=== PATIENT | male | born 1955 | race Caucasian/White ===

== ENCOUNTER → 2024-12-31 | Outpatient (CLI) | payer MEDICARE ==
--- NOTE | 2024-12-31 08:03 | US ---
EXAMINATION TYPE: US abdomen complete DATE OF EXAM: 12/31/2024 COMPARISON: NONE CLINICAL INDICATION: Male, 69 years old with history of R10.9 UNSPECIFIED ABDOMINAL PAIN; Pain x 10 d ays intermittently epigastric area. TECHNIQUE: Grayscale and color Doppler imaging of the abdomen was performed. FINDINGS: EXAM MEASUREMENTS: Liver Length: 17.0 cm Gallbladder Wall: 0.29 cm CBD: 0.63 cm, color Doppler imaging was utilized to isolate the common bile duct for measurement. Spleen: 11.0 cm Right Kidney: 11.9 x 6.5 x 5.7 cm Left Kidney: 11.7 x 5.5 x 5.9 cm PROMOTIONS INTERN NOTES: Exam is limited due to gas. Pancreas: Not well seen. *Portions seen appear heterogeneous. Liver: Contour appears lobulated. Appears coarse/heterogeneous. Measures upper limits. Gallbladder: *Echogenic material seen within: 1.4 x 0.8 x 0.8 cm. Evidence for sonographic Centeno's sign: No CBD: Appears wnl Spleen: wnl Right Kidney: wnl, No hydronephrosis, calculi or masses seen Left Kidney: wnl, No hydronephrosis, calculi or masses seen Upper IVC: wnl Abd Aorta: Proximal segment appears ectatic. Distal and iliac arteries were obscured IMPRESSION: 1. No evidence for acute process. 2. Cholelithiasis. [facility], , 12/31/2024 8:00 AM
== END | disposition home or self-care (01) ==
LOC: RADUSWWP 07:07
PROVIDERS: ATTEND Internal Medicine
DX: K80.20 Calculus of gallbladder without cholecystitis without obstruction (principal)
CPT/HCPCS: 76700

== ENCOUNTER 2025-01-02 09:47 | Inpatient (IN) | payer MEDICARE ==
--- NOTE | 2025-01-02 10:06 | ED ---
Abdominal Pain HPI - General Chief Complaint: Abdominal Pain Stated Complaint: abd pain Time Seen by Provider: 01/02/25 09:52 Source: patient, EMS, RN notes reviewed, old records reviewed Mode of arrival: EMS Limitations: no limitations - History of Present Illness Initial Comments: This is a 69 male to the ER for evaluation as patient presents today for evaluation regards to abdominal pain and chest pain. Patient has no history of primary care physicians recently set up with a primary care and going through evaluation regarding abdominal pain chest pain pain is more chest pain type pain substernal pain today. After he took his medications this morning he noticed this pain to begin. The pain is persistent here he did have an ultrasound of his gallbladder on Tuesday showing cholelithiasis no real abdominal tenderness no nausea did not eat anything this morning. No shortness of breath MD Complaint: abdominal pain, other -: hour(s) (Chest pain and substernal chest pain) Location: epigastric Radiation: epigastric Migration to: no migration Severity: moderate Severity scale (1-10): 4 Quality: aching Worsens With: nothing Associated Symptoms: nausea Treatments Prior to Arrival: other - Related Data Home Medications Medication Instructions Recorded Confirmed Pioglitazone [Actos] 45 mg PO DAILY 11/30/16 01/02/25 atenoloL [Tenormin] 50 mg PO DAILY 11/30/16 01/02/25 lisinopriL [Zestril] 10 mg PO DAILY 11/30/16 01/02/25 metFORMIN HCL [Glucophage] 1,000 mg PO BID-W/MEALS 11/30/16 01/02/25 Evolocumab [Repatha Sureclick] 140 mg SQ Q14D 01/02/25 01/02/25 Glimepiride [Amaryl] 2 mg PO BID 01/02/25 01/02/25 Tirzepatide [Mounjaro] 12.5 mg SQ KHAN 01/02/25 01/02/25 busPIRone HCL 10 mg PO BID 01/02/25 01/02/25 Allergies Allergy/AdvReac Type Severity Reaction Status Date / Time ezetimibe [From Zetia] AdvReac Rash/Hives Verified 01/07/25 06:03 Penicillins AdvReac Rash/Hives Verified 01/07/25 06:03 Ygcbqho-MDW-GhA Reductase AdvReac Rash/Hives Verified 01/07/25 06:03 Inhibitor [Qooyuwo-Rfr-Zgn Reductase Inhibitor] Sulfa (Sulfonamide AdvReac Rash/Hives Verified 01/07/25 06:03 Antibiotics) Review of Systems ROS Statement: Those systems with pertinent positive or pertinent negative responses have been documented in the HPI. ROS Other: All systems not noted in ROS Statement are negative. Past Medical History Past Medical History: Hyperlipidemia Past Surgical History: No Surgical Hx Reported Past Psychological History: No Psychological Hx Reported Smoking Status: Former smoker Past Alcohol Use History: None Reported Past Drug Use History: None Reported - Past Family History Mother Family Medical History: Cancer (Breast) Father Family Medical History: Cancer (Prostate), Myocardial Infarction (NH) General Exam General appearance: alert, in no apparent distress, anxious Head exam: Present: atraumatic, normocephalic, normal inspection Eye exam: Present: normal appearance, PERRL, EOMI. Absent: scleral icterus, conjunctival injection, periorbital swelling ENT exam: Present: normal exam, mucous membranes moist Neck exam: Present: normal inspection. Absent: tenderness, meningismus, lymphadenopathy Respiratory exam: Present: normal lung sounds bilaterally. Absent: respiratory distress, wheezes, rales, rhonchi, stridor Cardiovascular Exam: Present: regular rate, normal rhythm, normal heart sounds. Absent: systolic murmur, diastolic murmur, rubs, gallop, clicks GI/Abdominal exam: Present: soft, normal bowel sounds. Absent: distended, tenderness, guarding, rebound, rigid Extremities exam: Present: normal inspection, full ROM, normal capillary refill. Absent: tenderness, pedal edema, joint swelling, calf tenderness Back exam: Present: normal inspection Neurological exam: Present: alert, oriented X3, CN II-XII intact Psychiatric exam: Present: normal affect, normal mood Skin exam: Present: warm, dry, intact, normal color. Absent: rash Course Vital Signs 01/02/25 01/02/25 01/02/25 09:50 11:00 11:46 Temperature 97.9 F Pulse Rate 89 85 77 Respiratory 18 20 18 Rate Blood Pressure 163/114 174/118 170/110 O2 Sat by Pulse 100 99 98 Oximetry 01/02/25 01/02/25 01/02/25 12:51 14:31 16:17 Temperature Pulse Rate 87 93 80 Respiratory 18 18 18 Rate Blood Pressure 120/78 117/76 119/73 O2 Sat by Pulse 99 99 99 Oximetry 01/02/25 01/02/25 01/02/25 18:28 20:00 20:16 Temperature 97.8 F Pulse Rate 85 88 Respiratory 18 18 Rate Blood Pressure 136/79 118/80 127/78 O2 Sat by Pulse 98 97 Oximetry - Reevaluation(s) Reevaluation #1: 01/02/25 11:09 Medical records reviewed Reevaluation #2: 01/02/25 11:09 Patient symptoms improved Blood pressures improved with symptom management Reevaluation #3: 01/02/25 11:09 Patient informed of results and questions answered Reevaluation #4: Was pt. sent in by a medical professional or institution ([facility], [facility], urgent care, hospital, or intermediate...) When possible be specific @ -no Did you speak to anyone other than the patient for history (EMS, parent, family, police, friend...)? What history was obtained from this source @ -no Did you review nursing and triage notes (agree or disagree)? Why? @ -agree Are old charts reviewed (outside hosp., previous admission, EMS record, old EKG, old radiological studies, urgent care reports/EKG's, intermediate records)? Report findings @ -yes Differential Diagnosis (chest pain, altered mental status, abdominal pain women, abdominal pain men, vaginal bleeding, weakness, fever, dyspnea, syncope, headache, dizziness, GI bleed, back pain, seizure, CVA, palpatations, mental health, musculoskeletal)? @ -prior EKG interpreted by me (3pts min.). @ -yes X-rays interpreted by me (1pt min.). @ -yes negative for acute disease CT interpreted by me (1pt min.). @ -no U/S interpreted by me (1pt. min.). @ -Yes with positive cholelithiasis What testing was considered but not performed or refused? (CT, X-rays, U/S, labs)? Why? @ -none What meds were considered but not given or refused? Why? @ -none Did you discuss the management of the patient with other professionals (professionals i.e. [facility], [employer] [facility], lab, RT, psych nurse, delinquency prevention social worker, livestock agent, teacher, control officer manager, case technician)? Give summary @ -no Was smoking cessation discussed for >3mins.? @ -no Was critical care preformed (if so, how long)? @ -[id number] Were there social determinants of health that impacted care today? How? (Homelessness, low income, unemployed, alcoholism, drug addiction, transportation, low edu. Level, literacy, decrease access to med. care, half-way, rehab)? @ -none Was there de-escalation of care discussed even if they declined (Discuss DNR or withdrawal of care, Hospice)? DNR status @ -no What co-morbidities impacted this encounter? (DM, HTN, Smoking, COPD, CAD, Cancer, CVA, ARF, Chemo, Hep., AIDS, mental health diagnosis, sleep apnea, morbid obesity)? @ -none Was patient admitted / discharged? Hospital course, mention meds given and route, prescriptions, significant lab abnormalities, going to OR and other pertinent info. @ - 69 male to be admitted for chest pain observation with persistent epigastric chest pain starting this morning recent gallbladder evaluation which does show cholelithiasis here as well and abdominal colic but patient does have elevated hypertensive urgency as well as chest pain Admitted Undiagnosed new problem with uncertain prognosis? @ -no Drug Therapy requiring intensive monitoring for toxicity (Heparin, Nitro, Insulin, Cardizem)? @ -no Were any procedures done? @ -no Diagnosis/symptom? @ -Abdominal colic 2045 Acute, or Chronic, or Acute on Chronic? @ -Acute Uncomplicated (without systemic symptoms) or Complicated (systemic symptoms)? @ -Complicated Side effects of treatment? @ -no Exacerbation, Progression, or Severe Exacerbation? @ -exacerbation Poses a threat to life or bodily function? How? (Chest pain, USA, NH, pneumonia, PE, COPD, DKA, ARF, appy, cholecystitis, CVA, Diverticulitis, Homicidal, Suicidal, threat to staff... and all critical care pts) @ -yes extremes of age Reevaluation #5: Differential Abdominal Pain Men: Appendicitis, cholecystitis, diverticulosis, ischemic bowel, pancreatitis, hepatitis, UTI, gastroenteritis, AAA, incarcerated hernia, bowel obstruction, constipation, inflammatory bowel, hepatitis, peptic ulcer disease, splenic infarction, perforated viscus, testicular torsion, this is not meant to be an all-inclusive list Differential Chest Pain: Stable Angina, Unstable Angina, STEMI, NSTEMI Aortic Dissection, Pneumothorax, Musculoskeletal, Esophageal Spasm GERD, Cholecystitis, Pancreatitis, Zoster, this is not meant to be an all-inclusive list. - Consultations Consultation #1: Spoke with Dr. Hendrickson who did call about this patient as he is concerned for the patient's heart Medical Decision Making - Medical Decision Making 69 male to be admitted for chest pain observation with persistent epigastric chest pain starting this morning recent gallbladder evaluation which does show cholelithiasis here as well and abdominal colic but patient does have elevated hypertensive urgency as well as chest pain - Lab Data Result diagrams: 01/08/25 03:00 01/08/25 03:00 Lab Results 01/02/25 01/02/25 Range/Units 10:09 10:09 WBC 14.4 H (3.8-10.6) k/uL RBC 5.22 (4.30-5.90) m/uL Hgb 16.3 (13.0-17.5) gm/dL Hct 49.5 (39.0-53.0) % MCV 94.9 (80.0-100.0) fL MCH 31.3 (25.0-35.0) pg MCHC 33.0 (31.0-37.0) g/dL RDW 12.9 (11.5-15.5) % Plt Count 247 (150-450) k/uL MPV 7.8 Neutrophils % 81 % Lymphocytes % 11 % Monocytes % 5 % Eosinophils % 2 % Basophils % 1 % Neutrophils # 11.7 H (1.3-7.7) k/uL Lymphocytes # 1.5 (1.0-4.8) k/uL Monocytes # 0.7 (0-1.0) k/uL Eosinophils # 0.3 (0-0.7) k/uL Basophils # 0.1 (0-0.2) k/uL Sodium 134 L (137-145) mmol/L Potassium 4.9 (3.5-5.1) mmol/L Chloride 101 (98-107) mmol/L Carbon Dioxide 21 L (22-30) mmol/L Anion Gap 12 mmol/L BUN 21 H (9-20) mg/dL Creatinine 0.83 (0.66-1.25) mg/dL Est GFR (CKD-EPI)AfAm >90 (>60 ml/min/1.73 sqM) Est GFR (CKD-EPI)NonAf 90 (>60 ml/min/1.73 sqM) Glucose 190 H (74-99) mg/dL Calcium 9.9 (8.4-10.2) mg/dL Total Bilirubin 0.6 (0.2-1.3) mg/dL AST 26 (17-59) U/L ALT 29 (4-49) U/L Alkaline Phosphatase 72 (38-126) U/L Total Protein 7.7 (6.3-8.2) g/dL Albumin 4.5 (3.5-5.0) g/dL Amylase 72 (30-110) U/L Lipase 380 H (23-300) U/L - EKG Data -: EKG Interpreted by Me (EKG sinus 84 MN 255 QRS 92 QTc 377) Interpretation: other (Repeat EKG shows sinus 88 MN 248 QRS 100 QTc 391) - Radiology Data Radiology results: report reviewed (Ultrasound gallbladder cholelithiasis chest x-ray negative for acute disease), image reviewed Critical Care Time Critical Care Time: Yes Total Critical Care Time: 31 Disposition Clinical Impression: Abdominal colic, Chest pain, ACS (acute coronary syndrome) Disposition: ADMITTED IP TO THIS [facility] Condition: Undetermined Is patient prescribed a controlled substance at d/c from ED?: No Time of Disposition: 11:05
[2025-01-02] MEDS: SODIUM CHLORIDE 0.9% 1,000 ML IV ONE (10:13)
[2025-01-02] MEDS: ONDANSETRON 4 MG/2 ML VIAL IVP STA (10:14)
[2025-01-02] MEDS: KETOROLAC 15 MG/ML 1 ML VIAL IVP STA (10:15)
[2025-01-02] MEDS: PANTOPRAZOLE 40 MG/10 ML VIAL IVP STA (10:16)
[2025-01-02 10:29] LABS: Basophils # (A) 0.1 k/uL (0-0.2); Basophils % (A) 1 %; Eosinophils # (A) 0.3 k/uL (0-0.7); Eosinophils % (A) 2 %; HCT 49.5 % (39.0-53.0); HGB 16.3 gm/dL (13.0-17.5); Lymphocytes # (A) 1.5 k/uL (1.0-4.8); Lymphocytes % (A) 11 %; MCH 31.3 pg (25.0-35.0); MCV 94.9 fL (80.0-100.0); Mean Platelet Volume 7.8; Monocytes # (A) 0.7 k/uL (0-1.0); Monocytes % (A) 5 %; Neutrophils # (A) 11.7 k/uL (1.3-7.7); Neutrophils % (A) 81 %; Platelet Count 247 k/uL (150-450); RBC 5.22 m/uL (4.30-5.90); RDW 12.9 % (11.5-15.5); WBC 14.4 k/uL (3.8-10.6)
[2025-01-02 10:39] LABS: ALT 29 U/L (4-49); AST 26 U/L (17-59); African American GFR (CKD) >90 (>60 ml/min/1.73 sqM); Albumin 4.5 g/dL (3.5-5.0); Alkaline Phosphatase 72 U/L (38-126); Amylase 72 U/L (30-110); Anion Gap 12 mmol/L; Blood Urea Nitrogen 21 mg/dL (9-20); Calcium 9.9 mg/dL (8.4-10.2); Carbon Dioxide 21 mmol/L (22-30); Chloride 101 mmol/L (98-107); Glucose 190 mg/dL (74-99); Lipase 380 U/L (23-300); Non-African American GFR(CKD) 90 (>60 ml/min/1.73 sqM); Potassium 4.9 mmol/L (3.5-5.1); Sodium 134 mmol/L (137-145); Total Bilirubin 0.6 mg/dL (0.2-1.3); Total Protein 7.7 g/dL (6.3-8.2)
[2025-01-02] MEDS ORDERED: MORPHINE SULFATE 4 MG/ML SYRINGE IV PRN (10:59)
[2025-01-02] MEDS ORDERED: NALOXONE 0.4 MG/ML 1 ML VIAL IV PRN (10:59)
[2025-01-02] MEDS ORDERED: ONDANSETRON 4 MG/2 ML VIAL IVP PRN (10:59)
--- NOTE | 2025-01-02 11:20 | US ---
EXAMINATION TYPE: US gallbladder DATE OF EXAM: 01/02/2025 COMPARISON: 12/31/24 CLINICAL INDICATION: Male, 69 years old with history of pain; Chest pain that worsened today at 7am. No RUQ pain. *Pt had to keep sitting up during exam because of the pain TECHNIQUE: Grayscale and color Doppler imaging of the right upper quadrant was performed. FINDINGS: EXAM MEASUREMENTS: Liver Length: 15.4 cm Gallbladder Wall: 0.25 cm CBD: 0.4 cm Right Kidney: 10.5 x 4.2 x 5.7 cm DANCE TEACHER NOTES: Pancreas: wnl Liver: heterogeneous , no masses cysts or dilated ducts. Gallbladder: echoes seen near neck and body, probable sludge Evidence for sonographic Centeno's sign: No CBD: wnl Right Kidney: wnl IMPRESSION: 1. No evidence for acute abdominal process. 2. Biliary sludge 3. Hepatic steatosis. [facility], , 01/02/2025 11:17 AM
[2025-01-02] MEDS: LABETALOL 5 MG/ML VIAL MDV IVP STA (11:48)
[2025-01-02] MEDS: SODIUM CHLORIDE 0.9% 1,000 ML IV SCH (11:49)
[2025-01-02] MEDS: HYDROmorphone 1 MG/ML 1 ML SYRINGE IVP STA (11:51)
--- NOTE | 2025-01-02 12:18 | XR ---
EXAMINATION TYPE: XR chest 2V DATE OF EXAM: 01/02/2025 12:04 PM COMPARISON: None CLINICAL INDICATION: Male, 69 years old with history of cp; H TECHNIQUE: XR chest 2V Frontal and lateral views of the chest. FINDINGS: Lungs/Pleura: There is flattening of the diaphragm with increased lucency of the lungs. No evidence o f pneumothorax, pleural effusion or focal consolidation. Pulmonary vascularity: Unremarkable. Heart/mediastinum: Cardiomediastinal silhouette is unremarkable. Musculoskeletal: No acute osseous pathology. IMPRESSION: 1. No acute cardiopulmonary disease process. 2. COPD changes. [facility], , 01/02/2025 12:15 PM
[2025-01-02] MEDS ORDERED: HEPARIN SODIUM 1,000 UN/ML (10ML VL) IV PRN (13:35)
[2025-01-02] MEDS ORDERED: NITROGLYCERIN SL TABS 0.4 MG TAB SUBLINGUAL PRN (13:40)
[2025-01-02] MEDS: HEPARIN SOD,PORK IN 0.45% NACL 25,000 UNIT in 0.45% NACL 1 250ML.BAG IV SCH (14:25)
[2025-01-02] MEDS: HEPARIN SODIUM 1,000 UN/ML (10ML VL) IV ONE (14:27)
[2025-01-02] MEDS: ASPIRIN 325 MG TAB PO SCH (14:27)
[2025-01-02 16:04] LABS: INR 1.1 (<1.2); Partial Thromboplastin Time 77.1 sec (22.0-30.0); Prothrombin Time 12.3 sec (10.0-12.5)
[2025-01-02] MEDS ORDERED: HYDROmorphone 0.5 MG/0.5 ML SYRINGE IVP PRN (16:46)
[2025-01-02] MEDS: PANTOPRAZOLE 40 MG/10 ML VIAL IVP SCH (18:33)
[2025-01-02 20:35] LABS: Glucose,Whole Blood 150 mg/dL (70-110)
--- NOTE | 2025-01-02 21:23 | HP ---
HISTORY AND PHYSICAL CHIEF COMPLAINT: Chest pain and abdominal pain. HISTORY OF PRESENT ILLNESS: This is a 69-year-old gentleman with a past medical history of hyperlipidemia, being followed by Dr. Hendrickson, was recently diagnosed with gallstones. Currently, the patient is having chest pain, which was 10/10 in intensity, which is more of a pressure type of pain. The patient came to [facility] and the EKG showed some ST-T changes, and amylase was slightly elevated. The repeat EKG showed significant ST depression. Troponin is also slightly elevated. The possibility of acute fjj-[id number]-elevation myocardial infarction is considered. The patient is being admitted for further evaluation and treatment. The new ultrasound showed biliary sludge. PAST MEDICAL HISTORY: History of hyperlipidemia. Rest of the history and rest of the chart is also reviewed. HOME MEDICATIONS: Reviewed include buspirone. Rest of medications noted. ALLERGIES: Zetia. FAMILY HISTORY: History of coronary artery disease. SOCIAL HISTORY: Previous history of smoking. No history of current smoking or alcohol. REVIEW OF SYSTEMS: Fourteen-point review of systems is negative except as mentioned earlier. PHYSICAL EXAMINATION: VITAL SIGNS: Pulse is 80, blood pressure 119/70, respirations 18. HEENT: Conjunctivae normal. NECK: No JVD. CARDIOVASCULAR: S1, S2. RESPIRATIONS: Breath sounds diminished at the bases. A few scattered rhonchi. ABDOMEN: Soft, nontender. LEGS: No edema. NERVOUS SYSTEM: Nonfocal. SKIN: No ulcer, rash, bleeding. JOINTS: No active deforming arthropathy. LABORATORY DATA: WBC 14.4. Troponin noted. ASSESSMENT: 1. Chest pain, abdominal pain, possible acute [id number] elevation myocardial infarction. 2. Rule out cholelithiasis or biliary sludge. 3. Increased WBC. 4. Increased lipase minimally. 5. Hyperlipidemia history. RECOMMENDATIONS AND DISCUSSION: This is a 69-year-old gentleman presented with multiple complex medical issues. We will monitor the patient closely. Continue the current management and continue symptomatic treatment. We will continue with unstable angina protocol with heparin. Cardiology consultation. I would also get Surgical evaluation. WBC elevated. I recommend empiric antibiotics and cultures including the viral testing also. Prognosis guarded. Further recommendations to follow. See orders for further details. MMODL / IJN: [id number] /
[2025-01-02] MEDS: HYDROmorphone 1 MG/ML 1 ML SYRINGE IVP PRN (21:42)
[2025-01-02] MEDS: busPIRone HCl 10 MG TAB PO SCH (22:39)
[2025-01-02] MEDS: atenoloL 50 MG TAB PO SCH (22:39)
[2025-01-03 06:28] LABS: Glucose,Whole Blood 167 mg/dL (70-110)
[2025-01-03 06:51] LABS: Basophils # (A) 0.1 k/uL (0-0.2); Basophils % (A) 1 %; Eosinophils # (A) 0.3 k/uL (0-0.7); Eosinophils % (A) 3 %; HCT 47.8 % (39.0-53.0); HGB 15.4 gm/dL (13.0-17.5); Lymphocytes # (A) 2.3 k/uL (1.0-4.8); Lymphocytes % (A) 21 %; MCH 30.7 pg (25.0-35.0); MCHC 32.2 g/dL (31.0-37.0); MCV 95.4 fL (80.0-100.0); Mean Platelet Volume 7.7; Monocytes # (A) 0.6 k/uL (0-1.0); Monocytes % (A) 6 %; Neutrophils # (A) 7.7 k/uL (1.3-7.7); Neutrophils % (A) 69 %; Platelet Count 225 k/uL (150-450); RBC 5.01 m/uL (4.30-5.90); WBC 11.1 k/uL (3.8-10.6)
[2025-01-03 06:56] LABS: Partial Thromboplastin Time 43.4 sec (22.0-30.0); Prothrombin Time 11.3 sec (10.0-12.5)
[2025-01-03 07:31] LABS: ALT 31 U/L (4-49); AST 67 U/L (17-59); African American GFR (CKD) >90 (>60 ml/min/1.73 sqM); Alkaline Phosphatase 73 U/L (38-126); Amylase 67 U/L (30-110); Anion Gap 10 mmol/L; Blood Urea Nitrogen 21 mg/dL (9-20); Calcium 8.8 mg/dL (8.4-10.2); Carbon Dioxide 21 mmol/L (22-30); Chloride 106 mmol/L (98-107); Glucose 148 mg/dL (74-99); Lipase 396 U/L (23-300); Magnesium 1.8 mg/dL (1.6-2.3); Non-African American GFR(CKD) 86 (>60 ml/min/1.73 sqM); Phosphorus 3.7 mg/dL (2.5-4.5); Potassium 4.6 mmol/L (3.5-5.1); Sodium 137 mmol/L (137-145); Total Bilirubin 0.5 mg/dL (0.2-1.3); Total Protein 6.8 g/dL (6.3-8.2)
[2025-01-03] MEDS: INSULIN LISPRO (HumaLOG) 100 UNIT/ML 10 mL VL SQ SCH (08:23)
[2025-01-03] MEDS: lisinopriL 10 MG TAB PO SCH (08:32)
[2025-01-03] MEDS: ASPIRIN 81 MG PO SCH (08:32)
[2025-01-03] MEDS ORDERED: NITROGLYCERIN SL TABS 0.4 MG TAB SUBLINGUAL PRN (08:57)
[2025-01-03] MEDS: ASPIRIN 325 MG TAB PO STA (09:10)
[2025-01-03] MEDS: SODIUM CHLORIDE 0.9% 1,000 ML in EMPTY BAG 1 BAG IV SCH (09:26)
[2025-01-03] MEDS: ASPIRIN 81 MG PO ONE (11:05)
--- NOTE | 2025-01-03 11:09 | P.CRDCN ---
History of Present Illness History of present illness: HISTORY OF PRESENT ILLNESS: This is a 69-year-old male with a past medical history significant for hypertension, hyperlipidemia, diabetes. 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 We have been asked to see the patient in consultation for chest pain. Patient examined at the bedside. Patient presented to the hospital with a chief complaint of chest discomfort. Patient states he has been having discomfort on and off for the past 10 days. He states the discomfort is in the lower part of his chest and he describes it as a pressure type sensation that radiates down his arms into his fingertips. He reports a family history of CAD in his dad in his 60s. Patient states that he used to smoke cigars but no longer does. He denies any drug use including marijuana. Denies excessive alcohol use. DIAGNOSTICS: - EKG reveals sinus mechanism with no signs of acute ischemia. Repeat EKG reveals sinus mechanism with ST depression in anterior lateral leads - Gallbladder ultrasound, no evidence for acute process.revealed biliary sludge, hepatic steatosis - Chest xray negative for acute process. COPD changes. - Laboratory data: WBC 11.1. Hemoglobin 15.4. Platelet count 225. Sodium 137. Potassium 4.6. BUN 21. Creatinine 0.91. Lipase 396. Troponin 0.183. 4.240. - Current home cardiac medications include lisinopril 10 mg daily, Repatha 140 mg subcu every 14 days, and atenolol 50 mg daily. - No previous echocardiogram, stress test, or cardiac catheterization available in EMR for review REVIEW OF SYSTEMS: At the time of my exam: CONSTITUTIONAL: Denies fever or chills. HEENT: Denies blurred vision, vision changes, or eye pain. Denies hemoptysis CARDIOVASCULAR: Denies chest pain. Denies orthopnea. Denies PND. Denies palpitations RESPIRATORY: Denies shortness of breath. GASTROINTESTINAL: Denies abdominal pain. Denies nausea or vomiting. HEMATOLOGIC: Denies bleeding disorders. GENITOURINARY: Denies any blood in urine. SKIN: Denies pruitis. Denies rash. PHYSICAL EXAM: VITAL SIGNS: Reviewed. GENERAL: Well-developed in no acute distress. HEENT: Head is normocephalic. Pupils are equal, round. Sclerae anicteric. Mucous membranes of the mouth are moist. Neck supple. No JVD or thyromegaly LUNGS: Respirations even and unlabored. Lungs essentially clear to auscultation bilaterally. HEART: Regular rate and rhythm. S1 and S2 heard. ABDOMEN: Soft. Nondistended. Nontender. EXTREMITIES: Normal range of motion. No clubbing or cyanosis. Peripheral pulses intact. No lower extremity edema NEUROLOGIC: Awake and alert. Oriented x 3. ASSESSMENT: Non-STEMI Hypertension Hyperlipidemia with statin intolerance Diabetes Family history of CAD PLAN: Obtain 2D echo to assess cardiac structure and function Add aspirin 81 mg daily Continue IV heparin Continue Repatha. Patient with statin intolerance. Patient to undergo cardiac catheterization today with Dr. Blakely Further recommendations pending patient course Nurse practitioner note has been reviewed by physician. Signing provider agrees with the documented findings, assessment, and plan of care documented by [employer] DEVELOPER as a scribe. Past Medical History Past Medical History: Hyperlipidemia History of Any Multi-Drug Resistant Organisms: None Reported Past Surgical History: No Surgical Hx Reported Past Anesthesia/Blood Transfusion Reactions: No Reported Reaction Additional Past Anesthesia/Blood Transfusion Reaction / Comment(s): No hx of anesthesia/blood transfusions. Past Psychological History: No Psychological Hx Reported Smoking Status: Former smoker Past Alcohol Use History: None Reported Past Drug Use History: None Reported Medications and Allergies Home Medications Medication Instructions Recorded Confirmed Type Pioglitazone [Actos] 45 mg PO DAILY 11/30/16 01/02/25 History atenoloL [Tenormin] 50 mg PO DAILY 11/30/16 01/02/25 History lisinopriL [Zestril] 10 mg PO DAILY 11/30/16 01/02/25 History metFORMIN HCL [Glucophage] 1,000 mg PO BID-W/MEALS 11/30/16 01/02/25 History Evolocumab [Repatha Sureclick] 140 mg SQ Q14D 01/02/25 01/02/25 History Glimepiride [Amaryl] 2 mg PO BID 01/02/25 01/02/25 History Tirzepatide [Mounjaro] 12.5 mg SQ KHAN 01/02/25 01/02/25 History busPIRone HCL 10 mg PO BID 01/02/25 01/02/25 History Allergies Allergy/AdvReac Type Severity Reaction Status Date / Time ezetimibe [From Zetia] AdvReac Rash/Hives Verified 01/02/25 11:17 Penicillins AdvReac Rash/Hives Verified 01/02/25 11:17 [id number]-VLO-MnD Reductase AdvReac Rash/Hives Verified 01/02/25 11:17 Inhibitor [Vmnyrrb-Nyl-Cts Reductase Inhibitor] Sulfa (Sulfonamide AdvReac Rash/Hives Verified 01/02/25 11:17 Antibiotics) Physical Exam Vitals: Vital Signs Temp Pulse Pulse Resp BP BP Pulse Ox 01/03/25 04:00 97.4 F L 79 18 143/87 97 01/03/25 00:00 97.8 F 88 16 114/79 98 01/02/25 22:00 97.9 F 90 18 143/87 97 01/02/25 20:16 97.8 F 88 18 127/78 97 01/02/25 20:00 118/80 01/02/25 18:28 85 18 136/79 98 01/02/25 16:17 80 18 119/73 99 01/02/25 14:31 93 18 117/76 99 01/02/25 12:51 87 18 120/78 99 01/02/25 11:46 77 18 170/110 98 01/02/25 11:00 85 20 174/118 99 01/02/25 09:50 97.9 F 89 18 163/114 100 Intake and Output 01/02/25 01/03/25 01/03/25 22:59 06:59 14:59 Intake Total 10 Output Total 100 400 Balance -90 -400 Intake: IV 10 Invasive Line 1 10 Output: Urine 100 400 Other: Voiding Method Toilet Urinal Weight 87.3 kg Results 01/03/25 06:15 01/03/25 06:15 Cardiac Enzymes 01/02/25 01/02/25 01/02/25 Range/Units 10:09 12:06 15:09 AST 26 (17-59) U/L Troponin I 0.183 H* 4.240 H* (0.000-0.034) ng/mL 01/03/25 Range/Units 06:15 AST 67 H (17-59) U/L Troponin I (0.000-0.034) ng/mL Coagulation 01/02/25 01/02/25 01/03/25 Range/Units 15:09 20:16 06:15 PT 12.3 11.3 (10.0-12.5) sec APTT 77.1 H 43.1 H 43.4 H (22.0-30.0) sec CBC 01/02/25 01/03/25 Range/Units 10:09 06:15 WBC 14.4 H 11.1 H (3.8-10.6) k/uL RBC 5.22 5.01 (4.30-5.90) m/uL Hgb 16.3 15.4 (13.0-17.5) gm/dL Hct 49.5 47.8 (39.0-53.0) % Plt Count 247 225 (150-450) k/uL Comprehensive Metabolic Panel 01/02/25 01/03/25 Range/Units 10:09 06:15 Sodium 134 L 137 (137-145) mmol/L Potassium 4.9 4.6 (3.5-5.1) mmol/L Chloride 101 106 (98-107) mmol/L Carbon Dioxide 21 L 21 L (22-30) mmol/L BUN 21 H 21 H (9-20) mg/dL Creatinine 0.83 0.91 (0.66-1.25) mg/dL Glucose 190 H 148 H (74-99) mg/dL Calcium 9.9 8.8 (8.4-10.2) mg/dL AST 26 67 H (17-59) U/L ALT 29 31 (4-49) U/L Alkaline Phosphatase 72 73 (38-126) U/L Total Protein 7.7 6.8 (6.3-8.2) g/dL Albumin 4.5 4.0 (3.5-5.0) g/dL Current Medications Generic Name Dose Route Start Last Admin Trade Name Freq PRN Reason Stop Dose Admin Aspirin 325 mg 01/02/25 13:45 01/02/25 14:27 Aspirin 325 Mg Tab PO 325 mg DAILY MARLYS Administration Atenolol 50 mg 01/02/25 22:30 01/02/25 22:39 Atenolol 50 Mg Tab PO 50 mg HS MARLYS Administration Buspirone HCl 10 mg 01/02/25 22:30 01/02/25 22:39 Buspirone Hcl 10 Mg Tab PO 10 mg BID MARLYS Administration Heparin Sodium (Porcine) 0 unit 01/02/25 13:35 Heparin Sodium 1,000 Un/Ml (10ml Vl) IV PER PROTOCOL PRN Low PTT Protocol Hydromorphone HCl 1 mg 01/02/25 11:40 01/02/25 21:42 Hydromorphone 1 Mg/Ml 1 Ml Syringe IVP 1 mg Q4HR PRN Administration Severe Pain (Scale 7 to 10) Hydromorphone HCl 0.5 mg 01/02/25 16:46 Hydromorphone 0.5 Mg/0.5 Ml Syringe IVP Q6HR PRN Moderate Pain (Scale 4 to 6) Sodium Chloride 1,000 mls @ 75 mls/hr 01/02/25 11:00 01/03/25 00:21 Saline 0.9% IV Not Given .[id number] MARLYS Heparin Sodium/Sodium Chloride 250 mls @ 10 mls/hr 01/02/25 13:45 01/02/25 14:25 25,000 unit/ Sodium Chloride IV 11.482 units/kg/hr .Q24H MARLYS 10 mls/hr Administration Protocol 11.482 UNITS/KG/HR Ceftriaxone Sodium 1 gm/ 50 mls @ 100 mls/hr 01/02/25 17:00 01/02/25 18:30 Sodium Chloride IVPB 100 mls/hr Q24HR MARLYS Administration Protocol Insulin Human Lispro 0 unit 01/03/25 07:30 Insulin Lispro (Humalog) 100 Unit/Ml 10 Ml Vl SQ ACHS [facility] Protocol Lisinopril 10 mg 01/03/25 09:00 Lisinopril 10 Mg Tab PO DAILY MARLYS Naloxone HCl 0.2 mg 01/02/25 10:59 Naloxone 0.4 Mg/Ml 1 Ml Vial IV Q2M PRN Opioid Reversal Nitroglycerin 0.4 mg 01/02/25 13:40 Nitroglycerin Sl Tabs 0.4 Mg Tab SUBLINGUAL Q5M PRN Chest Pain Ondansetron HCl 4 mg 01/02/25 10:59 Ondansetron 4 Mg/2 Ml Vial IVP Q8HR PRN Nausea And Vomiting Pantoprazole Sodium 40 mg 01/02/25 17:00 01/02/25 21:41 Pantoprazole 40 Mg/10 Ml Vial IVP 40 mg BID MARLYS Administration Intake and Output 01/02/25 01/03/25 01/03/25 22:59 06:59 14:59 Intake Total 10 Output Total 100 400 Balance -90 -400 Intake: IV 10 Invasive Line 1 10 Output: Urine 100 400 Other: Voiding Method Toilet Urinal Weight 87.3 kg 01/03/25 06:15 01/03/25 06:15
[2025-01-03] MEDS: MIDAZOLAM 2 MG/2 ML VIAL IVP ONE (11:26)
[2025-01-03] MEDS: LIDOCAINE 1% INJ 10MG/ML (20 ML MDV) SQ ONE (11:26)
[2025-01-03] MEDS: fentaNYL (PF) 50 MCG/1 ML VIAL IVP ONE (11:26)
[2025-01-03] MEDS: VERAPAMIL SYRINGE (5 MG/10 ML) INTRAARTER ONE (11:27)
[2025-01-03] MEDS: SODIUM CHLORIDE 0.9% 1,000 ML IV ONE (11:36)
[2025-01-03] MEDS: HEPARIN SODIUM,PORCINE 10,000 UNIT in SODIUM CHLORIDE 0.9% 1,000 ML IRRIGATION PRN (11:36)
[2025-01-03] MEDS: HEPARIN SODIUM 1,000 UN/ML (10ML VL) IVP ONE (11:37)
[2025-01-03] MEDS: HEPARIN SODIUM,PORCINE (1 ML) 2,500 UNIT in SODIUM CHLORIDE 0.9% 250 ML IRRIGATION PRN (11:37)
[2025-01-03] MEDS: IOPAMIDOL-370 100ML BTL INJ ONE (11:42)
--- NOTE | 2025-01-03 12:01 | P.CARDCATH ---
Date of Procedure: 01/03/25 Description of Procedure: DIAGNOSTIC CORONARY ANGIOGRAPHY and LEFT HEART CATH REPORT PROCEDURES PERFORMED: Left heart catheterization Selective coronary angiography Moderate conscious sedation 17 mins Right radial access INDICATION: NSTEMI BRIEF HPI: 69-year-old with past medical history of dyslipidemia, on Repatha statin intolerant, history of Type II DM for last 10 years, obesity, cigar smoking. He presented to the hospital with atypical substernal chest pressure- like symptoms. On admission he had dynamic EKG changes with diffuse ST depressions in inferolateral leads with T wave inversions and evidence of troponin elevation. For this he was taken to the [facility]. CONSENT: I have explained the procedural steps of above-mentioned procedures in layman's terms to the patient. I discussed the risks (including but not limited to stroke, emergent vascular or cardiac surgery or ), benefits and alternative therapies for the above-mentioned procedure. I discussed the risks of sedation/analgesia and blood product administration (if indicated). The patient has indicated understanding and acceptance of these risks. Conscious Sedation: Patient's ECG, heart rate, blood pressure, pulse oximetry were monitored throughout the duration of procedure under my direct supervision. 1 mg Versed and 50 mcg Fentanyl were used for induction of moderate conscious sedation. Total duration of moderate concious sedation 17 minutes. PROCEDURAL DETAILS: Patient was prepped and draped in sterile fashion. 1% lidocaine was infiltrated over the right radial artery. Right radial access was obtained via modified seldinger technique.. Medications: 5mg of verapamil was administed in the radial sheet. 5000 Units of Heparin was administed once the catheter reached the aortic root Wires and Catheter used: J wire was advanced under fluroscopy to get to aortic root. 5 tuvaluan JR 4 diagnostic catheter was utilized obtain left ventricular pressure and pressure gradint across aortic valve. 5 tuvaluan JR 4 diagnostic catheter was used to selectively engage the right coronary ostium. 5 tuvaluan JL 3.5 diagnostic catheter was utilized to selectively engage the left coronary ostium. Angiographic images were reviewed in detail. Catheter and wire were removed. Radial sheet was flushed. The right radial sheath was removed and a TR band was placed. Patent hemostasis was achieved. The patient tolerated the procedure well. Patient was transported back to the post catheterization holding area in stable condition. TECHNICAL DETAILS Total radiation: 201 mGy Total fluro time: 2.7 minutes Total contrast used: Isovue 50 mL Complications: [none] Estimated Blood loss: less than 15 ml HEMODYNAMICS: Aortic Pressure: 125/72 mmHg. LV pressure: 125/8 mmHg. LVEDP 12 mmHg. There was no significant gradient across the aortic valve. SELECTIVE CORONARY ARTERIOGRAPHY: LEFT MAIN: The left main is short and large caliber vessel. It bifurcates into the LAD and circumflex. Left main appears angiographically normal. LEFT ANTERIOR DESCENDING CORONARY ARTERY: Proximal LAD has 20 to 30% diffuse disease and is otherwise patent. It gives rise to a small diagonal 1 branch which is angiographically patent. Mid LAD gives rise to a medium size diagonal 2 branch which appears graphically patent. After giving second diagonal mid LAD has 90% disease just before giving the septal branch. Mid LAD also gives rise to a diagonal 3 branch is of small caliber vessel and has 80% ostial disease. After giving diagonal 3 branch, mid LAD has 30% disease. Distal LAD appears angiographically.. LEFT CIRCUMFLEX CORONARY ARTERY: It is nondominant vessel. Ostial LCx has 90% disease. Proximal LCx has mild luminal irregularities and is otherwise patent. Mid LCx gives rise to a medium caliber OM 1 branch which appears graphically patent. Mid LCx gives rise to a very small AV groove branch which has moderate diffuse disease. Mid LCx also gives rise to a 2.5 mm caliber OM 2 branch which has 90% disease in mid segment. RIGHT CORONARY ARTERY: Dominant vessel. Proximal RCA has 90% stenosis. Mid and distal RCA appears angiographically patent. Distally bifurcates into PDA and PL branches which appears angiographically patent. IMPRESSION: 1. 90% proximal RCA stenosis 2. 90% mid LAD stenosis 3. 90% ostial LCx stenosis 4. 90% mid OM 2 stenosis 5. Normal LVEDP PLAN: CT surgery consult Further recommendations to follow Performing Physician Deangelo Blakely MD, FACC, RPVI Thank you for allowing [facility] to participate in this patient's care. Feel free to reach out in case of any followup questions.
[2025-01-03 12:03] LABS: Glucose,Whole Blood 155 mg/dL (70-110)
[2025-01-03] MEDS ORDERED: RX INFO: IV CONTRAST WAS GIVEN 1 EACH MISC MISCELLANE PRN (12:05)
[2025-01-03] MEDS: METOPROLOL SUCCINATE (ER) 50 MG TAB.ER.24H PO SCH (12:14)
[2025-01-03] MEDS: SODIUM CHLORIDE 0.9% 1,000 ML IV SCH (12:14)
--- NOTE | 2025-01-03 12:21 | P.GSCN ---
History of Present Illness Consult date: 01/03/25 History of present illness: CHIEF COMPLAINT: Chest pain and abdominal pain HISTORY OF PRESENT ILLNESS: This is a 69-year-old male who presented to the hospital with complaints of central chest pain and epigastric pain intermittently over the last 3 weeks. Patient was found to have elevated troponins and diagnosed with a non-ST elevated DC. He is on IV heparin and s cheduled for heart catheterization today. Gallbladder ultrasound that was done Tuesday outpatient per patient had reported gallstones. And gallbladder ultrasound during this admission is reporting biliary sludge. Patient reports that he has increasing pain in the abdomen after eating breakfast daily. He denies any nausea or vomiting. Denies any fever chills or sweats. Denies any prior abdominal surgeries. He reports a decreased appetite with an 8 pound weight loss. Past medical history does include a hiatal hernia diagnosed as a child, diabetes mellitus and hyperlipidemia. Patient used to smoke cigars, he quit 12 days ago. PAST MEDICAL HISTORY: Hyperlipidemia, diabetes mellitus, hiatal hernia PAST SURGICAL HISTORY: See below MEDICATIONS: See below ALLERGIES: See below SOCIAL HISTORY: No illicit drug use. REVIEW OF SYSTEMS: CONSTITUTIONAL: Denies fever or chills. HEENT: Denies blurred vision, vision changes, or eye pain. Denies hemoptysis CARDIOVASCULAR: Denies chest pain or pressure. RESPIRATORY: No shortness of breath. GASTROINTESTINAL: See HPI for pertinent findings HEMATOLOGIC: Denies bleeding disorders. GENITOURINARY: Denies any blood in urine or increased urinary frequency. SKIN: Denies pruitis. Denies rash. PHYSICAL EXAM: VITAL SIGNS: Reviewed GENERAL: Well-developed in no acute distress. HEENT: No sclera icterus. Extraocular movements grossly intact. Moist buccal mucosa. Head is atraumatic, normocephalic. No nasal drainage. CHEST: tenderness with palpation to lower center chest ABDOMEN: Soft. Nondistended. Tenderness palpation right upper quadrant. No rebound or guarding noted. NEUROLOGIC: Alert and oriented. Cranial nerves II through XII grossly intact. LABORATORY DATA: WBC 14.4-11.1 Hgb 15.4 platelets 225 Sodium 137 potassium is 4.6 creatinine 0.91 A1c 7.6 Total bilirubin 0.5 AST 67 ALT 31 alk phos 73 Elevated troponins Lipase 396 IMAGING: Gallbladder ultrasound no evidence of acute abdominal process. Biliary sludge. Hepatic steatosis. ASSESSMENT: 1. Right upper quadrant abdominal pain with biliary sludge noted on gallbladder ultrasound. Possible chronic cholecystitis 2. Non-ST elevated DC. Chest pain with elevated troponins PLAN: -Patient scheduled for heart catheterization today with cardiac service -Recommend outpatient follow-up for possible cholecystectomy -No surgical intervention planned at this time Physician Small Piece Cutter note has been reviewed by physician. Signing provider agrees with the documented findings, assessment, and plan of care. Past Medical History Past Medical History: Hyperlipidemia History of Any Multi-Drug Resistant Organisms: None Reported Past Surgical History: No Surgical Hx Reported Past Anesthesia/Blood Transfusion Reactions: No Reported Reaction Additional Past Anesthesia/Blood Transfusion Reaction / Comm: No hx of anes thesia/blood transfusions. Past Psychological History: No Psychological Hx Reported Smoking Status: Former smoker Past Alcohol Use History: None Reported Past Drug Use History: None Reported Medications and Allergies Home Medications Medication Instructions Recorded Confirmed Type Pioglitazone [Actos] 45 mg PO DAILY 11/30/16 01/02/25 History atenoloL [Tenormin] 50 mg PO DAILY 11/30/16 01/02/25 History lisinopriL [Zestril] 10 mg PO DAILY 11/30/16 01/02/25 History metFORMIN HCL [Glucophage] 1,000 mg PO BID-W/MEALS 11/30/16 01/02/25 History Evolocumab [Repatha Sureclick] 140 mg SQ Q14D 01/02/25 01/02/25 History Glimepiride [Amaryl] 2 mg PO BID 01/02/25 01/02/25 History Tirzepatide [Mounjaro] 12.5 mg SQ KHAN 01/02/25 01/02/25 History busPIRone HCL 10 mg PO BID 01/02/25 01/02/25 History Allergies Allergy/AdvReac Type Severity Reaction Status Date / Time ezetimibe [From Zetia] AdvReac Rash/Hives Verified 01/02/25 11:17 Penicillins AdvReac Rash/Hives Verified 01/02/25 11:17 Qdnbxjl-WBS-VoM Reductase AdvReac Rash/Hives Verified 01/02/25 11:17 Inhibitor [Dnwxrkk-Yoy-Waf Reductase Inhibitor] Sulfa (Sulfonamide AdvReac Rash/Hives Verified 01/02/25 11:17 Antibiotics) Surgical - Exam Vital Signs Temp Pulse Resp BP Pulse Ox 97.9 F 89 18 163/114 100 01/02/25 09:50 01/02/25 09:50 01/02/25 09:50 01/02/25 09:50 01/02/25 09:50 Results - Labs 01/03/25 06:15 01/03/25 06:15 Abnormal Lab Results - Last 24 Hours (Table) 01/02/25 01/02/25 01/02/25 Range/Units 12:06 15:09 15:09 WBC (3.8-10.6) k/uL APTT 77.1 H (22.0-30.0) sec Carbon Dioxide (22-30) mmol/L BUN (9-20) mg/dL Glucose (74-99) mg/dL POC Glucose (mg/dL) (70-110) mg/dL Hemoglobin A1c (<=6.0) % AST (17-59) U/L Troponin I 0.183 H* 4.240 H* (0.000-0.034) ng/mL Lipase (23-300) U/L 01/02/25 01/02/25 01/03/25 Range/Units 20:16 20:34 06:15 WBC (3.8-10.6) k/uL APTT 43.1 H (22.0-30.0) sec Carbon Dioxide (22-30) mmol/L BUN (9-20) mg/dL Glucose (74-99) mg/dL POC Glucose (mg/dL) 150 H (70-110) mg/dL Hemoglobin A1c 7.6 H (<=6.0) % AST (17-59) U/L Troponin I (0.000-0.034) ng/mL Lipase (23-300) U/L 01/03/25 01/03/25 01/03/25 Range/Units 06:15 06:15 06:15 WBC 11.1 H (3.8-10.6) k/uL APTT 43.4 H (22.0-30.0) sec Carbon Dioxide 21 L (22-30) mmol/L BUN 21 H (9-20) mg/dL Glucose 148 H (74-99) mg/dL POC Glucose (mg/dL) (70-110) mg/dL Hemoglobin A1c (<=6.0) % AST 67 H (17-59) U/L Troponin I (0.000-0.034) ng/mL Lipase 396 H (23-300) U/L 01/03/25 Range/Units 06:26 WBC (3.8-10.6) k/uL APTT (22.0-30.0) sec Carbon Dioxide (22-30) mmol/L BUN (9-20) mg/dL Glucose (74-99) mg/dL POC Glucose (mg/dL) 167 H (70-110) mg/dL Hemoglobin A1c (<=6.0) % AST (17-59) U/L Troponin I (0.000-0.034) ng/mL Lipase (23-300) U/L Diabetes panel 01/03/25 01/03/25 Range/Units 06:15 06:15 Sodium 137 (137-145) mmol/L Potassium 4.6 (3.5-5.1) mmol/L Chloride 106 (98-107) mmol/L Carbon Dioxide 21 L (22-30) mmol/L BUN 21 H (9-20) mg/dL Creatinine 0.91 (0.66-1.25) mg/dL Glucose 148 H (74-99) mg/dL Hemoglobin A1c 7.6 H (<=6.0) % Calcium 8.8 (8.4-10.2) mg/dL AST 67 H (17-59) U/L ALT 31 (4-49) U/L Alkaline Phosphatase 73 (38-126) U/L Total Protein 6.8 (6.3-8.2) g/dL Albumin 4.0 (3.5-5.0) g/dL Calcium panel 01/03/25 Range/Units 06:15 Calcium 8.8 (8.4-10.2) mg/dL Phosphorus 3.7 (2.5-4.5) mg/dL Albumin 4.0 (3.5-5.0) g/dL Pituitary panel 01/03/25 Range/Units 06:15 Sodium 137 (137-145) mmol/L Potassium 4.6 (3.5-5.1) mmol/L Chloride 106 (98-107) mmol/L Carbon Dioxide 21 L (22-30) mmol/L BUN 21 H (9-20) mg/dL Creatinine 0.91 (0.66-1.25) mg/dL Glucose 148 H (74-99) mg/dL Calcium 8.8 (8.4-10.2) mg/dL Adrenal panel 01/03/25 Range/Units 06:15 Sodium 137 (137-145) mmol/L Potassium 4.6 (3.5-5.1) mmol/L Chloride 106 (98-107) mmol/L Carbon Dioxide 21 L (22-30) mmol/L BUN 21 H (9-20) mg/dL Creatinine 0.91 (0.66-1.25) mg/dL Glucose 148 H (74-99) mg/dL Calcium 8.8 (8.4-10.2) mg/dL Total Bilirubin 0.5 (0.2-1.3) mg/dL AST 67 H (17-59) U/L ALT 31 (4-49) U/L Alkaline Phosphatase 73 (38-126) U/L Total Protein 6.8 (6.3-8.2) g/dL Albumin 4.0 (3.5-5.0) g/dL
[2025-01-03 12:29] LABS: NT-Pro-B-Type Natriuretic Pept 525 pg/mL
[2025-01-03 16:34] LABS: Glucose,Whole Blood 204 mg/dL (70-110)
[2025-01-03 16:37] LABS: Appearance,Urine Clear (Clear); Bilirubin,Urine Negative (Negative); Blood,Urine Negative (Negative); Color,Urine Colorless; Glucose,Urine (UA) 3+ (Negative); Ketones,Urine Negative (Negative); Leukocyte Esterase,Urine Negative (Negative); Nitrite,Urine Negative (Negative); Protein,Urine Negative (Negative); Specific Gravity,Urine 1.017 (1.001-1.035); Urobilinogen,Urine <2.0 mg/dL (<2.0)
--- NOTE | 2025-01-03 16:57 | P.GSCN ---
History of Present Illness Consult date: 01/03/25 Reason for Consult: Multivessel coronary artery disease, non-ST elevated myocardial infarction this admission Requesting physician: Deangelo Balkely History of present illness: This is a 69-year-old gentleman who follows on an outpatient basis for his primary care with Dr. Naida Hendrickson. He has a past medical history significant for hypertension, hyperlipidemia with statin anaphylactic allergy, diabetes mellitus type 2 with a recent hemoglobin A1c of 7.6%, cholecystitis, chronic ongoing tobacco dependence smoking 2 to 3 cigars/day, and family history of early onset coronary artery disease. The patient presented to the emergency department here at [facility] yesterday January 02, 2025 via EMS with complaints of " severe epigastric pain", and chest pain with pain radiating down both of his upper extremities. He denies any recent fever, chills, nausea, vomiting, diarrhea, constipation, shortness of breath, hemoptysis, hematemesis, headache, palpitations, presyncope or syncope. He does report a recent history of being worked up for cholecystitis. A twelve-lead EKG was completed in the emergency department which showed sinus rhythm with a first-degree AV block, heart rate [address] depression in his anterior lateral leads. Initial laboratory results showed a WBC count of 14.4, hemoglobin 16.3, hematocrit 49.5, platelets 247, sodium 134, potassium 4.9, chloride 101, CO2 21, BUN 21, creatinine 0.83, glucose 190, calcium 9.9, AST 26, ALT 29, amylase 72, lipase 380, and elevated serial troponins as high as 4.240. An ultrasound of his gallbladder was completed which showed no evidence for acute abdominal process, biliary sludge, and hepatic steatosis. For further evaluation a chest x-ray was completed which showed no acute cardiopulmonary process, and COPD changes. Subsequently, due to the patient's elevated troponins and presenting symptoms a cardiology will consult was initiated and the patient was recommended to undergo a cardiac catheterization which was completed today by Dr. Blakely. The cardiac catheterization revealed a 90% stenosis to his proximal right coronary artery, a 90% stenosis to his mid left anterior descending coronary artery, a 90% stenosis to his ostial circumflex coronary artery, and a 90% stenosis to his mid obtuse marginal 2 coronary artery. Due to the findings on the cardiac catheterization, the patient elevated troponins and his presenting symptoms a consult was placed to cardiothoracic surgery for further evaluation and treatment recommendations including myocardial revascularization surgery. Review of Systems A review of systems was completed and was negative except as mentioned in the HPI. Past Medical History Past Medical History: Diabetes Mellitus, Hyperlipidemia, Hypertension Additional Past Medical History / Comment(s): Cholecystitis History of Any Multi-Drug Resistant Organisms: None Reported Past Surgical History: No Surgical Hx Reported Past Anesthesia/Blood Transfusion Reactions: No Reported Reaction Additional Past Anesthesia/Blood Transfusion Reaction / Comm: No hx of anesthesia/blood transfusions. Past Psychological History: No Psychological Hx Reported Smoking Status: Current every day smoker (Smokes 2 to 3 cigars daily) Past Alcohol Use History: None Reported Past Drug Use History: None Reported - Past Family History Mother Family Medical History: Cancer (Breast) Father Family Medical History: Cancer (Prostate), Myocardial Infarction (NV) Medications and Allergies Home Medications Medication Instructions Recorded Confirmed Type Pioglitazone [Actos] 45 mg PO DAILY 11/30/16 01/02/25 History atenoloL [Tenormin] 50 mg PO DAILY 11/30/16 01/02/25 History lisinopriL [Zestril] 10 mg PO DAILY 11/30/16 01/02/25 History metFORMIN HCL [Glucophage] 1,000 mg PO BID-W/MEALS 11/30/16 01/02/25 History Evolocumab [Repatha Sureclick] 140 mg SQ Q14D 01/02/25 01/02/25 History Glimepiride [Amaryl] 2 mg PO BID 01/02/25 01/02/25 History Tirzepatide [Mounjaro] 12.5 mg SQ KHAN 01/02/25 01/02/25 History busPIRone HCL 10 mg PO BID 01/02/25 01/02/25 History Allergies Allergy/AdvReac Type Severity Reaction Status Date / Time ezetimibe [From Zetia] AdvReac Rash/Hives Verified 01/02/25 11:17 Penicillins AdvReac Rash/Hives Verified 01/02/25 11:17 Dcgzxic-ETJ-DbC Reductase AdvReac Rash/Hives Verified 01/02/25 11:17 Inhibitor [Knzzenx-Utv-Vmk Reductase Inhibitor] Sulfa (Sulfonamide AdvReac Rash/Hives Verified 01/02/25 11:17 Antibiotics) Surgical - Exam Vital Signs Temp Pulse Resp BP Pulse Ox 97.9 F 89 18 163/114 100 01/02/25 09:50 01/02/25 09:50 01/02/25 09:50 01/02/25 09:50 01/02/25 09:50 - General well developed, well nourished, no distress, no pain, obese - Eyes PERRL, normal ocular movement, no pale, no icteric - ENT normal pinna, normal nares, normal mucosa, no hearing loss, no congestion - Neck Neck is supple, no lymphadenopathy. no masses, no bruits, trachea midline, no venous distension - Respiratory Lung sounds essentially clear throughout. No wheezes, rhonchi or crackles. Respirations are symmetrical and nonlabored. - Cardiovascular Regular rhythm and rate. S1 and S2 present, negative for S3, gallop or murmur. - Abdomen Abdomen is soft, nontender and nondistended. Active bowel sounds present all 4 abdominal quadrants. No guarding rigidity. No organomegaly appreciated. - Genitourinary Deferred - Rectum Deferred - Integumentary Skin is warm and dry. No clubbing or cyanosis is present. no rash, no growths, no abnormal pigmentation - Neurologic No focal deficits. - Musculoskeletal Moves all 4 extremities with equal strength bilateral. - Psychiatric oriented to time, oriented to person, oriented to place, speech is normal, memory intact Results - Labs 01/03/25 06:15 01/03/25 06:15 Abnormal Lab Results - Last 24 Hours (Table) 01/02/25 01/02/25 01/02/25 Range/Units 15:09 20:16 20:34 WBC (3.8-10.6) k/uL APTT 43.1 H (22.0-30.0) sec Carbon Dioxide (22-30) mmol/L BUN (9-20) mg/dL Glucose (74-99) mg/dL POC Glucose (mg/dL) 150 H (70-110) mg/dL Hemoglobin A1c (<=6.0) % AST (17-59) U/L Troponin I 4.240 H* (0.000-0.034) ng/mL Lipase (23-300) U/L 01/03/25 01/03/25 01/03/25 Range/Units 06:15 06:15 06:15 WBC (3.8-10.6) k/uL APTT 43.4 H (22.0-30.0) sec Carbon Dioxide 21 L (22-30) mmol/L BUN 21 H (9-20) mg/dL Glucose 148 H (74-99) mg/dL POC Glucose (mg/dL) (70-110) mg/dL Hemoglobin A1c 7.6 H (<=6.0) % AST 67 H (17-59) U/L Troponin I (0.000-0.034) ng/mL Lipase 396 H (23-300) U/L 01/03/25 01/03/25 01/03/25 Range/Units 06:15 06:26 12:00 WBC 11.1 H (3.8-10.6) k/uL APTT (22.0-30.0) sec Carbon Dioxide (22-30) mmol/L BUN (9-20) mg/dL Glucose (74-99) mg/dL POC Glucose (mg/dL) 167 H 155 H (70-110) mg/dL Hemoglobin A1c (<=6.0) % AST (17-59) U/L Troponin I (0.000-0.034) ng/mL Lipase (23-300) U/L Diabetes panel 01/03/25 01/03/25 Range/Units 06:15 06:15 Sodium 137 (137-145) mmol/L Potassium 4.6 (3.5-5.1) mmol/L Chloride 106 (98-107) mmol/L Carbon Dioxide 21 L (22-30) mmol/L BUN 21 H (9-20) mg/dL Creatinine 0.91 (0.66-1.25) mg/dL Glucose 148 H (74-99) mg/dL Hemoglobin A1c 7.6 H (<=6.0) % Calcium 8.8 (8.4-10.2) mg/dL AST 67 H (17-59) U/L ALT 31 (4-49) U/L Alkaline Phosphatase 73 (38-126) U/L Total Protein 6.8 (6.3-8.2) g/dL Albumin 4.0 (3.5-5.0) g/dL Thyroid panel 01/03/25 Range/Units 06:15 TSH 2.780 (0.465-4.680) mIU/L Calcium panel 01/03/25 Range/Units 06:15 Calcium 8.8 (8.4-10.2) mg/dL Phosphorus 3.7 (2.5-4.5) mg/dL Albumin 4.0 (3.5-5.0) g/dL Pituitary panel 01/03/25 01/03/25 Range/Units 06:15 06:15 Sodium 137 (137-145) mmol/L Potassium 4.6 (3.5-5.1) mmol/L Chloride 106 (98-107) mmol/L Carbon Dioxide 21 L (22-30) mmol/L BUN 21 H (9-20) mg/dL Creatinine 0.91 (0.66-1.25) mg/dL Glucose 148 H (74-99) mg/dL Calcium 8.8 (8.4-10.2) mg/dL TSH 2.780 (0.465-4.680) mIU/L Adrenal panel 01/03/25 Range/Units 06:15 Sodium 137 (137-145) mmol/L Potassium 4.6 (3.5-5.1) mmol/L Chloride 106 (98-107) mmol/L Carbon Dioxide 21 L (22-30) mmol/L BUN 21 H (9-20) mg/dL Creatinine 0.91 (0.66-1.25) mg/dL Glucose 148 H (74-99) mg/dL Calcium 8.8 (8.4-10.2) mg/dL Total Bilirubin 0.5 (0.2-1.3) mg/dL AST 67 H (17-59) U/L ALT 31 (4-49) U/L Alkaline Phosphatase 73 (38-126) U/L Total Protein 6.8 (6.3-8.2) g/dL Albumin 4.0 (3.5-5.0) g/dL - Imaging Chest x-ray: report reviewed, image reviewed EKG: image reviewed Additional studies: Cardiac catheterization results reviewed. Assessment and Plan Assessment: Multivessel coronary artery disease Non-ST elevated myocardial infarction this admission Hypertension Hyperlipidemia with anaphylactic allergy to statins, on Repatha as an outpatient Diabetes mellitus type 2 with a hemoglobin A1c of 7.6% Family history of early onset coronary artery disease Chronic ongoing tobacco dependence, smokes 2 to 3 cigars/day Cholecystitis Plan: The patient was seen and examined at his bedside on the third floor cardiac stepdown unit with his , and 2 daughters present. His chart and diagnostics were reviewed. His case was discussed with Dr. Elliott Hawk from cardiothoracic surgery. Dr. Hawk will review the patient's cardiac catheterization films april piedad 01/04/2025 and discussed treatment options. The usual course of myocardial revascularization surgery was discussed with the patient and his family members present at his bedside. Preoperative teaching and preoperative testing has been initiated. An Jose's test was completed to his left arm with return of circulation in less than 5 seconds, positive Jose's test. A clinical frailty score was calculated which equals 2. A 5 m walk test will can be completed once the patient is able to ambulate. Once his preoperative testing has been completed an STS risk or will be calculated and discussed with the patient. The importance of risk modification including smoking cessation has been discussed with the patient. Upon discharge she will be given the number to [id number]. Continue to optimize medical management with aspirin, and beta- valeriy. No statin has been ordered at this time as the patient has an anaphylactic allergy. Medical management of other comorbidities per primary care and cardiology service. More recommendations to follow based on patient's clinical course, once his preoperative testing has been completed and results obtained and once Dr. Hawk has evaluated the patient. Thank you Dr. Blakely for this consult and we look forward to working with you in the care of this patient. I have personally seen and examined the patient, performed the documentation and the assessment and plan as written. Number of minutes spent on the visit: 30. GIOVANNI Mata Time with Patient: Greater than 30
--- NOTE | 2025-01-03 17:02 | CA ---
Transthoracic Echo Report Name: Villa Lemos Age: 69 Gender: M : 1955 Exam Date: 01/03/2025 12:22 Exam Location: [facility] Ht (in): 68 Wt (lb): 192 Ordering Physician: Manju Dempsey Attending/Referring Phys: [id number], [employer] Business Instructor Isaura Mcarthur RDCS Procedure CPT: Indications: NSTEMI, LV Function Cardiac Hx: Technical Quality: Good Contrast 1: Definity Total Dose (mL): 2 Contrast 2: Total Dose (mL): MEASUREMENTS (Male / Female) Normal Values 2D ECHO LV Diastolic Diameter PLAX 4.6 cm 4.2 - 5.9 / 3.9 - 5.3 cm LV Systolic Diameter PLAX 3.1 cm IVS Diastolic Thickness 1.2 cm 0.6 - 1.0 / 0.6 - 0.9 cm LVPW Diastolic Thickness 1.2 cm 0.6 - 1.0 / 0.6 - 0.9 cm LV Relative Wall Thickness 0.5 RV Internal Dim ED PLAX 3.3 cm LA Systolic Diameter LX 3.3 cm 3.0 - 4.0 / 2.7 - 3.8 cm LV Diastolic Volume MOD BP 73.5 cm??? 67 - 155 / 56 - 104 cm??? LV Systolic Volume MOD BP 30.9 cm??? 22 - 58 / 19 - 49 cm??? LV Ejection Fraction MOD BP 58.0 % >= 55 % LV Cardiac Index MOD BP 1568.4 cm???/min???m??? LV Diastolic Volume MOD 4C 69.0 cm??? LV Systolic Volume MOD 4C 31.2 cm??? LV Ejection Fraction MOD 4C 54.8 % LV Cardiac Index MOD 4C 1391.9 cm???/min???m??? LV Diastolic Length 4C 9.0 cm LV Systolic Length 4C 7.8 cm LV Diastolic Volume MOD 2C 67.2 cm??? LV Systolic Volume MOD 2C 25.5 cm??? LV Ejection Fraction MOD 2C 62.1 % LV Cardiac Index MOD 2C 1533.9 cm???/min???m??? LV Diastolic Length 2C 8.2 cm LV Systolic Length 2C 6.6 cm LA Volume 58.0 cm??? 18 - 58 / 22 - 52 cm??? LA Volume Index 28.1 cm???/m??? 16 - 28 cm???/m??? M-MODE Aortic Root Diameter MM 3.5 cm DOPPLER AV Peak Velocity 160.0 cm/s AV Peak Gradient 10.2 mmHg AV Mean Velocity 120.6 cm/s AV Mean Gradient 6.2 mmHg AV Velocity Time Integral 36.7 cm LVOT Peak Velocity 94.8 cm/s LVOT Peak Gradient 3.6 mmHg LVOT Velocity Time Integral 18.3 cm MV Area PHT 3.5 cm??? Mitral E Point Velocity 79.8 cm/s Mitral A Point Velocity 91.9 cm/s Mitral E to A Ratio 0.9 MV Deceleration Time 216.0 ms TR Peak Velocity 225.0 cm/s TR Peak Gradient 20.3 mmHg Right Ventricular Systolic Press 25.3 mmHg FINDINGS Left Ventricle Left ventricular ejection fraction is estimated at 55-60 %. Left ventricular cavity size normal. Mildly increased septal wall thickness. Right Ventricle Mild right ventricular dilatation. Right ventricular systolic pressure within normal limits. Right Atrium Normal right atrial size. No right atrial thrombus or mass seen. Left Atrium Normal left atrial size. Left atrial size at the upper limits of normal. Mitral Valve Structurally normal mitral valve. Trace mitral regurgitation. Aortic Valve Trileaflet aortic valve. No aortic valve stenosis or regurgitation. Tricuspid Valve Structurally normal tricuspid valve. Mild tricuspid regurgitation. Pulmonic Valve Structurally normal pulmonic valve. No pulmonic regurgitation. Pericardium No pericardial effusion. Aorta Normal size aortic root and proximal ascending aorta. CONCLUSIONS Indication for the procedure: Non-Q wave myocardial infarction Normal LV size and systolic function Previewed by: Dr. Tan Watkins MD (Electronically Signed) Final Date: 03 January 2025 17:01
--- NOTE | 2025-01-03 17:24 | US ---
EXAMINATION TYPE: US vein mapping BILAT DATE OF EXAM: 01/03/2025 5:01 PM COMPARISON: NONE CLINICAL INDICATION: Male, 69 years old with history of PreOp Cardiac Surgery; , Preop- Cardiac Surge ry TECHNIQUE: Grayscale and color Doppler imaging of the lower extremity venous system. SIDE PERFORMED: Bilateral FINDINGS: PATIENT HISTORY: Smoker: Previous Heart Disease: Yes Previous DVT: no Vascular Surgery: no Discoloration: no Hypertension: no Diabetes: N/A Paralysis: No Varicosities: No Edema: No DUPLEX FINDINGS: Greater Saphenous: Color flow seen Lesser Saphenous: Color flow seen Measurements in mm: Right Greater Saphenous: Groin: 8.2 x 6.9 mm High Thigh: 4.6 x 4.7 mm Mid Thigh: 4.5 x 3.9 mm Above Knee: 5.0 x 3.3 mm Knee: 4.5 x 3.3 mm Below Knee: 2.9 x 2.8 mm Mid Calf: 2.7 x 2.3 mm At Ankle: 3.0 x 2.5 mm Left Greater Saphenous: Groin: 6.2 x 6.0 mm High Thigh: 5.9 x 5.7 mm Mid Thigh: 4.0 x 3.4 mm Above Knee: 4.7 x 3.5 mm Knee: 3.9 x 3.2 mm Below Knee: 3.1 x 2.6 mm Mid Calf: 2.6 x 2.3 mm At Ankle: 2.4 x 2.0 mm IMPRESSION: 1. No evidence for occlusion. 2. GSV measurements listed above. 3. Performing surgeon to determine viability as conduit. [facility], , 01/03/2025 5:22 PM
--- NOTE | 2025-01-03 17:25 | US ---
EXAMINATION TYPE: Pre-Operative Non-Invasive Evaluation of the hand for Potential Radial Artery Benny gold, Measurements only DATE OF EXAM: 01/03/2025 4:24 PM CLINICAL INDICATION: Male, 69 years old with history of Pre-Op Cardiac Surgery; , Preop- Cardiac Surg samuel TECHNIQUE:Grayscale and color Doppler imaging of the radial artery(s) SIDE PERFORMED: Left FINDINGS: Dominant hand: Right Duplex Findings: Radial Artery: Color flow seen Measurements in mm, transverse view: Left Radial: Proximal: 3.6 x 3.5 mm Mid: 2.7 x 3.0 mm Distal: 3.0 x 3.1 mm IMPRESSION: 1. No evidence for vascular occlusion. 2. Measurements as described above. [facility], , 01/03/2025 5:23 PM
--- NOTE | 2025-01-03 17:26 | US ---
EXAMINATION TYPE: US carotid duplex BILAT DATE OF EXAM: 01/03/2025 COMPARISON: NONE CLINICAL INDICATION: Male, 69 years old with history of Pre-Op Cardiac Surgery; PreOP, No HTN Additional History: .... TECHNIQUE: Grayscale, color Doppler and spectral Doppler evaluation of the bilateral carotid systems and vertebral arteries. Indirect Doppler criteria was utilized. FINDINGS: EXAM MEASUREMENTS: RIGHT: Peak Systolic Velocity (PSV) cm/sec ----- Right CCA: 50.5 ----- Right ICA: 59.2 ----- Right ECA: 90.8 ICA/CCA ratio: 1.2 RIGHT: End Diastole cm/sec ----- Right CCA: 10.6 ----- Right ICA: 16.4 ----- Right ECA: 8.4 LEFT: Peak Systolic Velocity (PSV) cm/sec ----- Left CCA: 52.9 ----- Left ICA: 74.6 ----- Left ECA: 113.4 ICA/CCA ratio: 1.4 LEFT: End Diastole cm/sec ----- Left CCA: 13.6 ----- Left ICA: 25.2 ----- Left ECA: 16.2 VERTEBRALS (direction of flow): Right Vertebral: Antegrade Left Vertebral: Antegrade Rhythm: Normal CONVEYOR FEEDER NOTES: Plaque seen in bilateral bulbs. No elevated velocities Color Doppler imaging shows patency with blood flow throughout the carotid artery. Spectral waveforms are within normal limits. IMPRESSION: Mild to moderate atherosclerotic plaque within the bilateral carotid bulbs. Right: No hemodynamically significant stenosis. Left: No hemodynamically significant stenosis. Criteria for Assigning % of Stenosis / Diameter reduction (Estimation based on the indirect measurements of the internal carotid artery velocities (ICA PSV). 1. Normal (no stenosis)=ICA PSV < 180 cm/s: ratio < 2.0: ICA EDV<40 cm/s. 2. Less than 50% stenosis=ICA PSV < 180 cm/s: ratio < 2.0: ICA EDV<40 cm/s. 3. 50 to 69% stenosis=ICA PSV of 180 to 230 cm/s: ration 2.0 ? 4.0: ICA EDV 40-100 cm/s. PSV 125-180 cm/sec and ICA/CCA PSV Ratio ? 2.0 is also consistent with 50-69% stenosis 4. Greater than 70% stenosis to near occlusion= ICA PSV > 230 cm/s: ratio > 4.0: ICA EDV > 100 cm/s. 5. Near occlusion= ICA PSV velocities may be low or undetectable: variable ratio and ICA EDV. 6. Total occlusion=unable to detect flow. [facility], , 01/03/2025 5:24 PM
--- NOTE | 2025-01-03 18:25 | CT ---
EXAMINATION TYPE: CT chest wo con CT DLP: 398.9 mGycm, Automated exposure control for dose reduction was used. DATE OF EXAM: 01/03/2025 5:53 PM COMPARISON: Chest radiograph 01/02/2025 CLINICAL INDICATION:Male, 69 years old with history of Evaluate aorta preop CABG; PH[facility], Evaluate aorta preop CABG. TECHNIQUE: Multiple axial images were obtained through the chest without IV contrast. Lack of IV or o ral contrast limits evaluation of solid and hollow organ viscera. . Coronal and sagittal reformats re viewed. FINDINGS: LUNGS/ PLEURA: No pleural effusion, pneumothorax, or focal consolidation. Minimal right middle lobe l inear atelectasis and/or scarring. Left upper lobe peripheral 2.2 mm pulmonary nodule (series 205, im age 31). Posterior right upper lobe 2.2 mm pulmonary nodule (series 205, image 15). Probable intrafis sural lymph node measuring 4.2 cm along the left major fissure (series 205, image 24). Probable intr afissural lymph node along the right minor fissure measuring 3.8 mm (series 205, image 29). Probable intrafissural lymph node along the left major fissure measuring 1.8 mm (series 205, image 31). AIRWAY: Patent and unremarkable.. HEART: Size within normal limits.No pericardial effusion. Mild to moderate coronary artery calcificat ions present. Small aortic valvular calcifications. MEDIASTINUM: No gross evidence of adenopathy. VASCULATURE: No aortic aneurysm. Mild atherosclerotic calcification of the aorta and its branches. MUSCULOSKELETAL: No acute osseous abnormalities. DISH of the thoracic spine. SOFT TISSUES/LYMPH NODES: Mild bilateral gynecomastia. LOWER NECK: No significant findings. UPPER ABDOMEN: Residual contrast within both renal collecting systems and proximal ureters from earli er contrast exam. Nonspecific bilateral perinephric fat stranding. Descending colon diverticulosis. R esidual hyperdense material within the visualized colon. IMPRESSION: 1. Mild atherosclerotic calcification of the aorta and its branches. 2. Few scattered pulmonary micronodules and probable intrafissural lymph nodes. According to Fleischn er criteria in a low-risk patient no follow-up is recommended. In a high-risk patient consider option al CT chest in 12 months. [facility], , 01/03/2025 6:23 PM
[2025-01-03] MEDS: MUPIROCIN 2% OINT 22 GM TUBE NASAL SCH (20:03)
[2025-01-03 20:07] LABS: Glucose,Whole Blood 140 mg/dL (70-110)
--- NOTE | 2025-01-03 20:52 | US ---
EXAMINATION TYPE: US arterial LE single level DATE OF EXAM: 01/03/2025 7:59 PM Exam done portable COMPARISONS: None. CLINICAL INDICATION: Male, 69 years old with history of Ankle Brachial Index (KARLIE) ; Pre op cardiac s urgery TECHNIQUE: Systolic pressures were taken of the upper and lower extremity arteries with ankle-brachia l indices and toe brachial indices calculated bilaterally. History of: Smoker: Current Hypertension: Yes Diabetic: Yes Hyperlipidemia: Yes TIA/CVA: No Previous Vascular Surgery: Yes NV: Yes FINDINGS: Doppler Waveforms: Right: Multiphasic posterior tibial artery. Biphasic dorsalis pedis artery. Left: Multiphasic posterior tibial artery. Biphasic dorsalis pedis artery. Brachial Artery systolic pressure: Right: Deferred due to recent heart cath Left: 109 Posterior Tibial artery systolic pressure: Right: 163 Left: 170 Dorsalis Pedis artery systolic pressure: Right: 161 Left: 159 Ankle-Brachial Indices: Right: 1.50 Left: 1.56 IMPRESSION: KARLIE: Normal waveforms bilaterally. Right: Vessel hardening > 1.4, Recommendation: Refer to vascular specialist. Left: Vessel hardening > 1.4, Recommendation: Refer to vascular specialist. [facility], , 01/03/2025 8:50 PM
--- NOTE | 2025-01-03 21:11 | PN ---
PROGRESS NOTE DATE OF SERVICE: 01/03/2025 SUBJECTIVE: This is a 69-year-old gentleman, who was admitted with chest and abdominal pain, had minimally elevated troponin. The patient had ST-T changes on the EKG. The patient had a cardiac catheterization, which showed 3-vessel coronary artery disease with 90% in the proximal RCA, 90% in the mid LAD, and 90% in the ostial circumflex, and 90% in the mid OM. The CT Surgery has been consulted. There is no history of any fever, rigors, or chills at this time. PAST MEDICAL HISTORY: Reviewed. REVIEW OF SYSTEMS: Fourteen-point review of systems negative except as mentioned earlier. CURRENT MEDICATIONS: Reviewed. PHYSICAL EXAMINATION: VITAL SIGNS: Pulse is 80, blood pressure 111/69, respirations 18. HEENT: Conjunctivae normal. NECK: No JVD. CARDIOVASCULAR: S1, S2. ABDOMEN: Soft, nontender. LEGS: No edema. NERVOUS SYSTEM: Nonfocal. LABORATORY DATA: Reviewed. ASSESSMENT: 1. Acute mwl-OX-czfsotk-elevation myocardial infarction, status post cardiac catheterization and three-vessel coronary artery disease for cabg. 2. Gallbladder sludge with possible chronic cholecystitis. 3. Increased WBC, improved. 4. Increased lipase minimally. 5. Hyperlipidemia history. RECOMMENDATIONS AND DISCUSSION: Recommended to continue with current management, continue with symptomatic treatment. Otherwise, I would recommend Cardiothoracic Surgery evaluation. Closely follow with Cardiology and Surgery. Antiplatelet and beta blockers. Prognosis is guarded because of multiple complex medical issues. Further recommendations to follow. PETRA / JOEN: [id number] / MTDD
[2025-01-04 02:38] LABS: Chol/HDL Ratio 2.97 Ratio; LDL Cholesterol,Calculated 43.1 mg/dL (0.0-131.0)
[2025-01-04 06:06] LABS: Glucose,Whole Blood 255 mg/dL (70-110)
[2025-01-04 07:02] LABS: Basophils % (A) 0 %; Eosinophils # (A) 0.3 k/uL (0-0.7); Eosinophils % (A) 3 %; HCT 47.5 % (39.0-53.0); HGB 15.2 gm/dL (13.0-17.5); Lymphocytes # (A) 1.5 k/uL (1.0-4.8); Lymphocytes % (A) 16 %; MCH 31.1 pg (25.0-35.0); MCV 97.2 fL (80.0-100.0); Mean Platelet Volume 7.6; Monocytes # (A) 0.7 k/uL (0-1.0); Monocytes % (A) 8 %; Neutrophils # (A) 6.8 k/uL (1.3-7.7); Neutrophils % (A) 72 %; Platelet Count 227 k/uL (150-450); RBC 4.89 m/uL (4.30-5.90); RDW 13.1 % (11.5-15.5); WBC 9.5 k/uL (3.8-10.6)
[2025-01-04 07:27] LABS: ALT 27 U/L (4-49); AST 33 U/L (17-59); African American GFR (CKD) >90 (>60 ml/min/1.73 sqM); Alkaline Phosphatase 67 U/L (38-126); Amylase 62 U/L (30-110); Anion Gap 11 mmol/L; Blood Urea Nitrogen 15 mg/dL (9-20); Calcium 9.5 mg/dL (8.4-10.2); Carbon Dioxide 21 mmol/L (22-30); Chloride 103 mmol/L (98-107); Glucose 270 mg/dL (74-99); Lipase 291 U/L (23-300); Non-African American GFR(CKD) 89 (>60 ml/min/1.73 sqM); Potassium 4.4 mmol/L (3.5-5.1); Sodium 135 mmol/L (137-145); Total Bilirubin 0.5 mg/dL (0.2-1.3)
--- NOTE | 2025-01-04 07:29 | P.PN ---
Subjective Progress Note Date: 01/04/25 Principal diagnosis: Multivessel coronary artery disease, non-ST elevated myocardial infarction this admission, cholecystitis. History of hypertension, hyperlipidemia, diabetes lillian litus type 2, chronic ongoing tobacco dependence, hiatal hernia, family history of early onset coronary artery disease The patient was seen and examined this morning sitting up in bed on the cardiac stepdown unit in no acute distress. was present. Currently denies any chest pain, abdominal pain, or shortness of breath. States he has been ambulatory back and forth to the bathroom without any difficulty. Denies any new questions regarding surgical revascularization. Dr. Hawk will review patient's chart/diagnostics and discuss our recommendations today. Currently in sinus rhythm, hemodynamically stable, remains on room air. No other new concerns. Objective - Vital Signs Vital signs: Vital Signs Temp 98 F 01/03/25 19:45 Pulse 80 01/04/25 04:55 Resp 18 01/04/25 04:55 BP 122/79 01/04/25 04:55 Pulse Ox 95 01/04/25 04:55 FiO2 Intake & Output 01/03/25 01/04/25 01/04/25 18:59 06:59 18:59 Intake Total 268 20 Balance 268 20 Weight 86.4 kg Intake: IV 150 20 Invasive Line 1 20 Oral 118 Other: Voiding Method Toilet Toilet Urinal # Voids 3 2 # Bowel Movements 2 - Exam CONSTITUTIONAL: Appears comfortable, cooperative, no acute distress RESPIRATORY: Lungs sounds clear. Respirations even, nonlabored. Currently on room air with oxygen saturation 95% CARDIOVASCULAR: S1, S2 present. Regular rate and rhythm, sinus rhythm on telemetry. Palpable peripheral pulses bilaterally. No edema present. No calf pain or tenderness noted GASTROINTESTINAL: Abdomen soft, nontender, nondistended. Active bowel sounds present 4 quadrants. Tolerating diet GENITOURINARY: Continues to void INTEGUMENTARY: Skin is warm and dry NEUROLOGIC: Cranial nerves II through XII intact MUSKULOSKELETAL: Able to move all extremities, strength equal bilaterally, gait normal PSYCHIATRIC: Alert and oriented to person place and time, appropriate affect, intact judgment and insight - Labs CBC & Chem 7: 01/04/25 06:31 01/03/25 06:15 Labs: Abnormal Lab Results - Last 24 Hours (Table) 01/03/25 01/03/25 01/03/25 Range/Units 06:15 06:15 12:00 Carbon Dioxide 21 L (22-30) mmol/L BUN 21 H (9-20) mg/dL Glucose 148 H (74-99) mg/dL POC Glucose (mg/dL) 155 H (70-110) mg/dL Hemoglobin A1c 7.6 H (<=6.0) % AST 67 H (17-59) U/L Triglycerides 229.00 H (0.00-149.00) mg/dL VLDL Cholesterol, Calc 45.80 H (5.00-40.00) mg/dL Lipase 396 H (23-300) U/L Urine Glucose (UA) (Negative) 01/03/25 01/03/25 01/03/25 Range/Units 16:23 16:32 20:01 Carbon Dioxide (22-30) mmol/L BUN (9-20) mg/dL Glucose (74-99) mg/dL POC Glucose (mg/dL) 204 H 140 H (70-110) mg/dL Hemoglobin A1c (<=6.0) % AST (17-59) U/L Triglycerides (0.00-149.00) mg/dL VLDL Cholesterol, Calc (5.00-40.00) mg/dL Lipase (23-300) U/L Urine Glucose (UA) 3+ H (Negative) 01/04/25 Range/Units 06:05 Carbon Dioxide (22-30) mmol/L BUN (9-20) mg/dL Glucose (74-99) mg/dL POC Glucose (mg/dL) 255 H (70-110) mg/dL Hemoglobin A1c (<=6.0) % AST (17-59) U/L Triglycerides (0.00-149.00) mg/dL VLDL Cholesterol, Calc (5.00-40.00) mg/dL Lipase (23-300) U/L Urine Glucose (UA) (Negative) Microbiology - Last 24 Hours (Table) 01/02/25 18:01 Blood Culture - Preliminary Blood - Imaging and Cardiology CT scan - chest: report reviewed, image reviewed Echocardiogram, heart catheterization, vein mapping and radial artery mapping, carotid doppler reports reviewed Assessment and Plan Assessment: Multivessel coronary artery disease, non-ST elevated myocardial infarction this admission Cholecystitis Chest and abdominal pain secondary to above History of hypertension Hyperlipidemia, statin intolerance, on Repatha outpatient, cholesterol 134, LDL 43, triglycerides 299 Diabetes mellitus type 2, hemoglobin A1c 7.6% Chronic ongoing tobacco dependence, smokes 2 to 3 cigars daily Hiatal hernia Family history of early onset coronary artery disease Plan: Continue to maximize medical therapy with aspirin, beta-valeriy, IV heparin. Ideally would have patient on statin but he has an intolerance Increase activity, ambulate as tolerated Bedside spirometry to be completed today, once completed will calculate STS risk score and discuss with the patient and his Dr. Hawk to review patient's chart/diagnostics today, will discuss our recommendations with the patient Medical management of other comorbidities per internal medicine, cardiology More recommendations to follow
[2025-01-04 11:02] LABS: Chol/HDL Ratio 2.82 Ratio; LDL Cholesterol,Calculated 45.3 mg/dL (0.0-131.0)
--- NOTE | 2025-01-04 11:08 | P.PN ---
Subjective HISTORY OF PRESENT ILLNESS: This is a 69-year-old male with a past medical history significant for hypertension, hyperlipidemia, diabetes. 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 We have been asked to see the patient in consultation for chest pain. Patient examined at the bedside. Patient presented to the hospital with a chief complaint of chest discomfort. Patient states he has been having discomfort on and off for the past 10 days. He states the discomfort is in the lower part of his chest and he describes it as a pressure type sensation that radiates down his arms into his fingertips. He reports a family history of CAD in his dad in his 60s. Patient states that he used to smoke cigars but no longer does. He denies any drug use including marijuana. Denies excessive alcohol use. DIAGNOSTICS: - EKG reveals sinus mechanism with no signs of acute ischemia. Repeat EKG reveals sinus mechanism with ST depression in anterior lateral leads - Gallbladder ultrasound, no evidence for acute process.revealed biliary sludge, hepatic steatosis - Chest xray negative for acute process. COPD changes. - Laboratory data: WBC 11.1. Hemoglobin 15.4. Platelet count 225. Sodium 137. Potassium 4.6. BUN 21. Creatinine 0.91. Lipase 396. Troponin 0.183. 4.240. - Current home cardiac medications include lisinopril 10 mg daily, Repatha 140 mg subcu every 14 days, and atenolol 50 mg daily. - No previous echocardiogram, stress test, or cardiac catheterization available in EMR for review 01/04/2025 Patient underwent cardiac catheterization yesterday with Dr. Blakely revealing 90% proximal RCA stenosis, 90% mid LAD stenosis, 90% ostial left circumflex, 90% mid OM2 stenosis. CT surgery was consulted for evaluation. Echocardiogram performed revealing ejection fraction 55 to 60% with trace MR and mild TR. telemetry reveals sinus mechanism. Vital signs are stable. PHYSICAL EXAM: VITAL SIGNS: Reviewed. GENERAL: Well-developed in no acute distress. HEENT: Head is normocephalic. Pupils are equal, round. Sclerae anicteric. Mucous membranes of the mouth are moist. Neck supple. No JVD or thyromegaly LUNGS: Respirations even and unlabored. Lungs essentially clear to auscultation bilaterally. HEART: Regular rate and rhythm. S1 and S2 heard. ABDOMEN: Soft. Nondistended. Nontender. EXTREMITIES: Normal range of motion. No clubbing or cyanosis. Peripheral pulses intact. No lower extremity edema NEUROLOGIC: Awake and alert. Oriented x 3. ASSESSMENT: Non-STEMI, status postcardiac catheterization revealing multivessel CAD Hypertension Hyperlipidemia with statin intolerance Diabetes Family history of CAD PLAN: Continue aspirin, lisinopril, and metoprolol Continue Repatha. Patient with statin intolerance. CT surgery consulted for evaluation. Possible CABG to be performed on Tuesday. Further recommendations pending patient course Nurse practitioner note has been reviewed by physician. Signing provider agrees with the documented findings, assessment, and plan of care documented by CHURCH SUPERVISOR as a scribe. Objective - Vital Signs Vital signs: Vital Signs Temp 98 F 01/03/25 19:45 Pulse 80 01/04/25 04:55 Resp 18 01/04/25 04:55 BP 122/79 01/04/25 04:55 Pulse Ox 95 01/04/25 04:55 FiO2 Intake & Output 01/03/25 01/04/25 01/04/25 18:59 06:59 18:59 Intake Total 268 20 Balance 268 20 Weight 86.4 kg Intake: IV 150 20 Invasive Line 1 20 Oral 118 Other: Voiding Method Toilet Toilet Urinal # Voids 3 2 # Bowel Movements 2 - Labs CBC & Chem 7: 01/04/25 06:31 01/04/25 06:31 Labs: Abnormal Lab Results - Last 24 Hours (Table) 01/03/25 01/03/25 01/03/25 Range/Units 06:15 06:15 12:00 Sodium (137-145) mmol/L Carbon Dioxide (22-30) mmol/L Glucose (74-99) mg/dL POC Glucose (mg/dL) 155 H (70-110) mg/dL Hemoglobin A1c 7.6 H (<=6.0) % Triglycerides 229.00 H (0.00-149.00) mg/dL VLDL Cholesterol, Calc 45.80 H (5.00-40.00) mg/dL Urine Glucose (UA) (Negative) 01/03/25 01/03/25 01/03/25 Range/Units 16:23 16:32 20:01 Sodium (137-145) mmol/L Carbon Dioxide (22-30) mmol/L Glucose (74-99) mg/dL POC Glucose (mg/dL) 204 H 140 H (70-110) mg/dL Hemoglobin A1c (<=6.0) % Triglycerides (0.00-149.00) mg/dL VLDL Cholesterol, Calc (5.00-40.00) mg/dL Urine Glucose (UA) 3+ H (Negative) 01/04/25 01/04/25 Range/Units 06:05 06:31 Sodium 135 L (137-145) mmol/L Carbon Dioxide 21 L (22-30) mmol/L Glucose 270 H (74-99) mg/dL POC Glucose (mg/dL) 255 H (70-110) mg/dL Hemoglobin A1c (<=6.0) % Triglycerides (0.00-149.00) mg/dL VLDL Cholesterol, Calc (5.00-40.00) mg/dL Urine Glucose (UA) (Negative) Microbiology - Last 24 Hours (Table) 01/02/25 18:01 Blood Culture - Preliminary Blood
[2025-01-04 11:53] LABS: Glucose,Whole Blood 173 mg/dL (70-110)
--- NOTE | 2025-01-04 13:09 | P.PN ---
Subjective Progress Note Date: 01/04/25 SURGICAL PROGRESS NOTE CHIEF COMPLAINT: Chest pain HISTORY OF PRESENT ILLNESS: Patient with NSTEMI and is status post heart catheterization with evidence of multivessel coronary artery disease. Patient w as seen by cardiothoracic team to discuss surgical intervention. Patient currently sitting up at bedside. No new complaints. Afebrile. WBC is down from 11.1-9.5. AST 67 down to 33 lipase 396 down to 291 normalized PHYSICAL EXAM: VITAL SIGNS: Reviewed. GENERAL: Well-developed in no acute distress. ABDOMEN: Soft. Nondistended. NEUROLOGIC: Alert and oriented. Cranial nerves II through XII grossly intact. ASSESSMENT: 1. Right upper quadrant abdominal pain with biliary sludge noted on gallbladder ultrasound. Possible chronic cholecystitis. No evidence of acute cholecystitis. 2. Non-ST elevated [place] 3. Multivessel coronary artery disease PLAN: - Patient followed by cardiothoracic team for the multivessel coronary artery disease - No surgical intervention planned at this time for patient's gallbladder. Recommend outpatient follow-up. Physician Layout Designer note has been reviewed by physician. Signing provider agrees with the documented findings, assessment, and plan of care. Attestation Patient seen and examined at bedside with cardiothoracic team on 01/04/2025. With current workup and multivessel coronary artery disease, he is candidate for CABG. Currently, patient with no evidence of acute cholecystitis more likely chronic cholecystitis. Will recommend moving forward with cardiothoracic procedure and plan for gallbladder surgery in the future once he recovers. Ho mccauley is agreeable with this plan. Moise Galvan, Objective - Vital Signs Vital signs: Vital Signs Temp 97.6 F 01/04/25 08:36 Pulse 63 01/04/25 11:27 Resp 17 01/04/25 11:27 BP 132/86 01/04/25 11:27 Pulse Ox 97 01/04/25 11:27 FiO2 Intake & Output 01/03/25 01/04/25 01/04/25 18:59 06:59 18:59 Intake Total 268 20 250 Balance 268 20 250 Weight 86.4 kg Intake: IV 150 20 10 Invasive Line 1 20 10 Oral 118 240 Other: Voiding Method Toilet Toilet Toilet Urinal # Voids 3 2 # Bowel Movements 2 - Labs CBC & Chem 7: 01/04/25 06:31 01/04/25 06:31 Labs: Abnormal Lab Results - Last 24 Hours (Table) 01/03/25 01/03/25 01/03/25 Range/Units 06:15 16:23 16:32 Sodium (137-145) mmol/L Carbon Dioxide (22-30) mmol/L Glucose (74-99) mg/dL POC Glucose (mg/dL) 204 H (70-110) mg/dL Triglycerides 229.00 H (0.00-149.00) mg/dL VLDL Cholesterol, Calc 45.80 H (5.00-40.00) mg/dL Urine Glucose (UA) 3+ H (Negative) 01/03/25 01/04/25 01/04/25 Range/Units 20:01 06:05 06:31 Sodium 135 L (137-145) mmol/L Carbon Dioxide 21 L (22-30) mmol/L Glucose 270 H (74-99) mg/dL POC Glucose (mg/dL) 140 H 255 H (70-110) mg/dL Triglycerides 203.00 H (0.00-149.00) mg/dL VLDL Cholesterol, Calc 40.60 H (5.00-40.00) mg/dL Urine Glucose (UA) (Negative) 01/04/25 Range/Units 11:51 Sodium (137-145) mmol/L Carbon Dioxide (22-30) mmol/L Glucose (74-99) mg/dL POC Glucose (mg/dL) 173 H (70-110) mg/dL Triglycerides (0.00-149.00) mg/dL VLDL Cholesterol, Calc (5.00-40.00) mg/dL Urine Glucose (UA) (Negative) Microbiology - Last 24 Hours (Table) 01/02/25 18:01 Blood Culture - Preliminary Blood
[2025-01-04 16:33] LABS: Glucose,Whole Blood 170 mg/dL (70-110)
[2025-01-04] MEDS: PANTOPRAZOLE 40 MG TABLET PO SCH (17:10)
[2025-01-04] MEDS ORDERED: HYDROmorphone 2 MG/ML 1 ML SYRINGE IVP PRN (18:59)
[2025-01-04 20:28] LABS: Glucose,Whole Blood 230 mg/dL (70-110)
[2025-01-04] MEDS: INSULIN GLARGINE (LANTUS) 100 UNIT/ML SYR SQ SCH (20:38)
--- NOTE | 2025-01-05 01:19 | PN ---
PROGRESS NOTE DATE OF SERVICE: 01/04/2025 SUBJECTIVE: This is a 69-year-old gentleman admitted with three-vessel disease being awaiting surgery at this time. No chest pain. No palpitation. No fever. CT of the chest was noted with micronodules. PHYSICAL EXAMINATION: VITAL SIGNS: Pulse is 63, blood pressure 133/86, respirations 17. CHEST: A few scattered rhonchi. ABDOMEN: Soft. NERVOUS SYSTEM: Nonfocal. LABORATORY DATA: Sodium 135. Rest of the labs is noted. ASSESSMENT: 1. Acute non ST-segment elevation myocardial infarction, status post. 2. cardiac catheterization and three-vessel coronary artery disease. 3. for coronary artery bypass grafting. 4. Gallbladder sludge and possible chronic cholecystitis. 5. Increased WBC, improved. 6. Increased lipase minimally. 7. Hyperlipidemia history. 8. Diffuse scattered pulmonary micronodules. RECOMMENDATIONS AND DISCUSSION: Recommended to continue with current medications, continue with symptomatic treatment. Otherwise, at this time I would closely follow with Cardiothoracic and Cardiology. Monitor pressures closely. Further recommendations to follow. PETRA / JOEN: [id number] /
[2025-01-05 06:20] LABS: Glucose,Whole Blood 195 mg/dL (70-110)
[2025-01-05] MEDS: ALPRAZolam 0.5 MG TAB PO PRN (08:25)
--- NOTE | 2025-01-05 10:04 | P.PN ---
Subjective Progress Note Date: 01/05/25 Principal diagnosis: Multivessel coronary artery disease, non-ST elevated myocardial infarction this admission, possible chronic cholecystitis. Medical history of hypertension, hy perlipidemia, diabetes mellitus type 2, chronic ongoing tobacco dependence, hiatal hernia, and family history of early onset coronary artery disease. The patient was seen and examined in follow-up today January 05, 2025 at his bedside on the third floor cardiac stepdown unit. His is currently at his bedside. The patient is up ambulating in his room, denies any complaints of pain or shortness of breath at this time. The patient does report some episodes of epigastric discomfort, but states it is very minimal. Preoperative testing has been completed, and STS risk or has been calculated and discussed with the patient by Dr. Hawk. A 5 m walk test has been completed with the patient. Preoperative teaching has been reinforced with the patient and his . He remains hemodynamically stable and is currently on no inotropic or pressor support. Oxygen saturations are 98% on room air and he is achieving 2000 mL on his incentive spirometry with encouragement. Remote telemetry is showing normal sinus rhythm with a first-degree block and occasional PACs heart rate 89 bpm. The patient is currently scheduled for off-pump myocardial revascularization surgery with left internal mammary artery, endoscopic vein harvest, possible left radial artery endoscopic harvest, exclusion left atrial appendage and intraoperative transesophageal echocardiogram to be completed by Dr. Elliott Murray in on Tuesday, January 07, 2025. Objective - Vital Signs Vital signs: Vital Signs Temp 97.3 F L 01/05/25 08:00 Pulse 85 01/05/25 08:00 Resp 16 01/05/25 08:00 BP 131/89 01/05/25 08:00 Pulse Ox 97 01/05/25 08:00 FiO2 Intake & Output 01/04/25 01/05/25 01/05/25 18:59 06:59 18:59 Intake Total 378 20 240 Balance 378 20 240 Weight 84.3 kg Intake: IV 20 20 Invasive Line 1 20 20 Oral 358 240 Other: Voiding Method Toilet Toilet Toilet # Voids 3 1 - Exam CONSTITUTIONAL: Appears comfortable, cooperative, no acute distress RESPIRATORY: Lungs sounds essentially clear throughout, no wheezes, rhonchi or crackles. Respirations symmetrical, nonlabored. Currently on room air with oxygen saturation 98%, achieving 2000 mL on his incentive spirometry. CARDIOVASCULAR: S1, S2 present. Regular rate and rhythm, sinus rhythm with first-degree heart block and occasional PACs on remote telemetry, heart rate 89 bpm. Palpable peripheral pulses bilaterally. No edema present. No calf pain or tenderness noted GASTROINTESTINAL: Abdomen soft, nontender, nondistended. Active bowel sounds present 4 quadrants. Tolerating diet. GENITOURINARY: Continues to void. INTEGUMENTARY: Skin is warm and dry, no clubbing or cyanosis is present. NEUROLOGIC: Cranial nerves II through XII intact, no focal deficits. MUSKULOSKELETAL: Able to move all extremities, strength equal bilaterally, gait normal. PSYCHIATRIC: Alert and oriented to person place and time, appropriate affect, intact judgment and insight. - Allied health notes Allied health notes reviewed: nursing - Labs CBC & Chem 7: 01/04/25 06:31 01/04/25 06:31 Labs: Abnormal Lab Results - Last 24 Hours (Table) 01/04/25 01/04/25 01/04/25 Range/Units 06:31 11:51 16:32 POC Glucose (mg/dL) 173 H 170 H (70-110) mg/dL Triglycerides 203.00 H (0.00-149.00) mg/dL VLDL Cholesterol, Calc 40.60 H (5.00-40.00) mg/dL 01/04/25 01/05/25 Range/Units 20:26 06:19 POC Glucose (mg/dL) 230 H 195 H (70-110) mg/dL Triglycerides (0.00-149.00) mg/dL VLDL Cholesterol, Calc (5.00-40.00) mg/dL Microbiology - Last 24 Hours (Table) 01/02/25 18:01 Blood Culture - Preliminary Blood Assessment and Plan Assessment: Multivessel coronary artery disease Non-ST elevated myocardial infarction this admission Possible chronic cholecystitis Hypertension Hyperlipidemia with anaphylactic allergy to statins, on Repatha as an outpatient, cholesterol 134, LDL 43, triglycerides 299 Diabetes mellitus type 2 with a hemoglobin A1c of 7.6% Family history of early onset coronary artery disease Hiatal hernia Chronic ongoing tobacco dependence, smokes 2 to 3 cigars/day Plan: Continue to maximize medical therapy with aspirin, beta-valeriy, and IV heparin. Ideally would have patient on statin but he has anaphylactic reaction to stati ns. He is scheduled for off-pump myocardial revascularization surgery with left internal mammary artery, endoscopic vein harvest, possible left radial artery endoscopic harvest/or open harvest, exclusion left atrial appendage and intraoperative transesophageal echocardiogram to be completed by Dr. Elliott Hawk on Tuesday, January 07, 2025 Increase activity, ambulate as tolerated. STS risk score has been calculated and discuss with the patient and his . Preoperative teaching has been reinforced with the patient and his present at his bedside. The importance of smoking cessation has been reinforced with the patient. Upon discharge the patient will be given the number to [id number]. Medical management of other comorbidities per internal medicine, cardiology N.p.o. after midnight on January 07, 2025. More recommendations to follow based on patient's clinical course. Time with Patient: Greater than 30
--- NOTE | 2025-01-05 11:24 | P.PN ---
Subjective Progress Note Date: 01/05/25 Patient seen and examined at bedside. No acute events. Denies abdominal pain currently Objective - Vital Signs Vital signs: Vital Signs Temp 97.3 F L 01/05/25 08:00 Pulse 85 01/05/25 08:00 Resp 16 01/05/25 08:00 BP 131/89 01/05/25 08:00 Pulse Ox 97 01/05/25 08:00 FiO2 Intake & Output 01/04/25 01/05/25 01/05/25 18:59 06:59 18:59 Intake Total 378 20 240 Balance 378 20 240 Weight 84.3 kg Intake: IV 20 20 Invasive Line 1 20 20 Oral 358 240 Other: Voiding Method Toilet Toilet Toilet # Voids 3 1 - Constitutional General appearance: Present: cooperative, no acute distress - Gastrointestinal Gastrointestinal Comment(s): Soft, nontender, nondistended, no rebound, no guard - Labs CBC & Chem 7: 01/04/25 06:31 01/04/25 06:31 Labs: Abnormal Lab Results - Last 24 Hours (Table) 01/04/25 01/04/25 01/04/25 Range/Units 11:51 16:32 20:26 POC Glucose (mg/dL) 173 H 170 H 230 H (70-110) mg/dL 01/05/25 Range/Units 06:19 POC Glucose (mg/dL) 195 H (70-110) mg/dL Microbiology - Last 24 Hours (Table) 01/02/25 18:01 Blood Culture - Preliminary Blood Assessment and Plan Plan: Patient seen and examined at bedside. With current workup and multivessel coronary artery disease, he is candidate for CABG. Currently, patient with no evidence of acute cholecystitis more likely chronic cholecystitis. Will recommend moving forward with cardiothoracic procedure and plan for gallbladder surgery in the future once he recovers. Patient is agreeable with this plan. Moise Galvan DO
[2025-01-05 11:27] LABS: Glucose,Whole Blood 222 mg/dL (70-110)
--- NOTE | 2025-01-05 14:06 | P.CNPUL ---
History of Present Illness Consult date: 01/05/25 Chief complaint: Multivessel coronary artery disease, post acute non-ST segment elevation [place] History of present illness: This is a 69-year-old male patient was being seen preoperatively as the patient is being scheduled to undergo an off-pump coronary artery bypass surgery on 01/07/2025. The patient has multivessel coronary artery disease and he sustained an acute non-ST segment elevation myocardial infarction. He is currently free of any chest pain. The cardiac catheterization revealed a 90% stenosis to his proximal right coronary artery, a 90% stenosis to his mid left anterior descending coronary artery, a 90% stenosis to his ostial circumflex coronary artery, and a 90% stenosis to his mid obtuse marginal 2 coronary artery. Due to the findings on the cardiac catheterization, the patient elevated troponins and his presenting symptoms a consult was placed to cardiothoracic surgery for further evaluation and treatment recommendations including myocardial revascularization surgery. The patient has known to have hypertension hyp erlipidemia and diabetes mellitus type 2. His HbA1c is 7.6. He smokes around 2 to 3 cigars on a daily basis. He is on room air oxygen. CAT scan of the chest was completed and it shows few scattered pulmonary micronodules. Nonspecific findings. No other pulmonary abnormalities noted. The patient is quite active. He is a hannah. His echocardiogram done on 01/03/2025 showed normal LV size and function. Review of Systems Constitutional: Reports as per HPI Eyes: denies as per HPI, denies blurred vision, denies bulging eye, denies decreased vision, denies diplopia, denies discharge, denies dry eye, denies irritation, denies itching, denies pain, denies photophobia, denies loss of peripheral vision, denies loss of vision, denies tunnel vision/blind spots Ears: deny: decreased hearing, ear discharge, earache, tinnitus Ears, nose, mouth and throat: Reports as per HPI Breasts: absent: as per HPI, gynecomastia Cardiovascular: Reports chest pain Respiratory: Reports as per HPI Gastrointestinal: Reports as per HPI Genitourinary: Reports as per HPI Musculoskeletal: Reports as per HPI Musculoskeletal: absent: ankle pain, ankle stiffness, ankle swelling, as per HPI, elbow pain, elbow stiffness, elbow swelling, foot pain, foot stiffness, foot swelling, hand pain, hand stiffness, hand swelling, hip pain, hip stiffness, hip swelling, knee pain, knee stiffness, knee swelling, shoulder pain, shoulder stiffness, shoulder swelling, wrist pain, wrist stiffness, wrist swelling Integumentary: Reports as per HPI Neurological: Reports as per HPI Psychiatric: Reports as per HPI Endocrine: Reports as per HPI Hematologic/Lymphatic: Reports as per HPI Allergic/Immunologic: Reports as per HPI Past Medical History Past Medical History: Coronary Artery Disease (CAD), Diabetes Mellitus, Hyperlipidemia, Hypertension Additional Past Medical History / Comment(s): Cholecystitis History of Any Multi-Drug Resistant Organisms: None Reported Past Surgical History: No Surgical Hx Reported Past Anesthesia/Blood Transfusion Reactions: No Reported Reaction Additional Past Anesthesia/Blood Transfusion Reaction / Comment(s): No hx of anesthesia/blood transfusions. Past Psychological History: No Psychological Hx Reported Smoking Status: Current every day smoker (Smokes 2 to 3 cigars daily) Past Alcohol Use History: None Reported Past Drug Use History: None Reported - Past Family History Mother Family Medical History: Cancer (Breast) Father Family Medical History: Cancer (Prostate), Myocardial Infarction ([place]) Medications and Allergies Home Medications Medication Instructions Recorded Confirmed Type Pioglitazone [Actos] 45 mg PO DAILY 11/30/16 01/02/25 History atenoloL [Tenormin] 50 mg PO DAILY 11/30/16 01/02/25 History lisinopriL [Zestril] 10 mg PO DAILY 11/30/16 01/02/25 History metFORMIN HCL [Glucophage] 1,000 mg PO BID-W/MEALS 11/30/16 01/02/25 History Evolocumab [Repatha Sureclick] 140 mg SQ Q14D 01/02/25 01/02/25 History Glimepiride [Amaryl] 2 mg PO BID 01/02/25 01/02/25 History Tirzepatide [Mounjaro] 12.5 mg SQ KHAN 01/02/25 01/02/25 History busPIRone HCL 10 mg PO BID 01/02/25 01/02/25 History Allergies Allergy/AdvReac Type Severity Reaction Status Date / Time ezetimibe [From Zetia] AdvReac Rash/Hives Verified 01/02/25 11:17 Penicillins AdvReac Rash/Hives Verified 01/02/25 11:17 Oehpxog-CMJ-FyU Reductase AdvReac Rash/Hives Verified 01/02/25 11:17 Inhibitor [Nhdvakj-Djc-Tra Reductase Inhibitor] Sulfa (Sulfonamide AdvReac Rash/Hives Verified 01/02/25 11:17 Antibiotics) Physical Exam Vitals: Vital Signs Temp Pulse Resp BP Pulse Ox 01/05/25 11:29 102 H 16 119/76 97 01/05/25 08:00 97.3 F L 85 16 131/89 97 01/05/25 04:08 87 17 112/72 98 01/04/25 23:51 94 17 106/65 98 01/04/25 20:30 97.7 F 85 17 119/77 97 01/04/25 16:04 78 17 149/89 99 Intake and Output 01/04/25 01/05/25 01/05/25 22:59 06:59 14:59 Intake Total 128 10 240 Balance 128 10 240 Intake: IV 10 10 Invasive Line 1 10 10 Oral 118 240 Other: Voiding Method Toilet Toilet Toilet # Voids 2 1 Weight 84.3 kg The patient appeared well nourished and normally developed. Vital signs as documented. Head exam is unremarkable. No scleral icterus or corneal arcus noted. Neck is without jugular venous distension, thyromegaly, or carotid bruits. Carotid upstrokes are brisk bilaterally. Lungs are clear to auscultation and percussion. Cardiac exam reveals the PMI to be normally sized and situated. Rhythm is regular. First and second heart sounds normal. No murmurs, rubs or gallops. Abdominal exam reveals normal bowel sounds, no masses, no organomegaly and no aortic enlargement. Extremities are nonedematous and both femoral and pedal pulses are normal. Examination of the skin revealed no evidence of significant rashes, suspicious appearing nevi or other concerning lesions. Neurologically, the patient is awake and alert and the patient does not have any focal neurological deficit. Cranial nerves are essentially intact. Results - Laboratory Findings CBC and BMP: 01/04/25 06:31 01/04/25 06:31 PT/INR, D-dimer PT 11.3 sec (10.0-12.5) 01/03/25 06:15 INR 1.0 (<1.2) 01/03/25 06:15 Abnormal lab findings: Abnormal Labs 01/02/25 01/02/25 01/02/25 10:09 10:09 12:06 WBC 14.4 H Neutrophils # 11.7 H APTT Sodium 134 L Carbon Dioxide 21 L BUN 21 H Glucose 190 H POC Glucose (mg/dL) Hemoglobin A1c AST Troponin I 0.183 H* Triglycerides VLDL Cholesterol, Calc Lipase 380 H Urine Glucose (UA) 01/02/25 01/02/25 01/02/25 15:09 15:09 20:16 WBC Neutrophils # APTT 77.1 H 43.1 H Sodium Carbon Dioxide BUN Glucose POC Glucose (mg/dL) Hemoglobin A1c AST Troponin I 4.240 H* Triglycerides VLDL Cholesterol, Calc Lipase Urine Glucose (UA) 01/02/25 01/03/25 01/03/25 20:34 06:15 06:15 WBC Neutrophils # APTT Sodium Carbon Dioxide 21 L BUN 21 H Glucose 148 H POC Glucose (mg/dL) 150 H Hemoglobin A1c 7.6 H AST 67 H Troponin I Triglycerides 229.00 H VLDL Cholesterol, Calc 45.80 H Lipase 396 H Urine Glucose (UA) 01/03/25 01/03/25 01/03/25 06:15 06:15 06:26 WBC 11.1 H Neutrophils # APTT 43.4 H Sodium Carbon Dioxide BUN Glucose POC Glucose (mg/dL) 167 H Hemoglobin A1c AST Troponin I Triglycerides VLDL Cholesterol, Calc Lipase Urine Glucose (UA) 01/03/25 01/03/25 01/03/25 12:00 16:23 16:32 WBC Neutrophils # APTT Sodium Carbon Dioxide BUN Glucose POC Glucose (mg/dL) 155 H 204 H Hemoglobin A1c AST Troponin I Triglycerides VLDL Cholesterol, Calc Lipase Urine Glucose (UA) 3+ H 01/03/25 01/04/25 01/04/25 20:01 06:05 06:31 WBC Neutrophils # APTT Sodium 135 L Carbon Dioxide 21 L BUN Glucose 270 H POC Glucose (mg/dL) 140 H 255 H Hemoglobin A1c AST Troponin I Triglycerides 203.00 H VLDL Cholesterol, Calc 40.60 H Lipase Urine Glucose (UA) 01/04/25 01/04/25 01/04/25 11:51 16:32 20:26 WBC Neutrophils # APTT Sodium Carbon Dioxide BUN Glucose POC Glucose (mg/dL) 173 H 170 H 230 H Hemoglobin A1c AST Troponin I Triglycerides VLDL Cholesterol, Calc Lipase Urine Glucose (UA) 01/05/25 01/05/25 06:19 11:25 WBC Neutrophils # APTT Sodium Carbon Dioxide BUN Glucose POC Glucose (mg/dL) 195 H 222 H Hemoglobin A1c AST Troponin I Triglycerides VLDL Cholesterol, Calc Lipase Urine Glucose (UA) - Diagnostic Findings CT scan - chest: image reviewed Assessment and Plan Plan: Multivessel coronary disease, status post acute non-ST segment elevation myoca rdial infarction. The patient is awaiting a coronary bypass surgery that is supposed to be done on 01/07/2025. Currently hemodynamic stable and patient is free of any chest pain. Diabetes mellitus type 2 Hypertension Hyperlipidemia maintained on Repatha on outpatient basis with an LDL level of 43 History of smoking Hiatal hernia Chronic cholecystitis Plan Overall pulmonary status is stable Using incentive spirometry Obtained at bedside spirometry and establish FEV1 CAT scan of the chest shows nonspecific bilateral pulmonary nodules, no need for any further intervention at this point regarding these nodules. Continue aspirin, lisinopril and metoprolol Bypass surgery on 01/07/2025 Will be involved in vent management and postop care. Time with Patient: Greater than 30
[2025-01-05 16:09] LABS: Glucose,Whole Blood 147 mg/dL (70-110)
[2025-01-05] MEDS: GLIMEPIRIDE 2 MG TAB PO SCH (16:43)
[2025-01-05] MEDS: PIOGLITAZONE 45 MG TAB PO SCH (17:53)
[2025-01-05 20:13] LABS: Glucose,Whole Blood 153 mg/dL (70-110)
--- NOTE | 2025-01-05 23:48 | P.PN ---
Subjective Progress Note Date: 01/05/25 HISTORY OF PRESENT ILLNESS: This is a 69-year-old male with a past medical history significant for hype rtension, hyperlipidemia, diabetes. Patient does not follow with a vessel liner. We have been asked to see the patient in consultation for chest pain. Patient examined at the bedside. Patient presented to the hospital with a chief complaint of chest discomfort. Patient states he has been having discomfort on and off for the past 10 days. He states the discomfort is in the lower part of his chest and he describes it as a pressure type sensation that radiates down his arms into his fingertips. He reports a family history of CAD in his dad in his 60s. Patient states that he used to smoke cigars but no longer does. He denies any drug use including marijuana. Denies excessive alcohol use. DIAGNOSTICS: - EKG reveals sinus mechanism with no signs of acute ischemia. Repeat EKG reveals sinus mechanism with ST depression in anterior lateral leads - Gallbladder ultrasound, no evidence for acute process.revealed biliary sludge, hepatic steatosis - Chest xray negative for acute process. COPD changes. - Laboratory data: WBC 11.1. Hemoglobin 15.4. Platelet count 225. Sodium 137. Potassium 4.6. BUN 21. Creatinine 0.91. Lipase 396. Troponin 0.183. 4.240. - Current home cardiac medications include lisinopril 10 mg daily, Repatha 140 mg subcu every 14 days, and atenolol 50 mg daily. - No previous echocardiogram, stress test, or cardiac catheterization available in EMR for review 01/04/2025 Patient underwent cardiac catheterization yesterday with Dr. Blakely revealing 90% proximal RCA stenosis, 90% mid LAD stenosis, 90% ostial left circumflex, 90% mid OM2 stenosis. CT surgery was consulted for evaluation. Echocardiogram performed revealing ejection fraction 55 to 60% with trace MR and mild TR. telemetry reveals sinus mechanism. Vital signs are stable. 01/05/2025 No new cardiovascular events Plan for possible surgery on Tuesday PHYSICAL EXAM: VITAL SIGNS: Reviewed. GENERAL: Well-developed in no acute distress. HEENT: Head is normocephalic. Pupils are equal, round. Sclerae anicteric. Mucous membranes of the mouth are moist. Neck supple. No JVD or thyromegaly LUNGS: Respirations even and unlabored. Lungs essentially clear to auscultation bilaterally. HEART: Regular rate and rhythm. S1 and S2 heard. ABDOMEN: Soft. Nondistended. Nontender. EXTREMITIES: Normal range of motion. No clubbing or cyanosis. Peripheral pulses intact. No lower extremity edema NEUROLOGIC: Awake and alert. Oriented x 3. ASSESSMENT: Non-STEMI, status postcardiac catheterization revealing multivessel CAD Hypertension Hyperlipidemia with statin intolerance Diabetes Family history of CAD PLAN: Continue aspirin, lisinopril, and metoprolol Continue Repatha. Patient with statin intolerance. CT surgery consulted for evaluation. Possible CABG to be performed on Tuesday. Further recommendations pending patient course Objective - Vital Signs Vital signs: Vital Signs Temp 97.5 F L 01/05/25 19:55 Pulse 83 01/05/25 23:40 Resp 18 01/05/25 23:40 BP 100/67 01/05/25 23:40 Pulse Ox 96 01/05/25 23:40 FiO2 Intake & Output 01/05/25 01/05/25 01/06/25 06:59 18:59 06:59 Intake Total 20 240 Balance 20 240 Weight 84.3 kg Intake: IV 20 Invasive Line 1 20 Oral 240 Other: Voiding Method Toilet Toilet # Voids 1 - Labs CBC & Chem 7: 01/04/25 06:31 01/04/25 06:31 Labs: Abnormal Lab Results - Last 24 Hours (Table) 01/05/25 01/05/25 01/05/25 Range/Units 06:19 11:25 16:07 POC Glucose (mg/dL) 195 H 222 H 147 H (70-110) mg/dL 01/05/25 Range/Units 20:12 POC Glucose (mg/dL) 153 H (70-110) mg/dL Microbiology - Last 24 Hours (Table) 01/02/25 18:01 Blood Culture - Preliminary Blood
--- NOTE | 2025-01-06 01:35 | PN ---
PROGRESS NOTE DATE OF SERVICE: 01/05/2025 SUBJECTIVE: This is a 69-year-old gentleman, who has 3-vessel coronary artery disease, scheduled for CABG on Tuesday. No chest pain. No palpitations. The patient is slightly anxious. OBJECTIVE: VITAL SIGNS: Pulse 102, blood pressure 119/76, respiratory rate 15. CHEST: Clear to auscultation. CARDIOVASCULAR: S1, S2 ABDOMEN: Soft. LABORATORY DATA: Reviewed. ASSESSMENT: 1. Acute non ksf-AG-bzfyjja-elevation myocardial infarction, status post cardiac catheterization and three-vessel coronary disease for coronary artery bypass grafting. 2. Gallbladder sludge and possible chronic cholecystitis. 3. Increased WBC, improved. 4. Increased lipase minimally. RECOMMENDATIONS: Recommended to continue with current management, continue with symptomatic treatment. Otherwise, as mentioned earlier, the patient is improving significantly. Closely monitor with Cardiology. Monitor blood sugars closely. LFTs are stable and lipase normalized. Further recommendations to follow. MMJOHNL / IJN: [id number] /
[2025-01-06] MEDS: ALPRAZolam 0.25 MG TAB PO PRN (04:19)
[2025-01-06 06:20] LABS: Glucose,Whole Blood 208 mg/dL (70-110)
--- NOTE | 2025-01-06 07:42 | P.PN ---
Subjective Progress Note Date: 01/06/25 Principal diagnosis: Multivessel coronary artery disease, non-ST elevated myocardial infarction this admission, possible chronic cholecystitis. Medical history of hypertension, hy perlipidemia, diabetes mellitus type 2, chronic ongoing tobacco dependence, hiatal hernia, and family history of early onset coronary artery disease. The patient is seen and examined in follow-up today January 06, 2025 at his bedside on the third floor cardiac stepdown unit. He is currently lying in bed, he is awake, alert, oriented x 3 and is in no acute apparent distress. The patient's is present at his bedside. Preoperative teaching has been reinforced with the patient. Oxygen saturations are 96% on room air and he is achieving 2000 mL on his incentive spirometry with encouragement. Remote telemetry is showing normal sinus rhythm with occasional PACs heart rate 71 bpm. He denies any complaints of pain or shortness of breath at this time, and denies any further complaints of epigastric pain. He reports he has been up ambulating in the cardiac stepdown and hallway independently and tolerating well. Laboratory results remain pending. He is scheduled for off-pump myocardial vascularization surgery tomorrow Tuesday, January 07, 2025 with left internal mammary artery, possible endoscopic/open left radial artery harvest, endoscopic vein harvest, exclusion of left atrial appendage and intraoperative transesophageal echocardiogram to be completed by Dr. Elliott Hawk. Objective - Vital Signs Vital signs: Vital Signs Temp 97.5 F L 01/05/25 19:55 Pulse 72 01/06/25 04:00 Resp 18 01/06/25 04:00 BP 104/71 01/06/25 04:00 Pulse Ox 96 01/06/25 04:00 FiO2 Intake & Output 01/05/25 01/06/25 01/06/25 18:59 06:59 18:59 Intake Total 240 Balance 240 Weight 86.5 kg Intake: Oral 240 Other: Voiding Method Toilet Toilet # Voids 1 - Exam CONSTITUTIONAL: Appears comfortable, cooperative, no acute distress RESPIRATORY: Lungs sounds essentially clear throughout, no wheezes, rhonchi or crackles. Respirations symmetrical, nonlabored. Currently on room air with oxygen saturation 96%, achieving 2000 mL on his incentive spirometry. CARDIOVASCULAR: S1, S2 present. Regular rate and rhythm, sinus rhythm with f irst-degree heart block and occasional PACs on remote telemetry, heart rate 71 bpm. Palpable peripheral pulses bilaterally. No edema present. No calf pain or tenderness noted GASTROINTESTINAL: Abdomen soft, nontender, nondistended. Active bowel sounds present 4 quadrants. Tolerating diet. GENITOURINARY: Continues to void. INTEGUMENTARY: Skin is warm and dry, no clubbing or cyanosis is present. NEUROLOGIC: Cranial nerves II through XII intact, no focal deficits. MUSKULOSKELETAL: Able to move all extremities, strength equal bilaterally, gait normal. PSYCHIATRIC: Alert and oriented to person place and time, appropriate affect, intact judgment and insight. - Allied health notes Allied health notes reviewed: nursing - Labs CBC & Chem 7: 01/04/25 06:31 01/04/25 06:31 Labs: Abnormal Lab Results - Last 24 Hours (Table) 01/05/25 01/05/25 01/05/25 Range/Units 11:25 16:07 20:12 POC Glucose (mg/dL) 222 H 147 H 153 H (70-110) mg/dL 01/06/25 Range/Units 06:19 POC Glucose (mg/dL) 208 H (70-110) mg/dL Microbiology - Last 24 Hours (Table) 01/02/25 18:01 Blood Culture - Preliminary Blood Assessment and Plan Assessment: Multivessel coronary artery disease Non-ST elevated myocardial infarction this admission Possible chronic cholecystitis Hypertension Hyperlipidemia with anaphylactic allergy to statins, on Repatha as an outpatient, cholesterol 134, LDL 43, triglycerides 299 Diabetes mellitus type 2 with a hemoglobin A1c of 7.6% Family history of early onset coronary artery disease Hiatal hernia Chronic ongoing tobacco dependence, smokes 2 to 3 cigars/day Plan: Continue to maximize medical therapy with aspirin, beta-valeriy, and IV heparin. Ideally would have patient on statin but he has anaphylactic reaction to statins. He is scheduled for off-pump myocardial revascularization surgery with left internal mammary artery, endoscopic vein harvest, possible left radial artery endoscopic harvest/or open harvest, exclusion left atrial appendage and intraoperative transesophageal echocardiogram to be completed by Dr. Elliott Hawk tomorrow Tuesday, January 07, 2025 Increase activity, ambulate as tolerated. STS risk score has been calculated and discuss with the patient and his . Preoperative teaching has been reinforced with the patient and his present at his bedside. The importance of smoking cessation has been reinforced with the patient. Upon discharge the patient will be given the number to [id number]. Medical management of other comorbidities per internal medicine, cardiology N.p.o. after midnight. More recommendations to follow based on patient's clinical course. Time with Patient: Greater than 30
[2025-01-06 08:40] LABS: INR 0.9 (<1.2); Partial Thromboplastin Time 23.2 sec (22.0-30.0); Prothrombin Time 10.6 sec (10.0-12.5)
[2025-01-06 08:41] LABS: ALT 51 U/L (4-49); AST 38 U/L (17-59); African American GFR (CKD) >90 (>60 ml/min/1.73 sqM); Albumin 4.5 g/dL (3.5-5.0); Alkaline Phosphatase 72 U/L (38-126); Anion Gap 11 mmol/L; Blood Urea Nitrogen 21 mg/dL (9-20); Calcium 9.6 mg/dL (8.4-10.2); Carbon Dioxide 22 mmol/L (22-30); Chloride 103 mmol/L (98-107); Glucose 164 mg/dL (74-99); Magnesium 1.7 mg/dL (1.6-2.3); Non-African American GFR(CKD) >90 (>60 ml/min/1.73 sqM); Potassium 4.5 mmol/L (3.5-5.1); Sodium 136 mmol/L (137-145); Total Bilirubin 0.6 mg/dL (0.2-1.3); Total Protein 7.8 g/dL (6.3-8.2)
[2025-01-06 08:42] LABS: Basophils # (A) 0.1 k/uL (0-0.2); Basophils % (A) 1 %; Eosinophils # (A) 0.3 k/uL (0-0.7); Eosinophils % (A) 4 %; HCT 50.5 % (39.0-53.0); HGB 16.7 gm/dL (13.0-17.5); Lymphocytes # (A) 1.9 k/uL (1.0-4.8); Lymphocytes % (A) 21 %; MCH 31.6 pg (25.0-35.0); MCHC 33.1 g/dL (31.0-37.0); MCV 95.5 fL (80.0-100.0); Monocytes # (A) 0.5 k/uL (0-1.0); Monocytes % (A) 6 %; Neutrophils % (A) 68 %; Platelet Count 224 k/uL (150-450); RBC 5.29 m/uL (4.30-5.90); RDW 12.8 % (11.5-15.5); WBC 8.9 k/uL (3.8-10.6)
--- NOTE | 2025-01-06 08:56 | P.PN ---
Subjective Progress Note Date: 01/06/25 Patient seen and examined at bedside. No abdominal pain. Objective - Vital Signs Vital signs: Vital Signs Temp 97.1 F L 01/06/25 08:00 Pulse 79 01/06/25 08:00 Resp 16 01/06/25 08:00 BP 111/76 01/06/25 08:00 Pulse Ox 97 01/06/25 08:00 FiO2 Intake & Output 01/05/25 01/06/25 01/06/25 18:59 06:59 18:59 Intake Total 240 Balance 240 Weight 86.5 kg Intake: Oral 240 Other: Voiding Method Toilet Toilet Toilet # Voids 1 - Constitutional General appearance: Present: cooperative, no acute distress - Respiratory Details: No difficulty with respiration - Gastrointestinal General gastrointestinal: Present: soft. Absent: tenderness - Labs CBC & Chem 7: 01/06/25 07:45 01/06/25 07:45 Labs: Abnormal Lab Results - Last 24 Hours (Table) 01/05/25 01/05/25 01/05/25 Range/Units 11:25 16:07 20:12 Sodium (137-145) mmol/L BUN (9-20) mg/dL Glucose (74-99) mg/dL POC Glucose (mg/dL) 222 H 147 H 153 H (70-110) mg/dL ALT (4-49) U/L 01/06/25 01/06/25 Range/Units 06:19 07:45 Sodium 136 L (137-145) mmol/L BUN 21 H (9-20) mg/dL Glucose 164 H (74-99) mg/dL POC Glucose (mg/dL) 208 H (70-110) mg/dL ALT 51 H (4-49) U/L Microbiology - Last 24 Hours (Table) 01/02/25 18:01 Blood Culture - Preliminary Blood Assessment and Plan Plan: Patient seen and examined at bedside. He is scheduled for off-pump myocardial vascularization surgery tomorrow Tuesday, January 07, 2025 with left internal mammary artery, possible endoscopic/open left radial artery harvest, endoscopic vein harvest, exclusion of left atrial appendage and intraoperative transesophageal echocardiogram tomorrow morning. Currently, patient with no evidence of acute cholecystitis more likely chronic cholecystitis. Will recommend moving forward with cardiothoracic procedure and plan for gallbladder surgery in the future once he recovers. Patient is agreeable with this plan. Moise Galvan, DO
--- NOTE | 2025-01-06 11:09 | P.PN ---
Subjective Progress Note Date: 01/06/25 This is a 69-year-old male patient was being seen preoperatively as the patient is being scheduled to undergo an off-pump coronary artery bypass surgery on 01/07/2025. The patient has multivessel coronary artery disease and he sustained an acute non-ST segment elevation myocardial infarction. He is currently free of any chest pain. The cardiac catheterization revealed a 90% stenosis to his proximal right coronary artery, a 90% stenosis to his mid left anterior descending coronary artery, a 90% stenosis to his ostial circumflex coronary artery, and a 90% stenosis to his mid obtuse marginal 2 coronary artery. Due to the findings on the cardiac catheterization, the patient elevated troponins and his presenting symptoms a consult was placed to cardiothoracic surgery for further evaluation and treatment recommendations including myocardial revascularization surgery. The patient has known to have hypertension hyperlipidemia and diabetes mellitus type 2. His HbA1c is 7.6. He smokes around 2 to 3 cigars on a daily basis. He is on room air oxygen. CAT scan of the chest was completed and it shows few scattered pulmonary micronodules. Nonspecific findings. No other pulmonary abnormalities noted. The patient is quite active. He is a hannah. His echocardiogram done on 01/03/2025 showed normal LV size and function. On 01/06/2025, the patient has no specific complaints. Resting comfortably in bed. Awaiting off-pump coronary bypass surgery to be done in the morning. Room air oxygen. White cell count of 8.9, hemoglobin 16 and a platelet count is 224. Electrolytes are all within normal limits. Ambulating. Using the incentive spirometer. No nausea vomiting or abdominal pain. No other new complaints. Objective - Vital Signs Vital signs: Vital Signs Temp 97.1 F L 01/06/25 08:00 Pulse 79 01/06/25 08:00 Resp 16 01/06/25 08:00 BP 111/76 01/06/25 08:00 Pulse Ox 97 01/06/25 08:00 FiO2 Intake & Output 01/05/25 01/06/25 01/06/25 18:59 06:59 18:59 Intake Total 240 480 Balance 240 480 Weight 86.5 kg Intake: Oral 240 480 Other: Voiding Method Toilet Toilet Toilet # Voids 1 - Exam The patient appeared well nourished and normally developed. Vital signs as documented. Head exam is unremarkable. No scleral icterus or corneal arcus noted. Neck is without jugular venous distension, thyromegaly, or carotid bruits. Carotid upstrokes are brisk bilaterally. Lungs are clear to auscultation and percussion. Cardiac exam reveals the PMI to be normally sized and situated. Rhythm is regular. First and second heart sounds normal. No murmurs, rubs or gallops. Abdominal exam reveals normal bowel sounds, no masses, no organomegaly and no aortic enlargement. Extremities are nonedematous and both femoral and pedal pulses are normal. Examination of the skin revealed no evidence of significant rashes, suspicious appearing nevi or other concerning lesions. Neurologically, the patient is awake and alert and the patient does not have any focal neurological deficit. Cranial nerves are essentially intact. - Labs CBC & Chem 7: 01/06/25 07:45 01/06/25 07:45 Labs: Abnormal Lab Results - Last 24 Hours (Table) 01/05/25 01/05/25 01/05/25 Range/Units 11:25 16:07 20:12 Sodium (137-145) mmol/L BUN (9-20) mg/dL Glucose (74-99) mg/dL POC Glucose (mg/dL) 222 H 147 H 153 H (70-110) mg/dL ALT (4-49) U/L 01/06/25 01/06/25 Range/Units 06:19 07:45 Sodium 136 L (137-145) mmol/L BUN 21 H (9-20) mg/dL Glucose 164 H (74-99) mg/dL POC Glucose (mg/dL) 208 H (70-110) mg/dL ALT 51 H (4-49) U/L Microbiology - Last 24 Hours (Table) 01/02/25 18:01 Blood Culture - Preliminary Blood Assessment and Plan Plan: Multivessel coronary disease, status post acute non-ST segment elevation myocardial infarction. The patient is awaiting a coronary bypass surgery that is supposed to be done on 01/07/2025. Currently hemodynamic stable and patient is free of any chest pain. Diabetes mellitus type 2 Hypertension Hyperlipidemia maintained on Repatha on outpatient basis with an LDL level of 43 History of smoking Hiatal hernia Chronic cholecystitis Plan Overall pulmonary status is stable, awaiting coronary bypass surgery for tomorrow Using incentive spirometry Obtained at bedside spirometry and establish FEV1, adequate CAT scan of the chest shows nonspecific bilateral pulmonary nodules, no need for any further intervention at this point regarding these nodules. Continue aspirin, lisinopril and metoprolol Bypass surgery on 01/07/2025 Will be involved in vent management and postop care.
[2025-01-06 11:59] LABS: Glucose,Whole Blood 174 mg/dL (70-110)
[2025-01-06 16:40] LABS: Glucose,Whole Blood 235 mg/dL (70-110)
[2025-01-06 20:27] LABS: Glucose,Whole Blood 184 mg/dL (70-110)
--- NOTE | 2025-01-06 20:49 | P.PN ---
Subjective Progress Note Date: 01/06/25 HISTORY OF PRESENT ILLNESS: This is a 69-year-old male with a past medical history significant for hype rtension, hyperlipidemia, diabetes. 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 We have been asked to see the patient in consultation for chest pain. Patient examined at the bedside. Patient presented to the hospital with a chief complaint of chest discomfort. Patient states he has been having discomfort on and off for the past 10 days. He states the discomfort is in the lower part of his chest and he describes it as a pressure type sensation that radiates down his arms into his fingertips. He reports a family history of CAD in his dad in his 60s. Patient states that he used to smoke cigars but no longer does. He denies any drug use including marijuana. Denies excessive alcohol use. DIAGNOSTICS: - EKG reveals sinus mechanism with no signs of acute ischemia. Repeat EKG reveals sinus mechanism with ST depression in anterior lateral leads - Gallbladder ultrasound, no evidence for acute process.revealed biliary sludge, hepatic steatosis - Chest xray negative for acute process. COPD changes. - Laboratory data: WBC 11.1. Hemoglobin 15.4. Platelet count 225. Sodium 137. Potassium 4.6. BUN 21. Creatinine 0.91. Lipase 396. Troponin 0.183. 4.240. - Current home cardiac medications include lisinopril 10 mg daily, Repatha 140 mg subcu every 14 days, and atenolol 50 mg daily. - No previous echocardiogram, stress test, or cardiac catheterization available in EMR for review 01/04/2025 Patient underwent cardiac catheterization yesterday with Dr. Blakely revealing 90% proximal RCA stenosis, 90% mid LAD stenosis, 90% ostial left circumflex, 90% mid OM2 stenosis. CT surgery was consulted for evaluation. Echocardiogram performed revealing ejection fraction 55 to 60% with trace MR and mild TR. telemetry reveals sinus mechanism. Vital signs are stable. 01/05/2025 No new cardiovascular events Plan for possible surgery on Tuesday01/06/2025 No new cardiovascular event Possible plan for CABG on Tuesday PHYSICAL EXAM: VITAL SIGNS: Reviewed. GENERAL: Well-developed in no acute distress. HEENT: Head is normocephalic. Pupils are equal, round. Sclerae anicteric. Mucous membranes of the mouth are moist. Neck supple. No JVD or thyromegaly LUNGS: Respirations even and unlabored. Lungs essentially clear to auscultation bilaterally. HEART: Regular rate and rhythm. S1 and S2 heard. ABDOMEN: Soft. Nondistended. Nontender. EXTREMITIES: Normal range of motion. No clubbing or cyanosis. Peripheral pulses intact. No lower extremity edema NEUROLOGIC: Awake and alert. Oriented x 3. ASSESSMENT: Non-STEMI, status postcardiac catheterization revealing multivessel CAD Hypertension Hyperlipidemia with statin intolerance Diabetes Family history of CAD PLAN: Continue aspirin, lisinopril, and metoprolol Continue Repatha. Patient with statin intolerance. CT surgery consulted for evaluation. Possible CABG to be performed on Tuesday. Further recommendations pending patient course Objective - Vital Signs Vital signs: Vital Signs Temp 97.7 F 01/06/25 20: Pulse 89 01/06/25 20:25 Resp 17 01/06/25 20:25 BP 149/92 01/06/25 20:25 Pulse Ox 98 01/06/25 20:25 FiO2 Intake & Output 01/06/25 01/06/25 01/07/25 06:59 18:59 06:59 Intake Total 838 Balance 838 Weight 86.5 kg Intake: Oral 838 Other: Voiding Method Toilet Toilet # Voids 1 - Labs CBC & Chem 7: 01/06/25 07:45 01/06/25 07:45 Labs: Abnormal Lab Results - Last 24 Hours (Table) 01/06/25 01/06/25 01/06/25 Range/Units 06:19 07:45 07:51 Sodium 136 L (137-145) mmol/L BUN 21 H (9-20) mg/dL Glucose 164 H (74-99) mg/dL POC Glucose (mg/dL) 208 H (70-110) mg/dL ALT 51 H (4-49) U/L Crossmatch See Detail 01/06/25 01/06/25 01/06/25 Range/Units 11:46 16:29 20:25 Sodium (137-145) mmol/L BUN (9-20) mg/dL Glucose (74-99) mg/dL POC Glucose (mg/dL) 174 H 235 H 184 H (70-110) mg/dL ALT (4-49) U/L Crossmatch Microbiology - Last 24 Hours (Table) 01/02/25 18:01 Blood Culture - Preliminary Blood
[2025-01-07 02:01] LABS: Glucose,Whole Blood 131 mg/dL (70-110)
[2025-01-07 04:37] LABS: Glucose,Whole Blood 200 mg/dL (70-110)
[2025-01-07] MEDS: ASPIRIN 81 MG PO ONE (04:57)
[2025-01-07] MEDS: METOPROLOL TARTRATE 12.5 MG TAB PO ONE (04:57)
[2025-01-07] MEDS ORDERED: NOREPINEPHRINE 4 MG in SODIUM CHLORIDE 0.9% 250 ML IV SCH (05:00)
[2025-01-07] MEDS ORDERED: CARDIOPLEGIC SOLN (K+ 16 MEQ/L 1,000 ML with SOD BICARB SYR 8.4% (1 MEQ/ML) 20 ML, LIDO... PERFUSION NR (05:00)
[2025-01-07] MEDS ORDERED: INSULIN REGULAR 100 UNIT in SODIUM CHLORIDE 0.9% 100 ML IV SCH (05:00)
--- NOTE | 2025-01-07 06:17 | PN ---
PROGRESS NOTE DATE OF SERVICE: 01/06/2025 SUBJECTIVE: This is a 69-year-old gentleman admitted with acute hmv-US-[id number] elevation myocardial infarction, had three-vessel coronary artery disease. The patient is scheduled to have CABG tomorrow. The patient also had gallbladder sludge with no evidence of acute cholecystitis, probably more like chronic cholecystitis per Surgery. OBJECTIVE: VITAL SIGNS: Pulse is 77, blood pressure 127/73, respirations 16. CHEST: Clear to auscultation. CARDIOVASCULAR: S1, S2. ABDOMEN: Soft, nontender. LABORATORY DATA: Reviewed. LFTs are normal at this time. ASSESSMENT: 1. Acute qcq-LB-yuyqrtz elevation myocardial infarction, status post cardiac catheterization and three-vessel coronary artery disease for coronary artery bypass graft. 2. Gallbladder sludge and possible chronic cholecystitis per Surgery. 3. Increased WBC, improved. 4. Increased lipase, minimally improved. RECOMMENDATIONS AND DISCUSSION: I recommend to continue current management and continue symptomatic treatment. Otherwise, I would recommend to repeat labs in the morning. Closely follow along with Cardiothoracic Surgery and Surgery. Further recommendations to follow. Stable currently. MMODL / IJN: [id number] /
[2025-01-07 06:36] LABS: Glucose,Whole Blood 189 mg/dL (70-110)
[2025-01-07] MEDS: IV FLUID CONTINUATION 1,000 ML IV ONE (06:45)
[2025-01-07] MEDS ORDERED: PHENYLEPHRINE 10 MG/ML VIAL ONE (07:30)
[2025-01-07] MEDS ORDERED: PROTAMINE SULFATE 10 MG/ML 25 ML VIAL IV ONE (07:30)
[2025-01-07] MEDS ORDERED: fentaNYL (PF) 50 MCG/ML 50 ML VIAL ONE (07:30)
[2025-01-07] MEDS ORDERED: PROPOFOL 10 MG/ML 20 ML VIAL IV ONE (07:30)
[2025-01-07] MEDS ORDERED: CALCIUM CHLORIDE 100 MG/ML 10 ML SYRINGE ONE (07:30)
[2025-01-07] MEDS ORDERED: WATER FOR INJECTION, STERILE 10 ML VIAL IV ONE (07:30)
[2025-01-07] MEDS ORDERED: VECURONIUM 10 MG VIAL IV ONE (07:30)
[2025-01-07] MEDS ORDERED: MIDAZOLAM HCL 10 MG/10 ML VIAL ONE (07:30)
[2025-01-07] MEDS ORDERED: ALBUMIN HUMAN 5% (25gm) 500 ML VIAL IVPB ONE (07:30)
[2025-01-07] MEDS ORDERED: HEPARIN SODIUM,PORCINE 10,000 UNIT/ML 1 ML VIAL ONE (07:30)
[2025-01-07 08:00] LABS: Glucose,Whole Blood 153 mg/dL (70-110)
[2025-01-07 08:54] LABS: Allen Test Performed? Yes
[2025-01-07 09:00] LABS: ABG Base Excess -0.1 mmol/L; ABG HCO3 24 mmol/L (21-25); ABG Hematocrit 41 % (34.0-46.0); ABG Ionized Calcium 4.6 mg/dL (4.5-5.3); ABG Oxygen Saturation 98.5 % (94-97); ABG PCO2 35 mmHg (35-45); ABG PH 7.44 (7.35-7.45); ABG PO2 149 mmHg (83-108); ABG Potassium Whole Blood 3.9 mmol/L (3.4-4.5); ABG TCO2 21 mmol/L (19-24)
[2025-01-07] MEDS: SODIUM CHLORIDE 0.9% 500 ML 500 ML with HEPARIN SODIUM,PORCINE (1 ML) 5,000 UNIT IV ONE (09:23)
[2025-01-07] MEDS: ceFAZolin 1,000 MG in SODIUM CHLORIDE 0.9% 1,000 ML IRRIGATION ONE (09:24)
[2025-01-07] MEDS: PAPAVERINE 360 MG in SODIUM CHLORIDE 0.9% 90 ML IV ONE (09:24)
[2025-01-07 09:59] LABS: ABG Base Excess -1.4 mmol/L; ABG HCO3 25 mmol/L (21-25); ABG Hematocrit 38 % (34.0-46.0); ABG Ionized Calcium 4.6 mg/dL (4.5-5.3); ABG PCO2 48 mmHg (35-45); ABG PH 7.33 (7.35-7.45); ABG PO2 167 mmHg (83-108); ABG Potassium Whole Blood 3.7 mmol/L (3.4-4.5); ABG Sodium Whole Blood 140 mmol/L (135-146); ABG TCO2 23 mmol/L (19-24); Allen Test Performed? Yes
[2025-01-07 12:08] LABS: ABG Glucose Whole Blood 102 mg/dL (75-99); ABG Lactic Acid Whole Blood 0.7 mmol/L (0.5-1.6); ABG Sodium Whole Blood 139 mmol/L (135-146)
[2025-01-07 12:10] LABS: ABG Glucose Whole Blood 110 mg/dL (75-99); ABG Lactic Acid Whole Blood 0.6 mmol/L (0.5-1.6)
--- NOTE | 2025-01-07 12:40 | P.OP ---
Date of Procedure: 01/07/25 Preoperative Diagnosis: Coronary artery disease, non-ST elevation [place] Postoperative Diagnosis: Same Procedure(s) Performed: Off-pump CABG x 3 with CAPPS to LAD, saphenous vein graft to obtuse marginal, saphenous vein graft to right coronary artery. Endovascular vein harvest from of left greater saphenous vein from ankle to groin. Ligation of the left atrial appendage with a 35 mm AtriCure clip. Implants: 35 mm AtriCure clip Anesthesia: GETA Surgeon: Elliott Hawk Developmental Training Counselor #1: Germaine Burch (1st assist) Developmental Training Counselor #2: Mynor Godwin (2nd assist) Estimated Blood Loss (ml): 400 Pathology: none sent Condition: stable Disposition: ICU Indications for Procedure: 69-year-old male presented with worsening chest pain over several months. He ruled in for subendocardial infarction. Was also noted to have chronic biliary colic and chronic cholecystitis. The latter was treated with antibiotics. He underwent cardiac catheterization demonstrating severe three-vessel coronary artery disease. He was recommended to undergo coronary bypass surgery. Preoperative testing was ordered and he was scheduled for the next available time slot. Operative Findings: LAD was a reasonable vessel that exited from an intramyocardial course about long-term down the anterior wall. It was grafted at its exit point. Right coronary artery was a good vessel which bifurcated about long-term down from the acute margin to the septum and was grafted just prior to its bifurcation. Circumflex coronary artery was a diffusely diseased vessel. First obtuse marginal was grafted just prior to its bifurcation hide near the AV groove. Second obtuse marginal coronary artery was very small and not grafted. Saphenous vein was of reasonable quality in the groin and by the knee and became small in the lower leg. Adequate good vein was available from the thigh and knee region. CAPPS was an excellent conduit. There was no clot in the left atrial appendage by ELVIS. Left ventricular function was normal. There was trivial valvular heart disease by ELVIS. Completion ELVIS demonstrated excellent ventricular function with trivial valvular disease unchanged. Left atrial appendage was completely occluded at its base. Description of Procedure: Patient was brought to the operating room and placed supine on the operating table. General anesthesia was induced. He was intubated and a ELVIS probe was placed. Graham catheter was placed. The anterior torso and bilateral lower extremities were sterilely prepped and draped in standard fashion. Left greater saphenous vein was harvested using endovascular technique and prepared on the back table. Simultaneous sternotomy was performed and the left hemisternum retracted upwards. The left internal mammary artery was harvested on a vascularized pedicle, left intact on its origin from the subclavian and divided distally. It was an excellent conduit. Left pleural space was drained with a 32 Yi chest tube and a standard sternal retractor was placed. Pericardium was opened in the midline and the heart was exposed with pericardial sutures. Patient was systemically heparinized and ACT's were maintained greater than 250 during grafting. 35 mm AtriCure clip was applied to the base of the left atrial appendage. The CAPPS was tunneled into the pericardial space and prepared distally. The LAD was stabilized as it exited from an intramyocardial position about long-term down the anterior wall. Was opened longitudinally and a 1.5 mm flow-through placed. It was a 1.5 to 1.75 mm vessel. End-to-side anastomosis between the CAPPS and the LAD was performed with running 8-0 Prolene suture. On completion anastomosis, flow through was removed effectively probing the proximal distal portion of the anastomosis. Suture was tied with good result and hemostasis. LEÓN pedicle was tacked surrounding epicardium with 6-0 silk sutures. The inferior wall of the heart was exposed and the right coronary artery was stabilized just prior to its bifurcation. It was opened here. It was a 1.75 to 2 mm vessel. Blood flow was controlled with a 1.5 mm flow- through. Saphenous vein was anastomosed in end-to-side fashion with running 7-0 Prolene suture. On completion the anastomosis the flow through was removed effectively probing the proximal and distal portion of the anastomosis. Suture was tied with good resultant hemostasis. Good backbleeding was noted to the first valve. Heart was lowered in the anatomic position. The vein was cut to appropriate length to reach the ascending aorta. Heartstring was deployed in the proximal midportion of the ascending aorta. Proximal anastomosis was constructed with running 5-0 Prolene suture. On completion of the anastomosis the heartstring device was removed and the suture was tied with good resultant hemostasis. The vein graft was de-aired with needle holes and the inflow open. Graft lay well with excellent length and no evidence of bleeding from either the proximal or distal anastomosis. Next the lateral heart was exposed. Major marginal branch was relatively short prior to its bifurcation hide near the AV groove. It was dissected out of the fat here. The distal branches were relatively small. The second obtuse marginal coronary artery was very small. There was significant disease in the proximal portion of the first obtuse marginal coronary artery. It was opened just prior to the bifurcation had a soft area. Blood flow was controlled with a 1.5 mm flow-through, it was a 1.75 mm vessel. End-to-side anastomosis of a second piece of saphenous vein to the obtuse marginal was performed with running 7-0 Prolene suture. On completion of the anastomosis the flow through was removed effectively probing the proximal and distal portion of the anastomosis. Suture was tied with good resultant hemostasis. Heart was lowered into anatomic position and the vein was brought beneath the CAPPS. Was cut to appropriate length to reach the mid to distal portion of the ascending aorta. Heartstring device was deployed here. Proximal anastomosis was constructed with running 5-0 Prolene suture. On completion of the proximal anastomosis, heartstring device was removed and the suture tied with good resultant hemostasis. Vein graft was de-aired with needle holes and the inflow open. Graft lay well with more than adequate length. Both proximal and distal anastomosis were hemostatic. Heparin was now reversed with protamine. Good hemostasis was obtained throughout. Chest was irrigated with antibiotic solution. The mediastinum was drained with a 36 Yi chest tube. Sternum was closed with 8 sternal wires. Fascia was closed with 0 Ethibond. The subcutaneous and subcuticular layers and the leg and chest were closed with layers of Vicryl suture. Dry sterile dressings were applied the patient was transferred to ICU in stable condition.
[2025-01-07] MEDS ORDERED: hydrALAZINE HCL 20 MG/ML 1 ML VIAL IVP PRN (12:46)
[2025-01-07] MEDS ORDERED: Magnesium Replacement Protocol 1 EACH MISC MISCELLANE PRN (12:46)
[2025-01-07] MEDS ORDERED: Potassium Replacement Protocol 1 EACH MISC MISCELLANE PRN (12:46)
[2025-01-07] MEDS ORDERED: ONDANSETRON 4 MG/2 ML VIAL IVP PRN (12:46)
[2025-01-07] MEDS ORDERED: DEXTROSE 50% SYRINGE 50 ML IVP PRN ×2 (12:46)
[2025-01-07] MEDS ORDERED: CALCIUM GLUCONATE IN NACL 2 GM in SALINE 1 100ML.BAG IVPB PRN (12:46)
[2025-01-07] MEDS ORDERED: METOCLOPRAMIDE 5 MG/ML 2 ML VIAL IVP PRN (12:46)
[2025-01-07] MEDS ORDERED: BENZOCAINE/MENTHOL LOZENG 1 EACH LOZENGE MUCOUS MEM PRN (12:46)
[2025-01-07] MEDS ORDERED: IPRATROPIUM-ALBUTEROL 3 ML NEB INHALATION PRN (12:46)
[2025-01-07 12:55] LABS: Glucose,Whole Blood 122 mg/dL (70-110)
[2025-01-07] MEDS: SODIUM CHLORIDE 0.9% 1,000 ML IV SCH (13:00)
[2025-01-07] MEDS: NITROGLYCERIN-D5W PMX 50 MG in DEXTROSE/WATER 1 250ML.BAG IV SCH (13:01)
[2025-01-07] MEDS: ALBUMIN HUMAN 5% 250 ML in EMPTY BAG 1 BAG IVPB PRN (13:02)
[2025-01-07] MEDS: AMIODARONE 360 MG in DEXTROSE 5% IN WATER 200 ML IV ONE (13:10)
[2025-01-07 13:15] LABS: Ionized Calcium 4.3 mg/dL (4.5-5.3)
[2025-01-07 13:19] LABS: Allen Test Performed? no
[2025-01-07 13:19] LABS: INR 1.2 (<1.2); Partial Thromboplastin Time 28.8 sec (22.0-30.0); Prothrombin Time 13.1 sec (10.0-12.5)
[2025-01-07 13:20] LABS: ABG HCO3 22 mmol/L (21-25); ABG PCO2 41 mmHg (35-45); ABG PH 7.33 (7.35-7.45); ABG PO2 327 mmHg (83-108)
--- NOTE | 2025-01-07 13:22 | XR ---
EXAMINATION TYPE: XR chest 1V portable DATE OF EXAM: 01/07/2025 CLINICAL INDICATION: Male, 69 years old with history of Post Operative Cardiac Surgery, progress stud y. TECHNIQUE: Single AP portable upright view of the chest is obtained. COMPARISON: Chest CT from 4 days earlier FINDINGS: There is new endotracheal tube terminating at aortic knob level approximately 2.0 cm above the licha. There is no orogastric tube extending below diaphragm. There is new right internal jugul ar [place] catheter terminating at level of the proximal right pulmonary artery. There is new media stinal drainage catheter and left-sided chest tube. Overlying sternal wires and mediastinal clips david ng with left atrial appendage clip are also now present. There is left greater than right bilateral lower lung opacity favoring atelectasis. No pneumothorax s een bilaterally. Cardiac silhouette size is stable and within normal limits. Osseous structures are i ntact. IMPRESSION: 1. New Tubes and lines are satisfactory in position. 2. Left greater than right bibasilar opacity favoring atelectasis. No left-sided pneumothorax with le ft-sided chest tube in place. [facility], , 01/07/2025 1:20 PM
[2025-01-07 13:25] LABS: Basophils % (A) 0 %; Eosinophils # (A) 0.2 k/uL (0-0.7); Eosinophils % (A) 1 %; HCT 30.8 % (39.0-53.0); Lymphocytes # (A) 1.3 k/uL (1.0-4.8); Lymphocytes % (A) 10 %; MCH 32.3 pg (25.0-35.0); MCHC 33.9 g/dL (31.0-37.0); Monocytes # (A) 0.7 k/uL (0-1.0); Monocytes % (A) 5 %; Neutrophils # (A) 10.9 k/uL (1.3-7.7); Neutrophils % (A) 83 %; Platelet Count 142 k/uL (150-450); RBC 3.24 m/uL (4.30-5.90); WBC 13.2 k/uL (3.8-10.6)
[2025-01-07 13:26] LABS: HGB 10.5 gm/dL (13.0-17.5)
[2025-01-07 13:27] LABS: ALT 23 U/L (4-49); AST 22 U/L (17-59); African American GFR (CKD) >90 (>60 ml/min/1.73 sqM); Albumin 2.9 g/dL (3.5-5.0); Alkaline Phosphatase 26 U/L (38-126); Anion Gap 4 mmol/L; Blood Urea Nitrogen 16 mg/dL (9-20); Calcium 7.2 mg/dL (8.4-10.2); Carbon Dioxide 21 mmol/L (22-30); Chloride 111 mmol/L (98-107); Glucose 112 mg/dL (74-99); Magnesium 1.3 mg/dL (1.6-2.3); Non-African American GFR(CKD) >90 (>60 ml/min/1.73 sqM); Sodium 136 mmol/L (137-145); Total Bilirubin 0.6 mg/dL (0.2-1.3); Total Protein 4.8 g/dL (6.3-8.2)
[2025-01-07 13:54] LABS: Glucose,Whole Blood 132 mg/dL (70-110)
[2025-01-07 13:54] LABS: Glucose,Whole Blood 140 mg/dL (70-110)
[2025-01-07] MEDS: MAGNESIUM SULFATE-D5W PMX 1 GM in DEXTROSE/WATER 1 100ML.BAG IVPB SCH (13:56)
[2025-01-07] MEDS: CALCIUM GLUCONATE IN NACL 1 GM in SALINE 1 100ML.BAG IVPB ONE (13:57)
[2025-01-07] MEDS: INSULIN REGULAR 100 UNIT in SODIUM CHLORIDE 0.9% 100 ML IV SCH (14:11)
[2025-01-07] MEDS: CLEVIDIPINE BUTYRATE 25 MG in EMPTY BAG 1 BAG IV PRN (14:47)
[2025-01-07] MEDS: DEXMEDETOMIDINE/0.9% NACL(PMX) 400 MCG in EMPTY BAG 1 BAG IV SCH (14:59)
[2025-01-07 15:29] LABS: Glucose,Whole Blood 210 mg/dL (70-110)
[2025-01-07 15:55] LABS: Basophils % (A) 0 %; Eosinophils # (A) 0.1 k/uL (0-0.7); Eosinophils % (A) 1 %; HCT 32.3 % (39.0-53.0); HGB 10.8 gm/dL (13.0-17.5); Lymphocytes # (A) 1.5 k/uL (1.0-4.8); Lymphocytes % (A) 13 %; MCH 31.8 pg (25.0-35.0); MCHC 33.3 g/dL (31.0-37.0); MCV 95.6 fL (80.0-100.0); Mean Platelet Volume 8.7; Monocytes # (A) 0.4 k/uL (0-1.0); Monocytes % (A) 4 %; Neutrophils # (A) 9.3 k/uL (1.3-7.7); Neutrophils % (A) 82 %; Platelet Count 156 k/uL (150-450); RBC 3.38 m/uL (4.30-5.90); RDW 12.8 % (11.5-15.5); WBC 11.4 k/uL (3.8-10.6)
[2025-01-07] MEDS: ceFAZolin 2 GM in DEXTROSE 5% IN WATER 50 ML IVPB SCH (16:08)
[2025-01-07 16:17] LABS: Glucose,Whole Blood 222 mg/dL (70-110)
--- NOTE | 2025-01-07 16:21 | P.PN ---
Subjective Progress Note Date: 01/07/25 Principal diagnosis: Off-pump CABG x 3 with CAPPS to LAD, saphenous vein graft to obtuse marginal, saphenous vein graft to right coronary artery. Endovascular vein harvest from of left greater saphenous vein from ankle to groin. Ligation of the left atrial appendage with a 35 mm AtriCure clip. Postoperative day #0 This is a 69-year-old male patient was being seen preoperatively as the patient is being scheduled to undergo an off-pump coronary artery bypass surgery on 2024. The patient has multivessel coronary artery disease and he sustained an acute non-ST segment elevation myocardial infarction. He is currently free of any chest pain. The cardiac catheterization revealed a 90% stenosis to his proximal right coronary artery, a 90% stenosis to his mid left anterior descending coronary artery, a 90% stenosis to his ostial circumflex coronary artery, and a 90% stenosis to his mid obtuse marginal 2 coronary artery. Due to the findings on the cardiac catheterization, the patient elevated troponins and his presenting symptoms a consult was placed to cardiothoracic surgery for further evaluation and treatment recommendations including myocardial revascular ization surgery. The patient has known to have hypertension hyperlipidemia and diabetes mellitus type 2. His HbA1c is 7.6. He smokes around 2 to 3 cigars on a daily basis. He is on room air oxygen. CAT scan of the chest was completed and it shows few scattered pulmonary micronodules. Nonspecific findings. No other pulmonary abnormalities noted. The patient is quite active. He is a hannah. His echocardiogram done on 01/03/2025 showed normal LV size and function. On 01/06/2025, the patient has no specific complaints. Resting comfortably in bed. Awaiting off-pump coronary bypass surgery to be done in the morning. Room air oxygen. White cell count of 8.9, hemoglobin 16 and a platelet count is 224. Electrolytes are all within normal limits. Ambulating. Using the incentive spirometer. No nausea vomiting or abdominal pain. No other new complaints. Patient was seen today on 01/07/25, patient is now status post CABG, postoperative day #0, I saw this patient in the ICU shortly after he came back from the OR. Presently on mechanical ventilation, assist-control rate of 14 tidal volume 500 FiO2 50% and PEEP of 5 ABG showed a pO2 of 327 pCO2 41 pH of 7.33 hence patient was cut down to 45%. Patient is on multiple drips including Cleviprex at 2 mg/h amiodarone at 1 mg/min, he is also on the Precedex at 0.2 mcg/kg/h, nitroglycerin drip, patient is arousable, follows instructions, cardiac output is 7.5, cardiac index of 3.8 PA pressure 35/22 CVP is 13. Chest x-ray was reviewed, postoperative changes noted, no acute process was noted, endotracheal tube is about 3 cm above the licha. Chest tubes and PA catheter are in the proper position. WBC count is 11.4 hemoglobin is 10.8, blood sugar is 210. Objective - Vital Signs Vital signs: Vital Signs Temp 97.4 F L 01/07/25 04:44 Pulse 98 01/07/25 15:00 Resp 29 H 01/07/25 15:00 BP 134/81 01/07/25 06:23 Pulse Ox 100 01/07/25 16:00 FiO2 50 01/07/25 16:00 Intake & Output 01/06/25 01/07/25 01/07/25 18:59 06:59 18:59 Intake Total 466 286 2067.599 Output Total 1670 Balance 838 100 -362.401 Weight 85.1 kg Intake: IV 100 1287.5 Albumin Human 5% 250 ml 500 In Empty Bag 1 bag @ 250 mls/hr IVPB Q1HR PRN Rx#: [id number] Albumin Human 5% 500 ml 250 In Empty Bag 1 bag @ 250 mls/hr IVPB ONCE ONE Rx#: [id number] CO/CI 80 Calcium Gluconate in NaCl 100 1 gm In Saline 1 100ml. bag @ 100 mls/hr IVPB ONCE ONE Rx#:[id number] Magnesium Sulfate-D5w Pmx 200 1 gm In Dextrose/Water 1 100ml.bag @ 100 mls/hr IVPB Q1H [facility] Rx#: [id number] Nitroglycerin-D5w Pmx 50 4.5 mg In Dextrose/Water 1 250ml.bag @ 5 MCG/MIN 1.5 mls/hr IV .Q24H [facility] Rx#: [id number] Sodium Chloride 0.9% 1, 150 000 ml @ 50 mls/hr IV . Q20H [facility] Rx#:[id number] Intake, IV Titration 20.099 Amount Clevidipine Butyrate 25 4.1 mg In Empty Bag 1 bag @ 1 MG/HR 2 mls/hr IV .Q24H PRN Rx#:[id number] Dexmedetomidine/0.9% NaCl 4.964 (Pmx) 400 mcg In Empty Bag 1 bag @ Titrate IV . Q0M [facility] Rx#:[id number] Insulin Regular 100 unit 0.993 In Sodium Chloride 0.9% 100 ml @ Per Protocol IV .Q0M [facility] Rx#:[id number] propofoL 1,000 mg In 10.042 Empty Bag 1 bag @ Titrate IV .Q0M [facility] Rx#: [id number] Oral 838 Output: Chest Tube Drainage 125 Left Pleural 15 Mediastinal 110 Urine 1045 Estimated Blood Loss 500 Other: Voiding Method Toilet Toilet # Voids 1 # Bowel Movements 1 ABP, PAP, CO, CI - Last Documented Arterial Blood Pressure 133/61 Pulmonary Artery Pressure 35/22 Cardiac Output 7.5 Cardiac Index 3.8 - Exam General: Revealed 69-year-old white male intubated mechanically ventilated, in no distress Head: Atraumatic, normocephalic PERRLA, EOMI, nonicteric Neck supple no neck masses no JVD no stridor Lungs symmetrical chest expansion diminished breath sounds at the bases no rhonchi no wheezes Cardiac: Distant S1-S2, no S3 gallop, positive pericardial rub Abdominal exam: Soft nontender normal no rebound no guarding Extremities: No clubbing edema or cyanosis Skin: No rashes Neurologically patient is arousable, follows simple instructions Psychiatric: Normal mood normal affect no mental status examination - Labs CBC & Chem 7: 01/07/25 15:30 01/07/25 12:57 Labs: Abnormal Lab Results - Last 24 Hours (Table) 01/06/25 01/06/25 01/06/25 Range/Units 07:51 16:29 20:25 WBC (3.8-10.6) k/uL RBC (4.30-5.90) m/uL Hgb (13.0-17.5) gm/dL Hct (39.0-53.0) % Plt Count (150-450) k/uL Neutrophils # (1.3-7.7) k/uL PT (10.0-12.5) sec INR (<1.2) ABG pH (7.35-7.45) ABG pCO2 (35-45) mmHg ABG pO2 (83-108) mmHg ABG O2 Saturation (94-97) % ABG Glucose (75-99) mg/dL Hemoglobin (13.0-17.5) gm/dL Sodium (137-145) mmol/L Chloride (98-107) mmol/L Carbon Dioxide (22-30) mmol/L Creatinine (0.66-1.25) mg/dL Glucose (74-99) mg/dL POC Glucose (mg/dL) 235 H 184 H (70-110) mg/dL Calcium (8.4-10.2) mg/dL Ionized Calcium Teja (4.5-5.3) mg/dL Magnesium (1.6-2.3) mg/dL Alkaline Phosphatase (38-126) U/L Total Protein (6.3-8.2) g/dL Albumin (3.5-5.0) g/dL Arterial Blood Glucose (75-99) mg/dL Crossmatch See Detail 01/07/25 01/07/25 01/07/25 Range/Units 01:58 04:36 06:35 WBC (3.8-10.6) k/uL RBC (4.30-5.90) m/uL Hgb (13.0-17.5) gm/dL Hct (39.0-53.0) % Plt Count (150-450) k/uL Neutrophils # (1.3-7.7) k/uL PT (10.0-12.5) sec INR (<1.2) ABG pH (7.35-7.45) ABG pCO2 (35-45) mmHg ABG pO2 (83-108) mmHg ABG O2 Saturation (94-97) % ABG Glucose (75-99) mg/dL Hemoglobin (13.0-17.5) gm/dL Sodium (137-145) mmol/L Chloride (98-107) mmol/L Carbon Dioxide (22-30) mmol/L Creatinine (0.66-1.25) mg/dL Glucose (74-99) mg/dL POC Glucose (mg/dL) 131 H 200 H 189 H (70-110) mg/dL Calcium (8.4-10.2) mg/dL Ionized Calcium Tjea (4.5-5.3) mg/dL Magnesium (1.6-2.3) mg/dL Alkaline Phosphatase (38-126) U/L Total Protein (6.3-8.2) g/dL Albumin (3.5-5.0) g/dL Arterial Blood Glucose (75-99) mg/dL Crossmatch 01/07/25 01/07/25 01/07/25 Range/Units 07:59 11:11 11:11 WBC (3.8-10.6) k/uL RBC (4.30-5.90) m/uL Hgb (13.0-17.5) gm/dL Hct (39.0-53.0) % Plt Count (150-450) k/uL Neutrophils # (1.3-7.7) k/uL PT (10.0-12.5) sec INR (<1.2) ABG pH 7.33 L (7.35-7.45) ABG pCO2 48 H (35-45) mmHg ABG pO2 149 H 167 H (83-108) mmHg ABG O2 Saturation 98.5 H 98.0 H (94-97) % ABG Glucose 102 H 110 H (75-99) mg/dL Hemoglobin 12.3 L (13.0-17.5) gm/dL Sodium (137-145) mmol/L Chloride (98-107) mmol/L Carbon Dioxide (22-30) mmol/L Creatinine (0.66-1.25) mg/dL Glucose (74-99) mg/dL POC Glucose (mg/dL) 153 H (70-110) mg/dL Calcium (8.4-10.2) mg/dL Ionized Calcium Teja (4.5-5.3) mg/dL Magnesium (1.6-2.3) mg/dL Alkaline Phosphatase (38-126) U/L Total Protein (6.3-8.2) g/dL Albumin (3.5-5.0) g/dL Arterial Blood Glucose 102 H 110 H (75-99) mg/dL Crossmatch 01/07/25 01/07/25 01/07/25 Range/Units 12:54 12:57 12:57 WBC 13.2 H (3.8-10.6) k/uL RBC 3.24 L (4.30-5.90) m/uL Hgb 10.5 L D (13.0-17.5) gm/dL Hct 30.8 L (39.0-53.0) % Plt Count 142 L (150-450) k/uL Neutrophils # 10.9 H (1.3-7.7) k/uL PT 13.1 H (10.0-12.5) sec INR 1.2 H (<1.2) ABG pH (7.35-7.45) ABG pCO2 (35-45) mmHg ABG pO2 (83-108) mmHg ABG O2 Saturation (94-97) % ABG Glucose (75-99) mg/dL Hemoglobin (13.0-17.5) gm/dL Sodium (137-145) mmol/L Chloride (98-107) mmol/L Carbon Dioxide (22-30) mmol/L Creatinine (0.66-1.25) mg/dL Glucose (74-99) mg/dL POC Glucose (mg/dL) 122 H (70-110) mg/dL Calcium (8.4-10.2) mg/dL Ionized Calcium Teja (4.5-5.3) mg/dL Magnesium (1.6-2.3) mg/dL Alkaline Phosphatase (38-126) U/L Total Protein (6.3-8.2) g/dL Albumin (3.5-5.0) g/dL Arterial Blood Glucose (75-99) mg/dL Crossmatch 01/07/25 01/07/25 01/07/25 Range/Units 12:57 13:14 13:51 WBC (3.8-10.6) k/uL RBC (4.30-5.90) m/uL Hgb (13.0-17.5) gm/dL Hct (39.0-53.0) % Plt Count (150-450) k/uL Neutrophils # (1.3-7.7) k/uL PT (10.0-12.5) sec INR (<1.2) ABG pH 7.33 L (7.35-7.45) ABG pCO2 (35-45) mmHg ABG pO2 327 H (83-108) mmHg ABG O2 Saturation (94-97) % ABG Glucose (75-99) mg/dL Hemoglobin (13.0-17.5) gm/dL Sodium 136 L (137-145) mmol/L Chloride 111 H (98-107) mmol/L Carbon Dioxide 21 L (22-30) mmol/L Creatinine 0.62 L (0.66-1.25) mg/dL Glucose 112 H (74-99) mg/dL POC Glucose (mg/dL) 140 H (70-110) mg/dL Calcium 7.2 L (8.4-10.2) mg/dL Ionized Calcium Teja 4.3 L (4.5-5.3) mg/dL Magnesium 1.3 L (1.6-2.3) mg/dL Alkaline Phosphatase 26 L (38-126) U/L Total Protein 4.8 L (6.3-8.2) g/dL Albumin 2.9 L (3.5-5.0) g/dL Arterial Blood Glucose (75-99) mg/dL Crossmatch 01/07/25 01/07/25 01/07/25 Range/Units 13:53 15:08 15:30 WBC 11.4 H (3.8-10.6) k/uL RBC 3.38 L (4.30-5.90) m/uL Hgb 10.8 L (13.0-17.5) gm/dL Hct 32.3 L (39.0-53.0) % Plt Count (150-450) k/uL Neutrophils # 9.3 H (1.3-7.7) k/uL PT (10.0-12.5) sec INR (<1.2) ABG pH (7.35-7.45) ABG pCO2 (35-45) mmHg ABG pO2 (83-108) mmHg ABG O2 Saturation (94-97) % ABG Glucose (75-99) mg/dL Hemoglobin (13.0-17.5) gm/dL Sodium (137-145) mmol/L Chloride (98-107) mmol/L Carbon Dioxide (22-30) mmol/L Creatinine (0.66-1.25) mg/dL Glucose (74-99) mg/dL POC Glucose (mg/dL) 132 H 210 H (70-110) mg/dL Calcium (8.4-10.2) mg/dL Ionized Calcium Teja (4.5-5.3) mg/dL Magnesium (1.6-2.3) mg/dL Alkaline Phosphatase (38-126) U/L Total Protein (6.3-8.2) g/dL Albumin (3.5-5.0) g/dL Arterial Blood Glucose (75-99) mg/dL Crossmatch Assessment and Plan Assessment: Impression:Off-pump CABG x 3 with CAPPS to LAD, saphenous vein graft to obtuse marginal, saphenous vein graft to right coronary artery. Endovascular vein harvest from of left greater saphenous vein from ankle to groin. Ligation of the left atrial appendage with a 35 mm AtriCure clip. Postoperative day #0 Multivessel coronary disease, status post acute non-ST segment elevation myocardial infarction. Diabetes mellitus type 2 Hypertension Hyperlipidemia maintained on Repatha on outpatient basis with an LDL level of 43 History of smoking Hiatal hernia Chronic cholecystitis Recommendation: Continue ventilatory support Continue Cleviprex Continue nitroglycerin drip Continue amiodarone Chest x-ray was reviewed and postoperative changes noted Labs and ABGs reviewed hence we will proceed with a trial of weaning in the next couple of hours Critical care time is 32 minutes We will continue to follow. Time with Patient: Greater than 30
[2025-01-07 16:36] LABS: ABG Base Excess -4.3 mmol/L; ABG HCO3 21 mmol/L (21-25); ABG Oxygen Saturation 97.4 % (94-97); ABG PCO2 37 mmHg (35-45); ABG PH 7.36 (7.35-7.45); ABG PO2 90 mmHg (83-108); ABG TCO2 22 mmol/L (19-24)
[2025-01-07 16:39] LABS: Allen Test Performed? no
[2025-01-07] MEDS: ACETAMINOPHEN IV (For NPO) 1,000 MG in EMPTY BAG 1 BAG IVPB SCH (16:44)
[2025-01-07] MEDS: HEPARIN SODIUM,PORCINE 5,000 UNIT/ML 1 ML VIAL SQ SCH (16:45)
[2025-01-07] MEDS: IPRATROPIUM-ALBUTEROL 3 ML NEB INHALATION SCH ×2 (16:59→21:27)
[2025-01-07] MEDS: fentaNYL (PF) 50 MCG/ML 2 ML AMP IVP PRN (17:02)
[2025-01-07 17:13] LABS: Glucose,Whole Blood 210 mg/dL (70-110)
--- NOTE | 2025-01-07 17:55 | P.PN ---
Subjective Progress Note Date: 01/07/25 PROGRESS NOTE The patient is a 69-year-old male who was admitted with symptoms of chest comfort, diagnosed with non-STEMI, underwent coronary angiography by Dr. Blakely and was found to have severe obstructive CAD. He underwent CABG today. He received a CAPPS to the LAD SVG to the OM and to the right coronary artery. He also received a ligation of his left atrial appendage. He is extubated in sinus mechanism with sinus tachycardia. His blood pressures under good control. He is complaining of chest soreness. His echocardiogram preoperatively showed a preserved left ventricular systolic function. His urine output is stable and he has no significant discharges from the chest tube. Medications: IV amiodarone, aspirin, clevidipine, clopidogrel 75 mg daily, metoprolol 12-1/2 mg twice a day patient is allergic to statin. PHYSICAL EXAMINATION: Blood pressure 135/50 heart rate 109, PA pressure 30/14 LUNGS: Clear to auscultation anteriorly HEART: [Regular rate and rhythm, S1, S2. No S3. No systolic murmur, chest wall tenderness] ABDOMEN: [Soft, nontender, no organomegaly] EXTREMETIES: [No edema] LAB: Hemoglobin 10.8, pH 7.36, PO2 90 IMPRESSION: 1. Status post CABG, extubated in sinus mechanism 2. History of hypertension 3. Hyperlipidemia intolerant to statin according to the notes 4. History of diabetes PLAN: 1. Continue Repatha 2. Follow blood pressure and reinitiate BOBBI inhibitor 3. Incentive spirometry 4. Depending on his progress, further recommendations will be made. Objective - Vital Signs Vital signs: Vital Signs Temp 97.4 F L 01/07/25 04:44 Pulse 109 H 01/07/25 17:30 Resp 8 L 01/07/25 17:30 BP 134/81 01/07/25 06:23 Pulse Ox 93 L 01/07/25 17:30 FiO2 50 01/07/25 16:39 Intake & Output 01/06/25 01/07/25 01/07/25 18:59 06:59 18:59 Intake Total 097 015 2937.894 Output Total 2265 Balance 838 100 -553.106 Weight 85.1 kg Intake: IV 100 1680.5 ACETAMINOPHEN IV (For NPO 100 ) 1,000 mg In Empty Bag 1 bag @ 400 mls/hr IVPB Q6HR [facility] Rx#:[id number] Albumin Human 5% 250 ml 500 In Empty Bag 1 bag @ 250 mls/hr IVPB Q1HR PRN Rx#: [id number] Albumin Human 5% 500 ml 250 In Empty Bag 1 bag @ 250 mls/hr IVPB ONCE ONE Rx#: [id number] CO/CI 120 Calcium Gluconate in NaCl 100 1 gm In Saline 1 100ml. bag @ 100 mls/hr IVPB ONCE ONE Rx#:[id number] Magnesium Sulfate-D5w Pmx 300 1 gm In Dextrose/Water 1 100ml.bag @ 100 mls/hr IVPB Q1H [facility] Rx#: [id number] Nitroglycerin-D5w Pmx 50 7.5 mg In Dextrose/Water 1 250ml.bag @ 5 MCG/MIN 1.5 mls/hr IV .Q24H [facility] Rx#: [id number] Sodium Chloride 0.9% 1, 250 000 ml @ 50 mls/hr IV . Q20H [facility] Rx#:[id number] ceFAZolin 2 gm In 50 Dextrose 5% in Water 50 ml @ 100 mls/hr IVPB Q8HR [facility] Rx#:[id number] Intake, IV Titration 31.394 Amount Clevidipine Butyrate 25 4.1 mg In Empty Bag 1 bag @ 1 MG/HR 2 mls/hr IV .Q24H PRN Rx#:[id number] Dexmedetomidine/0.9% NaCl 4.964 (Pmx) 400 mcg In Empty Bag 1 bag @ Titrate IV . Q0M [facility] Rx#:[id number] Insulin Regular 100 unit 12.288 In Sodium Chloride 0.9% 100 ml @ Per Protocol IV .Q0M [facility] Rx#:[id number] propofoL 1,000 mg In 10.042 Empty Bag 1 bag @ Titrate IV .Q0M [facility] Rx#: [id number] Oral 838 Output: Chest Tube Drainage 295 Left Pleural 95 Mediastinal 200 Urine 1470 Estimated Blood Loss 500 Other: Voiding Method Toilet Toilet Indwelling Catheter # Voids 1 # Bowel Movements 1 ABP, PAP, CO, CI - Last Documented Arterial Blood Pressure 135/58 Pulmonary Artery Pressure 30/14 Cardiac Output 7.7 Cardiac Index 3.9 - Labs CBC & Chem 7: 01/07/25 15:30 01/07/25 12:57 Labs: Abnormal Lab Results - Last 24 Hours (Table) 01/06/25 01/06/25 01/07/25 Range/Units 07:51 20:25 01:58 WBC (3.8-10.6) k/uL RBC (4.30-5.90) m/uL Hgb (13.0-17.5) gm/dL Hct (39.0-53.0) % Plt Count (150-450) k/uL Neutrophils # (1.3-7.7) k/uL PT (10.0-12.5) sec INR (<1.2) ABG pH (7.35-7.45) ABG pCO2 (35-45) mmHg ABG pO2 (83-108) mmHg ABG O2 Saturation (94-97) % ABG Glucose (75-99) mg/dL Hemoglobin (13.0-17.5) gm/dL Sodium (137-145) mmol/L Chloride (98-107) mmol/L Carbon Dioxide (22-30) mmol/L Creatinine (0.66-1.25) mg/dL Glucose (74-99) mg/dL POC Glucose (mg/dL) 184 H 131 H (70-110) mg/dL Calcium (8.4-10.2) mg/dL Ionized Calcium Teja (4.5-5.3) mg/dL Magnesium (1.6-2.3) mg/dL Alkaline Phosphatase (38-126) U/L Total Protein (6.3-8.2) g/dL Albumin (3.5-5.0) g/dL Arterial Blood Glucose (75-99) mg/dL Crossmatch See Detail 01/07/25 01/07/25 01/07/25 Range/Units 04:36 06:35 07:59 WBC (3.8-10.6) k/uL RBC (4.30-5.90) m/uL Hgb (13.0-17.5) gm/dL Hct (39.0-53.0) % Plt Count (150-450) k/uL Neutrophils # (1.3-7.7) k/uL PT (10.0-12.5) sec INR (<1.2) ABG pH (7.35-7.45) ABG pCO2 (35-45) mmHg ABG pO2 (83-108) mmHg ABG O2 Saturation (94-97) % ABG Glucose (75-99) mg/dL Hemoglobin (13.0-17.5) gm/dL Sodium (137-145) mmol/L Chloride (98-107) mmol/L Carbon Dioxide (22-30) mmol/L Creatinine (0.66-1.25) mg/dL Glucose (74-99) mg/dL POC Glucose (mg/dL) 200 H 189 H 153 H (70-110) mg/dL Calcium (8.4-10.2) mg/dL Ionized Calcium Teja (4.5-5.3) mg/dL Magnesium (1.6-2.3) mg/dL Alkaline Phosphatase (38-126) U/L Total Protein (6.3-8.2) g/dL Albumin (3.5-5.0) g/dL Arterial Blood Glucose (75-99) mg/dL Crossmatch 01/07/25 01/07/25 01/07/25 Range/Units 11:11 11:11 12:54 WBC (3.8-10.6) k/uL RBC (4.30-5.90) m/uL Hgb (13.0-17.5) gm/dL Hct (39.0-53.0) % Plt Count (150-450) k/uL Neutrophils # (1.3-7.7) k/uL PT (10.0-12.5) sec INR (<1.2) ABG pH 7.33 L (7.35-7.45) ABG pCO2 48 H (35-45) mmHg ABG pO2 149 H 167 H (83-108) mmHg ABG O2 Saturation 98.5 H 98.0 H (94-97) % ABG Glucose 102 H 110 H (75-99) mg/dL Hemoglobin 12.3 L (13.0-17.5) gm/dL Sodium (137-145) mmol/L Chloride (98-107) mmol/L Carbon Dioxide (22-30) mmol/L Creatinine (0.66-1.25) mg/dL Glucose (74-99) mg/dL POC Glucose (mg/dL) 122 H (70-110) mg/dL Calcium (8.4-10.2) mg/dL Ionized Calcium Teja (4.5-5.3) mg/dL Magnesium (1.6-2.3) mg/dL Alkaline Phosphatase (38-126) U/L Total Protein (6.3-8.2) g/dL Albumin (3.5-5.0) g/dL Arterial Blood Glucose 102 H 110 H (75-99) mg/dL Crossmatch 01/07/25 01/07/25 01/07/25 Range/Units 12:57 12:57 12:57 WBC 13.2 H (3.8-10.6) k/uL RBC 3.24 L (4.30-5.90) m/uL Hgb 10.5 L D (13.0-17.5) gm/dL Hct 30.8 L (39.0-53.0) % Plt Count 142 L (150-450) k/uL Neutrophils # 10.9 H (1.3-7.7) k/uL PT 13.1 H (10.0-12.5) sec INR 1.2 H (<1.2) ABG pH (7.35-7.45) ABG pCO2 (35-45) mmHg ABG pO2 (83-108) mmHg ABG O2 Saturation (94-97) % ABG Glucose (75-99) mg/dL Hemoglobin (13.0-17.5) gm/dL Sodium 136 L (137-145) mmol/L Chloride 111 H (98-107) mmol/L Carbon Dioxide 21 L (22-30) mmol/L Creatinine 0.62 L (0.66-1.25) mg/dL Glucose 112 H (74-99) mg/dL POC Glucose (mg/dL) (70-110) mg/dL Calcium 7.2 L (8.4-10.2) mg/dL Ionized Calcium Teja 4.3 L (4.5-5.3) mg/dL Magnesium 1.3 L (1.6-2.3) mg/dL Alkaline Phosphatase 26 L (38-126) U/L Total Protein 4.8 L (6.3-8.2) g/dL Albumin 2.9 L (3.5-5.0) g/dL Arterial Blood Glucose (75-99) mg/dL Crossmatch 01/07/25 01/07/25 01/07/25 Range/Units 13:14 13:51 13:53 WBC (3.8-10.6) k/uL RBC (4.30-5.90) m/uL Hgb (13.0-17.5) gm/dL Hct (39.0-53.0) % Plt Count (150-450) k/uL Neutrophils # (1.3-7.7) k/uL PT (10.0-12.5) sec INR (<1.2) ABG pH 7.33 L (7.35-7.45) ABG pCO2 (35-45) mmHg ABG pO2 327 H (83-108) mmHg ABG O2 Saturation (94-97) % ABG Glucose (75-99) mg/dL Hemoglobin (13.0-17.5) gm/dL Sodium (137-145) mmol/L Chloride (98-107) mmol/L Carbon Dioxide (22-30) mmol/L Creatinine (0.66-1.25) mg/dL Glucose (74-99) mg/dL POC Glucose (mg/dL) 140 H 132 H (70-110) mg/dL Calcium (8.4-10.2) mg/dL Ionized Calcium Teja (4.5-5.3) mg/dL Magnesium (1.6-2.3) mg/dL Alkaline Phosphatase (38-126) U/L Total Protein (6.3-8.2) g/dL Albumin (3.5-5.0) g/dL Arterial Blood Glucose (75-99) mg/dL Crossmatch 01/07/25 01/07/25 01/07/25 Range/Units 15:08 15:30 16:14 WBC 11.4 H (3.8-10.6) k/uL RBC 3.38 L (4.30-5.90) m/uL Hgb 10.8 L (13.0-17.5) gm/dL Hct 32.3 L (39.0-53.0) % Plt Count (150-450) k/uL Neutrophils # 9.3 H (1.3-7.7) k/uL PT (10.0-12.5) sec INR (<1.2) ABG pH (7.35-7.45) ABG pCO2 (35-45) mmHg ABG pO2 (83-108) mmHg ABG O2 Saturation (94-97) % ABG Glucose (75-99) mg/dL Hemoglobin (13.0-17.5) gm/dL Sodium (137-145) mmol/L Chloride (98-107) mmol/L Carbon Dioxide (22-30) mmol/L Creatinine (0.66-1.25) mg/dL Glucose (74-99) mg/dL POC Glucose (mg/dL) 210 H 222 H (70-110) mg/dL Calcium (8.4-10.2) mg/dL Ionized Calcium Teja (4.5-5.3) mg/dL Magnesium (1.6-2.3) mg/dL Alkaline Phosphatase (38-126) U/L Total Protein (6.3-8.2) g/dL Albumin (3.5-5.0) g/dL Arterial Blood Glucose (75-99) mg/dL Crossmatch 01/07/25 01/07/25 Range/Units 16:32 17:10 WBC (3.8-10.6) k/uL RBC (4.30-5.90) m/uL Hgb (13.0-17.5) gm/dL Hct (39.0-53.0) % Plt Count (150-450) k/uL Neutrophils # (1.3-7.7) k/uL PT (10.0-12.5) sec INR (<1.2) ABG pH (7.35-7.45) ABG pCO2 (35-45) mmHg ABG pO2 (83-108) mmHg ABG O2 Saturation 97.4 H (94-97) % ABG Glucose (75-99) mg/dL Hemoglobin 10.8 L (13.0-17.5) gm/dL Sodium (137-145) mmol/L Chloride (98-107) mmol/L Carbon Dioxide (22-30) mmol/L Creatinine (0.66-1.25) mg/dL Glucose (74-99) mg/dL POC Glucose (mg/dL) 210 H (70-110) mg/dL Calcium (8.4-10.2) mg/dL Ionized Calcium Teja (4.5-5.3) mg/dL Magnesium (1.6-2.3) mg/dL Alkaline Phosphatase (38-126) U/L Total Protein (6.3-8.2) g/dL Albumin (3.5-5.0) g/dL Arterial Blood Glucose (75-99) mg/dL Crossmatch
[2025-01-07 18:23] LABS: Glucose,Whole Blood 202 mg/dL (70-110)
[2025-01-07 19:03] LABS: Glucose,Whole Blood 187 mg/dL (70-110)
[2025-01-07 19:11] LABS: Basophils # (A) 0.05 10*3/uL (0.00-0.10); Basophils % (A) 0.5 %; Eosinophils # (A) 0.01 10*3/uL (0.04-0.35); Eosinophils % (A) 0.1 %; HCT 31.9 % (39.6-50.0); HGB 10.8 g/dL (13.0-17.0); Lymphocytes # (A) 0.55 10*3/uL (0.90-5.00); Lymphocytes % (A) 5.1 %; MCHC 33.9 g/dL (32.0-37.0); MCV 94.4 fL (80.0-97.0); Mean Platelet Volume 10.1 fL (9.5-12.2); Monocytes # (A) 0.63 10*3/uL (0.20-1.00); Monocytes % (A) 5.8 %; Neutrophils # (A) 9.58 10*3/uL (1.80-7.70); Neutrophils % (A) 88.2 %; Platelet Count 170 10*3/uL (140-440); RBC 3.38 10*6/uL (4.40-5.60); RDW 13.2 % (11.5-14.5); WBC 10.85 10*3/uL (4.50-10.00)
--- NOTE | 2025-01-07 19:16 | P.PN ---
Subjective Progress Note Date: 01/07/25 This is a 69-year-old male who was recently admitted with chest pain underwent cardiac catheterization noted to have triple-vessel coronary artery disease recommending CT surgery evaluation. Patient was evaluated by CT surgery underwent further testing and is scheduled to undergo possible tentative CABG today. Patient is currently in the OR and will follow-up once official report is obtained. Patient will be going to ICU once stabilized Review of systems: Unable to obtain as patient is currently in the OR Active Medications Acetaminophen (Acetaminophen Tab 325 Mg Tab) 650 mg PO Q4HR PRN PRN Reason: Fever And/ Or Mild Pain (1-3) Albuterol/Ipratropium (Ipratropium-Albuterol 3 Ml Neb) 3 ml INHALATION RT-Q2H PRN PRN Reason: Shortness Of Breath Or Wheezing Albuterol/Ipratropium (Ipratropium-Albuterol 3 Ml Neb) 3 ml INHALATION RT-QID [facility] Aspirin (Aspirin 325 Mg Tab) 325 mg PO DAILY [facility] Benzocaine/Menthol (Benzocaine/Menthol Lozeng 1 Each Lozenge) 1 each MUCOUS MEM Q2H PRN PRN Reason: Sore Throat Bisacodyl (Bisacodyl 10 Mg Supp) 10 mg RECTAL DAILY PRN PRN Reason: Constipation Clopidogrel Bisulfate (Clopidogrel 75 Mg Tab) 75 mg PO DAILY [facility] Dextrose/Water (Dextrose 50% Syringe 50 Ml) 25 ml IVP PER PROTOCOL PRN; Protocol PRN Reason: Hypoglycemia Dextrose/Water (Dextrose 50% Syringe 50 Ml) 50 ml IVP PER PROTOCOL PRN; Protocol PRN Reason: Hypoglycemia Fentanyl Citrate (Fentanyl (Pf) 50 Mcg/Ml 2 Ml Amp) 25 mcg IVP Q4HR PRN PRN Reason: Severe Pain (Scale 7 to 10) Last Admin: 01/07/25 17:02 Dose: 25 mcg Heparin Sodium (Porcine) (Heparin Sodium,Porcine 5,000 Unit/Ml 1 Ml Vial) 5,000 unit SQ Q8HR [facility] Last Admin: 01/07/25 16:45 Dose: 5,000 unit Hydralazine HCl (Hydralazine Hcl 20 Mg/Ml 1 Ml Vial) 10 mg IVP Q1H PRN PRN Reason: Blood Pressure - High Clevidipine 25 mg/ IV Solution 50 mls @ 2 mls/hr IV .Q24H PRN; Protocol PRN Reason: Hypertension Last Titration: 01/07/25 15:50 Dose: 0 mg/hr, 0 mls/hr Amiodarone HCl 360 mg/ (Dextrose/Water) 200 mls @ 33.333 mls/hr IV .Q6H ONE; Protocol Stop: 01/07/25 19:29 Last Admin: 01/07/25 13:10 Dose: 1 mg/min, 33.333 mls/hr Amiodarone HCl 450 mg/ (Dextrose/Water) 250 mls @ 16.667 mls/hr IV .Q15H [facility]; Protocol Stop: 01/08/25 13:29 Amiodarone HCl 150 mg/ (Dextrose/Water) 103 mls @ 618 mls/hr IV .Q10M PRN PRN Reason: A.FIB/FLUTTER Stop: 01/14/25 12:45 Albumin Human 250 ml/ IV (Solution) 250 mls @ 250 mls/hr IVPB Q1HR PRN; Protocol PRN Reason: For Volume Stop: 01/09/25 12:45 Last Admin: 01/07/25 13:39 Dose: 250 mls/hr Dexmedetomidine HCl 400 mcg/ (IV Solution) 100 mls @ 0 mls/hr IV .Q0M [facility]; Protocol Stop: 01/08/25 12:48 Last Titration: 01/07/25 16:09 Dose: 0.1 mcg/kg/hr, 2.128 mls/hr Acetaminophen 1,000 mg/ IV (Solution) 100 mls @ 400 mls/hr IVPB Q6HR [facility] Stop: 01/08/25 00:14 Last Admin: 01/07/25 16:44 Dose: 400 mls/hr Cefazolin Sodium 2 gm/ (Dextrose/Water) 50 mls @ 100 mls/hr IVPB Q8HR [facility]; Protocol Stop: 01/09/25 00:29 Last Admin: 01/07/25 16:08 Dose: 100 mls/hr Calcium Gluconate/Sodium (Chloride 2 gm/ IV Solution) 100 mls @ 100 mls/hr IVPB ONCE PRN PRN Reason: Ionized Calcium less than 4.4 Stop: 01/14/25 12:45 Insulin Human Regular 100 unit (/ Sodium Chloride) 101 mls @ 0 mls/hr IV .Q0M [facility]; Protocol Last Titration: 01/07/25 18:21 Dose: 7 unit/hr, 7.07 mls/hr Nitroglycerin/Dextrose 50 mg/ (IV Solution) 250 mls @ 1.5 mls/hr IV .Q24H [facility] Last Admin: 01/07/25 13:01 Dose: 5 mcg/min, 1.5 mls/hr Propofol 1,000 mg/ IV Solution 100 mls @ 0 mls/hr IV .Q0M [facility]; Protocol Last Titration: 01/07/25 14:59 Dose: 0 mcg/kg/min, 0 mls/hr Sodium Chloride (Saline 0.9%) 1,000 mls @ 50 mls/hr IV .Q20H [facility] Last Admin: 01/07/25 13:00 Dose: 50 mls/hr Magnesium Hydroxide (Magnesium Hydroxide 2,400 Mg/30 Ml Cup) 2,400 mg PO BID PRN PRN Reason: Constipation Metoclopramide HCl (Metoclopramide 5 Mg/Ml 2 Ml Vial) 10 mg IVP Q4H PRN PRN Reason: Nausea And Vomiting Metoprolol Tartrate (Metoprolol Tartrate 12.5 Mg Tab) 12.5 mg PO BID [facility] Miscellaneous Information (Magnesium Replacement Protocol 1 Each Misc) 1 each MISCELLANE DAILY PRN; Protocol PRN Reason: Per Protocol Miscellaneous Information (Potassium Replacement Protocol 1 Each Misc) 1 each MISCELLANE DAILY PRN; Protocol PRN Reason: Per Protocol Mupirocin (Mupirocin 2% Oint 22 Gm Tube) 1 applic NASAL BID [facility] Stop: 01/10/25 20:59 Ondansetron HCl (Ondansetron 4 Mg/2 Ml Vial) 4 mg IVP Q6HR PRN PRN Reason: Nausea And Vomiting Oxycodone HCl (Oxycodone Hcl 5 Mg Tab) 5 mg PO Q4HR PRN PRN Reason: Moderate Pain (Scale 4 to 6) Oxycodone HCl (Oxycodone Hcl 5 Mg Tab) 10 mg PO Q4HR PRN PRN Reason: Severe Pain (Scale 7 to 10) Last Admin: 01/07/25 18:16 Dose: 10 mg Pantoprazole Sodium (Pantoprazole 40 Mg/10 Ml Vial) 40 mg IVP DAILY [facility] Senna/Docusate Sodium (Sennosides-Docusate Sodium 1 Each Tab) 2 each PO HS [facility] Sodium Chloride (Sodium Chloride 0.9% Flush 10 Ml Syringe) 10 ml IV BID [facility] PHYSICAL EXAMINATION: GENERAL: The patient is alert and oriented x, Well developed, elderly appearing HEENT: Pupils are round and equally reacting to light. EOMI. no scleral icterus. No conjunctival pallor. Normocephalic, atraumatic. No pharyngeal erythema. No thyromegaly. CARDIOVASCULAR: S1 and S2 muffled PULMONARY: diminished breath sounds bilaterally with no wheezing or rhonchi noted. ABDOMEN: soft. Obese. Nontender on exam. non-distended, normoactive bowel sounds. No palpable organomegaly. MUSCULOSKELETAL: No joint swelling or deformity. EXTREMITIES: No cyanosis, clubbing, or pedal edema. NEUROLOGICAL: Gross neurological examination did not reveal any focal deficits. SKIN: No rashes. Assessment: Acute NSTEMI, status post cardiac catheterization and three-vessel coronary artery disease, scheduled to undergo CABG today 01/07/2025 Gallbladder sludge and possible chronic cholecystitis per surgery Increased WBC, improved Increased lipase, minimally improved Hyperlipidemia history Hypertension history Diabetes mellitus, type II Continued ongoing nicotine dependence GI prophylaxis DVT prophylaxis Full code Plan: Recommend to continue with current medications and management and has been taken to the OR per CT surgery for tentative CABG today. Will await official report Patient will be in the ICU and is currently on mechanical ventilation, to assess for extubation in the next day or so Recommend repeat labs in the a.m. Tight glycemic control and will adjust insulins accordingly We will continue to follow as CT surgery during hospitalization. The impression and plan of care has been dictated by Andra Nelson, nurse practitioner as directed. Dr. Santo MD I have performed a history and examination and MDM of this patient, discussed the same with the dictator, and agree with the dictator's assessment and plan as written ,documented as a scribe. Based on total visit time, I have performed more than 50% of the visit. Any additional findings or plans will be noted. Objective - Vital Signs Vital signs: Vital Signs Temp 97.4 F L 01/07/25 04:44 Pulse 93 01/07/25 14:15 Resp 14 01/07/25 14:15 BP 134/81 01/07/25 06:23 Pulse Ox 100 01/07/25 14:15 FiO2 50 01/07/25 13:30 Intake & Output 01/06/25 01/07/25 01/07/25 18:59 06:59 18:59 Intake Total 777 278 5646.1 Output Total 1530 Balance 838 100 -413.9 Weight 85.1 kg Intake: IV 100 1116.0 Albumin Human 5% 250 ml 500 In Empty Bag 1 bag @ 250 mls/hr IVPB Q1HR PRN Rx#: [id number] Albumin Human 5% 500 ml 250 In Empty Bag 1 bag @ 250 mls/hr IVPB ONCE ONE Rx#: [id number] CO/CI 60 Calcium Gluconate in NaCl 100 1 gm In Saline 1 100ml. bag @ 100 mls/hr IVPB ONCE ONE Rx#:[id number] Magnesium Sulfate-D5w Pmx 100 1 gm In Dextrose/Water 1 100ml.bag @ 100 mls/hr IVPB Q1H [facility] Rx#: [id number] Nitroglycerin-D5w Pmx 50 3.0 mg In Dextrose/Water 1 250ml.bag @ 5 MCG/MIN 1.5 mls/hr IV .Q24H [facility] Rx#: [id number] Sodium Chloride 0.9% 1, 100 000 ml @ 50 mls/hr IV . Q20H [facility] Rx#:[id number] Intake, IV Titration 0.1 Amount Clevidipine Butyrate 25 0.1 mg In Empty Bag 1 bag @ 1 MG/HR 2 mls/hr IV .Q24H PRN Rx#:[id number] Oral 838 Output: Chest Tube Drainage 110 Left Pleural 15 Mediastinal 95 Urine 920 Estimated Blood Loss 500 Other: Voiding Method Toilet Toilet # Voids 1 # Bowel Movements 1 ABP, PAP, CO, CI - Last Documented Arterial Blood Pressure 132/61 Pulmonary Artery Pressure 37/21 Cardiac Output 5.3 Cardiac Index 2.7 - Labs CBC & Chem 7: 01/07/25 15:30 01/07/25 12:57 Labs: Abnormal Lab Results - Last 24 Hours (Table) 01/06/25 01/06/25 01/06/25 Range/Units 07:51 16:29 20:25 WBC (3.8-10.6) k/uL RBC (4.30-5.90) m/uL Hgb (13.0-17.5) gm/dL Hct (39.0-53.0) % Plt Count (150-450) k/uL Neutrophils # (1.3-7.7) k/uL PT (10.0-12.5) sec INR (<1.2) ABG pH (7.35-7.45) ABG pCO2 (35-45) mmHg ABG pO2 (83-108) mmHg ABG O2 Saturation (94-97) % ABG Glucose (75-99) mg/dL Hemoglobin (13.0-17.5) gm/dL Sodium (137-145) mmol/L Chloride (98-107) mmol/L Carbon Dioxide (22-30) mmol/L Creatinine (0.66-1.25) mg/dL Glucose (74-99) mg/dL POC Glucose (mg/dL) 235 H 184 H (70-110) mg/dL Calcium (8.4-10.2) mg/dL Ionized Calcium Teja (4.5-5.3) mg/dL Magnesium (1.6-2.3) mg/dL Alkaline Phosphatase (38-126) U/L Total Protein (6.3-8.2) g/dL Albumin (3.5-5.0) g/dL Arterial Blood Glucose (75-99) mg/dL Crossmatch See Detail 01/07/25 01/07/25 01/07/25 Range/Units 01:58 04:36 06:35 WBC (3.8-10.6) k/uL RBC (4.30-5.90) m/uL Hgb (13.0-17.5) gm/dL Hct (39.0-53.0) % Plt Count (150-450) k/uL Neutrophils # (1.3-7.7) k/uL PT (10.0-12.5) sec INR (<1.2) ABG pH (7.35-7.45) ABG pCO2 (35-45) mmHg ABG pO2 (83-108) mmHg ABG O2 Saturation (94-97) % ABG Glucose (75-99) mg/dL Hemoglobin (13.0-17.5) gm/dL Sodium (137-145) mmol/L Chloride (98-107) mmol/L Carbon Dioxide (22-30) mmol/L Creatinine (0.66-1.25) mg/dL Glucose (74-99) mg/dL POC Glucose (mg/dL) 131 H 200 H 189 H (70-110) mg/dL Calcium (8.4-10.2) mg/dL Ionized Calcium Teja (4.5-5.3) mg/dL Magnesium (1.6-2.3) mg/dL Alkaline Phosphatase (38-126) U/L Total Protein (6.3-8.2) g/dL Albumin (3.5-5.0) g/dL Arterial Blood Glucose (75-99) mg/dL Crossmatch 01/07/25 01/07/25 01/07/25 Range/Units 07:59 11:11 11:11 WBC (3.8-10.6) k/uL RBC (4.30-5.90) m/uL Hgb (13.0-17.5) gm/dL Hct (39.0-53.0) % Plt Count (150-450) k/uL Neutrophils # (1.3-7.7) k/uL PT (10.0-12.5) sec INR (<1.2) ABG pH 7.33 L (7.35-7.45) ABG pCO2 48 H (35-45) mmHg ABG pO2 149 H 167 H (83-108) mmHg ABG O2 Saturation 98.5 H 98.0 H (94-97) % ABG Glucose 102 H 110 H (75-99) mg/dL Hemoglobin 12.3 L (13.0-17.5) gm/dL Sodium (137-145) mmol/L Chloride (98-107) mmol/L Carbon Dioxide (22-30) mmol/L Creatinine (0.66-1.25) mg/dL Glucose (74-99) mg/dL POC Glucose (mg/dL) 153 H (70-110) mg/dL Calcium (8.4-10.2) mg/dL Ionized Calcium Teja (4.5-5.3) mg/dL Magnesium (1.6-2.3) mg/dL Alkaline Phosphatase (38-126) U/L Total Protein (6.3-8.2) g/dL Albumin (3.5-5.0) g/dL Arterial Blood Glucose 102 H 110 H (75-99) mg/dL Crossmatch 01/07/25 01/07/25 01/07/25 Range/Units 12:54 12:57 12:57 WBC 13.2 H (3.8-10.6) k/uL RBC 3.24 L (4.30-5.90) m/uL Hgb 10.5 L D (13.0-17.5) gm/dL Hct 30.8 L (39.0-53.0) % Plt Count 142 L (150-450) k/uL Neutrophils # 10.9 H (1.3-7.7) k/uL PT 13.1 H (10.0-12.5) sec INR 1.2 H (<1.2) ABG pH (7.35-7.45) ABG pCO2 (35-45) mmHg ABG pO2 (83-108) mmHg ABG O2 Saturation (94-97) % ABG Glucose (75-99) mg/dL Hemoglobin (13.0-17.5) gm/dL Sodium (137-145) mmol/L Chloride (98-107) mmol/L Carbon Dioxide (22-30) mmol/L Creatinine (0.66-1.25) mg/dL Glucose (74-99) mg/dL POC Glucose (mg/dL) 122 H (70-110) mg/dL Calcium (8.4-10.2) mg/dL Ionized Calcium Teja (4.5-5.3) mg/dL Magnesium (1.6-2.3) mg/dL Alkaline Phosphatase (38-126) U/L Total Protein (6.3-8.2) g/dL Albumin (3.5-5.0) g/dL Arterial Blood Glucose (75-99) mg/dL Crossmatch 01/07/25 01/07/25 01/07/25 Range/Units 12:57 13:14 13:51 WBC (3.8-10.6) k/uL RBC (4.30-5.90) m/uL Hgb (13.0-17.5) gm/dL Hct (39.0-53.0) % Plt Count (150-450) k/uL Neutrophils # (1.3-7.7) k/uL PT (10.0-12.5) sec INR (<1.2) ABG pH 7.33 L (7.35-7.45) ABG pCO2 (35-45) mmHg ABG pO2 327 H (83-108) mmHg ABG O2 Saturation (94-97) % ABG Glucose (75-99) mg/dL Hemoglobin (13.0-17.5) gm/dL Sodium 136 L (137-145) mmol/L Chloride 111 H (98-107) mmol/L Carbon Dioxide 21 L (22-30) mmol/L Creatinine 0.62 L (0.66-1.25) mg/dL Glucose 112 H (74-99) mg/dL POC Glucose (mg/dL) 140 H (70-110) mg/dL Calcium 7.2 L (8.4-10.2) mg/dL Ionized Calcium Teja 4.3 L (4.5-5.3) mg/dL Magnesium 1.3 L (1.6-2.3) mg/dL Alkaline Phosphatase 26 L (38-126) U/L Total Protein 4.8 L (6.3-8.2) g/dL Albumin 2.9 L (3.5-5.0) g/dL Arterial Blood Glucose (75-99) mg/dL Crossmatch 01/07/25 Range/Units 13:53 WBC (3.8-10.6) k/uL RBC (4.30-5.90) m/uL Hgb (13.0-17.5) gm/dL Hct (39.0-53.0) % Plt Count (150-450) k/uL Neutrophils # (1.3-7.7) k/uL PT (10.0-12.5) sec INR (<1.2) ABG pH (7.35-7.45) ABG pCO2 (35-45) mmHg ABG pO2 (83-108) mmHg ABG O2 Saturation (94-97) % ABG Glucose (75-99) mg/dL Hemoglobin (13.0-17.5) gm/dL Sodium (137-145) mmol/L Chloride (98-107) mmol/L Carbon Dioxide (22-30) mmol/L Creatinine (0.66-1.25) mg/dL Glucose (74-99) mg/dL POC Glucose (mg/dL) 132 H (70-110) mg/dL Calcium (8.4-10.2) mg/dL Ionized Calcium Teja (4.5-5.3) mg/dL Magnesium (1.6-2.3) mg/dL Alkaline Phosphatase (38-126) U/L Total Protein (6.3-8.2) g/dL Albumin (3.5-5.0) g/dL Arterial Blood Glucose (75-99) mg/dL Crossmatch
[2025-01-07] MEDS: AMIODARONE 450 MG in DEXTROSE 5% IN WATER 250 ML IV SCH (19:42)
[2025-01-07 20:09] LABS: Glucose,Whole Blood 136 mg/dL (70-110)
[2025-01-07] MEDS: SENNOSIDES-DOCUSATE SODIUM 1 EACH TAB PO SCH (20:44)
[2025-01-07 21:19] LABS: Glucose,Whole Blood 102 mg/dL (70-110)
[2025-01-07 22:08] LABS: Glucose,Whole Blood 109 mg/dL (70-110)
[2025-01-07] MEDS: MUPIROCIN 2% OINT 22 GM TUBE NASAL SCH (22:14)
[2025-01-07 23:04] LABS: Glucose,Whole Blood 128 mg/dL (70-110)
[2025-01-07 23:58] LABS: Glucose,Whole Blood 135 mg/dL (70-110)
[2025-01-08 01:28] LABS: Glucose,Whole Blood 117 mg/dL (70-110)
[2025-01-08 02:32] LABS: Glucose,Whole Blood 105 mg/dL (70-110)
[2025-01-08 03:09] LABS: Glucose,Whole Blood 114 mg/dL (70-110)
[2025-01-08 03:23] LABS: Basophils # (A) 0.03 10*3/uL (0.00-0.10); Basophils % (A) 0.2 %; Eosinophils # (A) 0.01 10*3/uL (0.04-0.35); Eosinophils % (A) 0.1 %; HGB 9.8 g/dL (13.0-17.0); Lymphocytes # (A) 0.91 10*3/uL (0.90-5.00); Lymphocytes % (A) 7.5 %; MCHC 33.8 g/dL (32.0-37.0); MCV 94.8 fL (80.0-97.0); Mean Platelet Volume 10.3 fL (9.5-12.2); Monocytes # (A) 1.03 10*3/uL (0.20-1.00); Monocytes % (A) 8.5 %; Neutrophils # (A) 10.09 10*3/uL (1.80-7.70); Neutrophils % (A) 83.5 %; Platelet Count 141 10*3/uL (140-440); RBC 3.06 10*6/uL (4.40-5.60); RDW 13.5 % (11.5-14.5)
[2025-01-08 03:34] LABS: ALT 28 U/L (4-49); AST 31 U/L (17-59); African American GFR (CKD) >90 (>60 ml/min/1.73 sqM); Albumin 3.4 g/dL (3.5-5.0); Alkaline Phosphatase 39 U/L (38-126); Anion Gap 7 mmol/L; Blood Urea Nitrogen 11 mg/dL (9-20); Calcium 7.9 mg/dL (8.4-10.2); Carbon Dioxide 22 mmol/L (22-30); Chloride 104 mmol/L (98-107); Glucose 103 mg/dL (74-99); Magnesium 2.1 mg/dL (1.6-2.3); Non-African American GFR(CKD) >90 (>60 ml/min/1.73 sqM); Potassium 4.1 mmol/L (3.5-5.1); Sodium 133 mmol/L (137-145); Total Bilirubin 0.5 mg/dL (0.2-1.3); Total Protein 5.3 g/dL (6.3-8.2)
[2025-01-08 03:53] LABS: Ionized Calcium 4.4 mg/dL (4.5-5.3)
[2025-01-08 04:13] LABS: Glucose,Whole Blood 163 mg/dL (70-110)
[2025-01-08 05:02] LABS: Glucose,Whole Blood 159 mg/dL (70-110)
[2025-01-08 06:05] LABS: Glucose,Whole Blood 148 mg/dL (70-110)
[2025-01-08] MEDS: KETOROLAC 15 MG/ML 1 ML VIAL IVP SCH (07:00)
[2025-01-08 07:12] LABS: Glucose,Whole Blood 132 mg/dL (70-110)
--- NOTE | 2025-01-08 07:38 | P.PN ---
Subjective Progress Note Date: 01/08/25 PROGRESS NOTE The patient is a 69-year-old male who was admitted with symptoms of chest comfort, diagnosed with non-STEMI, underwent coronary angiography by Dr. Blakely and was found to have severe obstructive CAD. He underwent CABG today. He received a CAPPS to the LAD SVG to the OM and to the right coronary artery. He also received a ligation of his left atrial appendage. He is extubated in sinus mechanism with sinus tachycardia. His blood pressures under good control. He is complaining of chest soreness. His echocardiogram preoperatively showed a preserved left ventricular systolic function. His urine output is stable and he has no significant discharges from the chest tube. January 08: The patient is sitting up in the chair, continues to have complaints of soreness in the chest. He is in sinus mechanism and hemodynamically stable. He denies any nausea. He is using his incentive spirometry. His urinary output has been stable and he has minimal drainage from the chest tube. There is no evidence of malignant arrhythmia. Medications: IV amiodarone, aspirin, clevidipine, clopidogrel 75 mg daily, metoprolol 25 mg twice a day patient is allergic to statin. PHYSICAL EXAMINATION: Blood pressure 106/49 heart rate 89,, PA pressure 38/17 LUNGS: Clear to auscultation anteriorly HEART: Regular rate and rhythm, S1, S2. No S3. No systolic murmur, chest wall tenderness ABDOMEN: Soft, nontender, no organomegaly EXTREMETIES: No edema LAB: Hemoglobin 9.8, potassium 4.1, BUN 11, creatinine 0.71 IMPRESSION: 1. Status post CABG, extubated in sinus mechanism 2. History of hypertension 3. Hyperlipidemia intolerant to statin on Repatha 4. History of diabetes PLAN: 1. Continue incentive spirometry and increase physical activity 2. Probable remove [place]-[facility]ckenna catheter today 3. If blood pressure stable add BOBBI inhibitor 4. Depending on his progress further recommendations will be made Objective - Vital Signs Vital signs: Vital Signs Temp 98.2 F 01/08/25 06:00 Pulse 89 01/08/25 07:00 Resp 28 H 01/08/25 07:00 BP 134/81 01/07/25 06:23 Pulse Ox 97 01/08/25 07:00 FiO2 50 01/07/25 16:39 Intake & Output 01/07/25 01/08/25 01/08/25 18:59 06:59 18:59 Intake Total 5916.661 9092.793 79.006 Output Total 2410 1290 70 Balance -521.884 39.793 9.006 Weight 86.9 kg Intake: IV 1852.0 1102.0 54.5 ACETAMINOPHEN IV (For NPO 100 100 ) 1,000 mg In Empty Bag 1 bag @ 400 mls/hr IVPB Q6HR [facility] Rx#:[id number] Albumin Human 5% 250 ml 500 250 In Empty Bag 1 bag @ 250 mls/hr IVPB Q1HR PRN Rx#: [id number] Albumin Human 5% 500 ml 250 In Empty Bag 1 bag @ 250 mls/hr IVPB ONCE ONE Rx#: [id number] CO/CI 140 84 3 Calcium Gluconate in NaCl 100 1 gm In Saline 1 100ml. bag @ 100 mls/hr IVPB ONCE ONE Rx#:[id number] Magnesium Sulfate-D5w Pmx 400 1 gm In Dextrose/Water 1 100ml.bag @ 100 mls/hr IVPB Q1H [facility] Rx#: [id number] Nitroglycerin-D5w Pmx 50 9.0 18.0 1.5 mg In Dextrose/Water 1 250ml.bag @ 5 MCG/MIN 1.5 mls/hr IV .Q24H [facility] Rx#: [id number] Sodium Chloride 0.9% 1, 300 600 50 000 ml @ 30 mls/hr IV . Q24H [facility] Rx#:[id number] ceFAZolin 2 gm In 50 50 Dextrose 5% in Water 50 ml @ 100 mls/hr IVPB Q8HR [facility] Rx#:[id number] Intake, IV Titration 36.116 227.793 24.506 Amount Amiodarone 450 mg In 183.37 16.67 Dextrose 5% in Water 250 ml @ 0.5 MG/MIN 16.667 mls/hr IV .Q15H [facility] Rx#: [id number] Clevidipine Butyrate 25 4.1 mg In Empty Bag 1 bag @ 1 MG/HR 2 mls/hr IV .Q24H PRN Rx#:[id number] Dexmedetomidine/0.9% NaCl 4.964 (Pmx) 400 mcg In Empty Bag 1 bag @ Titrate IV . Q0M [facility] Rx#:[id number] Insulin Regular 100 unit 17.010 33.423 7.836 In Sodium Chloride 0.9% 100 ml @ Per Protocol IV .Q0M [facility] Rx#:[id number] Insulin Regular 100 unit 11 In Sodium Chloride 0.9% 100 ml @ Titrate IV .Q0M [facility] Rx#:[id number] propofoL 1,000 mg In 10.042 Empty Bag 1 bag @ Titrate IV .Q0M [facility] Rx#: [id number] Output: Chest Tube Drainage 340 525 20 Left Pleural 32f 130 340 20 Mediastinal 210 185 0 Urine 1570 765 50 Estimated Blood Loss 500 Other: Voiding Method Indwelling Catheter Indwelling Catheter ABP, PAP, CO, CI - Last Documented Arterial Blood Pressure 91/51 Pulmonary Artery Pressure 38/17 Cardiac Output 5.4 Cardiac Index 2.7 - Labs CBC & Chem 7: 01/08/25 03:00 01/08/25 03:00 Labs: Abnormal Lab Results - Last 24 Hours (Table) 01/06/25 01/07/25 01/07/25 Range/Units 07:51 07:59 11:11 WBC (3.8-10.6) k/uL RBC (4.30-5.90) m/uL Hgb (13.0-17.5) gm/dL Hct (39.0-53.0) % Plt Count (150-450) k/uL Neutrophils # (1.3-7.7) k/uL Lymphocytes # (0.90-5.00) 10*3/uL Monocytes # (0.20-1.00) 10*3/uL Eosinophils # (0.04-0.35) 10*3/uL PT (10.0-12.5) sec INR (<1.2) ABG pH (7.35-7.45) ABG pCO2 (35-45) mmHg ABG pO2 149 H (83-108) mmHg ABG O2 Saturation 98.5 H (94-97) % ABG Glucose 102 H (75-99) mg/dL Hemoglobin (13.0-17.5) gm/dL Sodium (137-145) mmol/L Chloride (98-107) mmol/L Carbon Dioxide (22-30) mmol/L Creatinine (0.66-1.25) mg/dL Glucose (74-99) mg/dL POC Glucose (mg/dL) 153 H (70-110) mg/dL Calcium (8.4-10.2) mg/dL Ionized Calcium Teja (4.5-5.3) mg/dL Magnesium (1.6-2.3) mg/dL Alkaline Phosphatase (38-126) U/L Total Protein (6.3-8.2) g/dL Albumin (3.5-5.0) g/dL Arterial Blood Glucose 102 H (75-99) mg/dL Crossmatch See Detail 01/07/25 01/07/25 01/07/25 Range/Units 11:11 12:54 12:57 WBC 13.2 H (3.8-10.6) k/uL RBC 3.24 L (4.30-5.90) m/uL Hgb 10.5 L D (13.0-17.5) gm/dL Hct 30.8 L (39.0-53.0) % Plt Count 142 L (150-450) k/uL Neutrophils # 10.9 H (1.3-7.7) k/uL Lymphocytes # (0.90-5.00) 10*3/uL Monocytes # (0.20-1.00) 10*3/uL Eosinophils # (0.04-0.35) 10*3/uL PT (10.0-12.5) sec INR (<1.2) ABG pH 7.33 L (7.35-7.45) ABG pCO2 48 H (35-45) mmHg ABG pO2 167 H (83-108) mmHg ABG O2 Saturation 98.0 H (94-97) % ABG Glucose 110 H (75-99) mg/dL Hemoglobin 12.3 L (13.0-17.5) gm/dL Sodium (137-145) mmol/L Chloride (98-107) mmol/L Carbon Dioxide (22-30) mmol/L Creatinine (0.66-1.25) mg/dL Glucose (74-99) mg/dL POC Glucose (mg/dL) 122 H (70-110) mg/dL Calcium (8.4-10.2) mg/dL Ionized Calcium Teja (4.5-5.3) mg/dL Magnesium (1.6-2.3) mg/dL Alkaline Phosphatase (38-126) U/L Total Protein (6.3-8.2) g/dL Albumin (3.5-5.0) g/dL Arterial Blood Glucose 110 H (75-99) mg/dL Crossmatch 01/07/25 01/07/25 01/07/25 Range/Units 12:57 12:57 13:14 WBC (3.8-10.6) k/uL RBC (4.30-5.90) m/uL Hgb (13.0-17.5) gm/dL Hct (39.0-53.0) % Plt Count (150-450) k/uL Neutrophils # (1.3-7.7) k/uL Lymphocytes # (0.90-5.00) 10*3/uL Monocytes # (0.20-1.00) 10*3/uL Eosinophils # (0.04-0.35) 10*3/uL PT 13.1 H (10.0-12.5) sec INR 1.2 H (<1.2) ABG pH 7.33 L (7.35-7.45) ABG pCO2 (35-45) mmHg ABG pO2 327 H (83-108) mmHg ABG O2 Saturation (94-97) % ABG Glucose (75-99) mg/dL Hemoglobin (13.0-17.5) gm/dL Sodium 136 L (137-145) mmol/L Chloride 111 H (98-107) mmol/L Carbon Dioxide 21 L (22-30) mmol/L Creatinine 0.62 L (0.66-1.25) mg/dL Glucose 112 H (74-99) mg/dL POC Glucose (mg/dL) (70-110) mg/dL Calcium 7.2 L (8.4-10.2) mg/dL Ionized Calcium Teja 4.3 L (4.5-5.3) mg/dL Magnesium 1.3 L (1.6-2.3) mg/dL Alkaline Phosphatase 26 L (38-126) U/L Total Protein 4.8 L (6.3-8.2) g/dL Albumin 2.9 L (3.5-5.0) g/dL Arterial Blood Glucose (75-99) mg/dL Crossmatch 01/07/25 01/07/25 01/07/25 Range/Units 13:51 13:53 15:08 WBC (3.8-10.6) k/uL RBC (4.30-5.90) m/uL Hgb (13.0-17.5) gm/dL Hct (39.0-53.0) % Plt Count (150-450) k/uL Neutrophils # (1.3-7.7) k/uL Lymphocytes # (0.90-5.00) 10*3/uL Monocytes # (0.20-1.00) 10*3/uL Eosinophils # (0.04-0.35) 10*3/uL PT (10.0-12.5) sec INR (<1.2) ABG pH (7.35-7.45) ABG pCO2 (35-45) mmHg ABG pO2 (83-108) mmHg ABG O2 Saturation (94-97) % ABG Glucose (75-99) mg/dL Hemoglobin (13.0-17.5) gm/dL Sodium (137-145) mmol/L Chloride (98-107) mmol/L Carbon Dioxide (22-30) mmol/L Creatinine (0.66-1.25) mg/dL Glucose (74-99) mg/dL POC Glucose (mg/dL) 140 H 132 H 210 H (70-110) mg/dL Calcium (8.4-10.2) mg/dL Ionized Calcium Teja (4.5-5.3) mg/dL Magnesium (1.6-2.3) mg/dL Alkaline Phosphatase (38-126) U/L Total Protein (6.3-8.2) g/dL Albumin (3.5-5.0) g/dL Arterial Blood Glucose (75-99) mg/dL Crossmatch 01/07/25 01/07/25 01/07/25 Range/Units 15:30 16:14 16:32 WBC 11.4 H (3.8-10.6) k/uL RBC 3.38 L (4.30-5.90) m/uL Hgb 10.8 L (13.0-17.5) gm/dL Hct 32.3 L (39.0-53.0) % Plt Count (150-450) k/uL Neutrophils # 9.3 H (1.3-7.7) k/uL Lymphocytes # (0.90-5.00) 10*3/uL Monocytes # (0.20-1.00) 10*3/uL Eosinophils # (0.04-0.35) 10*3/uL PT (10.0-12.5) sec INR (<1.2) ABG pH (7.35-7.45) ABG pCO2 (35-45) mmHg ABG pO2 (83-108) mmHg ABG O2 Saturation 97.4 H (94-97) % ABG Glucose (75-99) mg/dL Hemoglobin 10.8 L (13.0-17.5) gm/dL Sodium (137-145) mmol/L Chloride (98-107) mmol/L Carbon Dioxide (22-30) mmol/L Creatinine (0.66-1.25) mg/dL Glucose (74-99) mg/dL POC Glucose (mg/dL) 222 H (70-110) mg/dL Calcium (8.4-10.2) mg/dL Ionized Calcium Teja (4.5-5.3) mg/dL Magnesium (1.6-2.3) mg/dL Alkaline Phosphatase (38-126) U/L Total Protein (6.3-8.2) g/dL Albumin (3.5-5.0) g/dL Arterial Blood Glucose (75-99) mg/dL Crossmatch 01/07/25 01/07/25 01/07/25 Range/Units 17:10 18:20 19:00 WBC 10.85 H (3.8-10.6) k/uL RBC 3.38 L (4.30-5.90) m/uL Hgb 10.8 L (13.0-17.5) gm/dL Hct 31.9 L (39.0-53.0) % Plt Count (150-450) k/uL Neutrophils # 9.58 H (1.3-7.7) k/uL Lymphocytes # 0.55 L (0.90-5.00) 10*3/uL Monocytes # (0.20-1.00) 10*3/uL Eosinophils # 0.01 L (0.04-0.35) 10*3/uL PT (10.0-12.5) sec INR (<1.2) ABG pH (7.35-7.45) ABG pCO2 (35-45) mmHg ABG pO2 (83-108) mmHg ABG O2 Saturation (94-97) % ABG Glucose (75-99) mg/dL Hemoglobin (13.0-17.5) gm/dL Sodium (137-145) mmol/L Chloride (98-107) mmol/L Carbon Dioxide (22-30) mmol/L Creatinine (0.66-1.25) mg/dL Glucose (74-99) mg/dL POC Glucose (mg/dL) 210 H 202 H (70-110) mg/dL Calcium (8.4-10.2) mg/dL Ionized Calcium Teja (4.5-5.3) mg/dL Magnesium (1.6-2.3) mg/dL Alkaline Phosphatase (38-126) U/L Total Protein (6.3-8.2) g/dL Albumin (3.5-5.0) g/dL Arterial Blood Glucose (75-99) mg/dL Crossmatch 01/07/25 01/07/25 01/07/25 Range/Units 19:00 20:07 23:02 WBC (3.8-10.6) k/uL RBC (4.30-5.90) m/uL Hgb (13.0-17.5) gm/dL Hct (39.0-53.0) % Plt Count (150-450) k/uL Neutrophils # (1.3-7.7) k/uL Lymphocytes # (0.90-5.00) 10*3/uL Monocytes # (0.20-1.00) 10*3/uL Eosinophils # (0.04-0.35) 10*3/uL PT (10.0-12.5) sec INR (<1.2) ABG pH (7.35-7.45) ABG pCO2 (35-45) mmHg ABG pO2 (83-108) mmHg ABG O2 Saturation (94-97) % ABG Glucose (75-99) mg/dL Hemoglobin (13.0-17.5) gm/dL Sodium (137-145) mmol/L Chloride (98-107) mmol/L Carbon Dioxide (22-30) mmol/L Creatinine (0.66-1.25) mg/dL Glucose (74-99) mg/dL POC Glucose (mg/dL) 187 H 136 H 128 H (70-110) mg/dL Calcium (8.4-10.2) mg/dL Ionized Calcium Teja (4.5-5.3) mg/dL Magnesium (1.6-2.3) mg/dL Alkaline Phosphatase (38-126) U/L Total Protein (6.3-8.2) g/dL Albumin (3.5-5.0) g/dL Arterial Blood Glucose (75-99) mg/dL Crossmatch 01/07/25 01/08/25 01/08/25 Range/Units 23:57 01:24 03:00 WBC 12.10 H (3.8-10.6) k/uL RBC 3.06 L (4.30-5.90) m/uL Hgb 9.8 L (13.0-17.5) gm/dL Hct 29.0 L (39.0-53.0) % Plt Count (150-450) k/uL Neutrophils # 10.09 H (1.3-7.7) k/uL Lymphocytes # (0.90-5.00) 10*3/uL Monocytes # 1.03 H (0.20-1.00) 10*3/uL Eosinophils # 0.01 L (0.04-0.35) 10*3/uL PT (10.0-12.5) sec INR (<1.2) ABG pH (7.35-7.45) ABG pCO2 (35-45) mmHg ABG pO2 (83-108) mmHg ABG O2 Saturation (94-97) % ABG Glucose (75-99) mg/dL Hemoglobin (13.0-17.5) gm/dL Sodium (137-145) mmol/L Chloride (98-107) mmol/L Carbon Dioxide (22-30) mmol/L Creatinine (0.66-1.25) mg/dL Glucose (74-99) mg/dL POC Glucose (mg/dL) 135 H 117 H (70-110) mg/dL Calcium (8.4-10.2) mg/dL Ionized Calcium Teja (4.5-5.3) mg/dL Magnesium (1.6-2.3) mg/dL Alkaline Phosphatase (38-126) U/L Total Protein (6.3-8.2) g/dL Albumin (3.5-5.0) g/dL Arterial Blood Glucose (75-99) mg/dL Crossmatch 01/08/25 01/08/25 01/08/25 Range/Units 03:00 03:06 04:12 WBC (3.8-10.6) k/uL RBC (4.30-5.90) m/uL Hgb (13.0-17.5) gm/dL Hct (39.0-53.0) % Plt Count (150-450) k/uL Neutrophils # (1.3-7.7) k/uL Lymphocytes # (0.90-5.00) 10*3/uL Monocytes # (0.20-1.00) 10*3/uL Eosinophils # (0.04-0.35) 10*3/uL PT (10.0-12.5) sec INR (<1.2) ABG pH (7.35-7.45) ABG pCO2 (35-45) mmHg ABG pO2 (83-108) mmHg ABG O2 Saturation (94-97) % ABG Glucose (75-99) mg/dL Hemoglobin (13.0-17.5) gm/dL Sodium 133 L (137-145) mmol/L Chloride (98-107) mmol/L Carbon Dioxide (22-30) mmol/L Creatinine (0.66-1.25) mg/dL Glucose 103 H (74-99) mg/dL POC Glucose (mg/dL) 114 H 163 H (70-110) mg/dL Calcium 7.9 L (8.4-10.2) mg/dL Ionized Calcium Teja 4.4 L (4.5-5.3) mg/dL Magnesium (1.6-2.3) mg/dL Alkaline Phosphatase (38-126) U/L Total Protein 5.3 L (6.3-8.2) g/dL Albumin 3.4 L (3.5-5.0) g/dL Arterial Blood Glucose (75-99) mg/dL Crossmatch 01/08/25 01/08/25 01/08/25 Range/Units 05:00 06:03 07:10 WBC (3.8-10.6) k/uL RBC (4.30-5.90) m/uL Hgb (13.0-17.5) gm/dL Hct (39.0-53.0) % Plt Count (150-450) k/uL Neutrophils # (1.3-7.7) k/uL Lymphocytes # (0.90-5.00) 10*3/uL Monocytes # (0.20-1.00) 10*3/uL Eosinophils # (0.04-0.35) 10*3/uL PT (10.0-12.5) sec INR (<1.2) ABG pH (7.35-7.45) ABG pCO2 (35-45) mmHg ABG pO2 (83-108) mmHg ABG O2 Saturation (94-97) % ABG Glucose (75-99) mg/dL Hemoglobin (13.0-17.5) gm/dL Sodium (137-145) mmol/L Chloride (98-107) mmol/L Carbon Dioxide (22-30) mmol/L Creatinine (0.66-1.25) mg/dL Glucose (74-99) mg/dL POC Glucose (mg/dL) 159 H 148 H 132 H (70-110) mg/dL Calcium (8.4-10.2) mg/dL Ionized Calcium Teja (4.5-5.3) mg/dL Magnesium (1.6-2.3) mg/dL Alkaline Phosphatase (38-126) U/L Total Protein (6.3-8.2) g/dL Albumin (3.5-5.0) g/dL Arterial Blood Glucose (75-99) mg/dL Crossmatch Microbiology - Last 24 Hours (Table) 01/02/25 18:01 Blood Culture - Final Blood
--- NOTE | 2025-01-08 08:08 | XR ---
EXAMINATION TYPE: XR chest 1V portable DATE OF EXAM: 01/08/2025 CLINICAL INDICATION: Male, 69 years old with history of Post Operative Cardiac Surgery, progress stud y. TECHNIQUE: Single AP portable upright view of the chest is obtained. COMPARISON: Chest x-ray from one day earlier FINDINGS: Interval extubation with removal of endotracheal and orogastric tubes. Stable right internal jugular [place]-Mckenna catheter. Stable mediastinal drainage catheter and left-sided chest tube. Overlying sternal wires and mediastinal clips along with left atrial appendage clip are all redemonstrated. There is more prominent left greater than right bilateral lower lung opacity. No pneumothorax seen bi laterally. Cardiac silhouette size is mildly enlarged. Osseous structures are intact. IMPRESSION: Interval extubation. Worsening Left greater than right bibasilar acute infiltrates and/or atelectasis. No left-sided pneumothorax with left-sided chest tube in place. [facility], , 01/08/2025 8:06 AM
[2025-01-08 08:21] LABS: Glucose,Whole Blood 119 mg/dL (70-110)
[2025-01-08] MEDS: AMIODARONE 200 MG TAB PO SCH (08:24)
[2025-01-08] MEDS: PANTOPRAZOLE 40 MG/10 ML VIAL IVP SCH (08:25)
[2025-01-08] MEDS: METOPROLOL TARTRATE 25 MG TAB PO SCH (08:25)
[2025-01-08] MEDS: CLOPIDOGREL 75 MG TAB PO SCH (08:25)
[2025-01-08] MEDS: ASPIRIN 325 MG TAB PO SCH (08:25)
--- NOTE | 2025-01-08 08:41 | P.PN ---
Subjective Progress Note Date: 01/08/25 Principal diagnosis: Multivessel coronary artery disease, non-ST elevated myocardial infarction this admission, possible chronic cholecystitis. Medical history of hypertension, hy perlipidemia, diabetes mellitus type 2, chronic ongoing tobacco dependence, hiatal hernia, and family history of early onset coronary artery disease. POD #1 Off-pump CABG x 3 with left internal mammary artery to left anterior sending coronary artery, saphenous vein graft to obtuse marginal coronary artery, saphenous vein graft to right coronary artery. Endovascular vein harvest from of left greater saphenous vein from ankle to groin. Ligation of the left atrial appendage with a 35 mm AtriCure clip and intraoperative transesophageal echocardiogram completed by anesthesia. Postoperative acute blood loss anemia, expected given hemodilution The patient was seen and examined in follow-up today January 08, 2025 at his bedside in the intensive care unit. He was successfully extubated at 4:45 PM last evening, he is currently sitting up to the bedside chair, is awake, alert, oriented x 3 and is in no acute apparent distress. Oxygen saturations are 96% on 4 L nasal cannula and he is achieving only 500 mL on his incentive spirometry with encouragement. The patient denies any complaints of shortness of breath at this time, although is complaining of some surgical type pain to his chest tube insertion sites, currently rating his pain 8 out of 10 on the pain scale with taking a deep breath and coughing. Bedside telemetry is showing normal sinus rhythm heart rate 87 bpm. He remains hemodynamically stable and is currently on no inotropic or pressor support. Right IJ cordis remains in place with current hemodynamic showing a cardiac output 5.4, cardiac index 2.7, SVR 873, PA pressur es 41/17 and CVP 11 mmHg. Amiodarone drip is infusing per protocol at 0.5 mg/min. Mediastinal and left pleural chest tubes remain in place to low continuous wall suction -20 cm H2O. No air leak is present. Draining thin serosanguineous drainage. Mediastinal chest tube drain 130 mL output in the last 8 hours and 420 mL output since surgery. Left pleural chest tube drained 220 mL output in the last 8 hours and 450 mL output since surgery. Chest x-ray and laboratory results were reviewed. Objective - Vital Signs Vital signs: Vital Signs Temp 98.2 F 01/08/25 06:00 Pulse 89 01/08/25 07:00 Resp 28 H 01/08/25 07:00 BP 134/81 01/07/25 06:23 Pulse Ox 97 01/08/25 07:00 FiO2 50 01/07/25 16:39 Intake & Output 01/07/25 01/08/25 01/08/25 18:59 06:59 18:59 Intake Total 6260.346 7534.793 79.006 Output Total 2410 1290 70 Balance -521.884 39.793 9.006 Weight 86.9 kg Intake: IV 1852.0 1102.0 54.5 ACETAMINOPHEN IV (For NPO 100 100 ) 1,000 mg In Empty Bag 1 bag @ 400 mls/hr IVPB Q6HR [facility] Rx#:[id number] Albumin Human 5% 250 ml 500 250 In Empty Bag 1 bag @ 250 mls/hr IVPB Q1HR PRN Rx#: [id number] Albumin Human 5% 500 ml 250 In Empty Bag 1 bag @ 250 mls/hr IVPB ONCE ONE Rx#: [id number] CO/CI 140 84 3 Calcium Gluconate in NaCl 100 1 gm In Saline 1 100ml. bag @ 100 mls/hr IVPB ONCE ONE Rx#:[id number] Magnesium Sulfate-D5w Pmx 400 1 gm In Dextrose/Water 1 100ml.bag @ 100 mls/hr IVPB Q1H [facility] Rx#: [id number] Nitroglycerin-D5w Pmx 50 9.0 18.0 1.5 mg In Dextrose/Water 1 250ml.bag @ 5 MCG/MIN 1.5 mls/hr IV .Q24H [facility] Rx#: [id number] Sodium Chloride 0.9% 1, 300 600 50 000 ml @ 30 mls/hr IV . Q24H [facility] Rx#:[id number] ceFAZolin 2 gm In 50 50 Dextrose 5% in Water 50 ml @ 100 mls/hr IVPB Q8HR [facility] Rx#:[id number] Intake, IV Titration 36.116 227.793 24.506 Amount Amiodarone 450 mg In 183.37 16.67 Dextrose 5% in Water 250 ml @ 0.5 MG/MIN 16.667 mls/hr IV .Q15H [facility] Rx#: [id number] Clevidipine Butyrate 25 4.1 mg In Empty Bag 1 bag @ 1 MG/HR 2 mls/hr IV .Q24H PRN Rx#:[id number] Dexmedetomidine/0.9% NaCl 4.964 (Pmx) 400 mcg In Empty Bag 1 bag @ Titrate IV . Q0M [facility] Rx#:[id number] Insulin Regular 100 unit 17.010 33.423 7.836 In Sodium Chloride 0.9% 100 ml @ Per Protocol IV .Q0M [facility] Rx#:[id number] Insulin Regular 100 unit 11 In Sodium Chloride 0.9% 100 ml @ Titrate IV .Q0M [facility] Rx#:[id number] propofoL 1,000 mg In 10.042 Empty Bag 1 bag @ Titrate IV .Q0M [facility] Rx#: [id number] Output: Chest Tube Drainage 340 525 20 Left Pleural 32f 130 340 20 Mediastinal 210 185 0 Urine 1570 765 50 Estimated Blood Loss 500 Other: Voiding Method Indwelling Catheter Indwelling Catheter ABP, PAP, CO, CI - Last Documented Arterial Blood Pressure 91/51 Pulmonary Artery Pressure 38/17 Cardiac Output 5.4 Cardiac Index 2.7 - Exam CONSTITUTIONAL: Sitting up to the bedside chair in the intensive care unit, appears comfortable, cooperative, no apparent acute distress. HEENT: Neck is supple, no JVD, no lymphadenopathy. Right IJ Cordis and Rich[place]- Mckenna catheter in place and functioning. RESPIRATORY: Lungs sounds essentially clear throughout, diminished to his bilateral bases. Respirations are symmetrical and nonlabored. Currently on 4 L nasal cannula with oxygen saturations 96%. Able to achieve 500 mL on his incentive spirometry. Strong cough. CARDIOVASCULAR: Regular rhythm and rate. S1 and S2 present, negative for S3, gallop or murmur. Sternum is stable. Palpable peripheral pulses bilaterally. No calf pain or tenderness noted. Heart hugger in place with patient demonstrating appropriate use. Knee-high ARTURO hose and sequential compression devices in place to his bilateral lower extremities. GASTROINTESTINAL: Abdomen soft, nontender, nondistended. Hypoactive bowel sounds present 4 quadrants. Tolerating diet. Denies passing flatus. No guarding or rigidity. GENITOURINARY: Graham present draining clear, yellow urine. Urine output 495 mL in the last 8 hours. INTEGUMENTARY: Skin is warm and dry with no evidence of clubbing or cyanosis. Midline sternal incision clean dry and well approximated, covered with dry intact dressing. Left lower extremity EVH sites well approximated without redness or drainage. NEUROLOGIC: Cranial nerves II through XII intact. No focal deficits. MUSKULOSKELETAL: Able to move all extremities, strength equal bilaterally, generalized weakness. PSYCHIATRIC: Alert and oriented to person place and time, appropriate affect, intact judgment and insight. INVASIVE LINES AND TUBES: Mediastinal/left pleural chest tubes present and connected to low continuous wall suction, no air leaks present. Mediastinal tube with 130 mL of thin serosanguineous drainage overnight, 420 mL output in the last 24 hours. Left pleural chest tube with 220 mL of thin serosanguineous drainage overnight, 450 mL output in the last 24 hours. Right internal jugular Rich[place]/Cordis, right radial arterial line present. Current CO 5.4, CI 2.7, SVR 873, PA 41/17 and CVP 11 mmHg. - Allied health notes Allied health notes reviewed: nursing - Labs CBC & Chem 7: 01/08/25 03:00 01/08/25 03:00 Labs: Abnormal Lab Results - Last 24 Hours (Table) 01/06/25 01/07/25 01/07/25 Range/Units 07:51 11:11 11:11 WBC (3.8-10.6) k/uL RBC (4.30-5.90) m/uL Hgb (13.0-17.5) gm/dL Hct (39.0-53.0) % Plt Count (150-450) k/uL Neutrophils # (1.3-7.7) k/uL Lymphocytes # (0.90-5.00) 10*3/uL Monocytes # (0.20-1.00) 10*3/uL Eosinophils # (0.04-0.35) 10*3/uL PT (10.0-12.5) sec INR (<1.2) ABG pH 7.33 L (7.35-7.45) ABG pCO2 48 H (35-45) mmHg ABG pO2 149 H 167 H (83-108) mmHg ABG O2 Saturation 98.5 H 98.0 H (94-97) % ABG Glucose 102 H 110 H (75-99) mg/dL Hemoglobin 12.3 L (13.0-17.5) gm/dL Sodium (137-145) mmol/L Chloride (98-107) mmol/L Carbon Dioxide (22-30) mmol/L Creatinine (0.66-1.25) mg/dL Glucose (74-99) mg/dL POC Glucose (mg/dL) (70-110) mg/dL Calcium (8.4-10.2) mg/dL Ionized Calcium Teja (4.5-5.3) mg/dL Magnesium (1.6-2.3) mg/dL Alkaline Phosphatase (38-126) U/L Total Protein (6.3-8.2) g/dL Albumin (3.5-5.0) g/dL Arterial Blood Glucose 102 H 110 H (75-99) mg/dL Crossmatch See Detail 01/07/25 01/07/25 01/07/25 Range/Units 12:54 12:57 12:57 WBC 13.2 H (3.8-10.6) k/uL RBC 3.24 L (4.30-5.90) m/uL Hgb 10.5 L D (13.0-17.5) gm/dL Hct 30.8 L (39.0-53.0) % Plt Count 142 L (150-450) k/uL Neutrophils # 10.9 H (1.3-7.7) k/uL Lymphocytes # (0.90-5.00) 10*3/uL Monocytes # (0.20-1.00) 10*3/uL Eosinophils # (0.04-0.35) 10*3/uL PT 13.1 H (10.0-12.5) sec INR 1.2 H (<1.2) ABG pH (7.35-7.45) ABG pCO2 (35-45) mmHg ABG pO2 (83-108) mmHg ABG O2 Saturation (94-97) % ABG Glucose (75-99) mg/dL Hemoglobin (13.0-17.5) gm/dL Sodium (137-145) mmol/L Chloride (98-107) mmol/L Carbon Dioxide (22-30) mmol/L Creatinine (0.66-1.25) mg/dL Glucose (74-99) mg/dL POC Glucose (mg/dL) 122 H (70-110) mg/dL Calcium (8.4-10.2) mg/dL Ionized Calcium Teja (4.5-5.3) mg/dL Magnesium (1.6-2.3) mg/dL Alkaline Phosphatase (38-126) U/L Total Protein (6.3-8.2) g/dL Albumin (3.5-5.0) g/dL Arterial Blood Glucose (75-99) mg/dL Crossmatch 01/07/25 01/07/25 01/07/25 Range/Units 12:57 13:14 13:51 WBC (3.8-10.6) k/uL RBC (4.30-5.90) m/uL Hgb (13.0-17.5) gm/dL Hct (39.0-53.0) % Plt Count (150-450) k/uL Neutrophils # (1.3-7.7) k/uL Lymphocytes # (0.90-5.00) 10*3/uL Monocytes # (0.20-1.00) 10*3/uL Eosinophils # (0.04-0.35) 10*3/uL PT (10.0-12.5) sec INR (<1.2) ABG pH 7.33 L (7.35-7.45) ABG pCO2 (35-45) mmHg ABG pO2 327 H (83-108) mmHg ABG O2 Saturation (94-97) % ABG Glucose (75-99) mg/dL Hemoglobin (13.0-17.5) gm/dL Sodium 136 L (137-145) mmol/L Chloride 111 H (98-107) mmol/L Carbon Dioxide 21 L (22-30) mmol/L Creatinine 0.62 L (0.66-1.25) mg/dL Glucose 112 H (74-99) mg/dL POC Glucose (mg/dL) 140 H (70-110) mg/dL Calcium 7.2 L (8.4-10.2) mg/dL Ionized Calcium Teja 4.3 L (4.5-5.3) mg/dL Magnesium 1.3 L (1.6-2.3) mg/dL Alkaline Phosphatase 26 L (38-126) U/L Total Protein 4.8 L (6.3-8.2) g/dL Albumin 2.9 L (3.5-5.0) g/dL Arterial Blood Glucose (75-99) mg/dL Crossmatch 01/07/25 01/07/25 01/07/25 Range/Units 13:53 15:08 15:30 WBC 11.4 H (3.8-10.6) k/uL RBC 3.38 L (4.30-5.90) m/uL Hgb 10.8 L (13.0-17.5) gm/dL Hct 32.3 L (39.0-53.0) % Plt Count (150-450) k/uL Neutrophils # 9.3 H (1.3-7.7) k/uL Lymphocytes # (0.90-5.00) 10*3/uL Monocytes # (0.20-1.00) 10*3/uL Eosinophils # (0.04-0.35) 10*3/uL PT (10.0-12.5) sec INR (<1.2) ABG pH (7.35-7.45) ABG pCO2 (35-45) mmHg ABG pO2 (83-108) mmHg ABG O2 Saturation (94-97) % ABG Glucose (75-99) mg/dL Hemoglobin (13.0-17.5) gm/dL Sodium (137-145) mmol/L Chloride (98-107) mmol/L Carbon Dioxide (22-30) mmol/L Creatinine (0.66-1.25) mg/dL Glucose (74-99) mg/dL POC Glucose (mg/dL) 132 H 210 H (70-110) mg/dL Calcium (8.4-10.2) mg/dL Ionized Calcium Teja (4.5-5.3) mg/dL Magnesium (1.6-2.3) mg/dL Alkaline Phosphatase (38-126) U/L Total Protein (6.3-8.2) g/dL Albumin (3.5-5.0) g/dL Arterial Blood Glucose (75-99) mg/dL Crossmatch 01/07/25 01/07/25 01/07/25 Range/Units 16:14 16:32 17:10 WBC (3.8-10.6) k/uL RBC (4.30-5.90) m/uL Hgb (13.0-17.5) gm/dL Hct (39.0-53.0) % Plt Count (150-450) k/uL Neutrophils # (1.3-7.7) k/uL Lymphocytes # (0.90-5.00) 10*3/uL Monocytes # (0.20-1.00) 10*3/uL Eosinophils # (0.04-0.35) 10*3/uL PT (10.0-12.5) sec INR (<1.2) ABG pH (7.35-7.45) ABG pCO2 (35-45) mmHg ABG pO2 (83-108) mmHg ABG O2 Saturation 97.4 H (94-97) % ABG Glucose (75-99) mg/dL Hemoglobin 10.8 L (13.0-17.5) gm/dL Sodium (137-145) mmol/L Chloride (98-107) mmol/L Carbon Dioxide (22-30) mmol/L Creatinine (0.66-1.25) mg/dL Glucose (74-99) mg/dL POC Glucose (mg/dL) 222 H 210 H (70-110) mg/dL Calcium (8.4-10.2) mg/dL Ionized Calcium Teja (4.5-5.3) mg/dL Magnesium (1.6-2.3) mg/dL Alkaline Phosphatase (38-126) U/L Total Protein (6.3-8.2) g/dL Albumin (3.5-5.0) g/dL Arterial Blood Glucose (75-99) mg/dL Crossmatch 01/07/25 01/07/25 01/07/25 Range/Units 18:20 19:00 19:00 WBC 10.85 H (3.8-10.6) k/uL RBC 3.38 L (4.30-5.90) m/uL Hgb 10.8 L (13.0-17.5) gm/dL Hct 31.9 L (39.0-53.0) % Plt Count (150-450) k/uL Neutrophils # 9.58 H (1.3-7.7) k/uL Lymphocytes # 0.55 L (0.90-5.00) 10*3/uL Monocytes # (0.20-1.00) 10*3/uL Eosinophils # 0.01 L (0.04-0.35) 10*3/uL PT (10.0-12.5) sec INR (<1.2) ABG pH (7.35-7.45) ABG pCO2 (35-45) mmHg ABG pO2 (83-108) mmHg ABG O2 Saturation (94-97) % ABG Glucose (75-99) mg/dL Hemoglobin (13.0-17.5) gm/dL Sodium (137-145) mmol/L Chloride (98-107) mmol/L Carbon Dioxide (22-30) mmol/L Creatinine (0.66-1.25) mg/dL Glucose (74-99) mg/dL POC Glucose (mg/dL) 202 H 187 H (70-110) mg/dL Calcium (8.4-10.2) mg/dL Ionized Calcium Teja (4.5-5.3) mg/dL Magnesium (1.6-2.3) mg/dL Alkaline Phosphatase (38-126) U/L Total Protein (6.3-8.2) g/dL Albumin (3.5-5.0) g/dL Arterial Blood Glucose (75-99) mg/dL Crossmatch 01/07/25 01/07/25 01/07/25 Range/Units 20:07 23:02 23:57 WBC (3.8-10.6) k/uL RBC (4.30-5.90) m/uL Hgb (13.0-17.5) gm/dL Hct (39.0-53.0) % Plt Count (150-450) k/uL Neutrophils # (1.3-7.7) k/uL Lymphocytes # (0.90-5.00) 10*3/uL Monocytes # (0.20-1.00) 10*3/uL Eosinophils # (0.04-0.35) 10*3/uL PT (10.0-12.5) sec INR (<1.2) ABG pH (7.35-7.45) ABG pCO2 (35-45) mmHg ABG pO2 (83-108) mmHg ABG O2 Saturation (94-97) % ABG Glucose (75-99) mg/dL Hemoglobin (13.0-17.5) gm/dL Sodium (137-145) mmol/L Chloride (98-107) mmol/L Carbon Dioxide (22-30) mmol/L Creatinine (0.66-1.25) mg/dL Glucose (74-99) mg/dL POC Glucose (mg/dL) 136 H 128 H 135 H (70-110) mg/dL Calcium (8.4-10.2) mg/dL Ionized Calcium Teja (4.5-5.3) mg/dL Magnesium (1.6-2.3) mg/dL Alkaline Phosphatase (38-126) U/L Total Protein (6.3-8.2) g/dL Albumin (3.5-5.0) g/dL Arterial Blood Glucose (75-99) mg/dL Crossmatch 01/08/25 01/08/25 01/08/25 Range/Units 01:24 03:00 03:00 WBC 12.10 H (3.8-10.6) k/uL RBC 3.06 L (4.30-5.90) m/uL Hgb 9.8 L (13.0-17.5) gm/dL Hct 29.0 L (39.0-53.0) % Plt Count (150-450) k/uL Neutrophils # 10.09 H (1.3-7.7) k/uL Lymphocytes # (0.90-5.00) 10*3/uL Monocytes # 1.03 H (0.20-1.00) 10*3/uL Eosinophils # 0.01 L (0.04-0.35) 10*3/uL PT (10.0-12.5) sec INR (<1.2) ABG pH (7.35-7.45) ABG pCO2 (35-45) mmHg ABG pO2 (83-108) mmHg ABG O2 Saturation (94-97) % ABG Glucose (75-99) mg/dL Hemoglobin (13.0-17.5) gm/dL Sodium 133 L (137-145) mmol/L Chloride (98-107) mmol/L Carbon Dioxide (22-30) mmol/L Creatinine (0.66-1.25) mg/dL Glucose 103 H (74-99) mg/dL POC Glucose (mg/dL) 117 H (70-110) mg/dL Calcium 7.9 L (8.4-10.2) mg/dL Ionized Calcium Teja 4.4 L (4.5-5.3) mg/dL Magnesium (1.6-2.3) mg/dL Alkaline Phosphatase (38-126) U/L Total Protein 5.3 L (6.3-8.2) g/dL Albumin 3.4 L (3.5-5.0) g/dL Arterial Blood Glucose (75-99) mg/dL Crossmatch 01/08/25 01/08/25 01/08/25 Range/Units 03:06 04:12 05:00 WBC (3.8-10.6) k/uL RBC (4.30-5.90) m/uL Hgb (13.0-17.5) gm/dL Hct (39.0-53.0) % Plt Count (150-450) k/uL Neutrophils # (1.3-7.7) k/uL Lymphocytes # (0.90-5.00) 10*3/uL Monocytes # (0.20-1.00) 10*3/uL Eosinophils # (0.04-0.35) 10*3/uL PT (10.0-12.5) sec INR (<1.2) ABG pH (7.35-7.45) ABG pCO2 (35-45) mmHg ABG pO2 (83-108) mmHg ABG O2 Saturation (94-97) % ABG Glucose (75-99) mg/dL Hemoglobin (13.0-17.5) gm/dL Sodium (137-145) mmol/L Chloride (98-107) mmol/L Carbon Dioxide (22-30) mmol/L Creatinine (0.66-1.25) mg/dL Glucose (74-99) mg/dL POC Glucose (mg/dL) 114 H 163 H 159 H (70-110) mg/dL Calcium (8.4-10.2) mg/dL Ionized Calcium Teja (4.5-5.3) mg/dL Magnesium (1.6-2.3) mg/dL Alkaline Phosphatase (38-126) U/L Total Protein (6.3-8.2) g/dL Albumin (3.5-5.0) g/dL Arterial Blood Glucose (75-99) mg/dL Crossmatch 01/08/25 01/08/25 01/08/25 Range/Units 06:03 07:10 08:19 WBC (3.8-10.6) k/uL RBC (4.30-5.90) m/uL Hgb (13.0-17.5) gm/dL Hct (39.0-53.0) % Plt Count (150-450) k/uL Neutrophils # (1.3-7.7) k/uL Lymphocytes # (0.90-5.00) 10*3/uL Monocytes # (0.20-1.00) 10*3/uL Eosinophils # (0.04-0.35) 10*3/uL PT (10.0-12.5) sec INR (<1.2) ABG pH (7.35-7.45) ABG pCO2 (35-45) mmHg ABG pO2 (83-108) mmHg ABG O2 Saturation (94-97) % ABG Glucose (75-99) mg/dL Hemoglobin (13.0-17.5) gm/dL Sodium (137-145) mmol/L Chloride (98-107) mmol/L Carbon Dioxide (22-30) mmol/L Creatinine (0.66-1.25) mg/dL Glucose (74-99) mg/dL POC Glucose (mg/dL) 148 H 132 H 119 H (70-110) mg/dL Calcium (8.4-10.2) mg/dL Ionized Calcium Teja (4.5-5.3) mg/dL Magnesium (1.6-2.3) mg/dL Alkaline Phosphatase (38-126) U/L Total Protein (6.3-8.2) g/dL Albumin (3.5-5.0) g/dL Arterial Blood Glucose (75-99) mg/dL Crossmatch Microbiology - Last 24 Hours (Table) 01/02/25 18:01 Blood Culture - Final Blood - Imaging and Cardiology Chest x-ray: report reviewed, image reviewed Assessment and Plan Assessment: Multivessel coronary artery disease Non-ST elevated myocardial infarction this admission Possible chronic cholecystitis Postoperative acute blood loss anemia, expected given hemodilution Hypertension Hyperlipidemia with anaphylactic allergy to statins, on Repatha as an outpatient, cholesterol 134, LDL 43, triglycerides 299 Diabetes mellitus type 2 with a hemoglobin A1c of 7.6% Family history of early onset coronary artery disease Hiatal hernia Chronic ongoing tobacco dependence, smokes 2 to 3 cigars/day Plan: Continue to maximize medical therapy with aspirin, statin, Plavix, and beta- valeriy. Will increase metoprolol tartrate to 25 mg p.o. twice daily with hold parameters. Discontinue nitroglycerin drip. Continue amiodarone per protocol, we will transition the patient to amiodarone 400 mg p.o. twice daily for atrial fibrillation prophylaxis. No atrial fibrillation reported, currently in normal sinus rhythm. Wean oxygen as tolerated. Encourage incentive spirometry use 10 times every hour while awake. Bronchodilators per pulmonology. Increase activity, ambulate as tolerated. PT/OT/cardiac rehab consulted. Will monitor daily labs and chest x-rays. Electrolyte replacement per protocol. GI/DVT prophylaxis. Daily weights. Pain control per current medication regimen. Toradol and Robaxin added for additional pain control. Insulin management per internal medicine, preoperative hemoglobin A1c 7.6%. Patient should remain on continuous IV insulin for 48 hours, may transition to subcutaneous per protocol afterwards Discontinue [place]. Connect Cordis to continuous CVP monitoring. Continue chest tubes for another 24 hours, continue to record strict output. Continue Graham catheter for another 24 hours, continue to monitor and record strict accurate intake and output Increase diet as tolerated. More recommendations to follow based on patient's clinical course. Time with Patient: Greater than 30
[2025-01-08] MEDS ORDERED: METOPROLOL TARTRATE 12.5 MG TAB PO SCH (09:00)
[2025-01-08] MEDS ORDERED: bisacodyL 10 MG SUPP RECTAL PRN (09:00)
[2025-01-08 09:11] LABS: Glucose,Whole Blood 133 mg/dL (70-110)
[2025-01-08] MEDS: CALCIUM GLUCONATE IN NACL 2 GM in SALINE 1 100ML.BAG IVPB ONE (09:54)
[2025-01-08 10:21] LABS: Glucose,Whole Blood 112 mg/dL (70-110)
[2025-01-08 11:14] LABS: Glucose,Whole Blood 126 mg/dL (70-110)
[2025-01-08 12:01] LABS: Glucose,Whole Blood 130 mg/dL (70-110)
--- NOTE | 2025-01-08 12:36 | P.ANPRN ---
Procedure Note - Anesthesia - Invasive Line Right Central Line Time Out Performed: Yes Date of Procedure: 01/07/25 Time of Procedure: 07:25 Location of Patient: PreOp Preparation: Sterile Prep, Sterile Dressing Central Line Location: Internal Jugular Ultrasound Used: No Purpose - Visualization and Identification of Vasculature: No Image Stored and Saved: No Narrative: Invasive line placement per sterile protocol utilized.
--- NOTE | 2025-01-08 12:36 | P.ANPRN ---
Procedure Note - Anesthesia - Invasive Line Right Alanson Mckenna Time Out Performed: Yes Date of Procedure: 01/07/25 Time of Procedure: 07:29 Location of Patient: PreOp Preparation: Sterile Prep, Sterile Dressing Central Line Location: Internal Jugular Ultrasound Used: No Purpose - Visualization and Identification of Vasculature: No Image Stored and Saved: No Narrative: Invasive line placement per sterile protocol utilized.
[2025-01-08 13:08] LABS: Glucose,Whole Blood 252 mg/dL (70-110)
[2025-01-08 13:13] VITALS: BMI 29.1
[2025-01-08 14:00] LABS: Glucose,Whole Blood 225 mg/dL (70-110)
--- NOTE | 2025-01-08 14:33 | P.PN ---
Subjective Progress Note Date: 01/08/25 Principal diagnosis: Off-pump CABG x 3 with CAPPS to LAD, saphenous vein graft to obtuse marginal, saphenous vein graft to right coronary artery. Endovascular vein harvest from of left greater saphenous vein from ankle to groin. Ligation of the left atrial appendage with a 35 mm AtriCure clip. Postoperative day #1 This is a 69-year-old male patient was being seen preoperatively as the patient is being scheduled to undergo an off-pump coronary artery bypass surgery on 2024. The patient has multivessel coronary artery disease and he sustained an acute non-ST segment elevation myocardial infarction. He is currently free of any chest pain. The cardiac catheterization revealed a 90% stenosis to his proximal right coronary artery, a 90% stenosis to his mid left anterior descending coronary artery, a 90% stenosis to his ostial circumflex coronary artery, and a 90% stenosis to his mid obtuse marginal 2 coronary artery. Due to the findings on the cardiac catheterization, the patient elevated troponins and his presenting symptoms a consult was placed to cardiothoracic surgery for further evaluation and treatment recommendations including myocardial revascular ization surgery. The patient has known to have hypertension hyperlipidemia and diabetes mellitus type 2. His HbA1c is 7.6. He smokes around 2 to 3 cigars on a daily basis. He is on room air oxygen. CAT scan of the chest was completed and it shows few scattered pulmonary micronodules. Nonspecific findings. No other pulmonary abnormalities noted. The patient is quite active. He is a hannah. His echocardiogram done on 01/03/2025 showed normal LV size and function. On 01/06/2025, the patient has no specific complaints. Resting comfortably in bed. Awaiting off-pump coronary bypass surgery to be done in the morning. Room air oxygen. White cell count of 8.9, hemoglobin 16 and a platelet count is 224. Electrolytes are all within normal limits. Ambulating. Using the incentive spirometer. No nausea vomiting or abdominal pain. No other new complaints. Patient was seen today on 01/07/25, patient is now status post CABG, postoperative day #0, I saw this patient in the ICU shortly after he came back from the OR. Presently on mechanical ventilation, assist-control rate of 14 tidal volume 500 FiO2 50% and PEEP of 5 ABG showed a pO2 of 327 pCO2 41 pH of 7.33 hence patient was cut down to 45%. Patient is on multiple drips including Cleviprex at 2 mg/h amiodarone at 1 mg/min, he is also on the Precedex at 0.2 mcg/kg/h, nitroglycerin drip, patient is arousable, follows instructions, cardiac output is 7.5, cardiac index of 3.8 PA pressure 35/22 CVP is 13. Chest x-ray was reviewed, postoperative changes noted, no acute process was noted, endotracheal tube is about 3 cm above the licha. Chest tubes and PA catheter are in the proper position. WBC count is 11.4 hemoglobin is 10.8, blood sugar is 210. Patient was seen today on 01/08/2025, he is now postoperative day #1Off-pump CABG x 3 with left internal mammary artery to left anterior sending coronary artery, saphenous vein graft to obtuse marginal coronary artery, saphenous vein graft to right coronary artery. Endovascular vein harvest from of left greater saphenous vein from ankle to groin. Ligation of the left atrial appendage with a 35 mm AtriCure clip and intraoperative transesophageal echocardiogram completed by anesthesia. Patient was extubated yesterday at 4:45 PM, tolerated the extubation well, he is sitting in bed, not in any distress, on 4 L nasal cannula with O2 sat of 96% achieving only 500 cc on incentive spirometry. Patient has some discomfort and pain at surgical sites, he is in sinus rhythm, hemodynamically stable not requiring any inotropes or any pressors. His cardiac output was 5.4 cardiac index 2.7 earlier today SVR of 873. Pulmonary artery pressure 41/17 and CVP 11. Remains on amiodarone 0.5 mg/min. Chest tube and mediastinal tubes were noted. No evidence of pneumothorax on chest x-ray, minimal basilar atelectasis. WBC count is 12.1 hemoglobin 9.8 basic metabolic profile is normal renal profile is normal Objective - Vital Signs Vital signs: Vital Signs Temp 98.9 F 01/08/25 12:00 Pulse 95 01/08/25 14:00 Resp 27 H 01/08/25 14:00 BP 133/75 01/08/25 14:00 Pulse Ox 96 01/08/25 14:00 FiO2 50 01/07/25 16:39 Intake & Output 04/07/25 04/08/25 04/08/25 18:59 06:59 18:59 Intake Total 1846.540 0067.793 1144.659 Output Total 2410 1290 625 Balance -521.884 39.793 519.659 Weight 86.9 kg 86.9 kg Intake: IV 1852.0 1102.0 825.5 ACETAMINOPHEN IV (For NPO 100 100 ) 1,000 mg In Empty Bag 1 bag @ 400 mls/hr IVPB Q6HR [facility] Rx#:[id number] Albumin Human 5% 250 ml 500 250 250 In Empty Bag 1 bag @ 250 mls/hr IVPB Q1HR PRN Rx#: [id number] Albumin Human 5% 500 ml 250 In Empty Bag 1 bag @ 250 mls/hr IVPB ONCE ONE Rx#: [id number] CO/CI 140 84 3 Calcium Gluconate in NaCl 100 1 gm In Saline 1 100ml. bag @ 100 mls/hr IVPB ONCE ONE Rx#:[id number] Calcium Gluconate in NaCl 100 2 gm In Saline 1 100ml. bag @ 100 mls/hr IVPB ONCE ONE Rx#:[id number] Magnesium Sulfate-D5w Pmx 400 1 gm In Dextrose/Water 1 100ml.bag @ 100 mls/hr IVPB Q1H [facility] Rx#: [id number] Nitroglycerin-D5w Pmx 50 9.0 18.0 1.5 mg In Dextrose/Water 1 250ml.bag @ 5 MCG/MIN 1.5 mls/hr IV .Q24H [facility] Rx#: [id number] Sodium Chloride 0.9% 1, 300 600 320 000 ml @ 30 mls/hr IV . Q24H [facility] Rx#:[id number] ceFAZolin 2 gm In 50 50 100 Dextrose 5% in Water 50 ml @ 100 mls/hr IVPB Q8HR [facility] Rx#:[id number] pressure bags 51 Intake, IV Titration 36.116 227.793 319.159 Amount Amiodarone 450 mg In 183.37 266.67 Dextrose 5% in Water 250 ml @ 0.5 MG/MIN 16.667 mls/hr IV .Q15H [facility] Rx#: [id number] Clevidipine Butyrate 25 4.1 mg In Empty Bag 1 bag @ 1 MG/HR 2 mls/hr IV .Q24H PRN Rx#:[id number] Dexmedetomidine/0.9% NaCl 4.964 (Pmx) 400 mcg In Empty Bag 1 bag @ Titrate IV . Q0M [facility] Rx#:[id number] Insulin Regular 100 unit 17.010 33.423 21.639 In Sodium Chloride 0.9% 100 ml @ Per Protocol IV .Q0M [facility] Rx#:[id number] Insulin Regular 100 unit 11 In Sodium Chloride 0.9% 100 ml @ Titrate IV .Q0M [facility] Rx#:[id number] Nitroglycerin-D5w Pmx 50 30.85 mg In Dextrose/Water 1 250ml.bag @ 5 MCG/MIN 1.5 mls/hr IV .Q24H [facility] Rx#: [id number] propofoL 1,000 mg In 10.042 Empty Bag 1 bag @ Titrate IV .Q0M [facility] Rx#: [id number] Output: Chest Tube Drainage 340 525 120 Left Pleural 130 340 70 Mediastinal 210 185 50 Urine 1570 765 505 Estimated Blood Loss 500 Other: Voiding Method Indwelling Catheter Indwelling Catheter Indwelling Catheter ABP, PAP, CO, CI - Last Documented Arterial Blood Pressure 143/53 Pulmonary Artery Pressure 42/14 Cardiac Output 6 Cardiac Index 3 - Exam General: Revealed 69-year-old white male on nasal cannula, in no distress Head: Atraumatic, normocephalic PERRLA, EOMI, nonicteric Neck supple no neck masses no JVD no stridor Lungs symmetrical chest expansion diminished breath sounds at the bases no rhonchi no wheezes chest tubes and mediastinal tubes noted. No airleak Cardiac: Distant S1-S2, no S3 gallop, positive pericardial rub Abdominal exam: Soft nontender normal no rebound no guarding Extremities: No clubbing edema or cyanosis Skin: No rashes Neurologically alert oriented x 3 no gross focal deficit Psychiatric: Normal mood normal affect normal mental status - Labs CBC & Chem 7: 01/08/25 03:00 01/08/25 03:00 Labs: Abnormal Lab Results - Last 24 Hours (Table) 01/06/25 01/07/25 01/07/25 Range/Units 07:51 15:08 15:30 WBC 11.4 H (3.8-10.6) k/uL RBC 3.38 L (4.30-5.90) m/uL Hgb 10.8 L (13.0-17.5) gm/dL Hct 32.3 L (39.0-53.0) % Neutrophils # 9.3 H (1.3-7.7) k/uL Lymphocytes # (0.90-5.00) 10*3/uL Monocytes # (0.20-1.00) 10*3/uL Eosinophils # (0.04-0.35) 10*3/uL ABG O2 Saturation (94-97) % Hemoglobin (13.0-17.5) gm/dL Sodium (137-145) mmol/L Glucose (74-99) mg/dL POC Glucose (mg/dL) 210 H (70-110) mg/dL Calcium (8.4-10.2) mg/dL Ionized Calcium Teja (4.5-5.3) mg/dL Total Protein (6.3-8.2) g/dL Albumin (3.5-5.0) g/dL Crossmatch See Detail 01/07/25 01/07/25 01/07/25 Range/Units 16:14 16:32 17:10 WBC (3.8-10.6) k/uL RBC (4.30-5.90) m/uL Hgb (13.0-17.5) gm/dL Hct (39.0-53.0) % Neutrophils # (1.3-7.7) k/uL Lymphocytes # (0.90-5.00) 10*3/uL Monocytes # (0.20-1.00) 10*3/uL Eosinophils # (0.04-0.35) 10*3/uL ABG O2 Saturation 97.4 H (94-97) % Hemoglobin 10.8 L (13.0-17.5) gm/dL Sodium (137-145) mmol/L Glucose (74-99) mg/dL POC Glucose (mg/dL) 222 H 210 H (70-110) mg/dL Calcium (8.4-10.2) mg/dL Ionized Calcium Teja (4.5-5.3) mg/dL Total Protein (6.3-8.2) g/dL Albumin (3.5-5.0) g/dL Crossmatch 01/07/25 01/07/25 01/07/25 Range/Units 18:20 19:00 19:00 WBC 10.85 H (3.8-10.6) k/uL RBC 3.38 L (4.30-5.90) m/uL Hgb 10.8 L (13.0-17.5) gm/dL Hct 31.9 L (39.0-53.0) % Neutrophils # 9.58 H (1.3-7.7) k/uL Lymphocytes # 0.55 L (0.90-5.00) 10*3/uL Monocytes # (0.20-1.00) 10*3/uL Eosinophils # 0.01 L (0.04-0.35) 10*3/uL ABG O2 Saturation (94-97) % Hemoglobin (13.0-17.5) gm/dL Sodium (137-145) mmol/L Glucose (74-99) mg/dL POC Glucose (mg/dL) 202 H 187 H (70-110) mg/dL Calcium (8.4-10.2) mg/dL Ionized Calcium Teja (4.5-5.3) mg/dL Total Protein (6.3-8.2) g/dL Albumin (3.5-5.0) g/dL Crossmatch 01/07/25 01/07/25 01/07/25 Range/Units 20:07 23:02 23:57 WBC (3.8-10.6) k/uL RBC (4.30-5.90) m/uL Hgb (13.0-17.5) gm/dL Hct (39.0-53.0) % Neutrophils # (1.3-7.7) k/uL Lymphocytes # (0.90-5.00) 10*3/uL Monocytes # (0.20-1.00) 10*3/uL Eosinophils # (0.04-0.35) 10*3/uL ABG O2 Saturation (94-97) % Hemoglobin (13.0-17.5) gm/dL Sodium (137-145) mmol/L Glucose (74-99) mg/dL POC Glucose (mg/dL) 136 H 128 H 135 H (70-110) mg/dL Calcium (8.4-10.2) mg/dL Ionized Calcium Teja (4.5-5.3) mg/dL Total Protein (6.3-8.2) g/dL Albumin (3.5-5.0) g/dL Crossmatch 01/08/25 01/08/25 01/08/25 Range/Units 01:24 03:00 03:00 WBC 12.10 H (3.8-10.6) k/uL RBC 3.06 L (4.30-5.90) m/uL Hgb 9.8 L (13.0-17.5) gm/dL Hct 29.0 L (39.0-53.0) % Neutrophils # 10.09 H (1.3-7.7) k/uL Lymphocytes # (0.90-5.00) 10*3/uL Monocytes # 1.03 H (0.20-1.00) 10*3/uL Eosinophils # 0.01 L (0.04-0.35) 10*3/uL ABG O2 Saturation (94-97) % Hemoglobin (13.0-17.5) gm/dL Sodium 133 L (137-145) mmol/L Glucose 103 H (74-99) mg/dL POC Glucose (mg/dL) 117 H (70-110) mg/dL Calcium 7.9 L (8.4-10.2) mg/dL Ionized Calcium Teja 4.4 L (4.5-5.3) mg/dL Total Protein 5.3 L (6.3-8.2) g/dL Albumin 3.4 L (3.5-5.0) g/dL Crossmatch 01/08/25 01/08/25 01/08/25 Range/Units 03:06 04:12 05:00 WBC (3.8-10.6) k/uL RBC (4.30-5.90) m/uL Hgb (13.0-17.5) gm/dL Hct (39.0-53.0) % Neutrophils # (1.3-7.7) k/uL Lymphocytes # (0.90-5.00) 10*3/uL Monocytes # (0.20-1.00) 10*3/uL Eosinophils # (0.04-0.35) 10*3/uL ABG O2 Saturation (94-97) % Hemoglobin (13.0-17.5) gm/dL Sodium (137-145) mmol/L Glucose (74-99) mg/dL POC Glucose (mg/dL) 114 H 163 H 159 H (70-110) mg/dL Calcium (8.4-10.2) mg/dL Ionized Calcium Teja (4.5-5.3) mg/dL Total Protein (6.3-8.2) g/dL Albumin (3.5-5.0) g/dL Crossmatch 01/08/25 01/08/25 01/08/25 Range/Units 06:03 07:10 08:19 WBC (3.8-10.6) k/uL RBC (4.30-5.90) m/uL Hgb (13.0-17.5) gm/dL Hct (39.0-53.0) % Neutrophils # (1.3-7.7) k/uL Lymphocytes # (0.90-5.00) 10*3/uL Monocytes # (0.20-1.00) 10*3/uL Eosinophils # (0.04-0.35) 10*3/uL ABG O2 Saturation (94-97) % Hemoglobin (13.0-17.5) gm/dL Sodium (137-145) mmol/L Glucose (74-99) mg/dL POC Glucose (mg/dL) 148 H 132 H 119 H (70-110) mg/dL Calcium (8.4-10.2) mg/dL Ionized Calcium Teja (4.5-5.3) mg/dL Total Protein (6.3-8.2) g/dL Albumin (3.5-5.0) g/dL Crossmatch 01/08/25 01/08/25 01/08/25 Range/Units 09:09 10:19 11:11 WBC (3.8-10.6) k/uL RBC (4.30-5.90) m/uL Hgb (13.0-17.5) gm/dL Hct (39.0-53.0) % Neutrophils # (1.3-7.7) k/uL Lymphocytes # (0.90-5.00) 10*3/uL Monocytes # (0.20-1.00) 10*3/uL Eosinophils # (0.04-0.35) 10*3/uL ABG O2 Saturation (94-97) % Hemoglobin (13.0-17.5) gm/dL Sodium (137-145) mmol/L Glucose (74-99) mg/dL POC Glucose (mg/dL) 133 H 112 H 126 H (70-110) mg/dL Calcium (8.4-10.2) mg/dL Ionized Calcium Teja (4.5-5.3) mg/dL Total Protein (6.3-8.2) g/dL Albumin (3.5-5.0) g/dL Crossmatch 01/08/25 01/08/25 01/08/25 Range/Units 12:00 13:07 13:59 WBC (3.8-10.6) k/uL RBC (4.30-5.90) m/uL Hgb (13.0-17.5) gm/dL Hct (39.0-53.0) % Neutrophils # (1.3-7.7) k/uL Lymphocytes # (0.90-5.00) 10*3/uL Monocytes # (0.20-1.00) 10*3/uL Eosinophils # (0.04-0.35) 10*3/uL ABG O2 Saturation (94-97) % Hemoglobin (13.0-17.5) gm/dL Sodium (137-145) mmol/L Glucose (74-99) mg/dL POC Glucose (mg/dL) 130 H 252 H 225 H (70-110) mg/dL Calcium (8.4-10.2) mg/dL Ionized Calcium Teja (4.5-5.3) mg/dL Total Protein (6.3-8.2) g/dL Albumin (3.5-5.0) g/dL Crossmatch Microbiology - Last 24 Hours (Table) 01/02/25 18:01 Blood Culture - Final Blood Assessment and Plan Assessment: Impression:Off-pump CABG x 3 with CAPPS to LAD, saphenous vein graft to obtuse marginal, saphenous vein graft to right coronary artery. Endovascular vein harvest from of left greater saphenous vein from ankle to groin. Ligation of the left atrial appendage with a 35 mm AtriCure clip. Postoperative day #1 Multivessel coronary disease, status post acute non-ST segment elevation myocardial infarction. Diabetes mellitus type 2 Hypertension Hyperlipidemia maintained on Repatha on outpatient basis with an LDL level of 43 History of smoking Hiatal hernia Chronic cholecystitis Recommendation: Continue to monitor in ICU Continue medical therapy/maximal including statin Plavix aspirin beta-blockers Increase activity as tolerated and ambulate as tolerated Encourage incentive spirometry Continue GI DVT prophylaxis Continue daily weights and daily x-rays of the chest, daily labs Continue pain management including Toradol and Robaxin Continue insulin and follow-up protocol Continue to monitor chest tubes and possibly discontinue in the next 48 hours. Continue amiodarone We will continue to follow. Time with Patient: Less than 30
[2025-01-08 15:15] LABS: Glucose,Whole Blood 216 mg/dL (70-110)
[2025-01-08 16:18] LABS: Glucose,Whole Blood 230 mg/dL (70-110)
[2025-01-08 17:13] LABS: Glucose,Whole Blood 143 mg/dL (70-110)
[2025-01-08 18:49] LABS: Glucose,Whole Blood 155 mg/dL (70-110)
[2025-01-08 20:26] LABS: Glucose,Whole Blood 141 mg/dL (70-110)
[2025-01-08] MEDS: methocarbamoL 750 MG TAB PO PRN (21:37)
[2025-01-08 21:59] LABS: Glucose,Whole Blood 134 mg/dL (70-110)
[2025-01-08 23:26] LABS: Glucose,Whole Blood 115 mg/dL (70-110)
[2025-01-09 00:19] LABS: Glucose,Whole Blood 114 mg/dL (70-110)
[2025-01-09 01:33] LABS: Glucose,Whole Blood 148 mg/dL (70-110)
[2025-01-09 02:37] LABS: Glucose,Whole Blood 140 mg/dL (70-110)
[2025-01-09 03:49] LABS: Glucose,Whole Blood 133 mg/dL (70-110)
[2025-01-09 04:14] LABS: Basophils # (A) 0.03 10*3/uL (0.00-0.10); Basophils % (A) 0.2 %; Eosinophils % (A) 2.5 %; HCT 28.3 % (39.6-50.0); HGB 9.6 g/dL (13.0-17.0); Lymphocytes # (A) 1.23 10*3/uL (0.90-5.00); Lymphocytes % (A) 10.1 %; MCH 32.3 pg (27.0-32.0); MCHC 33.9 g/dL (32.0-37.0); MCV 95.3 fL (80.0-97.0); Mean Platelet Volume 10.6 fL (9.5-12.2); Monocytes # (A) 0.99 10*3/uL (0.20-1.00); Monocytes % (A) 8.1 %; Neutrophils # (A) 9.59 10*3/uL (1.80-7.70); Neutrophils % (A) 78.6 %; Platelet Count 171 10*3/uL (140-440); RBC 2.97 10*6/uL (4.40-5.60); RDW 13.9 % (11.5-14.5)
[2025-01-09 04:25] LABS: Ionized Calcium 4.8 mg/dL (4.5-5.3)
[2025-01-09 04:32] LABS: ALT 23 U/L (4-49); AST 31 U/L (17-59); African American GFR (CKD) >90 (>60 ml/min/1.73 sqM); Albumin 3.2 g/dL (3.5-5.0); Alkaline Phosphatase 52 U/L (38-126); Anion Gap 7 mmol/L; Blood Urea Nitrogen 13 mg/dL (9-20); Calcium 8.6 mg/dL (8.4-10.2); Carbon Dioxide 22 mmol/L (22-30); Chloride 104 mmol/L (98-107); Glucose 121 mg/dL (74-99); Non-African American GFR(CKD) 88 (>60 ml/min/1.73 sqM); Potassium 4.3 mmol/L (3.5-5.1); Sodium 133 mmol/L (137-145); Total Bilirubin 0.7 mg/dL (0.2-1.3); Total Protein 5.4 g/dL (6.3-8.2)
[2025-01-09 05:44] LABS: Glucose,Whole Blood 140 mg/dL (70-110)
--- NOTE | 2025-01-09 06:17 | P.PN ---
Subjective Progress Note Date: 01/08/25 This is a 69-year-old male who was recently admitted with chest pain underwent cardiac catheterization noted to have triple-vessel coronary artery disease recommending CT surgery evaluation. Patient was evaluated by CT surgery underwent further testing and is scheduled to undergo possible tentative CABG today. Patient is currently in the OR and will follow-up once official report is obtained. Patient will be going to ICU once stabilized 01/08/2025 Patient is seen in follow-up this morning status post off-pump CABG x 3 with CAPPS to the LAD currently sitting up in the chair doing relatively well. Heart hugger is noted and patient is maintained on 3 L via nasal cannula. Patient with incentive spirometer at the bedside encouraged to continue using at least 10 times every hour while awake. Patient is continued on telemetry monitoring has bilateral chest tubes and swans catheter along with indwelling Graham catheter. Patient is somewhat fatigued as he just walked today. We will continue to follow with CT surgery during hospitalization. Review of systems: Constitutional: reports of fatigue, no fever, or chills Cardiovascular: No reports of chest pain or palpitations, reports chest wall pain Respiratory: reports of shortness of breath with exertion GI: No reports of nausea, vomiting, or diarrhea, not much of an appetite : No reports of dysuria or retention Neurovascular: reports of generalized weakness All medications have been reviewed active Medications Acetaminophen (Acetaminophen Tab 325 Mg Tab) 650 mg PO Q4HR PRN PRN Reason: Fever And/ Or Mild Pain (1-3) Albuterol/Ipratropium (Ipratropium-Albuterol 3 Ml Neb) 3 ml INHALATION RT-Q2H PRN PRN Reason: Shortness Of Breath Or Wheezing Albuterol/Ipratropium (Ipratropium-Albuterol 3 Ml Neb) 3 ml INHALATION RT-QID [facility] Last Admin: 01/08/25 08:39 Dose: 3 ml Amiodarone HCl (Amiodarone 200 Mg Tab) 400 mg PO BID [facility] Last Admin: 01/08/25 08:24 Dose: 400 mg Aspirin (Aspirin 325 Mg Tab) 325 mg PO DAILY [facility] Last Admin: 01/08/25 08:25 Dose: 325 mg Benzocaine/Menthol (Benzocaine/Menthol Lozeng 1 Each Lozenge) 1 each MUCOUS MEM Q2H PRN PRN Reason: Sore Throat Bisacodyl (Bisacodyl 10 Mg Supp) 10 mg RECTAL DAILY PRN PRN Reason: Constipation Clopidogrel Bisulfate (Clopidogrel 75 Mg Tab) 75 mg PO DAILY [facility] Last Admin: 01/08/25 08:25 Dose: 75 mg Dextrose/Water (Dextrose 50% Syringe 50 Ml) 25 ml IVP PER PROTOCOL PRN; Protocol PRN Reason: Hypoglycemia Dextrose/Water (Dextrose 50% Syringe 50 Ml) 50 ml IVP PER PROTOCOL PRN; Protocol PRN Reason: Hypoglycemia Heparin Sodium (Porcine) (Heparin Sodium,Porcine 5,000 Unit/Ml 1 Ml Vial) 5,000 unit SQ Q8HR [facility] Last Admin: 01/08/25 08:24 Dose: 5,000 unit Hydralazine HCl (Hydralazine Hcl 20 Mg/Ml 1 Ml Vial) 10 mg IVP Q1H PRN PRN Reason: Blood Pressure - High Amiodarone HCl 450 mg/ (Dextrose/Water) 250 mls @ 16.667 mls/hr IV .Q15H [facility]; Protocol Stop: 01/08/25 13:29 Last Admin: 01/07/25 19:42 Dose: 0.5 mg/min, 16.667 mls/hr Amiodarone HCl 150 mg/ (Dextrose/Water) 103 mls @ 618 mls/hr IV .Q10M PRN PRN Reason: A.FIB/FLUTTER Stop: 01/14/25 12:45 Albumin Human 250 ml/ IV (Solution) 250 mls @ 250 mls/hr IVPB Q1HR PRN; Protocol PRN Reason: For Volume Stop: 01/09/25 12:45 Last Admin: 01/07/25 19:43 Dose: 250 mls/hr Cefazolin Sodium 2 gm/ (Dextrose/Water) 50 mls @ 100 mls/hr IVPB Q8HR [facility]; Protocol Stop: 01/09/25 00:29 Last Admin: 01/08/25 08:24 Dose: 100 mls/hr Calcium Gluconate/Sodium (Chloride 2 gm/ IV Solution) 100 mls @ 100 mls/hr IVPB ONCE PRN PRN Reason: Ionized Calcium less than 4.4 Stop: 01/14/25 12:45 Insulin Human Regular 100 unit (/ Sodium Chloride) 101 mls @ 0 mls/hr IV .Q0M [facility]; Protocol Last Titration: 01/08/25 09:23 Dose: 3 unit/hr, 3.03 mls/hr Sodium Chloride (Saline 0.9%) 1,000 mls @ 30 mls/hr IV .Q24H [facility] Last Admin: 01/07/25 13:00 Dose: 50 mls/hr Ketorolac Tromethamine (Ketorolac 15 Mg/Ml 1 Ml Vial) 15 mg IVP Q6HR [facility] Stop: 01/13/25 06:35 Last Admin: 01/08/25 07:00 Dose: 15 mg Magnesium Hydroxide (Magnesium Hydroxide 2,400 Mg/30 Ml Cup) 2,400 mg PO BID PRN PRN Reason: Constipation Methocarbamol (Methocarbamol 750 Mg Tab) 750 mg PO QID PRN PRN Reason: Muscle Spasm Metoclopramide HCl (Metoclopramide 5 Mg/Ml 2 Ml Vial) 10 mg IVP Q4H PRN PRN Reason: Nausea And Vomiting Metoprolol Tartrate (Metoprolol Tartrate 25 Mg Tab) 25 mg PO BID [facility] Last Admin: 01/08/25 08:25 Dose: 25 mg Miscellaneous Information (Magnesium Replacement Protocol 1 Each Misc) 1 each MISCELLANE DAILY PRN; Protocol PRN Reason: Per Protocol Miscellaneous Information (Potassium Replacement Protocol 1 Each Misc) 1 each MISCELLANE DAILY PRN; Protocol PRN Reason: Per Protocol Mupirocin (Mupirocin 2% Oint 22 Gm Tube) 1 applic NASAL BID [facility] Stop: 01/10/25 20:59 Last Admin: 01/08/25 08:25 Dose: 1 applic Ondansetron HCl (Ondansetron 4 Mg/2 Ml Vial) 4 mg IVP Q6HR PRN PRN Reason: Nausea And Vomiting Oxycodone HCl (Oxycodone Hcl 5 Mg Tab) 5 mg PO Q4HR PRN PRN Reason: Moderate Pain (Scale 4 to 6) Oxycodone HCl (Oxycodone Hcl 5 Mg Tab) 10 mg PO Q4HR PRN PRN Reason: Severe Pain (Scale 7 to 10) Last Admin: 01/08/25 05:07 Dose: 10 mg Pantoprazole Sodium (Pantoprazole 40 Mg/10 Ml Vial) 40 mg IVP DAILY [facility] Stop: 01/08/25 10:00 Last Admin: 01/08/25 08:25 Dose: 40 mg Pantoprazole Sodium (Pantoprazole 40 Mg Tablet) 40 mg PO AC-[id number] [facility] Senna/Docusate Sodium (Sennosides-Docusate Sodium 1 Each Tab) 2 each PO HS [facility] Last Admin: 01/07/25 20:44 Dose: 2 each Sodium Chloride (Sodium Chloride 0.9% Flush 10 Ml Syringe) 10 ml IV BID [facility] Last Admin: 01/08/25 08:25 Dose: 10 ml PHYSICAL EXAMINATION: GENERAL: The patient is alert and oriented x3, Well developed, elderly appearing, currently sitting up in the chair HEENT: Pupils are round and equally reacting to light. EOMI. no scleral icterus. No conjunctival pallor. Normocephalic, atraumatic. No pharyngeal erythema. No thyromegaly. CARDIOVASCULAR: S1 and S2 muffled, heart hugger noted PULMONARY: diminished breath sounds bilaterally with no wheezing or rhonchi noted. Multiple chest tubes noted with serous drainage ABDOMEN: soft. Obese. Nontender on exam. non-distended, normoactive bowel sounds. No palpable organomegaly. MUSCULOSKELETAL: No joint swelling or deformity. EXTREMITIES: No cyanosis, clubbing, or pedal edema. NEUROLOGICAL: Gross neurological examination did not reveal any focal deficits. Diffusely weak SKIN: No rashes. Assessment: Acute NSTEMI, status post cardiac catheterization and three-vessel coronary artery disease, status post off-pump CABG x 3 with CAPPS to LAD 01/07/2025 Gallbladder sludge and possible chronic cholecystitis per surgery, will need outpatient follow-up with surgery Increased WBC, improved Increased lipase, minimally improved Hyperlipidemia history Hypertension history Diabetes mellitus, type II Continued ongoing nicotine dependence GI prophylaxis DVT prophylaxis Full code Plan: Recommend to continue with current medications and management per CT surgery services. Patient is status post off-pump CABG doing relatively well sitting up in the chair. Patient reports he just walked with physical therapy and en couraged him to continue to do so at least 2-3 times daily Encourage incentive spirometer use at least 10 times every hour while awake Wean FiO2 as tolerated. Patient continues with chest tubes swans catheter along with indwelling Graham catheter Recommend repeat labs in the a.m. Tight glycemic control and will adjust insulins accordingly as needed We will continue to follow as CT surgery during hospitalization. Thank you kindly for this consultation The impression and plan of care has been dictated by Andra Nelson, nurse practitioner as directed. Dr. Santo MD I have performed a history and examination and MDM of this patient, discussed the same with the dictator, and agree with the dictator's assessment and plan as written ,documented as a scribe. Based on total visit time, I have performed more than 50% of the visit. Any additional findings or plans will be noted. Objective - Vital Signs Vital signs: Vital Signs Temp 98.2 F 01/08/25 06:00 Pulse 87 01/08/25 08:47 Resp 28 H 01/08/25 07:00 BP 134/81 01/07/25 06:23 Pulse Ox 97 01/08/25 08:41 FiO2 50 01/07/25 16:39 Intake & Output 01/07/25 01/08/25 01/08/25 18:59 06:59 18:59 Intake Total 2927.859 4052.793 85.108 Output Total 2410 1290 70 Balance -521.884 39.793 15.108 Weight 86.9 kg Intake: IV 1852.0 1102.0 54.5 ACETAMINOPHEN IV (For NPO 100 100 ) 1,000 mg In Empty Bag 1 bag @ 400 mls/hr IVPB Q6HR [facility] Rx#:[id number] Albumin Human 5% 250 ml 500 250 In Empty Bag 1 bag @ 250 mls/hr IVPB Q1HR PRN Rx#: [id number] Albumin Human 5% 500 ml 250 In Empty Bag 1 bag @ 250 mls/hr IVPB ONCE ONE Rx#: [id number] CO/CI 140 84 3 Calcium Gluconate in NaCl 100 1 gm In Saline 1 100ml. bag @ 100 mls/hr IVPB ONCE ONE Rx#:[id number] Magnesium Sulfate-D5w Pmx 400 1 gm In Dextrose/Water 1 100ml.bag @ 100 mls/hr IVPB Q1H [facility] Rx#: [id number] Nitroglycerin-D5w Pmx 50 9.0 18.0 1.5 mg In Dextrose/Water 1 250ml.bag @ 5 MCG/MIN 1.5 mls/hr IV .Q24H [facility] Rx#: [id number] Sodium Chloride 0.9% 1, 300 600 50 000 ml @ 30 mls/hr IV . Q24H [facility] Rx#:[id number] ceFAZolin 2 gm In 50 50 Dextrose 5% in Water 50 ml @ 100 mls/hr IVPB Q8HR [facility] Rx#:[id number] Intake, IV Titration 36.116 227.793 30.608 Amount Amiodarone 450 mg In 183.37 16.67 Dextrose 5% in Water 250 ml @ 0.5 MG/MIN 16.667 mls/hr IV .Q15H [facility] Rx#: [id number] Clevidipine Butyrate 25 4.1 mg In Empty Bag 1 bag @ 1 MG/HR 2 mls/hr IV .Q24H PRN Rx#:[id number] Dexmedetomidine/0.9% NaCl 4.964 (Pmx) 400 mcg In Empty Bag 1 bag @ Titrate IV . Q0M [facility] Rx#:[id number] Insulin Regular 100 unit 17.010 33.423 13.938 In Sodium Chloride 0.9% 100 ml @ Per Protocol IV .Q0M [facility] Rx#:[id number] Insulin Regular 100 unit 11 In Sodium Chloride 0.9% 100 ml @ Titrate IV .Q0M [facility] Rx#:[id number] propofoL 1,000 mg In 10.042 Empty Bag 1 bag @ Titrate IV .Q0M [facility] Rx#: [id number] Output: Chest Tube Drainage 340 525 20 Left Pleural 32f 130 340 20 Mediastinal 210 185 0 Urine 1570 765 50 Estimated Blood Loss 500 Other: Voiding Method Indwelling Catheter Indwelling Catheter ABP, PAP, CO, CI - Last Documented Arterial Blood Pressure 91/51 Pulmonary Artery Pressure 38/17 Cardiac Output 5.4 Cardiac Index 2.7 - Labs CBC & Chem 7: 01/09/25 03:45 01/09/25 03:45 Labs: Abnormal Lab Results - Last 24 Hours (Table) 01/06/25 01/07/25 01/07/25 Range/Units 07:51 11:11 11:11 WBC (3.8-10.6) k/uL RBC (4.30-5.90) m/uL Hgb (13.0-17.5) gm/dL Hct (39.0-53.0) % Plt Count (150-450) k/uL Neutrophils # (1.3-7.7) k/uL Lymphocytes # (0.90-5.00) 10*3/uL Monocytes # (0.20-1.00) 10*3/uL Eosinophils # (0.04-0.35) 10*3/uL PT (10.0-12.5) sec INR (<1.2) ABG pH 7.33 L (7.35-7.45) ABG pCO2 48 H (35-45) mmHg ABG pO2 149 H 167 H (83-108) mmHg ABG O2 Saturation 98.5 H 98.0 H (94-97) % ABG Glucose 102 H 110 H (75-99) mg/dL Hemoglobin 12.3 L (13.0-17.5) gm/dL Sodium (137-145) mmol/L Chloride (98-107) mmol/L Carbon Dioxide (22-30) mmol/L Creatinine (0.66-1.25) mg/dL Glucose (74-99) mg/dL POC Glucose (mg/dL) (70-110) mg/dL Calcium (8.4-10.2) mg/dL Ionized Calcium Teja (4.5-5.3) mg/dL Magnesium (1.6-2.3) mg/dL Alkaline Phosphatase (38-126) U/L Total Protein (6.3-8.2) g/dL Albumin (3.5-5.0) g/dL Arterial Blood Glucose 102 H 110 H (75-99) mg/dL Crossmatch See Detail 01/07/25 01/07/25 01/07/25 Range/Units 12:54 12:57 12:57 WBC 13.2 H (3.8-10.6) k/uL RBC 3.24 L (4.30-5.90) m/uL Hgb 10.5 L D (13.0-17.5) gm/dL Hct 30.8 L (39.0-53.0) % Plt Count 142 L (150-450) k/uL Neutrophils # 10.9 H (1.3-7.7) k/uL Lymphocytes # (0.90-5.00) 10*3/uL Monocytes # (0.20-1.00) 10*3/uL Eosinophils # (0.04-0.35) 10*3/uL PT 13.1 H (10.0-12.5) sec INR 1.2 H (<1.2) ABG pH (7.35-7.45) ABG pCO2 (35-45) mmHg ABG pO2 (83-108) mmHg ABG O2 Saturation (94-97) % ABG Glucose (75-99) mg/dL Hemoglobin (13.0-17.5) gm/dL Sodium (137-145) mmol/L Chloride (98-107) mmol/L Carbon Dioxide (22-30) mmol/L Creatinine (0.66-1.25) mg/dL Glucose (74-99) mg/dL POC Glucose (mg/dL) 122 H (70-110) mg/dL Calcium (8.4-10.2) mg/dL Ionized Calcium Teja (4.5-5.3) mg/dL Magnesium (1.6-2.3) mg/dL Alkaline Phosphatase (38-126) U/L Total Protein (6.3-8.2) g/dL Albumin (3.5-5.0) g/dL Arterial Blood Glucose (75-99) mg/dL Crossmatch 01/07/25 01/07/25 01/07/25 Range/Units 12:57 13:14 13:51 WBC (3.8-10.6) k/uL RBC (4.30-5.90) m/uL Hgb (13.0-17.5) gm/dL Hct (39.0-53.0) % Plt Count (150-450) k/uL Neutrophils # (1.3-7.7) k/uL Lymphocytes # (0.90-5.00) 10*3/uL Monocytes # (0.20-1.00) 10*3/uL Eosinophils # (0.04-0.35) 10*3/uL PT (10.0-12.5) sec INR (<1.2) ABG pH 7.33 L (7.35-7.45) ABG pCO2 (35-45) mmHg ABG pO2 327 H (83-108) mmHg ABG O2 Saturation (94-97) % ABG Glucose (75-99) mg/dL Hemoglobin (13.0-17.5) gm/dL Sodium 136 L (137-145) mmol/L Chloride 111 H (98-107) mmol/L Carbon Dioxide 21 L (22-30) mmol/L Creatinine 0.62 L (0.66-1.25) mg/dL Glucose 112 H (74-99) mg/dL POC Glucose (mg/dL) 140 H (70-110) mg/dL Calcium 7.2 L (8.4-10.2) mg/dL Ionized Calcium Teja 4.3 L (4.5-5.3) mg/dL Magnesium 1.3 L (1.6-2.3) mg/dL Alkaline Phosphatase 26 L (38-126) U/L Total Protein 4.8 L (6.3-8.2) g/dL Albumin 2.9 L (3.5-5.0) g/dL Arterial Blood Glucose (75-99) mg/dL Crossmatch 01/07/25 01/07/25 01/07/25 Range/Units 13:53 15:08 15:30 WBC 11.4 H (3.8-10.6) k/uL RBC 3.38 L (4.30-5.90) m/uL Hgb 10.8 L (13.0-17.5) gm/dL Hct 32.3 L (39.0-53.0) % Plt Count (150-450) k/uL Neutrophils # 9.3 H (1.3-7.7) k/uL Lymphocytes # (0.90-5.00) 10*3/uL Monocytes # (0.20-1.00) 10*3/uL Eosinophils # (0.04-0.35) 10*3/uL PT (10.0-12.5) sec INR (<1.2) ABG pH (7.35-7.45) ABG pCO2 (35-45) mmHg ABG pO2 (83-108) mmHg ABG O2 Saturation (94-97) % ABG Glucose (75-99) mg/dL Hemoglobin (13.0-17.5) gm/dL Sodium (137-145) mmol/L Chloride (98-107) mmol/L Carbon Dioxide (22-30) mmol/L Creatinine (0.66-1.25) mg/dL Glucose (74-99) mg/dL POC Glucose (mg/dL) 132 H 210 H (70-110) mg/dL Calcium (8.4-10.2) mg/dL Ionized Calcium Teja (4.5-5.3) mg/dL Magnesium (1.6-2.3) mg/dL Alkaline Phosphatase (38-126) U/L Total Protein (6.3-8.2) g/dL Albumin (3.5-5.0) g/dL Arterial Blood Glucose (75-99) mg/dL Crossmatch 01/07/25 01/07/25 01/07/25 Range/Units 16:14 16:32 17:10 WBC (3.8-10.6) k/uL RBC (4.30-5.90) m/uL Hgb (13.0-17.5) gm/dL Hct (39.0-53.0) % Plt Count (150-450) k/uL Neutrophils # (1.3-7.7) k/uL Lymphocytes # (0.90-5.00) 10*3/uL Monocytes # (0.20-1.00) 10*3/uL Eosinophils # (0.04-0.35) 10*3/uL PT (10.0-12.5) sec INR (<1.2) ABG pH (7.35-7.45) ABG pCO2 (35-45) mmHg ABG pO2 (83-108) mmHg ABG O2 Saturation 97.4 H (94-97) % ABG Glucose (75-99) mg/dL Hemoglobin 10.8 L (13.0-17.5) gm/dL Sodium (137-145) mmol/L Chloride (98-107) mmol/L Carbon Dioxide (22-30) mmol/L Creatinine (0.66-1.25) mg/dL Glucose (74-99) mg/dL POC Glucose (mg/dL) 222 H 210 H (70-110) mg/dL Calcium (8.4-10.2) mg/dL Ionized Calcium Teja (4.5-5.3) mg/dL Magnesium (1.6-2.3) mg/dL Alkaline Phosphatase (38-126) U/L Total Protein (6.3-8.2) g/dL Albumin (3.5-5.0) g/dL Arterial Blood Glucose (75-99) mg/dL Crossmatch 01/07/25 01/07/25 01/07/25 Range/Units 18:20 19:00 19:00 WBC 10.85 H (3.8-10.6) k/uL RBC 3.38 L (4.30-5.90) m/uL Hgb 10.8 L (13.0-17.5) gm/dL Hct 31.9 L (39.0-53.0) % Plt Count (150-450) k/uL Neutrophils # 9.58 H (1.3-7.7) k/uL Lymphocytes # 0.55 L (0.90-5.00) 10*3/uL Monocytes # (0.20-1.00) 10*3/uL Eosinophils # 0.01 L (0.04-0.35) 10*3/uL PT (10.0-12.5) sec INR (<1.2) ABG pH (7.35-7.45) ABG pCO2 (35-45) mmHg ABG pO2 (83-108) mmHg ABG O2 Saturation (94-97) % ABG Glucose (75-99) mg/dL Hemoglobin (13.0-17.5) gm/dL Sodium (137-145) mmol/L Chloride (98-107) mmol/L Carbon Dioxide (22-30) mmol/L Creatinine (0.66-1.25) mg/dL Glucose (74-99) mg/dL POC Glucose (mg/dL) 202 H 187 H (70-110) mg/dL Calcium (8.4-10.2) mg/dL Ionized Calcium Teja (4.5-5.3) mg/dL Magnesium (1.6-2.3) mg/dL Alkaline Phosphatase (38-126) U/L Total Protein (6.3-8.2) g/dL Albumin (3.5-5.0) g/dL Arterial Blood Glucose (75-99) mg/dL Crossmatch 01/07/25 01/07/25 01/07/25 Range/Units 20:07 23:02 23:57 WBC (3.8-10.6) k/uL RBC (4.30-5.90) m/uL Hgb (13.0-17.5) gm/dL Hct (39.0-53.0) % Plt Count (150-450) k/uL Neutrophils # (1.3-7.7) k/uL Lymphocytes # (0.90-5.00) 10*3/uL Monocytes # (0.20-1.00) 10*3/uL Eosinophils # (0.04-0.35) 10*3/uL PT (10.0-12.5) sec INR (<1.2) ABG pH (7.35-7.45) ABG pCO2 (35-45) mmHg ABG pO2 (83-108) mmHg ABG O2 Saturation (94-97) % ABG Glucose (75-99) mg/dL Hemoglobin (13.0-17.5) gm/dL Sodium (137-145) mmol/L Chloride (98-107) mmol/L Carbon Dioxide (22-30) mmol/L Creatinine (0.66-1.25) mg/dL Glucose (74-99) mg/dL POC Glucose (mg/dL) 136 H 128 H 135 H (70-110) mg/dL Calcium (8.4-10.2) mg/dL Ionized Calcium Teja (4.5-5.3) mg/dL Magnesium (1.6-2.3) mg/dL Alkaline Phosphatase (38-126) U/L Total Protein (6.3-8.2) g/dL Albumin (3.5-5.0) g/dL Arterial Blood Glucose (75-99) mg/dL Crossmatch 01/08/25 01/08/25 01/08/25 Range/Units 01:24 03:00 03:00 WBC 12.10 H (3.8-10.6) k/uL RBC 3.06 L (4.30-5.90) m/uL Hgb 9.8 L (13.0-17.5) gm/dL Hct 29.0 L (39.0-53.0) % Plt Count (150-450) k/uL Neutrophils # 10.09 H (1.3-7.7) k/uL Lymphocytes # (0.90-5.00) 10*3/uL Monocytes # 1.03 H (0.20-1.00) 10*3/uL Eosinophils # 0.01 L (0.04-0.35) 10*3/uL PT (10.0-12.5) sec INR (<1.2) ABG pH (7.35-7.45) ABG pCO2 (35-45) mmHg ABG pO2 (83-108) mmHg ABG O2 Saturation (94-97) % ABG Glucose (75-99) mg/dL Hemoglobin (13.0-17.5) gm/dL Sodium 133 L (137-145) mmol/L Chloride (98-107) mmol/L Carbon Dioxide (22-30) mmol/L Creatinine (0.66-1.25) mg/dL Glucose 103 H (74-99) mg/dL POC Glucose (mg/dL) 117 H (70-110) mg/dL Calcium 7.9 L (8.4-10.2) mg/dL Ionized Calcium Teja 4.4 L (4.5-5.3) mg/dL Magnesium (1.6-2.3) mg/dL Alkaline Phosphatase (38-126) U/L Total Protein 5.3 L (6.3-8.2) g/dL Albumin 3.4 L (3.5-5.0) g/dL Arterial Blood Glucose (75-99) mg/dL Crossmatch 01/08/25 01/08/25 01/08/25 Range/Units 03:06 04:12 05:00 WBC (3.8-10.6) k/uL RBC (4.30-5.90) m/uL Hgb (13.0-17.5) gm/dL Hct (39.0-53.0) % Plt Count (150-450) k/uL Neutrophils # (1.3-7.7) k/uL Lymphocytes # (0.90-5.00) 10*3/uL Monocytes # (0.20-1.00) 10*3/uL Eosinophils # (0.04-0.35) 10*3/uL PT (10.0-12.5) sec INR (<1.2) ABG pH (7.35-7.45) ABG pCO2 (35-45) mmHg ABG pO2 (83-108) mmHg ABG O2 Saturation (94-97) % ABG Glucose (75-99) mg/dL Hemoglobin (13.0-17.5) gm/dL Sodium (137-145) mmol/L Chloride (98-107) mmol/L Carbon Dioxide (22-30) mmol/L Creatinine (0.66-1.25) mg/dL Glucose (74-99) mg/dL POC Glucose (mg/dL) 114 H 163 H 159 H (70-110) mg/dL Calcium (8.4-10.2) mg/dL Ionized Calcium Teja (4.5-5.3) mg/dL Magnesium (1.6-2.3) mg/dL Alkaline Phosphatase (38-126) U/L Total Protein (6.3-8.2) g/dL Albumin (3.5-5.0) g/dL Arterial Blood Glucose (75-99) mg/dL Crossmatch 01/08/25 01/08/25 01/08/25 Range/Units 06:03 07:10 08:19 WBC (3.8-10.6) k/uL RBC (4.30-5.90) m/uL Hgb (13.0-17.5) gm/dL Hct (39.0-53.0) % Plt Count (150-450) k/uL Neutrophils # (1.3-7.7) k/uL Lymphocytes # (0.90-5.00) 10*3/uL Monocytes # (0.20-1.00) 10*3/uL Eosinophils # (0.04-0.35) 10*3/uL PT (10.0-12.5) sec INR (<1.2) ABG pH (7.35-7.45) ABG pCO2 (35-45) mmHg ABG pO2 (83-108) mmHg ABG O2 Saturation (94-97) % ABG Glucose (75-99) mg/dL Hemoglobin (13.0-17.5) gm/dL Sodium (137-145) mmol/L Chloride (98-107) mmol/L Carbon Dioxide (22-30) mmol/L Creatinine (0.66-1.25) mg/dL Glucose (74-99) mg/dL POC Glucose (mg/dL) 148 H 132 H 119 H (70-110) mg/dL Calcium (8.4-10.2) mg/dL Ionized Calcium Teja (4.5-5.3) mg/dL Magnesium (1.6-2.3) mg/dL Alkaline Phosphatase (38-126) U/L Total Protein (6.3-8.2) g/dL Albumin (3.5-5.0) g/dL Arterial Blood Glucose (75-99) mg/dL Crossmatch 01/08/25 Range/Units 09:09 WBC (3.8-10.6) k/uL RBC (4.30-5.90) m/uL Hgb (13.0-17.5) gm/dL Hct (39.0-53.0) % Plt Count (150-450) k/uL Neutrophils # (1.3-7.7) k/uL Lymphocytes # (0.90-5.00) 10*3/uL Monocytes # (0.20-1.00) 10*3/uL Eosinophils # (0.04-0.35) 10*3/uL PT (10.0-12.5) sec INR (<1.2) ABG pH (7.35-7.45) ABG pCO2 (35-45) mmHg ABG pO2 (83-108) mmHg ABG O2 Saturation (94-97) % ABG Glucose (75-99) mg/dL Hemoglobin (13.0-17.5) gm/dL Sodium (137-145) mmol/L Chloride (98-107) mmol/L Carbon Dioxide (22-30) mmol/L Creatinine (0.66-1.25) mg/dL Glucose (74-99) mg/dL POC Glucose (mg/dL) 133 H (70-110) mg/dL Calcium (8.4-10.2) mg/dL Ionized Calcium [place] (4.5-5.3) mg/dL Magnesium (1.6-2.3) mg/dL Alkaline Phosphatase (38-126) U/L Total Protein (6.3-8.2) g/dL Albumin (3.5-5.0) g/dL Arterial Blood Glucose (75-99) mg/dL Crossmatch Microbiology - Last 24 Hours (Table) 01/02/25 18:01 Blood Culture - Final Blood
--- NOTE | 2025-01-09 06:32 | XR ---
EXAMINATION TYPE: XR chest 1V portable DATE OF EXAM: 01/09/2025 CLINICAL INDICATION: Male, 69 years old with history of Post Operative Cardiac Surgery, progress stud y. TECHNIQUE: Single AP portable upright view of the chest is obtained. COMPARISON: Chest x-ray from one day earlier FINDINGS: Interval removal of right internal jugular [place] catheter. Stable mediastinal drainage catheter a nd left-sided chest tube. Overlying sternal wires and mediastinal clips along with left atrial append age clip are all redemonstrated. There is persistent left greater than right bilateral lower lung opacity and central vascular congest ion with small right pleural effusion. No pneumothorax seen bilaterally. Cardiac silhouette size is m ildly enlarged. Osseous structures are intact. IMPRESSION: Persistent Left greater than right bibasilar acute infiltrates and/or atelectasis with ce ntral vascular congestion and small right pleural effusion. No left-sided pneumothorax with left-side d chest tube in place. [facility], , 01/09/2025 6:30 AM
[2025-01-09] MEDS: PANTOPRAZOLE 40 MG TABLET PO SCH (06:38)
[2025-01-09 06:43] LABS: Glucose,Whole Blood 152 mg/dL (70-110)
--- NOTE | 2025-01-09 07:41 | P.PN ---
Subjective Progress Note Date: 01/09/25 Principal diagnosis: Multivessel coronary artery disease, non-ST elevated myocardial infarction this admission, cholecystitis. History of hypertension, hyperlipidemia, diabetes lillian litus type 2, chronic ongoing tobacco dependence, hiatal hernia, family history of early onset coronary artery disease POD #2 off-pump CABG x 3 with CAPPS to LAD, saphenous vein graft to obtuse margin al, saphenous vein graft to right coronary artery. Endovascular vein harvest from of left greater saphenous vein from ankle to groin. Ligation of the left atrial appendage with a 35 mm AtriCure clip Postoperative acute blood loss anemia expected given hemodilution The patient was seen and examined this morning sitting up in recliner in the intensive care unit in no acute distress eating breakfast. States pain is controlled on current medication regimen. Currently in sinus rhythm with heart rate in the 90s, blood pressure marginal but MAPs stable. Currently on no inotropes or pressors. Patient states he did ambulate in the hallway yesterday and already this morning. Chest x-ray, labs reviewed. Right internal jugular cordis, right radial arterial line, mediastinal/left pleural chest tubes all remain. No other new concerns. Objective - Vital Signs Vital signs: Vital Signs Temp 98.4 F 01/09/25 00:00 Pulse 92 01/09/25 07:00 Resp 26 H 01/09/25 07:00 BP 99/61 01/09/25 07:00 Pulse Ox 96 01/09/25 07:00 FiO2 50 01/07/25 16:39 Intake & Output 01/08/25 01/09/25 01/09/25 18:59 06:59 18:59 Intake Total 1388.244 463.427 36 Output Total 940 875 40 Balance 448.244 -411.573 -4 Weight 86.9 kg 91.8 kg Intake: IV 1039.5 432 36 Albumin Human 5% 250 ml 250 In Empty Bag 1 bag @ 250 mls/hr IVPB Q1HR PRN Rx#: [id number] CO/CI 3 Calcium Gluconate in NaCl 100 2 gm In Saline 1 100ml. bag @ 100 mls/hr IVPB ONCE ONE Rx#:[id number] Nitroglycerin-D5w Pmx 50 1.5 mg In Dextrose/Water 1 250ml.bag @ 5 MCG/MIN 1.5 mls/hr IV .Q24H [facility] Rx#: [id number] Sodium Chloride 0.9% 1, 410 360 30 000 ml @ 30 mls/hr IV . Q24H [facility] Rx#:[id number] ceFAZolin 2 gm In 200 Dextrose 5% in Water 50 ml @ 100 mls/hr IVPB Q8HR [facility] Rx#:[id number] pressure bags 75 72 6 Intake, IV Titration 348.744 31.427 Amount Amiodarone 450 mg In 266.67 Dextrose 5% in Water 250 ml @ 0.5 MG/MIN 16.667 mls/hr IV .Q15H [facility] Rx#: [id number] Insulin Regular 100 unit 51.224 31.427 In Sodium Chloride 0.9% 100 ml @ Per Protocol IV .Q0M [facility] Rx#:[id number] Nitroglycerin-D5w Pmx 50 30.85 mg In Dextrose/Water 1 250ml.bag @ 5 MCG/MIN 1.5 mls/hr IV .Q24H [facility] Rx#: [id number] Output: Chest Tube Drainage 170 270 0 Left Pleural 100 160 0 Mediastinal 70 110 0 Urine 770 605 40 Other: Voiding Method Indwelling Catheter Indwelling Catheter ABP, PAP, CO, CI - Last Documented Arterial Blood Pressure 99/50 Pulmonary Artery Pressure 42/14 Cardiac Output 5.4 Cardiac Index 2.7 - Exam CONSTITUTIONAL: Appears comfortable, cooperative, no acute distress RESPIRATORY: Lungs sounds diminished in the bases bilaterally. Respirations even, nonlabored. Currently on 2 L nasal cannula with oxygen saturation 95%. Able to achieve 750 mL on incentive spirometry. Strong cough. CARDIOVASCULAR: S1, S2 present. Regular rate and rhythm, sinus rhythm on te lemetry. Sternum stable. Palpable peripheral pulses bilaterally. No edema present. No calf pain or tenderness noted. Heart hugger in place with patient demonstrating appropriate use. Antiembolism stockings, SCDs present. GASTROINTESTINAL: Abdomen soft, nontender, nondistended. Active bowel sounds present 4 quadrants. Tolerating diet. Positive flatus GENITOURINARY: Graham present draining clear, yellow urine. Output overnight 30-75 mL per hour, 1375 mL in the last 24 hours INTEGUMENTARY: Skin is warm and dry with evidence of good perfusion. Anterior chest incision well approximated and covered with dry intact dressing. Left lower extremity EVH site well approximated without redness or drainage. NEUROLOGIC: Cranial nerves II through XII intact MUSKULOSKELETAL: Able to move all extremities, strength equal bilaterally, gait normal PSYCHIATRIC: Alert and oriented to person place and time, appropriate affect, intact judgment and insight INVASIVE LINES AND TUBES: Mediastinal/left pleural chest tubes present and connected to wall suction, no air leaks present. Mediastinal tube with 20 mL serosanguineous drainage overnight, 170 mL in the last 24 hours. Left pleural chest tube with 20 mL serosanguineous drainage overnight, 250 mL in the last 24 hours. Right internal jugular cordis, right radial arterial line present - Allied health notes Allied health notes reviewed: nursing - Labs CBC & Chem 7: 01/09/25 03:45 01/09/25 03:45 Labs: Abnormal Lab Results - Last 24 Hours (Table) 01/08/25 01/08/25 01/08/25 Range/Units 08:19 09:09 10:19 WBC (4.50-10.00) 10*3/uL RBC (4.40-5.60) 10*6/uL Hgb (13.0-17.0) g/dL Hct (39.6-50.0) % MCH (27.0-32.0) pg Immature Gran # (0.00-0.04) 10*3/uL Neutrophils # (1.80-7.70) 10*3/uL Sodium (137-145) mmol/L Glucose (74-99) mg/dL POC Glucose (mg/dL) 119 H 133 H 112 H (70-110) mg/dL Total Protein (6.3-8.2) g/dL Albumin (3.5-5.0) g/dL 01/08/25 01/08/25 01/08/25 Range/Units 11:11 12:00 13:07 WBC (4.50-10.00) 10*3/uL RBC (4.40-5.60) 10*6/uL Hgb (13.0-17.0) g/dL Hct (39.6-50.0) % MCH (27.0-32.0) pg Immature Gran # (0.00-0.04) 10*3/uL Neutrophils # (1.80-7.70) 10*3/uL Sodium (137-145) mmol/L Glucose (74-99) mg/dL POC Glucose (mg/dL) 126 H 130 H 252 H (70-110) mg/dL Total Protein (6.3-8.2) g/dL Albumin (3.5-5.0) g/dL 01/08/25 01/08/25 01/08/25 Range/Units 13:59 15:13 16:16 WBC (4.50-10.00) 10*3/uL RBC (4.40-5.60) 10*6/uL Hgb (13.0-17.0) g/dL Hct (39.6-50.0) % MCH (27.0-32.0) pg Immature Gran # (0.00-0.04) 10*3/uL Neutrophils # (1.80-7.70) 10*3/uL Sodium (137-145) mmol/L Glucose (74-99) mg/dL POC Glucose (mg/dL) 225 H 216 H 230 H (70-110) mg/dL Total Protein (6.3-8.2) g/dL Albumin (3.5-5.0) g/dL 01/08/25 01/08/25 01/08/25 Range/Units 17:11 18:48 20:23 WBC (4.50-10.00) 10*3/uL RBC (4.40-5.60) 10*6/uL Hgb (13.0-17.0) g/dL Hct (39.6-50.0) % MCH (27.0-32.0) pg Immature Gran # (0.00-0.04) 10*3/uL Neutrophils # (1.80-7.70) 10*3/uL Sodium (137-145) mmol/L Glucose (74-99) mg/dL POC Glucose (mg/dL) 143 H 155 H 141 H (70-110) mg/dL Total Protein (6.3-8.2) g/dL Albumin (3.5-5.0) g/dL 01/08/25 01/08/25 01/09/25 Range/Units 21:57 23:25 00:18 WBC (4.50-10.00) 10*3/uL RBC (4.40-5.60) 10*6/uL Hgb (13.0-17.0) g/dL Hct (39.6-50.0) % MCH (27.0-32.0) pg Immature Gran # (0.00-0.04) 10*3/uL Neutrophils # (1.80-7.70) 10*3/uL Sodium (137-145) mmol/L Glucose (74-99) mg/dL POC Glucose (mg/dL) 134 H 115 H 114 H (70-110) mg/dL Total Protein (6.3-8.2) g/dL Albumin (3.5-5.0) g/dL 01/09/25 01/09/25 01/09/25 Range/Units 01:31 02:34 03:45 WBC 12.20 H (4.50-10.00) 10*3/uL RBC 2.97 L (4.40-5.60) 10*6/uL Hgb 9.6 L (13.0-17.0) g/dL Hct 28.3 L (39.6-50.0) % MCH 32.3 H (27.0-32.0) pg Immature Gran # 0.06 H (0.00-0.04) 10*3/uL Neutrophils # 9.59 H (1.80-7.70) 10*3/uL Sodium (137-145) mmol/L Glucose (74-99) mg/dL POC Glucose (mg/dL) 148 H 140 H (70-110) mg/dL Total Protein (6.3-8.2) g/dL Albumin (3.5-5.0) g/dL 01/09/25 01/09/25 01/09/25 Range/Units 03:45 03:48 05:41 WBC (4.50-10.00) 10*3/uL RBC (4.40-5.60) 10*6/uL Hgb (13.0-17.0) g/dL Hct (39.6-50.0) % MCH (27.0-32.0) pg Immature Gran # (0.00-0.04) 10*3/uL Neutrophils # (1.80-7.70) 10*3/uL Sodium 133 L (137-145) mmol/L Glucose 121 H (74-99) mg/dL POC Glucose (mg/dL) 133 H 140 H (70-110) mg/dL Total Protein 5.4 L (6.3-8.2) g/dL Albumin 3.2 L (3.5-5.0) g/dL 01/09/25 Range/Units 06:41 WBC (4.50-10.00) 10*3/uL RBC (4.40-5.60) 10*6/uL Hgb (13.0-17.0) g/dL Hct (39.6-50.0) % MCH (27.0-32.0) pg Immature Gran # (0.00-0.04) 10*3/uL Neutrophils # (1.80-7.70) 10*3/uL Sodium (137-145) mmol/L Glucose (74-99) mg/dL POC Glucose (mg/dL) 152 H (70-110) mg/dL Total Protein (6.3-8.2) g/dL Albumin (3.5-5.0) g/dL Microbiology - Last 24 Hours (Table) 01/02/25 18:01 Blood Culture - Final Blood - Imaging and Cardiology Chest x-ray: report reviewed, image reviewed Assessment and Plan Assessment: Multivessel coronary artery disease, non-ST elevated myocardial infarction this admission, status post three-vessel off-pump CABG Cholecystitis Chest and abdominal pain secondary to above Postoperative acute blood loss anemia, expected History of hypertension Hyperlipidemia, statin intolerance, on Repatha outpatient, cholesterol 134, LDL 43, triglycerides 299 Diabetes mellitus type 2, hemoglobin A1c 7.6% Chronic ongoing tobacco dependence, smokes 2 to 3 cigars daily Hiatal hernia Family history of early onset coronary artery disease Plan: Continue to maximize medical therapy with aspirin, Plavix, beta-valeriy therapy. Will increase beta-valeriy therapy as tolerated. Statin contraindicated due to anaphylactic allergy Continue amiodarone for A-fib prophylaxis, patient has had no atrial fibrillation up to this point Wean oxygen as tolerated. Encourage incentive spirometry use 10 times every hour while awake. Bronchodilators per pulmonology Increase activity, ambulate as tolerated. PT/OT/cardiac rehab consulted Will monitor daily labs and x-rays. Electrolyte replacement per protocol GI/DVT prophylaxis Daily weights Pain control per current medication regimen Insulin management per internal medicine, patient needs tight blood sugar control to promote healing and prevent infection Will discontinue Cordis, arterial line Will discontinue Graham catheter. May bladder scan and straight cath for greater than 300 mL residual Continue to monitor and record strict accurate intake and output Will discontinue mediastinal and left pleuralchest tubes Will place transfer orders for 3S, may transfer when bed available More recommendations to follow as patient progresses
[2025-01-09 08:06] LABS: Glucose,Whole Blood 199 mg/dL (70-110)
--- NOTE | 2025-01-09 08:23 | P.PN ---
Subjective Progress Note Date: 01/09/25 PROGRESS NOTE The patient is a 69-year-old male who was admitted with symptoms of chest comfort, diagnosed with non-STEMI, underwent coronary angiography by Dr. Blakely and was found to have severe obstructive CAD. He underwent CABG today. He received a CAPPS to the LAD SVG to the OM and to the right coronary artery. He also received a ligation of his left atrial appendage. He is extubated in sinus mechanism with sinus tachycardia. His blood pressures under good control. He is complaining of chest soreness. His echocardiogram preoperatively showed a preserved left ventricular systolic function. His urine output is stable and he has no significant discharges from the chest tube. January 08: The patient is sitting up in the chair, continues to have complaints of soreness in the chest. He is in sinus mechanism and hemodynamically stable. He denies any nausea. He is using his incentive spirometry. His urinary output has been stable and he has minimal drainage from the chest tube. There is no evidence of malignant arrhythmia. January 09: He is feeling better today, stronger. He denies any chest discomfort, dizziness or palpitations. He denies any nausea or vomiting. He continues to be in sinus mechanism. He ambulated. [place] catheter has been removed. Urine output has been stable. Medications: IV amiodarone, aspirin, clopidogrel 75 mg daily, metoprolol 25 mg twice a day patient is allergic to statin. PHYSICAL EXAMINATION: Blood pressure 99/60 heart rate 90, LUNGS: Clear to auscultation anteriorly HEART: Regular rate and rhythm, S1, S2. No S3. No systolic murmur, chest wall tenderness improved ABDOMEN: Soft, nontender, no organomegaly EXTREMETIES: No edema LAB: Hemoglobin 9.6, potassium 4.3, BUN 13, creatinine 0.88 IMPRESSION: 1. Status post CABG, extubated in sinus mechanism 2. History of hypertension 3. Hyperlipidemia intolerant to statin on Repatha 4. History of diabetes PLAN: 1. Continue incentive spirometry and increase physical activity 2. Increase physical activity 3. Probable transfer to telemetry floor 4. Initiate BOBBI inhibitor when blood pressure stable Objective - Vital Signs Vital signs: Vital Signs Temp 98.4 F 01/09/25 00:00 Pulse 92 01/09/25 07:00 Resp 26 H 01/09/25 07:00 BP 99/61 01/09/25 07:00 Pulse Ox 96 01/09/25 07:00 FiO2 50 01/07/25 16:39 Intake & Output 01/08/25 01/09/25 01/09/25 18:59 06:59 18:59 Intake Total 1388.244 463.427 40.899 Output Total 940 875 40 Balance 448.244 -411.573 0.899 Weight 86.9 kg 91.8 kg Intake: IV 1039.5 432 36 Albumin Human 5% 250 ml 250 In Empty Bag 1 bag @ 250 mls/hr IVPB Q1HR PRN Rx#: [id number] CO/CI 3 Calcium Gluconate in NaCl 100 2 gm In Saline 1 100ml. bag @ 100 mls/hr IVPB ONCE ONE Rx#:[id number] Nitroglycerin-D5w Pmx 50 1.5 mg In Dextrose/Water 1 250ml.bag @ 5 MCG/MIN 1.5 mls/hr IV .Q24H [facility] Rx#: [id number] Sodium Chloride 0.9% 1, 410 360 30 000 ml @ 30 mls/hr IV . Q24H [facility] Rx#:[id number] ceFAZolin 2 gm In 200 Dextrose 5% in Water 50 ml @ 100 mls/hr IVPB Q8HR [facility] Rx#:[id number] pressure bags 75 72 6 Intake, IV Titration 348.744 31.427 4.899 Amount Amiodarone 450 mg In 266.67 Dextrose 5% in Water 250 ml @ 0.5 MG/MIN 16.667 mls/hr IV .Q15H [facility] Rx#: [id number] Insulin Regular 100 unit 51.224 31.427 4.899 In Sodium Chloride 0.9% 100 ml @ Per Protocol IV .Q0M [facility] Rx#:[id number] Nitroglycerin-D5w Pmx 50 30.85 mg In Dextrose/Water 1 250ml.bag @ 5 MCG/MIN 1.5 mls/hr IV .Q24H [facility] Rx#: [id number] Output: Chest Tube Drainage 170 270 0 Left Pleural 100 160 0 Mediastinal 70 110 0 Urine 770 605 40 Other: Voiding Method Indwelling Catheter Indwelling Catheter ABP, PAP, CO, CI - Last Documented Arterial Blood Pressure 99/50 Pulmonary Artery Pressure 42/14 Cardiac Output 5.4 Cardiac Index 2.7 - Labs CBC & Chem 7: 01/09/25 03:45 01/09/25 03:45 Labs: Abnormal Lab Results - Last 24 Hours (Table) 01/08/25 01/08/25 01/08/25 Range/Units 08:19 09:09 10:19 WBC (4.50-10.00) 10*3/uL RBC (4.40-5.60) 10*6/uL Hgb (13.0-17.0) g/dL Hct (39.6-50.0) % MCH (27.0-32.0) pg Immature Gran # (0.00-0.04) 10*3/uL Neutrophils # (1.80-7.70) 10*3/uL Sodium (137-145) mmol/L Glucose (74-99) mg/dL POC Glucose (mg/dL) 119 H 133 H 112 H (70-110) mg/dL Total Protein (6.3-8.2) g/dL Albumin (3.5-5.0) g/dL 01/08/25 01/08/25 01/08/25 Range/Units 11:11 12:00 13:07 WBC (4.50-10.00) 10*3/uL RBC (4.40-5.60) 10*6/uL Hgb (13.0-17.0) g/dL Hct (39.6-50.0) % MCH (27.0-32.0) pg Immature Gran # (0.00-0.04) 10*3/uL Neutrophils # (1.80-7.70) 10*3/uL Sodium (137-145) mmol/L Glucose (74-99) mg/dL POC Glucose (mg/dL) 126 H 130 H 252 H (70-110) mg/dL Total Protein (6.3-8.2) g/dL Albumin (3.5-5.0) g/dL 01/08/25 01/08/25 01/08/25 Range/Units 13:59 15:13 16:16 WBC (4.50-10.00) 10*3/uL RBC (4.40-5.60) 10*6/uL Hgb (13.0-17.0) g/dL Hct (39.6-50.0) % MCH (27.0-32.0) pg Immature Gran # (0.00-0.04) 10*3/uL Neutrophils # (1.80-7.70) 10*3/uL Sodium (137-145) mmol/L Glucose (74-99) mg/dL POC Glucose (mg/dL) 225 H 216 H 230 H (70-110) mg/dL Total Protein (6.3-8.2) g/dL Albumin (3.5-5.0) g/dL 01/08/25 01/08/25 01/08/25 Range/Units 17:11 18:48 20:23 WBC (4.50-10.00) 10*3/uL RBC (4.40-5.60) 10*6/uL Hgb (13.0-17.0) g/dL Hct (39.6-50.0) % MCH (27.0-32.0) pg Immature Gran # (0.00-0.04) 10*3/uL Neutrophils # (1.80-7.70) 10*3/uL Sodium (137-145) mmol/L Glucose (74-99) mg/dL POC Glucose (mg/dL) 143 H 155 H 141 H (70-110) mg/dL Total Protein (6.3-8.2) g/dL Albumin (3.5-5.0) g/dL 01/08/25 01/08/25 01/09/25 Range/Units 21:57 23:25 00:18 WBC (4.50-10.00) 10*3/uL RBC (4.40-5.60) 10*6/uL Hgb (13.0-17.0) g/dL Hct (39.6-50.0) % MCH (27.0-32.0) pg Immature Gran # (0.00-0.04) 10*3/uL Neutrophils # (1.80-7.70) 10*3/uL Sodium (137-145) mmol/L Glucose (74-99) mg/dL POC Glucose (mg/dL) 134 H 115 H 114 H (70-110) mg/dL Total Protein (6.3-8.2) g/dL Albumin (3.5-5.0) g/dL 01/09/25 01/09/25 01/09/25 Range/Units 01:31 02:34 03:45 WBC 12.20 H (4.50-10.00) 10*3/uL RBC 2.97 L (4.40-5.60) 10*6/uL Hgb 9.6 L (13.0-17.0) g/dL Hct 28.3 L (39.6-50.0) % MCH 32.3 H (27.0-32.0) pg Immature Gran # 0.06 H (0.00-0.04) 10*3/uL Neutrophils # 9.59 H (1.80-7.70) 10*3/uL Sodium (137-145) mmol/L Glucose (74-99) mg/dL POC Glucose (mg/dL) 148 H 140 H (70-110) mg/dL Total Protein (6.3-8.2) g/dL Albumin (3.5-5.0) g/dL 01/09/25 01/09/25 01/09/25 Range/Units 03:45 03:48 05:41 WBC (4.50-10.00) 10*3/uL RBC (4.40-5.60) 10*6/uL Hgb (13.0-17.0) g/dL Hct (39.6-50.0) % MCH (27.0-32.0) pg Immature Gran # (0.00-0.04) 10*3/uL Neutrophils # (1.80-7.70) 10*3/uL Sodium 133 L (137-145) mmol/L Glucose 121 H (74-99) mg/dL POC Glucose (mg/dL) 133 H 140 H (70-110) mg/dL Total Protein 5.4 L (6.3-8.2) g/dL Albumin 3.2 L (3.5-5.0) g/dL 01/09/25 01/09/25 Range/Units 06:41 08:03 WBC (4.50-10.00) 10*3/uL RBC (4.40-5.60) 10*6/uL Hgb (13.0-17.0) g/dL Hct (39.6-50.0) % MCH (27.0-32.0) pg Immature Gran # (0.00-0.04) 10*3/uL Neutrophils # (1.80-7.70) 10*3/uL Sodium (137-145) mmol/L Glucose (74-99) mg/dL POC Glucose (mg/dL) 152 H 199 H (70-110) mg/dL Total Protein (6.3-8.2) g/dL Albumin (3.5-5.0) g/dL Microbiology - Last 24 Hours (Table) 01/02/25 18:01 Blood Culture - Final Blood
[2025-01-09 09:03] LABS: Glucose,Whole Blood 192 mg/dL (70-110)
[2025-01-09 10:12] LABS: Glucose,Whole Blood 172 mg/dL (70-110)
[2025-01-09 11:01] LABS: Glucose,Whole Blood 159 mg/dL (70-110)
[2025-01-09 12:05] LABS: Glucose,Whole Blood 143 mg/dL (70-110)
[2025-01-09] MEDS: INSULIN LISPRO (HumaLOG) 100 UNIT/ML 10 mL VL SQ SCH (12:36)
--- NOTE | 2025-01-09 15:21 | P.PN ---
Subjective Progress Note Date: 01/09/25 This is a 69-year-old male patient was being seen preoperatively as the patient is being scheduled to undergo an off-pump coronary artery bypass surgery on 01/07/2025. The patient has multivessel coronary artery disease and he sustained an acute non-ST segment elevation myocardial infarction. He is currently free of any chest pain. The cardiac catheterization revealed a 90% stenosis to his proximal right coronary artery, a 90% stenosis to his mid left anterior descending coronary artery, a 90% stenosis to his ostial circumflex coronary artery, and a 90% stenosis to his mid obtuse marginal 2 coronary artery. Due to the findings on the cardiac catheterization, the patient elevated troponins and his presenting symptoms a consult was placed to cardiothoracic surgery for further evaluation and treatment recommendations including myocardial revascularization surgery. The patient has known to have hypertension hyperlipidemia and diabetes mellitus type 2. His HbA1c is 7.6. He smokes around 2 to 3 cigars on a daily basis. He is on room air oxygen. CAT scan of the chest was completed and it shows few scattered pulmonary micronodules. Nonspecific findings. No other pulmonary abnormalities noted. The patient is quite active. He is a hannah. His echocardiogram done on 01/03/2025 showed n ormal LV size and function. On 01/06/2025, the patient has no specific complaints. Resting comfortably in bed. Awaiting off-pump coronary bypass surgery to be done in the morning. Room air oxygen. White cell count of 8.9, hemoglobin 16 and a platelet count is 224. Electrolytes are all within normal limits. Ambulating. Using the incentive spirometer. No nausea vomiting or abdominal pain. No other new complaints. Patient was seen today on 01/07/25, patient is now status post CABG, postoperative day #0, I saw this patient in the ICU shortly after he came back from the OR. Presently on mechanical ventilation, assist-control rate of 14 tidal volume 500 FiO2 50% and PEEP of 5 ABG showed a pO2 of 327 pCO2 41 pH of 7.33 hence patient was cut down to 45%. Patient is on multiple drips including Cleviprex at 2 mg/h amiodarone at 1 mg/min, he is also on the Precedex at 0.2 mcg/kg/h, nitrogl ycerin drip, patient is arousable, follows instructions, cardiac output is 7.5, cardiac index of 3.8 PA pressure 35/22 CVP is 13. Chest x-ray was reviewed, postoperative changes noted, no acute process was noted, endotracheal tube is about 3 cm above the licha. Chest tubes and PA catheter are in the proper position. WBC count is 11.4 hemoglobin is 10.8, blood sugar is 210. Patient was seen today on 01/08/2025, he is now postoperative day #1Off-pump CABG x 3 with left internal mammary artery to left anterior sending coronary artery, saphenous vein graft to obtuse marginal coronary artery, saphenous vein graft to right coronary artery. Endovascular vein harvest from of left greater saphenous vein from ankle to groin. Ligation of the left atrial appendage with a 35 mm AtriCure clip and intraoperative transesophageal echocardiogram completed by anesthesia. Patient was extubated yesterday at 4:45 PM, tolerated the extubation well, he is sitting in bed, not in any distress, on 4 L nasal cannula with O2 sat of 96% achieving only 500 cc on incentive spirometry. Patient has some discomfort and pain at surgical sites, he is in sinus rhythm, hemodynamically stable not requiring any inotropes or any pressors. His cardiac output was 5.4 cardiac index 2.7 earlier today SVR of 873. Pulmonary artery pressure 41/17 and CVP 11. Remains on amiodarone 0.5 mg/min. Chest tube and mediastinal tubes were noted. No evidence of pneumothorax on chest x-ray, minimal basilar atelectasis. WBC count is 12.1 hemoglobin 9.8 basic metabolic profile is normal renal profile is normal The patient is seen today January 09, 2025 in follow-up in the intensive care unit. He is currently resting comfortably in bed. Awake and alert in no acute distress. He is maintaining good O2 saturations in the 90s on 2 L/min per nasal cannula. He has been afebrile. Hemodynamically stable. Chest x-ray reveals persistent left greater than right bibasilar acute infiltrates and/or atelectasis with central vascular congestion and a small right pleural effusion. No left-sided pneumothorax. Today his chest tubes were removed. Cordis removed. Arterial line removed. Graham catheter removed. White count 12.2. Hemoglobin 9.6. Platelets 171. Sodium 133. Potassium 4.3. Bicarb 22. BUN 13. Creatinine 0.88. Glucose 121. He remains on DuoNeb and elations. Working well with the incentive spirometer. Heparin for DVT prophylaxis. Protonix for GI prophylaxis. Objective - Vital Signs Vital signs: Vital Signs Temp 97.9 F 01/09/25 11:30 Pulse 89 01/09/25 11:30 Resp 17 01/09/25 11:30 BP 92/57 01/09/25 11:30 Pulse Ox 92 L 01/09/25 11:30 FiO2 50 01/07/25 16:39 Intake & Output 01/08/25 01/09/25 01/09/25 18:59 06:59 18:59 Intake Total 1388.244 463.427 208.814 Output Total 940 875 180 Balance 448.244 -411.573 28.814 Weight 86.9 kg 91.8 kg Intake: IV 1039.5 432 184 Albumin Human 5% 250 ml 250 In Empty Bag 1 bag @ 250 mls/hr IVPB Q1HR PRN Rx#: [id number] CO/CI 3 Calcium Gluconate in NaCl 100 2 gm In Saline 1 100ml. bag @ 100 mls/hr IVPB ONCE ONE Rx#:[id number] Nitroglycerin-D5w Pmx 50 1.5 mg In Dextrose/Water 1 250ml.bag @ 5 MCG/MIN 1.5 mls/hr IV .Q24H [facility] Rx#: [id number] Sodium Chloride 0.9% 1, 410 360 160 000 ml @ 30 mls/hr IV . Q24H [facility] Rx#:[id number] ceFAZolin 2 gm In 200 Dextrose 5% in Water 50 ml @ 100 mls/hr IVPB Q8HR [facility] Rx#:[id number] pressure bags 75 72 24 Intake, IV Titration 348.744 31.427 24.814 Amount Amiodarone 450 mg In 266.67 Dextrose 5% in Water 250 ml @ 0.5 MG/MIN 16.667 mls/hr IV .Q15H [facility] Rx#: [id number] Insulin Regular 100 unit 51.224 31.427 24.814 In Sodium Chloride 0.9% 100 ml @ Per Protocol IV .Q0M [facility] Rx#:[id number] Nitroglycerin-D5w Pmx 50 30.85 mg In Dextrose/Water 1 250ml.bag @ 5 MCG/MIN 1.5 mls/hr IV .Q24H [facility] Rx#: [id number] Output: Chest Tube Drainage 170 270 0 Left Pleural 100 160 0 Mediastinal 70 110 0 Urine 770 605 180 Other: Voiding Method Indwelling Catheter Indwelling Catheter Indwelling Catheter ABP, PAP, CO, CI - Last Documented Arterial Blood Pressure 94/40 Pulmonary Artery Pressure 42/14 Cardiac Output 5.4 Cardiac Index 2.7 - Exam GENERAL EXAM: Alert, active, oriented, pleasant 69-year-old male, on 2 L nasal cannula, comfortable in no apparent distress. HEAD: Normocephalic. EYES: Normal reaction of pupils, equal size. NOSE: Clear with pink turbinates. THROAT: No erythema or exudates. NECK: No masses, no JVD. CHEST: No chest wall deformity. LUNGS: Equal air entry with faint crackles in the posterior bases. CVS: S1 and S2 normal with no audible murmur, regular rhythm. ABDOMEN: No hepatosplenomegaly, normal bowel sounds, no guarding or rigidity. SPINE: No scoliosis or deformity SKIN: No rashes CENTRAL NERVOUS SYSTEM: No focal deficits, tone is normal in all 4 extremities. EXTREMITIES: There is no peripheral edema. No clubbing, no cyanosis. Peripheral pulses are intact. - Labs CBC & Chem 7: 01/09/25 03:45 01/09/25 03:45 Labs: Abnormal Lab Results - Last 24 Hours (Table) 01/08/25 01/08/25 01/08/25 Range/Units 15:13 16:16 17:11 WBC (4.50-10.00) 10*3/uL RBC (4.40-5.60) 10*6/uL Hgb (13.0-17.0) g/dL Hct (39.6-50.0) % MCH (27.0-32.0) pg Immature Gran # (0.00-0.04) 10*3/uL Neutrophils # (1.80-7.70) 10*3/uL Sodium (137-145) mmol/L Glucose (74-99) mg/dL POC Glucose (mg/dL) 216 H 230 H 143 H (70-110) mg/dL Total Protein (6.3-8.2) g/dL Albumin (3.5-5.0) g/dL 01/08/25 01/08/25 01/08/25 Range/Units 18:48 20:23 21:57 WBC (4.50-10.00) 10*3/uL RBC (4.40-5.60) 10*6/uL Hgb (13.0-17.0) g/dL Hct (39.6-50.0) % MCH (27.0-32.0) pg Immature Gran # (0.00-0.04) 10*3/uL Neutrophils # (1.80-7.70) 10*3/uL Sodium (137-145) mmol/L Glucose (74-99) mg/dL POC Glucose (mg/dL) 155 H 141 H 134 H (70-110) mg/dL Total Protein (6.3-8.2) g/dL Albumin (3.5-5.0) g/dL 01/08/25 01/09/25 01/09/25 Range/Units 23:25 00:18 01:31 WBC (4.50-10.00) 10*3/uL RBC (4.40-5.60) 10*6/uL Hgb (13.0-17.0) g/dL Hct (39.6-50.0) % MCH (27.0-32.0) pg Immature Gran # (0.00-0.04) 10*3/uL Neutrophils # (1.80-7.70) 10*3/uL Sodium (137-145) mmol/L Glucose (74-99) mg/dL POC Glucose (mg/dL) 115 H 114 H 148 H (70-110) mg/dL Total Protein (6.3-8.2) g/dL Albumin (3.5-5.0) g/dL 01/09/25 01/09/25 01/09/25 Range/Units 02:34 03:45 03:45 WBC 12.20 H (4.50-10.00) 10*3/uL RBC 2.97 L (4.40-5.60) 10*6/uL Hgb 9.6 L (13.0-17.0) g/dL Hct 28.3 L (39.6-50.0) % MCH 32.3 H (27.0-32.0) pg Immature Gran # 0.06 H (0.00-0.04) 10*3/uL Neutrophils # 9.59 H (1.80-7.70) 10*3/uL Sodium 133 L (137-145) mmol/L Glucose 121 H (74-99) mg/dL POC Glucose (mg/dL) 140 H (70-110) mg/dL Total Protein 5.4 L (6.3-8.2) g/dL Albumin 3.2 L (3.5-5.0) g/dL 01/09/25 01/09/25 01/09/25 Range/Units 03:48 05:41 06:41 WBC (4.50-10.00) 10*3/uL RBC (4.40-5.60) 10*6/uL Hgb (13.0-17.0) g/dL Hct (39.6-50.0) % MCH (27.0-32.0) pg Immature Gran # (0.00-0.04) 10*3/uL Neutrophils # (1.80-7.70) 10*3/uL Sodium (137-145) mmol/L Glucose (74-99) mg/dL POC Glucose (mg/dL) 133 H 140 H 152 H (70-110) mg/dL Total Protein (6.3-8.2) g/dL Albumin (3.5-5.0) g/dL 01/09/25 01/09/25 01/09/25 Range/Units 08:03 09:01 10:11 WBC (4.50-10.00) 10*3/uL RBC (4.40-5.60) 10*6/uL Hgb (13.0-17.0) g/dL Hct (39.6-50.0) % MCH (27.0-32.0) pg Immature Gran # (0.00-0.04) 10*3/uL Neutrophils # (1.80-7.70) 10*3/uL Sodium (137-145) mmol/L Glucose (74-99) mg/dL POC Glucose (mg/dL) 199 H 192 H 172 H (70-110) mg/dL Total Protein (6.3-8.2) g/dL Albumin (3.5-5.0) g/dL 01/09/25 01/09/25 Range/Units 10:59 12:04 WBC (4.50-10.00) 10*3/uL RBC (4.40-5.60) 10*6/uL Hgb (13.0-17.0) g/dL Hct (39.6-50.0) % MCH (27.0-32.0) pg Immature Gran # (0.00-0.04) 10*3/uL Neutrophils # (1.80-7.70) 10*3/uL Sodium (137-145) mmol/L Glucose (74-99) mg/dL POC Glucose (mg/dL) 159 H 143 H (70-110) mg/dL Total Protein (6.3-8.2) g/dL Albumin (3.5-5.0) g/dL Assessment and Plan Assessment: Off-pump CABG x 3 with CAPPS to LAD, saphenous vein graft to obtuse marginal, saphenous vein graft to right coronary artery. Endovascular vein harvest from of left greater saphenous vein from ankle to groin. Ligation of the left atrial appendage with a 35 mm AtriCure clip. Postoperative day #2 Multivessel coronary disease, status post acute non-ST segment elevation myocardial infarction. Diabetes mellitus type 2 Hypertension Hyperlipidemia maintained on Repatha on outpatient basis with an LDL level of 43 History of smoking Hiatal hernia Chronic cholecystitis Plan: The patient was seen and evaluated Chest x-ray, labs and medications reviewed Stable and on 2 L nasal cannula No evidence of pneumothorax Chest tubes were removed Cordis removed IDC removed Arterial line removed Continues to work well with the incentive spirometer Increase his activity as tolerated Decreased the FiO2 as tolerated Cleared for transfer to [address] service We will continue to follow I have personally seen and examined the patient, performed the documentation and the assessment and plan as written. Number of minutes spent on the visit: 10 Dictation was produced using [employer] dictation software. Please excuse any g rammatical, word or spelling errors.
[2025-01-09] MEDS: MD COMMUNICATION TO PHARMACY 1 EACH MISC PO ONE ×4 (18:18)
[2025-01-09] MEDS: ALBUMIN HUMAN 5% 500 ML in EMPTY BAG 1 BAG IVPB ONE ×5 (18:19→18:20)
[2025-01-09] MEDS: ALBUMIN HUMAN 25% 50 ML in EMPTY BAG 1 BAG IVPB ONE (18:19)
[2025-01-09] MEDS: ceFAZolin 1,000 MG in SODIUM CHLORIDE 0.9% IRRIGATIO 1,000 ML IRRIGATION ONE (18:21)
[2025-01-09] MEDS: CALCIUM CHLORIDE 100 MG/ML 10 ML SYRINGE IVP ONE (18:21)
[2025-01-09] MEDS: CLEVIDIPINE BUTYRATE 25 MG in EMPTY BAG 1 BAG IV SCH (18:22)
[2025-01-09] MEDS: CHLORHEXIDINE GLUCONATE 15 ML CUP MUCOUS MEM ONE (18:22)
[2025-01-09] MEDS: HEPARIN SODIUM 1,000 UN/ML (10ML VL) IV ONE (18:23)
[2025-01-09] MEDS: DILTIAZEM 125 MG in SODIUM CHLORIDE 0.9% 100 ML IV SCH (18:23)
[2025-01-09] MEDS: HEPARIN SODIUM,PORCINE (1 ML) 5,000 UNIT in SODIUM CHLORIDE 0.9% 500 ML 500 ML IV ONE (18:23)
[2025-01-09] MEDS: MANNITOL 25% 12.5 GM/50 ML VIAL IV ONE ×2 (18:24)
[2025-01-09] MEDS: MAGNESIUM SULFATE 16.24 MEQ in EMPTY SYRINGE 1 SYR IV ONE (18:24)
[2025-01-09] MEDS: NITROGLYCERIN-D5W PMX 25 MG/250 ML BTL IV ONE (18:24)
[2025-01-09] MEDS: PROTAMINE SULFATE 10 MG/ML 25 ML VIAL IV ONE (18:25)
[2025-01-09] MEDS: PROTAMINE SULFATE 250 MG in EMPTY BAG 1 BAG IV ONE (18:25)
[2025-01-09] MEDS: NITROGLYCERIN-D5W PMX 50 MG in DEXTROSE/WATER 1 250ML.BAG IV SCH (18:25)
[2025-01-09] MEDS: PHENYLEPHRINE 40 MG in SODIUM CHLORIDE 0.9% 250 ML IV ONE (18:25)
[2025-01-09] MEDS: PAPAVERINE 360 MG in SODIUM CHLORIDE 0.9% 90 ML IV ONE (18:25)
[2025-01-09] MEDS: SODIUM BICARB 8.4% 50 ML SYR (1 MEQ/ML) IV ONE (18:26)
[2025-01-09] MEDS: TRANEXAMIC ACID 2,000 MG in SODIUM CHLORIDE 0.9% 80 ML IV ONE (18:26)
[2025-01-09] MEDS: PHENYLEPHRINE 10 MG/ML VIAL IV ONE (18:28)
[2025-01-09 18:38] LABS: Glucose,Whole Blood 230 mg/dL (70-110)
[2025-01-09] MEDS: ACETAMINOPHEN TAB 325 MG TAB PO PRN (20:49)
[2025-01-09] MEDS: INSULIN GLARGINE (LANTUS) 100 UNIT/ML SYR SQ SCH (21:22)
--- NOTE | 2025-01-09 22:25 | P.PN ---
Subjective Progress Note Date: 01/09/25 This is a 69-year-old male who was recently admitted with chest pain underwent cardiac catheterization noted to have triple-vessel coronary artery disease recommending CT surgery evaluation. Patient was evaluated by CT surgery underwent further testing and is scheduled to undergo possible tentative CABG today. Patient is currently in the OR and will follow-up once official report is obtained. Patient will be going to ICU once stabilized 01/08/2025 Patient is seen in follow-up this morning status post off-pump CABG x 3 with CAPPS to the LAD currently sitting up in the chair doing relatively well. Heart hugger is noted and patient is maintained on 3 L via nasal cannula. Patient with incentive spirometer at the bedside encouraged to continue using at least 10 times every hour while awake. Patient is continued on telemetry monitoring has bilateral chest tubes and swans catheter along with indwelling Graham catheter. Patient is somewhat fatigued as he just walked today. We will continue to follow with CT surgery during hospitalization. 01/09/2025 Patient is seen in follow-up today out of the ICU doing relatively well on 3 S. Patient has had chest tubes and catheters removed has been up and walking and reports to feeling well. Follow-up chest x-ray pending at this time patient denies any worsening shortness of breath. Patient does have some chest discomfort and a weak cough and has heart hugger noted. Encouraged increase activity as tolerated with continued incentive spirometer use. Patient reports he is not getting very high on the incentive spirometer and reencouraged anatoliy nued use with proper instruction on the purpose of the incentive spirometer. We will continue to follow along with CT surgery during hospitalization. Review of systems: Constitutional: reports of fatigue, no fever, or chills Cardiovascular: No reports of chest pain or palpitations, reports chest wall pain Respiratory: reports of shortness of breath with exertion GI: No reports of nausea, vomiting, or diarrhea, not much of an appetite : No reports of dysuria or retention Neurovascular: reports of generalized weakness All medications have been reviewed PHYSICAL EXAMINATION: GENERAL: The patient is alert and oriented x3, Well developed, elderly appearing, currently sitting up in the chair HEENT: Pupils are round and equally reacting to light. EOMI. no scleral icterus. No conjunctival pallor. Normocephalic, atraumatic. No pharyngeal erythema. No thyromegaly. CARDIOVASCULAR: S1 and S2 muffled, heart hugger noted PULMONARY: diminished breath sounds bilaterally with no wheezing or rhonchi noted. ABDOMEN: soft. Obese. Nontender on exam. non-distended, normoactive bowel sounds. No palpable organomegaly. MUSCULOSKELETAL: No joint swelling or deformity. EXTREMITIES: No cyanosis, clubbing, or pedal edema. NEUROLOGICAL: Gross neurological examination did not reveal any focal deficits. Diffusely weak SKIN: No rashes. Assessment: Acute NSTEMI, status post cardiac catheterization and three-vessel coronary artery disease, status post off-pump CABG x 3 with CAPPS to LAD 01/07/2025 Gallbladder sludge and possible chronic cholecystitis per surgery, will need outpatient follow-up with surgery Increased WBC, improved Increased lipase, minimally improved Hyperlipidemia history Hypertension history Diabetes mellitus, type II Continued ongoing nicotine dependence GI prophylaxis DVT prophylaxis Full code Plan: Recommend to continue with current medications and management per CT surgery services. Patient is status post off-pump CABG doing relatively well sitting up in the chair. Patient reports he just walked with physical therapy and encouraged him to continue to do so at least 2-3 times daily Encourage incentive spirometer use at least 10 times every hour while awake Wean FiO2 as tolerated. Patient has had chest tubes removed Recommend repeat labs in the a.m. Tight glycemic control and will adjust insulins accordingly as needed We will continue to follow as CT surgery during hospitalization. Thank you kindly for this consultation The impression and plan of care has been dictated by Andra Nelson, nurse practitioner as directed. Dr. Santo MD I have performed a history and examination and MDM of this patient, discussed the same with the dictator, and agree with the dictator's assessment and plan as written ,documented as a scribe. Based on total visit time, I have performed more than 50% of the visit. Any additional findings or plans will be noted. Objective - Vital Signs Vital signs: Vital Signs Temp 98.4 F 01/09/25 19:34 Pulse 88 01/09/25 16:04 Resp 20 01/09/25 13:15 BP 116/72 01/09/25 13:15 Pulse Ox 91 L 01/09/25 13:20 FiO2 50 01/07/25 16:39 Intake & Output 01/09/25 01/09/25 01/10/25 06:59 18:59 06:59 Intake Total 463.427 208.814 Output Total 875 180 Balance -411.573 28.814 Weight 91.8 kg Intake: IV 432 184 Sodium Chloride 0.9% 1, 360 160 000 ml @ 30 mls/hr IV . Q24H [facility] Rx#:[id number] pressure bags 72 24 Intake, IV Titration 31.427 24.814 Amount Insulin Regular 100 unit 31.427 24.814 In Sodium Chloride 0.9% 100 ml @ Per Protocol IV .Q0M [facility] Rx#:[id number] Output: Chest Tube Drainage 270 0 Left Pleural 160 0 Mediastinal 110 0 Urine 605 180 Other: Voiding Method Indwelling Catheter Indwelling Catheter # Voids 1 ABP, PAP, CO, CI - Last Documented Arterial Blood Pressure 94/40 Pulmonary Artery Pressure 42/14 Cardiac Output 5.4 Cardiac Index 2.7 - Labs CBC & Chem 7: 01/09/25 03:45 01/09/25 03:45 Labs: Abnormal Lab Results - Last 24 Hours (Table) 01/08/25 01/08/25 01/08/25 Range/Units 20:23 21:57 23:25 WBC (4.50-10.00) 10*3/uL RBC (4.40-5.60) 10*6/uL Hgb (13.0-17.0) g/dL Hct (39.6-50.0) % MCH (27.0-32.0) pg Immature Gran # (0.00-0.04) 10*3/uL Neutrophils # (1.80-7.70) 10*3/uL Sodium (137-145) mmol/L Glucose (74-99) mg/dL POC Glucose (mg/dL) 141 H 134 H 115 H (70-110) mg/dL Total Protein (6.3-8.2) g/dL Albumin (3.5-5.0) g/dL 01/09/25 01/09/25 01/09/25 Range/Units 00:18 01:31 02:34 WBC (4.50-10.00) 10*3/uL RBC (4.40-5.60) 10*6/uL Hgb (13.0-17.0) g/dL Hct (39.6-50.0) % MCH (27.0-32.0) pg Immature Gran # (0.00-0.04) 10*3/uL Neutrophils # (1.80-7.70) 10*3/uL Sodium (137-145) mmol/L Glucose (74-99) mg/dL POC Glucose (mg/dL) 114 H 148 H 140 H (70-110) mg/dL Total Protein (6.3-8.2) g/dL Albumin (3.5-5.0) g/dL 01/09/25 01/09/25 01/09/25 Range/Units 03:45 03:45 03:48 WBC 12.20 H (4.50-10.00) 10*3/uL RBC 2.97 L (4.40-5.60) 10*6/uL Hgb 9.6 L (13.0-17.0) g/dL Hct 28.3 L (39.6-50.0) % MCH 32.3 H (27.0-32.0) pg Immature Gran # 0.06 H (0.00-0.04) 10*3/uL Neutrophils # 9.59 H (1.80-7.70) 10*3/uL Sodium 133 L (137-145) mmol/L Glucose 121 H (74-99) mg/dL POC Glucose (mg/dL) 133 H (70-110) mg/dL Total Protein 5.4 L (6.3-8.2) g/dL Albumin 3.2 L (3.5-5.0) g/dL 01/09/25 01/09/25 01/09/25 Range/Units 05:41 06:41 08:03 WBC (4.50-10.00) 10*3/uL RBC (4.40-5.60) 10*6/uL Hgb (13.0-17.0) g/dL Hct (39.6-50.0) % MCH (27.0-32.0) pg Immature Gran # (0.00-0.04) 10*3/uL Neutrophils # (1.80-7.70) 10*3/uL Sodium (137-145) mmol/L Glucose (74-99) mg/dL POC Glucose (mg/dL) 140 H 152 H 199 H (70-110) mg/dL Total Protein (6.3-8.2) g/dL Albumin (3.5-5.0) g/dL 01/09/25 01/09/25 01/09/25 Range/Units 09:01 10:11 10:59 WBC (4.50-10.00) 10*3/uL RBC (4.40-5.60) 10*6/uL Hgb (13.0-17.0) g/dL Hct (39.6-50.0) % MCH (27.0-32.0) pg Immature Gran # (0.00-0.04) 10*3/uL Neutrophils # (1.80-7.70) 10*3/uL Sodium (137-145) mmol/L Glucose (74-99) mg/dL POC Glucose (mg/dL) 192 H 172 H 159 H (70-110) mg/dL Total Protein (6.3-8.2) g/dL Albumin (3.5-5.0) g/dL 01/09/25 01/09/25 Range/Units 12:04 18:37 WBC (4.50-10.00) 10*3/uL RBC (4.40-5.60) 10*6/uL Hgb (13.0-17.0) g/dL Hct (39.6-50.0) % MCH (27.0-32.0) pg Immature Gran # (0.00-0.04) 10*3/uL Neutrophils # (1.80-7.70) 10*3/uL Sodium (137-145) mmol/L Glucose (74-99) mg/dL POC Glucose (mg/dL) 143 H 230 H (70-110) mg/dL Total Protein (6.3-8.2) g/dL Albumin (3.5-5.0) g/dL
[2025-01-10 06:15] LABS: Glucose,Whole Blood 225 mg/dL (70-110)
[2025-01-10] MEDS: FUROSEMIDE 10 MG/ML 2 ML VIAL IV ONE (08:06)
--- NOTE | 2025-01-10 08:20 | P.PN ---
Subjective Progress Note Date: 01/10/25 Principal diagnosis: Multivessel coronary artery disease, non-ST elevated myocardial infarction this admission, cholecystitis. History of hypertension, hyperlipidemia, diabetes lillian litus type 2, chronic ongoing tobacco dependence, hiatal hernia, family history of early onset coronary artery disease POD #3 off-pump CABG x 3 with CAPPS to LAD, saphenous vein graft to obtuse margin al, saphenous vein graft to right coronary artery. Endovascular vein harvest from of left greater saphenous vein from ankle to groin. Ligation of the left atrial appendage with a 35 mm AtriCure clip Postoperative acute blood loss anemia expected given hemodilution Paroxysmal atrial fibrillation, somewhat expected as a known common occurrence after open heart surgery The patient was seen and examined this morning sitting up in recliner in the intensive care unit in no acute distress eating breakfast. present. States pain is controlled on current medication regimen, mostly hurts with coughing and deep breathing. Currently in controlled atrial fibrillation with heart rate in the 80s, blood pressure stable. Patient did not get his morning dose yesterday of Lopressor. Patient states he did ambulate in the hallway yesterday. Remains on 2 L nasal cannula, only able to achieve 750 mL with poor effort. Chest x-ray, labs reviewed. Had long discussion with the patient and his this morning about the need to work harder at incentive spirometry and coughing, ambulation. Also discussed the patient needs to be more independent and stop letting his do things for him. No other new concerns. Objective - Vital Signs Vital signs: Vital Signs Temp 98.1 F 01/10/25 08:00 Pulse 91 01/10/25 04:00 Resp 18 01/10/25 08:00 BP 98/61 01/10/25 08:00 Pulse Ox 98 01/10/25 08:00 FiO2 50 01/07/25 16:39 Intake & Output 01/09/25 01/10/25 01/10/25 18:59 06:59 18:59 Intake Total 208.814 10 Output Total 180 201 Balance 28.814 -191 Intake: IV 184 10 Sodium Chloride 0.9% 1, 160 10 000 ml @ 30 mls/hr IV . Q24H [facility] Rx#:[id number] pressure bags 24 Intake, IV Titration 24.814 Amount Insulin Regular 100 unit 24.814 In Sodium Chloride 0.9% 100 ml @ Per Protocol IV .[facility]M [facility] Rx#:[id number] Output: Chest Tube Drainage 0 Left Pleural 0 Mediastinal 0 Urine 180 201 Other: Voiding Method Indwelling Catheter Toilet # Voids 1 1 ABP, PAP, CO, CI - Last Documented Arterial Blood Pressure 94/40 Pulmonary Artery Pressure 42/14 Cardiac Output 5.4 Cardiac Index 2.7 - Exam CONSTITUTIONAL: Appears comfortable, cooperative, no acute distress RESPIRATORY: Lungs sounds diminished in the bases bilaterally. Respirations even, nonlabored. Currently on 2 L nasal cannula with oxygen saturation 96%. Able to achieve 750 mL on incentive spirometry. Weak cough. CARDIOVASCULAR: S1, S2 present. Irregular rate and rhythm, controlled atrial fibrillation on telemetry. Sternum stable. Palpable peripheral pulses bilaterally. No edema present. No calf pain or tenderness noted. Heart hugger in place with patient demonstrating appropriate use. Antiembolism stockings, SCDs present. GASTROINTESTINAL: Abdomen soft, nontender, nondistended. Active bowel sounds present 4 quadrants. Tolerating diet. Positive flatus GENITOURINARY: Continues to void INTEGUMENTARY: Skin is warm and dry with evidence of good perfusion. Anterior chest incision well approximated and covered with dry intact dressing. Left lower extremity EVH site well approximated without redness or drainage. NEUROLOGIC: Cranial nerves II through XII intact MUSKULOSKELETAL: Able to move all extremities, strength equal bilaterally, gait normal PSYCHIATRIC: Alert and oriented to person place and time, appropriate affect, intact judgment and insight - Allied health notes Allied health notes reviewed: nursing - Labs CBC & Chem 7: 01/09/25 03:45 01/09/25 03:45 Labs: Abnormal Lab Results - Last 24 Hours (Table) 01/09/25 01/09/25 01/09/25 Range/Units 09:01 10:11 10:59 POC Glucose (mg/dL) 192 H 172 H 159 H (70-110) mg/dL 01/09/25 01/09/25 01/10/25 Range/Units 12:04 18:37 06:13 POC Glucose (mg/dL) 143 H 230 H 225 H (70-110) mg/dL - Imaging and Cardiology Chest x-ray: image reviewed Assessment and Plan Assessment: Multivessel coronary artery disease, non-ST elevated myocardial infarction this admission, status post three-vessel off-pump CABG Cholecystitis Chest and abdominal pain secondary to above Postoperative acute blood loss anemia, expected Paroxysmal atrial fibrillation History of hypertension Hyperlipidemia, statin intolerance, on Repatha outpatient, cholesterol 134, LDL 43, triglycerides 299 Diabetes mellitus type 2, hemoglobin A1c 7.6% Chronic ongoing tobacco dependence, smokes 2 to 3 cigars daily Hiatal hernia Family history of early onset coronary artery disease Plan: Continue to maximize medical therapy with aspirin, Plavix, beta-valeriy therapy. Will increase beta-valeriy therapy as tolerated. Statin contraindicated due to anaphylactic allergy. Will add BOBBI/ARB when blood pressure will allow for afterload reduction Continue amiodarone for A-fib prophylaxis, will taper per protocol. No anticoagulation at this point but if patient goes in and out of A-fib may need anticoagulation at discharge Wean oxygen as tolerated. Encourage incentive spirometry use 10 times every hour while awake. Bronchodilators per pulmonology Increase activity, ambulate as tolerated. PT/OT/cardiac rehab following Will monitor daily labs and x-rays. Electrolyte replacement per protocol, will give 20 mg IV push Lasix today GI/DVT prophylaxis Daily weights Pain control per current medication regimen Insulin management per internal medicine, patient needs tight blood sugar control to promote healing and prevent infection Shower daily starting today Continue to monitor and record strict accurate intake and output Discharge planning in progress, anticipate discharge to home with home care in the next 24 to 48 hours More recommendations to follow as patient progresses
[2025-01-10 08:40] LABS: Basophils # (A) 0.02 10*3/uL (0.00-0.10); Basophils % (A) 0.2 %; Eosinophils # (A) 0.46 10*3/uL (0.04-0.35); Eosinophils % (A) 4.2 %; HCT 28.8 % (39.6-50.0); HGB 9.3 g/dL (13.0-17.0); MCH 31.4 pg (27.0-32.0); MCHC 32.3 g/dL (32.0-37.0); MCV 97.3 fL (80.0-97.0); Mean Platelet Volume 10.3 fL (9.5-12.2); Monocytes # (A) 0.86 10*3/uL (0.20-1.00); Monocytes % (A) 7.8 %; Neutrophils # (A) 8.54 10*3/uL (1.80-7.70); Neutrophils % (A) 77.3 %; Platelet Count 223 10*3/uL (140-440); RBC 2.96 10*6/uL (4.40-5.60); WBC 11.04 10*3/uL (4.50-10.00)
--- NOTE | 2025-01-10 08:53 | XR ---
EXAMINATION TYPE: XR chest 2V DATE OF EXAM: 01/10/2025 CLINICAL INDICATION: Male, 69 years old with history of post cardiac surgery, TECHNIQUE: Frontal and lateral views of the chest are obtained. COMPARISON: Chest x-ray one day earlier FINDINGS: Overlying sternal wires and left atrial appendage clip are redemonstrated. Interval removal of left-sided chest tubes. Persistent small bilateral pleural effusions and left greater than right bibasilar opacities. No pneumothorax seen. Persistent cardiomegaly. IMPRESSION: No left-sided pneumothorax after left-sided chest tube removal. Other findings stable. Ca rdiomegaly with small bilateral pleural effusions and left greater than right bibasilar acute infiltr ates and/or atelectasis. [facility], , 01/10/2025 8:51 AM
[2025-01-10 09:12] LABS: ALT 22 U/L (4-49); AST 30 U/L (17-59); African American GFR (CKD) >90 (>60 ml/min/1.73 sqM); Albumin 3.4 g/dL (3.5-5.0); Alkaline Phosphatase 78 U/L (38-126); Anion Gap 9 mmol/L; Blood Urea Nitrogen 17 mg/dL (9-20); Calcium 8.8 mg/dL (8.4-10.2); Carbon Dioxide 24 mmol/L (22-30); Chloride 102 mmol/L (98-107); Glucose 197 mg/dL (74-99); Non-African American GFR(CKD) 86 (>60 ml/min/1.73 sqM); Potassium 4.6 mmol/L (3.5-5.1); Sodium 135 mmol/L (137-145); Total Bilirubin 0.8 mg/dL (0.2-1.3)
[2025-01-10] MEDS: MAGNESIUM HYDROXIDE 2,400 MG/30 ML CUP PO PRN (10:52)
[2025-01-10 11:14] LABS: Glucose,Whole Blood 227 mg/dL (70-110)
[2025-01-10 11:18] LABS: Glucose,Whole Blood 232 mg/dL (70-110)
--- NOTE | 2025-01-10 11:55 | P.PN ---
Subjective Progress Note Date: 01/10/25 This is a 69-year-old male patient was being seen preoperatively as the patient is being scheduled to undergo an off-pump coronary artery bypass surgery on 01/07/2025. The patient has multivessel coronary artery disease and he sustained an acute non-ST segment elevation myocardial infarction. He is currently free of any chest pain. The cardiac catheterization revealed a 90% stenosis to his proximal right coronary artery, a 90% stenosis to his mid left anterior descending coronary artery, a 90% stenosis to his ostial circumflex coronary artery, and a 90% stenosis to his mid obtuse marginal 2 coronary artery. Due to the findings on the cardiac catheterization, the patient elevated troponins and his presenting symptoms a consult was placed to cardiothoracic surgery for further evaluation and treatment recommendations including myocardial revascularization surgery. The patient has known to have hypertension hyperlipidemia and diabetes mellitus type 2. His HbA1c is 7.6. He smokes around 2 to 3 cigars on a daily basis. He is on room air oxygen. CAT scan of the chest was completed and it shows few scattered pulmonary micronodules. Nonspecific findings. No other pulmonary abnormalities noted. The patient is quite active. He is a hannah. His echocardiogram done on 01/03/2025 showed n ormal LV size and function. On 01/06/2025, the patient has no specific complaints. Resting comfortably in bed. Awaiting off-pump coronary bypass surgery to be done in the morning. Room air oxygen. White cell count of 8.9, hemoglobin 16 and a platelet count is 224. Electrolytes are all within normal limits. Ambulating. Using the incentive spirometer. No nausea vomiting or abdominal pain. No other new complaints. Patient was seen today on 01/07/25, patient is now status post CABG, postoperative day #0, I saw this patient in the ICU shortly after he came back from the OR. Presently on mechanical ventilation, assist-control rate of 14 tidal volume 500 FiO2 50% and PEEP of 5 ABG showed a pO2 of 327 pCO2 41 pH of 7.33 hence patient was cut down to 45%. Patient is on multiple drips including Cleviprex at 2 mg/h amiodarone at 1 mg/min, he is also on the Precedex at 0.2 mcg/kg/h, nitrogl ycerin drip, patient is arousable, follows instructions, cardiac output is 7.5, cardiac index of 3.8 PA pressure 35/22 CVP is 13. Chest x-ray was reviewed, postoperative changes noted, no acute process was noted, endotracheal tube is about 3 cm above the licha. Chest tubes and PA catheter are in the proper position. WBC count is 11.4 hemoglobin is 10.8, blood sugar is 210. Patient was seen today on 01/08/2025, he is now postoperative day #1Off-pump CABG x 3 with left internal mammary artery to left anterior sending coronary artery, saphenous vein graft to obtuse marginal coronary artery, saphenous vein graft to right coronary artery. Endovascular vein harvest from of left greater saphenous vein from ankle to groin. Ligation of the left atrial appendage with a 35 mm AtriCure clip and intraoperative transesophageal echocardiogram completed by anesthesia. Patient was extubated yesterday at 4:45 PM, tolerated the extubation well, he is sitting in bed, not in any distress, on 4 L nasal cannula with O2 sat of 96% achieving only 500 cc on incentive spirometry. Patient has some discomfort and pain at surgical sites, he is in sinus rhythm, hemodynamically stable not requiring any inotropes or any pressors. His cardiac output was 5.4 cardiac index 2.7 earlier today SVR of 873. Pulmonary artery pressure 41/17 and CVP 11. Remains on amiodarone 0.5 mg/min. Chest tube and mediastinal tubes were noted. No evidence of pneumothorax on chest x-ray, minimal basilar atelectasis. WBC count is 12.1 hemoglobin 9.8 basic metabolic profile is normal renal profile is normal The patient is seen today January 09, 2025 in follow-up in the intensive care unit. He is currently resting comfortably in bed. Awake and alert in no acute distress. He is maintaining good O2 saturations in the 90s on 2 L/min per nasal cannula. He has been afebrile. Hemodynamically stable. Chest x-ray reveals persistent left greater than right bibasilar acute infiltrates and/or atelectasis with central vascular congestion and a small right pleural effusion. No left-sided pneumothorax. Today his chest tubes were removed. Cordis removed. Arterial line removed. Graham catheter removed. White count 12.2. Hemoglobin 9.6. Platelets 171. Sodium 133. Potassium 4.3. Bicarb 22. BUN 13. Creatinine 0.88. Glucose 121. He remains on DuoNeb and elations. Working well with the incentive spirometer. Heparin for DVT prophylaxis. Protonix for GI prophylaxis. The patient is seen today January 10, 2025 in follow-up on the selective care unit. He was moved out of the intensive care unit yesterday. He is currently sitting up in a chair. Awake and alert in no acute distress. Maintaining O2 saturations in the 90s on 2 L/min per nasal cannula. He is working well with the incentive spirometer. No evidence of left-sided pneumothorax. Cardiomegaly with small bilateral pleural effusions and left greater than right basilar atelectasis. Blood culture revealed no growth. White count 11.0. Hemoglobin 9.3. Platelets 223. Sodium 135. Potassium 4.6. Bicarb 24. BUN 17. Creatinine 0.91. Glucose 197. He remains on bronchodilators. Heparin for DVT prophylaxis. He continues on Lantus and Humalog sliding scale. Currently in a -160 mL balance. Objective - Vital Signs Vital signs: Vital Signs Temp 98.1 F 01/10/25 08:00 Pulse 89 01/10/25 11:06 Resp 16 01/10/25 11:06 BP 108/64 01/10/25 11:06 Pulse Ox 96 01/10/25 11:06 FiO2 50 01/07/25 16:39 Intake & Output 01/09/25 01/10/25 01/10/25 18:59 06:59 18:59 Intake Total 208.814 10 240 Output Total 180 201 200 Balance 28.814 -191 40 Intake: IV 184 10 Sodium Chloride 0.9% 1, 160 10 000 ml @ 30 mls/hr IV . Q24H [facility] Rx#:[id number] pressure bags 24 Intake, IV Titration 24.814 Amount Insulin Regular 100 unit 24.814 In Sodium Chloride 0.9% 100 ml @ Per Protocol IV .Q0M [facility] Rx#:[id number] Oral 240 Output: Chest Tube Drainage 0 Left Pleural 0 Mediastinal 0 Urine 180 201 200 Other: Voiding Method Indwelling Catheter Toilet # Voids 1 1 ABP, PAP, CO, CI - Last Documented Arterial Blood Pressure 94/40 Pulmonary Artery Pressure 42/14 Cardiac Output 5.4 Cardiac Index 2.7 - Exam GENERAL EXAM: Alert, pleasant 69-year-old male, sitting up in a chair, on 2 L nasal cannula, comfortable in no apparent distress. HEAD: Normocephalic. EYES: Normal reaction of pupils, equal size. NOSE: Clear with pink turbinates. THROAT: No erythema or exudates. NECK: No masses, no JVD. CHEST: Sternum stable. Heart hugger in place. LUNGS: Equal air entry with faint crackles in the posterior bases. CVS: S1 and S2 normal with no audible murmur, regular rhythm. ABDOMEN: No hepatosplenomegaly, normal bowel sounds, no guarding or rigidity. SPINE: No scoliosis or deformity SKIN: No rashes CENTRAL NERVOUS SYSTEM: No focal deficits, tone is normal in all 4 extremities. EXTREMITIES: There is no peripheral edema. No clubbing, no cyanosis. Peripheral pulses are intact. - Labs CBC & Chem 7: 01/10/25 07:01/10/25 07: Labs: Abnormal Lab Results - Last 24 Hours (Table) 01/09/25 01/09/25 01/09/25 Range/Units 12:04 18:37 20:03 WBC (4.50-10.00) 10*3/uL RBC (4.40-5.60) 10*6/uL Hgb (13.0-17.0) g/dL Hct (39.6-50.0) % MCV (80.0-97.0) fL Immature Gran # (0.00-0.04) 10*3/uL Neutrophils # (1.80-7.70) 10*3/uL Eosinophils # (0.04-0.35) 10*3/uL Sodium (137-145) mmol/L Glucose (74-99) mg/dL POC Glucose (mg/dL) 143 H 230 H 227 H (70-110) mg/dL Total Protein (6.3-8.2) g/dL Albumin (3.5-5.0) g/dL 01/10/25 01/10/25 01/10/25 Range/Units 06:13 07: 07:29 WBC 11.04 H (4.50-10.00) 10*3/uL RBC 2.96 L (4.40-5.60) 10*6/uL Hgb 9.3 L (13.0-17.0) g/dL Hct 28.8 L (39.6-50.0) % MCV 97.3 H (80.0-97.0) fL Immature Gran # 0.06 H (0.00-0.04) 10*3/uL Neutrophils # 8.54 H (1.80-7.70) 10*3/uL Eosinophils # 0.46 H (0.04-0.35) 10*3/uL Sodium 135 L (137-145) mmol/L Glucose 197 H (74-99) mg/dL POC Glucose (mg/dL) 225 H (70-110) mg/dL Total Protein 6.0 L (6.3-8.2) g/dL Albumin 3.4 L (3.5-5.0) g/dL 01/10/25 Range/Units 11:16 WBC (4.50-10.00) 10*3/uL RBC (4.40-5.60) 10*6/uL Hgb (13.0-17.0) g/dL Hct (39.6-50.0) % MCV (80.0-97.0) fL Immature Gran # (0.00-0.04) 10*3/uL Neutrophils # (1.80-7.70) 10*3/uL Eosinophils # (0.04-0.35) 10*3/uL Sodium (137-145) mmol/L Glucose (74-99) mg/dL POC Glucose (mg/dL) 232 H (70-110) mg/dL Total Protein (6.3-8.2) g/dL Albumin (3.5-5.0) g/dL Assessment and Plan Assessment: Off-pump CABG x 3 with CAPPS to LAD, saphenous vein graft to obtuse marginal, sap henous vein graft to right coronary artery. Endovascular vein harvest from of left greater saphenous vein from ankle to groin. Ligation of the left atrial appendage with a 35 mm AtriCure clip. Postoperative day #3 Multivessel coronary disease, status post acute non-ST segment elevation myocardial infarction. Diabetes mellitus type 2 Hypertension Hyperlipidemia maintained on Repatha on outpatient basis with an LDL level of 43 History of smoking Hiatal hernia Chronic cholecystitis Plan: The patient was seen and evaluated Chest x-ray, labs and medications reviewed Remains on bronchodilators Remains on heparin for DVT prophylaxis Stable and on 2 L nasal cannula No evidence of pneumothorax Continues to work well with the incentive spirometer Increase his activity as tolerated Decreased the FiO2 as tolerated We will continue to follow This patient was seen by the pulmonary nurse practitioner addressing pulmonary issues I have personally seen and examined the patient, performed the documentation and the assessment and plan as written. Number of minutes spent on the visit: 25 Dictation was produced using [employer] dictation software. Please excuse any grammatical, word or spelling errors.
--- NOTE | 2025-01-10 12:39 | P.PN ---
Subjective Progress Note Date: 01/10/25 PROGRESS NOTE The patient is a 69-year-old male who was admitted with symptoms of chest comfort, diagnosed with non-STEMI, underwent coronary angiography by Dr. Blakely and was found to have severe obstructive CAD. He underwent CABG today. He received a CAPPS to the LAD SVG to the OM and to the right coronary artery. He also received a ligation of his left atrial appendage. He is extubated in sinus mechanism with sinus tachycardia. His blood pressures under good control. He is complaining of chest soreness. His echocardiogram preoperatively showed a preserved left ventricular systolic function. His urine output is stable and he has no significant discharges from the chest tube. January 08: The patient is sitting up in the chair, continues to have complaints of soreness in the chest. He is in sinus mechanism and hemodynamically stable. He denies any nausea. He is using his incentive spirometry. His urinary output has been stable and he has minimal drainage from the chest tube. There is no evidence of malignant arrhythmia. January 09: He is feeling better today, stronger. He denies any chest discomfort, dizziness or palpitations. He denies any nausea or vomiting. He continues to be in sinus mechanism. He ambulated. [place] catheter has been removed. Urine output has been stable. LAB: Hemoglobin 9.6, potassium 4.3, BUN 13, creatinine 0.88 January 10: Patient has been transferred out of the intensive care unit and is seen today on the cardiac stepdown unit. Yesterday afternoon, he went back into atrial fibrillation and subsequently converted to sinus rhythm. He is maintaining sinus rhythm this morning. He has received 1 dose of IV Lasix this morning. He states his breathing is okay. He has been encouraged to increase use of incentive spirometry and states he reached 1500 once so far. Blood pressure 108/64, pulse ox 96% on room air. Heart rate 89. Patient has been weaned off oxygen this morning. Repeat blood work reveals WBC 11, hemoglobin 9.3, sodium 135, potassium 4.6, BUN 17 creatinine 0.91. Medications: Oral amiodarone, aspirin, clopidogrel 75 mg daily, metoprolol 25 mg twice a day patient is allergic to statin. PHYSICAL EXAMINATION: Blood pressure 108/64, heart rate 89 LUNGS: Clear to auscultation anteriorly HEART: Regular rate and rhythm, S1, S2. No S3. No systolic murmur, chest wall tenderness improved ABDOMEN: Soft, nontender, no organomegaly EXTREMETIES: No edema IMPRESSION: 1. Status post CABG, extubated, in sinus mechanism 2. History of hypertension 3. Hyperlipidemia intolerant to statin on Repatha 4. History of diabetes PLAN: 1. Continue incentive spirometry 2. Increase physical activity 3. Continue current cardiac medications 4. Initiate BOBBI inhibitor when blood pressure stable Nurse practitioner note has been reviewed, I agree with documented findings and plan of care. Patient was seen and examined. Objective - Vital Signs Vital signs: Vital Signs Temp 98.1 F 01/10/25 08:00 Pulse 89 01/10/25 11:06 Resp 16 01/10/25 11:06 BP 108/64 01/10/25 11:06 Pulse Ox 96 01/10/25 11:06 FiO2 50 01/07/25 16:39 Intake & Output 01/09/25 01/10/25 01/10/25 18:59 06:59 18:59 Intake Total 208.814 10 240 Output Total 180 201 200 Balance 28.814 -191 40 Intake: IV 184 10 Sodium Chloride 0.9% 1, 160 10 000 ml @ 30 mls/hr IV . Q24H [facility] Rx#:[id number] pressure bags 24 Intake, IV Titration 24.814 Amount Insulin Regular 100 unit 24.814 In Sodium Chloride 0.9% 100 ml @ Per Protocol IV .Q0M [facility] Rx#:[id number] Oral 240 Output: Chest Tube Drainage 0 Left Pleural 0 Mediastinal 0 Urine 180 201 200 Other: Voiding Method Indwelling Catheter Toilet # Voids 1 1 ABP, PAP, CO, CI - Last Documented Arterial Blood Pressure 94/40 Pulmonary Artery Pressure 42/14 Cardiac Output 5.4 Cardiac Index 2.7 - Labs CBC & Chem 7: 01/10/25 07:29 01/10/25 07:29 Labs: Abnormal Lab Results - Last 24 Hours (Table) 01/09/25 01/09/25 01/09/25 Range/Units 12:04 18:37 20:03 WBC (4.50-10.00) 10*3/uL RBC (4.40-5.60) 10*6/uL Hgb (13.0-17.0) g/dL Hct (39.6-50.0) % MCV (80.0-97.0) fL Immature Gran # (0.00-0.04) 10*3/uL Neutrophils # (1.80-7.70) 10*3/uL Eosinophils # (0.04-0.35) 10*3/uL Sodium (137-145) mmol/L Glucose (74-99) mg/dL POC Glucose (mg/dL) 143 H 230 H 227 H (70-110) mg/dL Total Protein (6.3-8.2) g/dL Albumin (3.5-5.0) g/dL 01/10/25 01/10/25 01/10/25 Range/Units 06:13 07:29 07:29 WBC 11.04 H (4.50-10.00) 10*3/uL RBC 2.96 L (4.40-5.60) 10*6/uL Hgb 9.3 L (13.0-17.0) g/dL Hct 28.8 L (39.6-50.0) % MCV 97.3 H (80.0-97.0) fL Immature Gran # 0.06 H (0.00-0.04) 10*3/uL Neutrophils # 8.54 H (1.80-7.70) 10*3/uL Eosinophils # 0.46 H (0.04-0.35) 10*3/uL Sodium 135 L (137-145) mmol/L Glucose 197 H (74-99) mg/dL POC Glucose (mg/dL) 225 H (70-110) mg/dL Total Protein 6.0 L (6.3-8.2) g/dL Albumin 3.4 L (3.5-5.0) g/dL 01/10/25 Range/Units 11:16 WBC (4.50-10.00) 10*3/uL RBC (4.40-5.60) 10*6/uL Hgb (13.0-17.0) g/dL Hct (39.6-50.0) % MCV (80.0-97.0) fL Immature Gran # (0.00-0.04) 10*3/uL Neutrophils # (1.80-7.70) 10*3/uL Eosinophils # (0.04-0.35) 10*3/uL Sodium (137-145) mmol/L Glucose (74-99) mg/dL POC Glucose (mg/dL) 232 H (70-110) mg/dL Total Protein (6.3-8.2) g/dL Albumin (3.5-5.0) g/dL
[2025-01-10 16:20] LABS: Glucose,Whole Blood 191 mg/dL (70-110)
[2025-01-10 19:54] LABS: Glucose,Whole Blood 266 mg/dL (70-110)
[2025-01-10] MEDS: INSULIN GLARGINE (LANTUS) 100 UNIT/ML SYR SQ SCH (20:26)
[2025-01-11 05:50] LABS: Glucose,Whole Blood 232 mg/dL (70-110)
[2025-01-11] MEDS: DEXTROSE 5% IN WATER 100 ML with AMIODARONE 150 MG IV PRN (06:26)
[2025-01-11 07:09] LABS: HCT 25.8 % (39.6-50.0); HGB 8.5 g/dL (13.0-17.0); MCH 31.5 pg (27.0-32.0); MCHC 32.9 g/dL (32.0-37.0); MCV 95.6 fL (80.0-97.0); Platelet Count 250 10*3/uL (140-440); RDW 13.7 % (11.5-14.5); WBC 8.94 10*3/uL (4.50-10.00)
[2025-01-11 07:33] LABS: African American GFR (CKD) 88 (>60 ml/min/1.73 sqM); Anion Gap 8 mmol/L; Blood Urea Nitrogen 23 mg/dL (9-20); Calcium 8.7 mg/dL (8.4-10.2); Carbon Dioxide 24 mmol/L (22-30); Chloride 102 mmol/L (98-107); Glucose 204 mg/dL (74-99); Magnesium 2.1 mg/dL (1.6-2.3); Non-African American GFR(CKD) 76 (>60 ml/min/1.73 sqM); Potassium 4.4 mmol/L (3.5-5.1); Sodium 134 mmol/L (137-145)
[2025-01-11] MEDS ORDERED: traMADol 50 MG TAB PO PRN (07:41)
[2025-01-11] MEDS: GLIMEPIRIDE 2 MG TAB PO SCH (08:25)
[2025-01-11] MEDS: metFORMIN 500 MG TAB PO SCH (08:26)
[2025-01-11] MEDS: ASPIRIN 81 MG PO SCH (08:26)
[2025-01-11] MEDS: APIXABAN 5 MG TAB PO SCH (08:26)
--- NOTE | 2025-01-11 08:29 | P.PN ---
Subjective Progress Note Date: 01/11/25 Principal diagnosis: Multivessel coronary artery disease, non-ST elevated myocardial infarction this admission, biliary colic. History of chronic cholecystitis, hypertension, hyper lipidemia, diabetes mellitus type 2, chronic ongoing tobacco dependence, hiatal hernia, family history of early onset coronary artery disease POD #4 off-pump CABG x 3 with CAPPS to LAD, saphenous vein graft to obtuse marginal, saphenous vein graft to right coronary artery. Endovascular vein harvest from of left greater saphenous vein from ankle to groin. Ligation of the left atrial appendage with a 35 mm AtriCure clip Postoperative acute blood loss anemia expected given hemodilution Paroxysmal atrial fibrillation, somewhat expected as a known common occurrence after open heart surgery The patient was seen and examined this morning sitting up in recliner on the cardiac stepdown unit in no acute distress eating breakfast. present. States pain is controlled on current medication regimen, mostly hurts with coughing and deep breathing. Currently in controlled atrial fibrillation with heart rate in the 80s, blood pressure stable, continues to go in and out of A- fib although mostly with controlled rate. Patient states he did ambulate in the hallway 5 times yesterday. Remains on room air, able to achieve 1250 mL on incentive spirometry. Chest x-ray, labs reviewed. No other new concerns. Objective - Vital Signs Vital signs: Vital Signs Temp 98.5 F 01/11/25 05:06 Pulse 85 01/11/25 05:06 Resp 18 01/11/25 05:06 BP 105/64 01/11/25 05:06 Pulse Ox 95 01/11/25 05:06 FiO2 50 01/07/25 16:39 Intake & Output 01/10/25 01/11/25 01/11/25 18:59 06:59 18:59 Intake Total 240 Output Total 200 Balance 40 Weight 90.2 kg Intake: Oral 240 Output: Urine 200 Other: Voiding Method Toilet # Voids 1 2 # Bowel Movements 2 ABP, PAP, CO, CI - Last Documented Arterial Blood Pressure 94/40 Pulmonary Artery Pressure 42/14 Cardiac Output 5.4 Cardiac Index 2.7 - Exam CONSTITUTIONAL: Appears comfortable, cooperative, no acute distress RESPIRATORY: Lungs sounds diminished in the bases bilaterally. Respirations even, nonlabored. Currently on room air with oxygen saturation 95%. Able to achieve 1250 mL on incentive spirometry. Strong cough. CARDIOVASCULAR: S1, S2 present. Irregular rate and rhythm, controlled atrial fibrillation on telemetry. Sternum stable. Palpable peripheral pulses bilaterally. No edema present. No calf pain or tenderness noted. Heart hugger in place with patient demonstrating appropriate use. Antiembolism stockings, SCDs present. GASTROINTESTINAL: Abdomen soft, nontender, nondistended. Active bowel sounds present 4 quadrants. Tolerating diet. Positive bowel movement 01/10/25 GENITOURINARY: Continues to void although not measured and documented in [employer] INTEGUMENTARY: Skin is warm and dry with evidence of good perfusion. Anterior chest incision well approximated. Left lower extremity EVH site well approximated without redness or drainage. NEUROLOGIC: Cranial nerves II through XII intact MUSKULOSKELETAL: Able to move all extremities, strength equal bilaterally, gait normal PSYCHIATRIC: Alert and oriented to person place and time, appropriate affect, intact judgment and insight - Allied health notes Allied health notes reviewed: nursing - Labs CBC & Chem 7: 01/11/25 05:50 01/11/25 05:50 Labs: Abnormal Lab Results - Last 24 Hours (Table) 01/09/25 01/10/25 01/10/25 Range/Units 20:03 07:29 07:29 WBC 11.04 H (4.50-10.00) 10*3/uL RBC 2.96 L (4.40-5.60) 10*6/uL Hgb 9.3 L (13.0-17.0) g/dL Hct 28.8 L (39.6-50.0) % MCV 97.3 H (80.0-97.0) fL Immature Gran # 0.06 H (0.00-0.04) 10*3/uL Neutrophils # 8.54 H (1.80-7.70) 10*3/uL Eosinophils # 0.46 H (0.04-0.35) 10*3/uL Sodium 135 L (137-145) mmol/L BUN (9-20) mg/dL Glucose 197 H (74-99) mg/dL POC Glucose (mg/dL) 227 H (70-110) mg/dL Total Protein 6.0 L (6.3-8.2) g/dL Albumin 3.4 L (3.5-5.0) g/dL 01/10/25 01/10/2525 Range/Units 11:16 16:19 19:54 WBC (4.50-10.00) 10*3/uL RBC (4.40-5.60) 10*6/uL Hgb (13.0-17.0) g/dL Hct (39.6-50.0) % MCV (80.0-97.0) fL Immature Gran # (0.00-0.04) 10*3/uL Neutrophils # (1.80-7.70) 10*3/uL Eosinophils # (0.04-0.35) 10*3/uL Sodium (137-145) mmol/L BUN (9-20) mg/dL Glucose (74-99) mg/dL POC Glucose (mg/dL) 232 H 191 H 266 H (70-110) mg/dL Total Protein (6.3-8.2) g/dL Albumin (3.5-5.0) g/dL 01/11/25 01/11/25 01/11/25 Range/Units 05:49 05:50 05:50 WBC (4.50-10.00) 10*3/uL RBC 2.70 L (4.40-5.60) 10*6/uL Hgb 8.5 L (13.0-17.0) g/dL Hct 25.8 L (39.6-50.0) % MCV (80.0-97.0) fL Immature Gran # (0.00-0.04) 10*3/uL Neutrophils # (1.80-7.70) 10*3/uL Eosinophils # (0.04-0.35) 10*3/uL Sodium 134 L (137-145) mmol/L BUN 23 H (9-20) mg/dL Glucose 204 H (74-99) mg/dL POC Glucose (mg/dL) 232 H (70-110) mg/dL Total Protein (6.3-8.2) g/dL Albumin (3.5-5.0) g/dL - Imaging and Cardiology Chest x-ray: image reviewed Assessment and Plan Assessment: Multivessel coronary artery disease, non-ST elevated myocardial infarction this admission, status post three-vessel off-pump CABG Biliary colic Chest and abdominal pain secondary to above Postoperative acute blood loss anemia, expected Paroxysmal atrial fibrillation History of hypertension Hyperlipidemia, statin intolerance, on Repatha outpatient, cholesterol 134, LDL 43, triglycerides 299 Diabetes mellitus type 2, hemoglobin A1c 7.6% Chronic cholecystitis Chronic ongoing tobacco dependence, smokes 2 to 3 cigars daily Hiatal hernia Family history of early onset coronary artery disease Plan: Continue to maximize medical therapy with low-dose aspirin, beta-valeriy therapy. Will increase beta-valeriy therapy as tolerated. Statin contraindicated due to anaphylactic allergy. Will add BOBBI/ARB when blood pressure will allow for afterload reduction Continue amiodarone for A-fib prophylaxis, will taper per protocol. Will stop Plavix, initiate Eliquis Encourage incentive spirometry use 10 times every hour while awake. Bron chodilators per pulmonology Increase activity, ambulate as tolerated. PT/OT/cardiac rehab following Will monitor daily labs and x-rays. Electrolyte replacement per protocol GI/DVT prophylaxis Daily weights Pain control per current medication regimen Insulin management per internal medicine, patient needs tight blood sugar control to promote healing and prevent infection Shower daily Continue to monitor and record strict accurate intake and output Discharge planning in progress, anticipate discharge to home with home care tomorrow morning More recommendations to follow as patient progresses
--- NOTE | 2025-01-11 09:10 | XR ---
EXAMINATION TYPE: XR chest 2V DATE OF EXAM: 01/11/2025 6:21 AM COMPARISON: Chest radiographs from 01/10/2025. CLINICAL INDICATION: Male, 69 years old with history of post cardiac surgery; TECHNIQUE: XR chest 2V Frontal and lateral views of the chest. FINDINGS: Lungs/Pleura: There is no evidence of pleural effusion, focal consolidation, or pneumothorax. Pulmonary vascularity: Unremarkable. Heart/mediastinum: Cardiomediastinal silhouette is prominent in size. Atherosclerotic calcifications are seen in the aorta. Left atrial appendage occlusion device is present. Musculoskeletal: No acute osseous pathology. Midline sternotomy wires are noted. Other findings: None IMPRESSION: Small bilateral pleural effusions. [facility], , 01/11/2025 9:07 AM
--- NOTE | 2025-01-11 09:57 | P.PN ---
Subjective Progress Note Date: 01/10/25 This is a 69-year-old male who was recently admitted with chest pain underwent cardiac catheterization noted to have triple-vessel coronary artery disease recommending CT surgery evaluation. Patient was evaluated by CT surgery underwent further testing and is scheduled to undergo possible tentative CABG today. Patient is currently in the OR and will follow-up once official report is obtained. Patient will be going to ICU once stabilized 01/08/2025 Patient is seen in follow-up this morning status post off-pump CABG x 3 with CAPPS to the LAD currently sitting up in the chair doing relatively well. Heart hugger is noted and patient is maintained on 3 L via nasal cannula. Patient with incentive spirometer at the bedside encouraged to continue using at least 10 times every hour while awake. Patient is continued on telemetry monitoring has bilateral chest tubes and swans catheter along with indwelling Graham catheter. Patient is somewhat fatigued as he just walked today. We will continue to follow with CT surgery during hospitalization. 01/09/2025 Patient is seen in follow-up today out of the ICU doing relatively well on 3 S. Patient has had chest tubes and catheters removed has been up and walking and reports to feeling well. Follow-up chest x-ray pending at this time patient denies any worsening shortness of breath. Patient does have some chest discomfort and a weak cough and has heart hugger noted. Encouraged increase activity as tolerated with continued incentive spirometer use. Patient reports he is not getting very high on the incentive spirometer and reencouraged anatoliy nued use with proper instruction on the purpose of the incentive spirometer. We will continue to follow along with CT surgery during hospitalization. 01/10/2025 Patient is seen in follow-up today with no overnight issues noted. Patient is maintained on radiation monitor on [address] surgery following closely. Patient has been up and walking and reports is working on the incentive spirometer. Blood sugars are controlled and will continue current regimen. Patient is afebrile reports of some chest wall pain has heart hugger noted and is using properly, denies any significant shortness of breath. Review of systems: Constitutional: reports of fatigue, no fever, or chills Cardiovascular: No reports of chest pain or palpitations, reports chest wall pain Respiratory: reports of shortness of breath with exertion GI: No reports of nausea, vomiting, or diarrhea, not much of an appetite : No reports of dysuria or retention Neurovascular: reports of generalized weakness All medications have been reviewed PHYSICAL EXAMINATION: GENERAL: The patient is alert and oriented x3, Well developed, elderly appearing, currently sitting up in the chair HEENT: Pupils are round and equally reacting to light. EOMI. no scleral icterus. No conjunctival pallor. Normocephalic, atraumatic. No pharyngeal erythema. No thyromegaly. CARDIOVASCULAR: S1 and S2 muffled, heart hugger noted PULMONARY: diminished breath sounds bilaterally with no wheezing or rhonchi noted. ABDOMEN: soft. Obese. Nontender on exam. non-distended, normoactive bowel sounds. No palpable organomegaly. MUSCULOSKELETAL: No joint swelling or deformity. EXTREMITIES: No cyanosis, clubbing, or pedal edema. NEUROLOGICAL: Gross neurological examination did not reveal any focal deficits. Diffusely weak SKIN: No rashes. Assessment: Acute NSTEMI, status post cardiac catheterization and three-vessel coronary artery disease, status post off-pump CABG x 3 with CAPPS to LAD 01/07/2025 Gallbladder sludge and possible chronic cholecystitis per surgery, will need outpatient follow-up with surgery Increased WBC, improved Increased lipase, minimally improved Hyperlipidemia history Hypertension history Diabetes mellitus, type II Continued ongoing nicotine dependence GI prophylaxis DVT prophylaxis Full code Plan: Recommend to continue with current medications and management per CT surgery services. Patient is status post off-pump CABG doing relatively well sitting up in the chair. Patient has been up and walking multiple times and working with physical therapy doing well Continue to encourage incentive spirometer use at least 10 times every hour while awake Wean FiO2 as tolerated. Patient currently on room air Recommend repeat labs in the a.m. Tight glycemic control and will adjust insulins accordingly as needed We will continue to follow as CT surgery during hospitalization. Thank you kindly for this consultation The impression and plan of care has been dictated by Andra Nelson, nurse practitioner as directed. Dr. Aretha MD I have performed a history and examination and MDM of this patient, discussed the same with the dictator, and agree with the dictator's assessment and plan as written ,documented as a scribe. Based on total visit time, I have performed more than 50% of the visit. Any additional findings or plans will be noted. Objective - Vital Signs Vital signs: Vital Signs Temp 97.5 F L 01/11/25 08:15 Pulse 110 H 01/11/25 08:15 Resp 18 01/11/25 08:15 BP 124/69 01/11/25 08:15 Pulse Ox 98 01/11/25 08:15 FiO2 50 01/07/25 16:39 Intake & Output 01/10/25 01/11/25 01/11/25 18:59 06:59 18:59 Intake Total 240 Output Total 200 Balance 40 Weight 90.2 kg Intake: Oral 240 Output: Urine 200 Other: Voiding Method Toilet Toilet # Voids 1 2 # Bowel Movements 2 ABP, PAP, CO, CI - Last Documented Arterial Blood Pressure 94/40 Pulmonary Artery Pressure 42/14 Cardiac Output 5.4 Cardiac Index 2.7 - Labs CBC & Chem 7: 01/11/25 05:50 01/11/25 05:50 Labs: Abnormal Lab Results - Last 24 Hours (Table) 01/09/25 01/10/25 01/10/25 Range/Units 20:03 11:16 16:19 RBC (4.40-5.60) 10*6/uL Hgb (13.0-17.0) g/dL Hct (39.6-50.0) % Sodium (137-145) mmol/L BUN (9-20) mg/dL Glucose (74-99) mg/dL POC Glucose (mg/dL) 227 H 232 H 191 H (70-110) mg/dL 01/10/25 01/11/25 01/11/25 Range/Units 19:54 05:49 05:50 RBC 2.70 L (4.40-5.60) 10*6/uL Hgb 8.5 L (13.0-17.0) g/dL Hct 25.8 L (39.6-50.0) % Sodium (137-145) mmol/L BUN (9-20) mg/dL Glucose (74-99) mg/dL POC Glucose (mg/dL) 266 H 232 H (70-110) mg/dL 01/11/25 Range/Units 05:50 RBC (4.40-5.60) 10*6/uL Hgb (13.0-17.0) g/dL Hct (39.6-50.0) % Sodium 134 L (137-145) mmol/L BUN 23 H (9-20) mg/dL Glucose 204 H (74-99) mg/dL POC Glucose (mg/dL) (70-110) mg/dL
[2025-01-11] MEDS: FUROSEMIDE 10 MG/ML 2 ML VIAL IV ONE (11:26)
[2025-01-11] MEDS: PIOGLITAZONE 45 MG TAB PO SCH (11:26)
[2025-01-11 11:45] LABS: Glucose,Whole Blood 262 mg/dL (70-110)
--- NOTE | 2025-01-11 12:23 | P.PN ---
Subjective Progress Note Date: 01/11/25 This is a 69-year-old male patient was being seen preoperatively as the patient is being scheduled to undergo an off-pump coronary artery bypass surgery on 01/07/2025. The patient has multivessel coronary artery disease and he sustained an acute non-ST segment elevation myocardial infarction. He is currently free of any chest pain. The cardiac catheterization revealed a 90% stenosis to his proximal right coronary artery, a 90% stenosis to his mid left anterior descending coronary artery, a 90% stenosis to his ostial circumflex coronary artery, and a 90% stenosis to his mid obtuse marginal 2 coronary artery. Due to the findings on the cardiac catheterization, the patient elevated troponins and his presenting symptoms a consult was placed to cardiothoracic surgery for further evaluation and treatment recommendations including myocardial revascularization surgery. The patient has known to have hypertension hyperlipidemia and diabetes mellitus type 2. His HbA1c is 7.6. He smokes around 2 to 3 cigars on a daily basis. He is on room air oxygen. CAT scan of the chest was completed and it shows few scattered pulmonary micronodules. Nonspecific findings. No other pulmonary abnormalities noted. The patient is quite active. He is a hannah. His echocardiogram done on 01/03/2025 showed n ormal LV size and function. On 01/06/2025, the patient has no specific complaints. Resting comfortably in bed. Awaiting off-pump coronary bypass surgery to be done in the morning. Room air oxygen. White cell count of 8.9, hemoglobin 16 and a platelet count is 224. Electrolytes are all within normal limits. Ambulating. Using the incentive spirometer. No nausea vomiting or abdominal pain. No other new complaints. Patient was seen today on 01/07/25, patient is now status post CABG, postoperative day #0, I saw this patient in the ICU shortly after he came back from the OR. Presently on mechanical ventilation, assist-control rate of 14 tidal volume 500 FiO2 50% and PEEP of 5 ABG showed a pO2 of 327 pCO2 41 pH of 7.33 hence patient was cut down to 45%. Patient is on multiple drips including Cleviprex at 2 mg/h amiodarone at 1 mg/min, he is also on the Precedex at 0.2 mcg/kg/h, nitrogl ycerin drip, patient is arousable, follows instructions, cardiac output is 7.5, cardiac index of 3.8 PA pressure 35/22 CVP is 13. Chest x-ray was reviewed, postoperative changes noted, no acute process was noted, endotracheal tube is about 3 cm above the licha. Chest tubes and PA catheter are in the proper position. WBC count is 11.4 hemoglobin is 10.8, blood sugar is 210. Patient was seen today on 01/08/2025, he is now postoperative day #1Off-pump CABG x 3 with left internal mammary artery to left anterior sending coronary artery, saphenous vein graft to obtuse marginal coronary artery, saphenous vein graft to right coronary artery. Endovascular vein harvest from of left greater saphenous vein from ankle to groin. Ligation of the left atrial appendage with a 35 mm AtriCure clip and intraoperative transesophageal echocardiogram completed by anesthesia. Patient was extubated yesterday at 4:45 PM, tolerated the extubation well, he is sitting in bed, not in any distress, on 4 L nasal cannula with O2 sat of 96% achieving only 500 cc on incentive spirometry. Patient has some discomfort and pain at surgical sites, he is in sinus rhythm, hemodynamically stable not requiring any inotropes or any pressors. His cardiac output was 5.4 cardiac index 2.7 earlier today SVR of 873. Pulmonary artery pressure 41/17 and CVP 11. Remains on amiodarone 0.5 mg/min. Chest tube and mediastinal tubes were noted. No evidence of pneumothorax on chest x-ray, minimal basilar atelectasis. WBC count is 12.1 hemoglobin 9.8 basic metabolic profile is normal renal profile is normal The patient is seen today January 09, 2025 in follow-up in the intensive care unit. He is currently resting comfortably in bed. Awake and alert in no acute distress. He is maintaining good O2 saturations in the 90s on 2 L/min per nasal cannula. He has been afebrile. Hemodynamically stable. Chest x-ray reveals persistent left greater than right bibasilar acute infiltrates and/or atelectasis with central vascular congestion and a small right pleural effusion. No left-sided pneumothorax. Today his chest tubes were removed. Cordis removed. Arterial line removed. Graham catheter removed. White count 12.2. Hemoglobin 9.6. Platelets 171. Sodium 133. Potassium 4.3. Bicarb 22. BUN 13. Creatinine 0.88. Glucose 121. He remains on DuoNeb and elations. Working well with the incentive spirometer. Heparin for DVT prophylaxis. Protonix for GI prophylaxis. The patient is seen today January 10, 2025 in follow-up on the selective care unit. He was moved out of the intensive care unit yesterday. He is currently sitting up in a chair. Awake and alert in no acute distress. Maintaining O2 saturations in the 90s on 2 L/min per nasal cannula. He is working well with the incentive spirometer. No evidence of left-sided pneumothorax. Cardiomegaly with small bilateral pleural effusions and left greater than right basilar atelectasis. Blood culture revealed no growth. White count 11.0. Hemoglobin 9.3. Platelets 223. Sodium 135. Potassium 4.6. Bicarb 24. BUN 17. Creatinine 0.91. Glucose 197. He remains on bronchodilators. Heparin for DVT prophylaxis. He continues on Lantus and Humalog sliding scale. Currently in a -160 mL balance. The patient is seen today January 11, 2025 in follow-up on the selective care unit. He is currently sitting up in a chair. Awake and alert in no acute distress. Maintaining good O2 saturations in the 90s on room air. He is working well with the incentive spirometer. Pulling approximately 1500 mL. He remains on DuoNeb inhalations. Chest x-ray reveals small bilateral pleural effusions. No pneumothorax. White count 8.9. Hemoglobin 8.5. Platelets 250. Sodium 134. Potassium 4.4. Bicarb 24. BUN 23. Creatinine 1.01. Glucose 204. Anticoagulated with Eliquis. Objective - Vital Signs Vital signs: Vital Signs Temp 98.0 F 01/11/25 11:19 Pulse 94 01/11/25 11:19 Resp 17 01/11/25 11:19 BP 121/75 01/11/25 11:19 Pulse Ox 97 01/11/25 11:19 FiO2 50 01/07/25 16:39 Intake & Output 01/10/25 01/11/25 01/11/25 18:59 06:59 18:59 Intake Total 240 Output Total 200 Balance 40 Weight 90.2 kg Intake: Oral 240 Output: Urine 200 Other: Voiding Method Toilet Toilet # Voids 1 2 # Bowel Movements 2 ABP, PAP, CO, CI - Last Documented Arterial Blood Pressure 94/40 Pulmonary Artery Pressure 42/14 Cardiac Output 5.4 Cardiac Index 2.7 - Exam GENERAL EXAM: Alert, pleasant 69-year-old male, up in a chair, on room air oxygen, comfortable in no apparent distress. HEAD: Normocephalic. EYES: Normal reaction of pupils, equal size. NOSE: Clear with pink turbinates. THROAT: No erythema or exudates. NECK: No masses, no JVD. CHEST: Sternum stable. Heart hugger in place. LUNGS: Equal air entry with faint crackles in the posterior bases. CVS: S1 and S2 normal with no audible murmur, regular rhythm. ABDOMEN: No hepatosplenomegaly, normal bowel sounds, no guarding or rigidity. SPINE: No scoliosis or deformity SKIN: No rashes CENTRAL NERVOUS SYSTEM: No focal deficits, tone is normal in all 4 extremities. EXTREMITIES: There is no peripheral edema. No clubbing, no cyanosis. Peripheral pulses are intact. - Labs CBC & Chem 7: 01/11/25 05:50 01/11/25 05:50 Labs: Abnormal Lab Results - Last 24 Hours (Table) 01/10/25 01/10/25 01/11/25 Range/Units 16:19 19:54 05:49 RBC (4.40-5.60) 10*6/uL Hgb (13.0-17.0) g/dL Hct (39.6-50.0) % Sodium (137-145) mmol/L BUN (9-20) mg/dL Glucose (74-99) mg/dL POC Glucose (mg/dL) 191 H 266 H 232 H (70-110) mg/dL 01/11/25 01/11/25 01/11/25 Range/Units 05:50 05:50 11:43 RBC 2.70 L (4.40-5.60) 10*6/uL Hgb 8.5 L (13.0-17.0) g/dL Hct 25.8 L (39.6-50.0) % Sodium 134 L (137-145) mmol/L BUN 23 H (9-20) mg/dL Glucose 204 H (74-99) mg/dL POC Glucose (mg/dL) 262 H (70-110) mg/dL Assessment and Plan Assessment: Off-pump CABG x 3 with CAPPS to LAD, saphenous vein graft to obtuse marginal, saphenous vein graft to right coronary artery. Endovascular vein harvest from of left greater saphenous vein from ankle to groin. Ligation of the left atrial appendage with a 35 mm AtriCure clip. Postoperative day #4 Multivessel coronary disease, status post acute non-ST segment elevation myocardial infarction. Diabetes mellitus type 2 Hypertension Hyperlipidemia maintained on Repatha on outpatient basis with an LDL level of 43 History of smoking Hiatal hernia Chronic cholecystitis Plan: The patient was seen and evaluated Chest x-ray, labs and medications reviewed Remains on bronchodilators Stable and on room air oxygen Continues to work well with the incentive spirometer Increase his activity as tolerated Anticoagulated with Eliquis Plan is for home with home care at discharge The patient and his who is present are agreeable to the plan This patient was seen independently by the pulmonary nurse practitioner addressing pulmonary issues I have personally seen and examined the patient, performed the documentation and the assessment and plan as written. Number of minutes spent on the visit: 23 Dictation was produced using [employer] dictation software. Please excuse any grammatical, word or spelling errors.
--- NOTE | 2025-01-11 14:51 | P.PN ---
Subjective Progress Note Date: 01/11/25 PROGRESS NOTE The patient is a 69-year-old male who was admitted with symptoms of chest comfort, diagnosed with non-STEMI, underwent coronary angiography by Dr. Blakely and was found to have severe obstructive CAD. He underwent CABG today. He received a CAPPS to the LAD SVG to the OM and to the right coronary artery. He also received a ligation of his left atrial appendage. He is extubated in sinus mechanism with sinus tachycardia. His blood pressures under good control. He is complaining of chest soreness. His echocardiogram preoperatively showed a preserved left ventricular systolic function. His urine output is stable and he has no significant discharges from the chest tube. January 08: The patient is sitting up in the chair, continues to have complaints of soreness in the chest. He is in sinus mechanism and hemodynamically stable. He denies any nausea. He is using his incentive spirometry. His urinary output has been stable and he has minimal drainage from the chest tube. There is no evidence of malignant arrhythmia. January 09: He is feeling better today, stronger. He denies any chest discomfort, dizziness or palpitations. He denies any nausea or vomiting. He continues to be in sinus mechanism. He ambulated. [place] catheter has been removed. Urine output has been stable. LAB: Hemoglobin 9.6, potassium 4.3, BUN 13, creatinine 0.88 January 10: Patient has been transferred out of the intensive care unit and is seen today on the cardiac stepdown unit. Yesterday afternoon, he went back into atrial fibrillation and subsequently converted to sinus rhythm. He is maintaining sinus rhythm this morning. He has received 1 dose of IV Lasix this morning. He states his breathing is okay. He has been encouraged to increase use of incentive spirometry and states he reached 1500 once so far. Blood pressure 108/64, pulse ox 96% on room air. Heart rate 89. Patient has been weaned off oxygen this morning. Repeat blood work reveals WBC 11, hemoglobin 9.3, sodium 135, potassium 4.6, BUN 17 creatinine 0.91. January 11: Patient is seen and examined. He denies chest pain or chest pressure. He is in atrial fibrillation at 89 bpm. Blood pressure 121/75, pulse ox 97% on room air. Repeat blood work reveals hemoglobin 8.5, BUN 23 creatinine 1.01. Chest x-ray reveals small bilateral pleural effusions. Patient was started on Eliquis this morning. Medications: Oral amiodarone, aspirin, Eliquis, clopidogrel 75 mg daily, metoprolol 25 mg twice a day patient is allergic to statin. PHYSICAL EXAMINATION: Blood pressure 108/64, heart rate 89 LUNGS: Clear to auscultation anteriorly HEART: Regular rate and rhythm, S1, S2. No S3. No systolic murmur, chest wall tenderness improved ABDOMEN: Soft, nontender, no organomegaly EXTREMETIES: No edema IMPRESSION: 1. Status post CABG, extubated, in sinus mechanism 2. History of hypertension 3. Hyperlipidemia intolerant to statin on Repatha 4. History of diabetes PLAN: 1. Continue incentive spirometry 2. Increase physical activity 3. Continue current cardiac medications 4. Initiate BOBBI inhibitor when blood pressure stable Nurse practitioner note has been reviewed, I agree with documented findings and plan of care. Patient was seen and examined. Objective - Vital Signs Vital signs: Vital Signs Temp 98.0 F 01/11/25 11:19 Pulse 94 01/11/25 11:19 Resp 17 01/11/25 11:19 BP 121/75 01/11/25 11:19 Pulse Ox 97 01/11/25 11:19 FiO2 50 01/07/25 16:39 Intake & Output 01/10/25 01/11/25 01/11/25 18:59 06:59 18:59 Intake Total 240 Output Total 200 Balance 40 Weight 90.2 kg Intake: Oral 240 Output: Urine 200 Other: Voiding Method Toilet Toilet # Voids 1 2 # Bowel Movements 2 ABP, PAP, CO, CI - Last Documented Arterial Blood Pressure 94/40 Pulmonary Artery Pressure 42/14 Cardiac Output 5.4 Cardiac Index 2.7 - Labs CBC & Chem 7: 01/11/25 05:50 01/11/25 05:50 Labs: Abnormal Lab Results - Last 24 Hours (Table) 01/10/25 01/10/25 01/11/25 Range/Units 16:19 19:54 05:49 RBC (4.40-5.60) 10*6/uL Hgb (13.0-17.0) g/dL Hct (39.6-50.0) % Sodium (137-145) mmol/L BUN (9-20) mg/dL Glucose (74-99) mg/dL POC Glucose (mg/dL) 191 H 266 H 232 H (70-110) mg/dL 01/11/25 01/11/25 Range/Units 05:50 05:50 RBC 2.70 L (4.40-5.60) 10*6/uL Hgb 8.5 L (13.0-17.0) g/dL Hct 25.8 L (39.6-50.0) % Sodium 134 L (137-145) mmol/L BUN 23 H (9-20) mg/dL Glucose 204 H (74-99) mg/dL POC Glucose (mg/dL) (70-110) mg/dL
[2025-01-11] MEDS: METOPROLOL TARTRATE 25 MG TAB PO SCH (16:45)
[2025-01-11 16:50] LABS: Glucose,Whole Blood 273 mg/dL (70-110)
[2025-01-11 20:09] LABS: Glucose,Whole Blood 209 mg/dL (70-110)
[2025-01-12 05:57] LABS: Glucose,Whole Blood 149 mg/dL (70-110)
--- NOTE | 2025-01-12 06:57 | P.PN ---
Subjective Progress Note Date: 01/11/25 This is a 69-year-old male who was recently admitted with chest pain underwent cardiac catheterization noted to have triple-vessel coronary artery disease recommending CT surgery evaluation. Patient was evaluated by CT surgery underwent further testing and is scheduled to undergo possible tentative CABG today. Patient is currently in the OR and will follow-up once official report is obtained. Patient will be going to ICU once stabilized 01/08/2025 Patient is seen in follow-up this morning status post off-pump CABG x 3 with CAPPS to the LAD currently sitting up in the chair doing relatively well. Heart hugger is noted and patient is maintained on 3 L via nasal cannula. Patient with incentive spirometer at the bedside encouraged to continue using at least 10 times every hour while awake. Patient is continued on telemetry monitoring has bilateral chest tubes and swans catheter along with indwelling Graham catheter. Patient is somewhat fatigued as he just walked today. We will continue to follow with CT surgery during hospitalization. 01/09/2025 Patient is seen in follow-up today out of the ICU doing relatively well on 3 S. Patient has had chest tubes and catheters removed has been up and walking and reports to feeling well. Follow-up chest x-ray pending at this time patient denies any worsening shortness of breath. Patient does have some chest discomfort and a weak cough and has heart hugger noted. Encouraged increase activity as tolerated with continued incentive spirometer use. Patient reports he is not getting very high on the incentive spirometer and reencouraged anatoliy nued use with proper instruction on the purpose of the incentive spirometer. We will continue to follow along with CT surgery during hospitalization. 01/10/2025 Patient is seen in follow-up today with no overnight issues noted. Patient is maintained on quality assurance monitor body on [address] surgery following closely. Patient has been up and walking and reports is working on the incentive spirometer. Blood sugars are controlled and will continue current regimen. Patient is afebrile reports of some chest wall pain has heart hugger noted and is using properly, denies any significant shortness of breath. 01/11/2025 Patient is seen in follow-up today and apparently overnight monitor was noted to be in atrial fibrillation with multiple consultations including cardiology and CT surgery following. Medications adjusted and patient is maintained on oral amiodarone and will be continued on current medications per cardiology. Patient reports to feeling well and currently denies any chest pain or palpitations. Will continue telemetry monitoring and CT surgery discussing possible discharge planning in the next 24 to 48 hours. Patient is medically stable once cleared by cardiothoracic's and cardiology. Review of systems: Constitutional: reports of fatigue, no fever, or chills Cardiovascular: No reports of chest pain or palpitations, reports chest wall pain that is improving Respiratory: reports of shortness of breath with exertion GI: No reports of nausea, vomiting, or diarrhea, not much of an appetite : No reports of dysuria or retention Neurovascular: reports of generalized weakness All medications have been reviewed PHYSICAL EXAMINATION: GENERAL: The patient is alert and oriented x3, Well developed, elderly appearing, currently sitting up in the chair HEENT: Pupils are round and equally reacting to light. EOMI. no scleral icterus. No conjunctival pallor. Normocephalic, atraumatic. No pharyngeal erythema. No thyromegaly. CARDIOVASCULAR: S1 and S2 muffled, heart hugger noted PULMONARY: diminished breath sounds bilaterally with no wheezing or rhonchi noted. ABDOMEN: soft. Obese. Nontender on exam. non-distended, normoactive bowel sounds. No palpable organomegaly. MUSCULOSKELETAL: No joint swelling or deformity. EXTREMITIES: No cyanosis, clubbing, or pedal edema. NEUROLOGICAL: Gross neurological examination did not reveal any focal deficits. Diffusely weak SKIN: No rashes. Assessment: Acute NSTEMI, status post cardiac catheterization and three-vessel coronary artery disease, status post off-pump CABG x 3 with CAPPS to LAD 01/07/2025 Gallbladder sludge and possible chronic cholecystitis per surgery, will need outpatient follow-up with surgery Increased WBC, improved Increased lipase, minimally improved Hyperlipidemia history Hypertension history Diabetes mellitus, type II Continued ongoing nicotine dependence GI prophylaxis DVT prophylaxis Full code Plan: Recommend to continue with current medications and management per CT surgery s ervices. Patient is status post off-pump CABG doing relatively well sitting up in the chair. Patient is doing well with cardiology and pulmonary following as well. Plan is for possible discharge planning in the next 24 to 48 hours. Patient will be going home with home care being arranged Patient has been up and walking multiple times and working with physical therapy doing well Continue to encourage incentive spirometer use at least 10 times every hour while awake Wean FiO2 as tolerated. Patient currently on room air Recommend repeat labs in the a.m. Tight glycemic control and will adjust insulins accordingly as needed We will continue to follow as CT surgery during hospitalization. Thank you kindly for this consultation The impression and plan of care has been dictated by Andra Nelson, nurse practitioner as directed. Dr. Aretha MD I have performed a history and examination and MDM of this patient, discussed the same with the dictator, and agree with the dictator's assessment and plan as written ,documented as a scribe. Based on total visit time, I have performed more than 50% of the visit. Any additional findings or plans will be noted. Objective - Vital Signs Vital signs: Vital Signs Temp 97.5 F L 01/11/25 08:15 Pulse 110 H 01/11/25 08:15 Resp 18 01/11/25 08:15 BP 124/69 01/11/25 08:15 Pulse Ox 98 01/11/25 08:15 FiO2 50 01/07/25 16:39 Intake & Output 01/10/25 01/11/25 01/11/25 18:59 06:59 18:59 Intake Total 240 Output Total 200 Balance 40 Weight 90.2 kg Intake: Oral 240 Output: Urine 200 Other: Voiding Method Toilet Toilet # Voids 1 2 # Bowel Movements 2 ABP, PAP, CO, CI - Last Documented Arterial Blood Pressure 94/40 Pulmonary Artery Pressure 42/14 Cardiac Output 5.4 Cardiac Index 2.7 - Labs CBC & Chem 7: 01/11/25 05:50 01/11/25 05:50 Labs: Abnormal Lab Results - Last 24 Hours (Table) 01/09/25 01/10/25 01/10/25 Range/Units 20:03 11:16 16:19 RBC (4.40-5.60) 10*6/uL Hgb (13.0-17.0) g/dL Hct (39.6-50.0) % Sodium (137-145) mmol/L BUN (9-20) mg/dL Glucose (74-99) mg/dL POC Glucose (mg/dL) 227 H 232 H 191 H (70-110) mg/dL 01/10/25 01/11/25 01/11/25 Range/Units 19:54 05:49 05:50 RBC 2.70 L (4.40-5.60) 10*6/uL Hgb 8.5 L (13.0-17.0) g/dL Hct 25.8 L (39.6-50.0) % Sodium (137-145) mmol/L BUN (9-20) mg/dL Glucose (74-99) mg/dL POC Glucose (mg/dL) 266 H 232 H (70-110) mg/dL 01/11/25 Range/Units 05:50 RBC (4.40-5.60) 10*6/uL Hgb (13.0-17.0) g/dL Hct (39.6-50.0) % Sodium 134 L (137-145) mmol/L BUN 23 H (9-20) mg/dL Glucose 204 H (74-99) mg/dL POC Glucose (mg/dL) (70-110) mg/dL
[2025-01-12 07:28] LABS: HCT 28.4 % (39.6-50.0); HGB 9.5 g/dL (13.0-17.0); MCH 32.2 pg (27.0-32.0); MCHC 33.5 g/dL (32.0-37.0); MCV 96.3 fL (80.0-97.0); Mean Platelet Volume 9.7 fL (9.5-12.2); Platelet Count 335 10*3/uL (140-440); RBC 2.95 10*6/uL (4.40-5.60); RDW 13.6 % (11.5-14.5); WBC 10.57 10*3/uL (4.50-10.00)
[2025-01-12 08:16] LABS: African American GFR (CKD) 70 (>60 ml/min/1.73 sqM); Anion Gap 9 mmol/L; Blood Urea Nitrogen 27 mg/dL (9-20); Carbon Dioxide 23 mmol/L (22-30); Chloride 103 mmol/L (98-107); Glucose 157 mg/dL (74-99); Magnesium 2.1 mg/dL (1.6-2.3); Non-African American GFR(CKD) 60 (>60 ml/min/1.73 sqM); Potassium 4.2 mmol/L (3.5-5.1); Sodium 135 mmol/L (137-145)
[2025-01-12] MEDS: METOPROLOL TARTRATE 50 MG TAB PO SCH (08:24)
[2025-01-12 08:29] VITALS: BP 128/72; PULSE 103; RESP 17; TEMP 97.5
[2025-01-12] MEDS: FUROSEMIDE 20 MG TAB PO STA (08:36)
--- NOTE | 2025-01-12 08:40 | P.PN ---
Subjective Progress Note Date: 01/12/25 Principal diagnosis: Multivessel coronary artery disease, non-ST elevated myocardial infarction this admission, biliary colic. History of chronic cholecystitis, hypertension, hyper lipidemia, diabetes mellitus type 2, chronic ongoing tobacco dependence, hiatal hernia, family history of early onset coronary artery disease POD #5 off-pump CABG x 3 with CAPPS to LAD, saphenous vein graft to obtuse marginal, saphenous vein graft to right coronary artery. Endovascular vein harvest from of left greater saphenous vein from ankle to groin. Ligation of the left atrial appendage with a 35 mm AtriCure clip Postoperative acute blood loss anemia expected given hemodilution Paroxysmal atrial fibrillation, somewhat expected as a known common occurrence after open heart surgery The patient was seen and examined this morning sitting up in recliner on the cardiac stepdown unit in no acute distress eating breakfast. present. States pain is controlled on current medication regimen. Currently in controlled atrial fibrillation with heart rate in the 80s, blood pressure stab le, continues to go in and out of A-fib although mostly with controlled rate, beta-valeriy increased accordingly. Patient states he did ambulate in the hallway yesterday. Remains on room air, able to achieve 1250 mL on incentive spirometry. Chest x-ray, labs reviewed. All patient does get a bit teary-eyed with worry over issues with his daughter, Long discussion had with patient and his regarding the need to focus on his own recovery at this time, patient does verbalize understanding although he does seem to be a bit of a worrywart. No other new concerns. Objective - Vital Signs Vital signs: Vital Signs Temp 97.7 F 01/12/25 04:00 Pulse 88 01/12/25 04:00 Resp 16 01/12/25 04:00 BP 123/68 01/12/25 04:00 Pulse Ox 99 01/12/25 04:00 FiO2 50 01/07/25 16:39 Intake & Output 01/11/25 01/12/25 01/12/25 18:59 06:59 18:59 Intake Total 118 Output Total 300 200 Balance -182 -200 Weight 90.3 kg Intake: Oral 118 Output: Urine 300 200 Other: Voiding Method Toilet Toilet # Voids 1 ABP, PAP, CO, CI - Last Documented Arterial Blood Pressure 94/40 Pulmonary Artery Pressure 42/14 Cardiac Output 5.4 Cardiac Index 2.7 - Exam CONSTITUTIONAL: Appears comfortable, cooperative, no acute distress RESPIRATORY: Lungs sounds diminished in the bases bilaterally. Respirations even, nonlabored. Currently on room air with oxygen saturation 99%. Able to achieve 1250 mL on incentive spirometry. Strong cough. CARDIOVASCULAR: S1, S2 present. Irregular rate and rhythm, controlled atrial fibrillation on telemetry. Sternum stable. Palpable peripheral pulses bilaterally. No edema present. No calf pain or tenderness noted. Heart hugger in place with patient demonstrating appropriate use. Antiembolism stockings, SCDs present. GASTROINTESTINAL: Abdomen soft, nontender, nondistended. Active bowel sounds present 4 quadrants. Tolerating diet. Positive bowel movement 01/11/25 GENITOURINARY: Continues to void INTEGUMENTARY: Skin is warm and dry with evidence of good perfusion. Anterior chest incision well approximated. Left lower extremity EVH site well approximated without redness or drainage. NEUROLOGIC: Cranial nerves II through XII intact MUSKULOSKELETAL: Able to move all extremities, strength equal bilaterally, gait normal PSYCHIATRIC: Alert and oriented to person place and time, appropriate affect, intact judgment and insight - Allied health notes Allied health notes reviewed: nursing - Labs CBC & Chem 7: 01/12/25 06:41 01/12/25 06:41 Labs: Abnormal Lab Results - Last 24 Hours (Table) 01/11/25 01/11/25 01/11/25 Range/Units 11:43 16:48 20:05 WBC (4.50-10.00) 10*3/uL RBC (4.40-5.60) 10*6/uL Hgb (13.0-17.0) g/dL Hct (39.6-50.0) % MCH (27.0-32.0) pg POC Glucose (mg/dL) 262 H 273 H 209 H (70-110) mg/dL 01/12/25 01/12/25 Range/Units 05:56 06:41 WBC 10.57 H (4.50-10.00) 10*3/uL RBC 2.95 L (4.40-5.60) 10*6/uL Hgb 9.5 L (13.0-17.0) g/dL Hct 28.4 L (39.6-50.0) % MCH 32.2 H (27.0-32.0) pg POC Glucose (mg/dL) 149 H (70-110) mg/dL - Imaging and Cardiology Chest x-ray: image reviewed Assessment and Plan Assessment: Multivessel coronary artery disease, non-ST elevated myocardial infarction this admission, status post three-vessel off-pump CABG Biliary colic Chest and abdominal pain secondary to above Postoperative acute blood loss anemia, expected Paroxysmal atrial fibrillation History of hypertension Hyperlipidemia, statin intolerance, on Repatha outpatient, cholesterol 134, LDL 43, triglycerides 299 Diabetes mellitus type 2, hemoglobin A1c 7.6% Chronic cholecystitis Chronic ongoing tobacco dependence, smokes 2 to 3 cigars daily Hiatal hernia Family history of early onset coronary artery disease Plan: Continue to maximize medical therapy with low-dose aspirin, beta-valeriy therapy. Will increase beta-valeriy therapy as tolerated. Statin contraindicated due to anaphylactic allergy. Will add BOBBI/ARB when blood pressu re will allow for afterload reduction Continue amiodarone, Eliquis Encourage incentive spirometry use 10 times every hour while awake. Bronchodilators per pulmonology Increase activity, ambulate as tolerated. PT/OT/cardiac rehab following Will monitor daily labs and x-rays. Electrolyte replacement per protocol, will give oral Lasix today GI/DVT prophylaxis Daily weights Pain control per current medication regimen Insulin management per internal medicine, patient needs tight blood sugar cont rol to promote healing and prevent infection Shower daily Continue to monitor and record strict accurate intake and output Discharge planning in progress, anticipate discharge to home with home care this morning More recommendations to follow as patient progresses
--- NOTE | 2025-01-12 09:28 | XR ---
EXAMINATION TYPE: XR chest 2V DATE OF EXAM: 01/12/2025 7:12 AM COMPARISON: 01/11/2025 CLINICAL INDICATION: Male, 69 years old with history of post open heart, TECHNIQUE: XR chest 2V view(s) obtained. FINDINGS: The heart size is normal. The pulmonary vasculature is normal. There are small bilateral pleural effusions. IMPRESSION: 1. Small bilateral pleural effusions, stable. [facility], , 01/12/2025 9:25 AM
--- NOTE | 2025-01-12 10:03 | P.DS ---
Providers Date of admission: 01/02/25 11:06 Expected date of discharge: 01/12/25 Attending physician: Elliott Hawk Consults: 01/02/25 13:38 Consult Physician Urgent Consulting Provider: Deangelo Blakely Consult Reason/Comments: NSTEMI Do you want consulting provider notified?: Yes 01/03/25 12:06 Consult Physician Routine Consulting Provider: Deshawn Fatima Consult Reason/Comments: cabg triple vessel disease , Type II DM Do you want consulting provider notified?: Yes 01/04/25 14:59 Consult Physician Routine Consulting Provider: Kirby Hinds Consult Reason/Comments: Preop open heart surgery Do you want consulting provider notified?: Already Contacted 01/05/25 10:04 Consult to Anesthesia Routine Consulting Provider: Anesthesia,Services Consult Reason/Comments: Cardiac Surgery Pre-Op 01/07/25 12:46 Consult Physician Routine Consulting Provider: Roxana Blanchard Consult Reason/Comments: insulin managment Do you want consulting provider notified?: Already Contacted Primary care physician: Naida Hendricks[facility] Course: FINAL DIAGNOSIS: Multivessel coronary artery disease, non-ST elevated myocardial infarction this admission Biliary colic Chest and abdominal pain secondary to above Postoperative acute blood loss anemia, expected Paroxysmal atrial fibrillation History of hypertension Hyperlipidemia, statin intolerance, on Repatha outpatient, cholesterol 134, LDL 43, triglycerides 299 Diabetes mellitus type 2, hemoglobin A1c 7.6% Chronic cholecystitis Chronic ongoing tobacco dependence, smokes 2 to 3 cigars daily Hiatal hernia Family history of early onset coronary artery disease PRINCIPAL PROCEDURE: Off-pump CABG x 3 with CAPPS to LAD, saphenous vein graft to obtuse marginal, saphenous vein graft to right coronary artery Endovascular vein harvest from of left greater saphenous vein from ankle to groin Ligation of the left atrial appendage with a 35 mm AtriCure clip HISTORY OF PRESENT ILLNESS: This is a 69-year-old gentleman who follows outpatient with Dr. Hendrickson for primary care. He presented to the emergency department at [facility] with complaints of severe epigastric pain as well as chest pain with pain radiating down both of his upper extremities. He denied any recent fever, chills, nausea, vomiting, diarrhea, constipation, shortness of breath, hemoptysis, hematemesis, headache, palpitations, presyncope or syncope. He did report recent history of being worked up for cholecystitis. A twelve-lead EKG was completed in the emergency department which showed sinus rhythm with a first-degree AV block, heart rate [address] depression in his anterior lateral leads. Initial laboratory results showed WBC count of 14.4, hemoglobin 16.3, hematocrit 49.5, platelets 247, sodium 134, potassium 4.9, chloride 101, CO2 21, BUN 21, creatinine 0.83, glucose 190, calcium 9.9, AST 26, ALT 29, amylase 72, lipase 380, and elevated serial troponins as high as 4.240. An ultrasound of his gallbladder was completed which showed no evidence for acute abdominal process, biliary sludge, and hepatic steatosis. For further evaluation a chest x-ray was completed which showed no acute cardiopulmonary process and COPD changes. He was ruled in for non-STEMI and admitted for evaluation and treatment with consultation placed to cardiology and general surgery. General surgery felt his gallbladder issues were chronic and would take a backseat to his heart. He was recommended to undergo heart catheterization which was completed by Dr. Blakely revealing 90% stenosis to his proximal right coronary artery, mid left anterior descending coronary artery, ostial circumflex coronary artery, and mid obtuse marginal 2 coronary artery. Consultation was placed to Dr. Hawk from cardiothoracic surgery for surgical revascularization recommendations. He was recommended to undergo coronary artery bypass surgery. The usual perioperative course was discussed in detail with the patient and his family, all risks and benefits were explained, all questions were answered, and consent was obtained to proceed with surgery. The patient was kept inpatient due to the nature of his disease process. HOSPITAL COURSE: The patient was brought to the preoperative area 01/07/25, prepared in the usual fashion, and subsequently taken to the operating room where Dr. Hawk performed three-vessel off-pump CABG. Upon completion of the patient was transferred to the cardiovascular intensive care unit where he was recovered and monitored hemodynamically. He was extubated, all lines, tubes, and drips were discontinued when appropriate, and he was transferred to 3 S. cardiac stepdown unit for further monitoring and rehabilitation. He did exhibit paroxysmal atrial fibrillation which was treated with amiodarone and Eliquis. His oxygen was titrated down, he continued to work with physical and occupational therapy, he was tolerating oral diet, his pain was controlled, and he was ready to be discharged to home with [facility] on postoperative day #5. He received written and verbal instruction regarding his medications, activity restrictions, signs and symptoms requiring physician notification, and follow-up appointments. Patient Condition at Discharge: Stable Plan - Discharge Summary Discharge Rx Participant: No New Discharge Prescriptions: New Aspirin 81 mg PO DAILY #30 tab Amiodarone [Cordarone] 400 mg PO BID #36 tab Pantoprazole [Protonix] 40 mg PO AC-BRKFST #30 tab Metoprolol Tartrate [Lopressor] 50 mg PO BID #60 tab Apixaban [Eliquis] 5 mg PO BID #60 tab Sennosides-Docusate Sodium [Senokot-S] 2 each PO HS PRN tab PRN Reason: Constipation Acetaminophen Tab [Tylenol] 650 mg PO Q4HR PRN tab PRN Reason: Fever And/ Or Mild Pain (1-3) traMADol HCl [Ultram] 50 mg PO QID PRN #12 tab PRN Reason: Breakthrough Pain Continue metFORMIN HCL [Glucophage] 1,000 mg PO BID-W/MEALS Pioglitazone [Actos] 45 mg PO DAILY busPIRone HCL 10 mg PO BID Glimepiride [Amaryl] 2 mg PO BID Evolocumab [Repatha Sureclick] 140 mg SQ Q14D Tirzepatide [Mounjaro] 12.5 mg SQ KHAN Discontinued lisinopriL [Zestril] 10 mg PO DAILY atenoloL [Tenormin] 50 mg PO DAILY Discharge Medication List Pioglitazone [Actos] 45 mg PO DAILY 11/30/16 [History] metFORMIN HCL [Glucophage] 1,000 mg PO BID-W/MEALS 11/30/16 [History] Evolocumab [Repatha Sureclick] 140 mg SQ Q14D 01/02/25 [History] Glimepiride [Amaryl] 2 mg PO BID 01/02/25 [History] Tirzepatide [Mounjaro] 12.5 mg SQ KHAN 01/02/25 [History] busPIRone HCL 10 mg PO BID 01/02/25 [History] Acetaminophen Tab [Tylenol] 650 mg PO Q4HR PRN tab 01/11/25 [Rx] Amiodarone [Cordarone] 400 mg PO BID #36 tab 01/11/25 [Rx] Apixaban [Eliquis] 5 mg PO BID #60 tab 01/11/25 [Rx] Aspirin 81 mg PO DAILY #30 tab 01/11/25 [Rx] Pantoprazole [Protonix] 40 mg PO AC-BRKFST #30 tab 01/11/25 [Rx] Sennosides-Docusate Sodium [Senokot-S] 2 each PO HS PRN tab 01/11/25 [Rx] traMADol HCl [Ultram] 50 mg PO QID PRN #12 tab 01/11/25 [Rx] Metoprolol Tartrate [Lopressor] 50 mg PO BID #60 tab 01/12/25 [Rx] Follow up Appointment(s)/Referral(s): Juan Yan MD [STAFF PHYSICIAN] - 02/13/25 10:15 am Deangelo Blakely MD [Medical Doctor] - 01/30/25 4:15 pm () Miri Canales NPC [Nurse Practitioner] - 01/16/25 1:30 pm (You will be seen in the surgeon's office behind the hospital in [facility], [address] [place] [address] [address]. Office phone number is ) Rehab Rola CALVERT,Cardiac [NON-STAFF] - 4 Weeks (You will receive a phone call in approximately 4-6 weeks for evaluation for cardiac rehab) Elliott Hawk MD [STAFF PHYSICIAN] - 02/07/25 2:00 pm Naida Hendrickson MD [Primary Care Provider] - 01/16/25 2:20 pm [facility], [NON-STAFF] - 1-2 Days (You should be seen by home care registered nurse the day after discharge, then 2-3 times per week until you start cardiac rehab. Physical and occupational therapy should visit at least once, may continue to visit if needed) Ambulatory/Diagnostic Orders: Complete Blood Count w/diff [LAB.AMB] Time Frame: 3 Days, Location: None Selected Comprehensive Metabolic Panel [LAB.AMB] Time Frame: 3 Days, Location: None Selected Activity/Diet/Wound Care/Special Instructions: DISCHARGE INSTRUCTIONS: 1. No driving for 4 weeks, or until physician gives their ok. 2. The patient should sleep in their own bed, no medical bed needed. 3. Stairs are not an issue. If the bedroom is upstairs, it is advised that the patient go up at night and down in the morning for the first week. Go slowly, using handrail and take 1 step at a time. 4. ARTURO hose are to be worn for 30 days post surgery or until physician discontinues. 5. Heart hugger is to be worn 100% of the time until physician discontinues.(except when showering) 6. No lifting, pushing, or pulling more than 10 pounds for 12 weeks. The physician will advise of any restriction changes. 7. The patient is expected to continue the prescribed walking program. 8. Continue pain control per as needed orders. 9. Continue with incentive spirometry and splinting/heart hugger until otherwise directed by the physician. 10. Must shower daily using liquid antibacterial soap 11. Routine sternal incision care. No powders, lotions, ointments on incisions. No dressings are necessary on incisions unless they are draining. Dermabond tape is to remain on sternal incision until surgeon follow-up. 12. Please call surgeon/WEAVER DOBBY LOOM for temp greater than 101 F or purulent drainage from incisions. 13. You should weigh yourself daily, record and bring log with you to follow up appointments. 14. All prescriptions given by surgeon for 30 days. Refills need to be filled through crane operator cab/primary care physician. 15. A Red armband has been placed on the patient. It should be worn for 30 days post discharge from surgery and will be removed by the cardiac surgeons. If an ER visit is necessary, please make sure the number on the Red armband is called before going to ER. 16. You have been referred to and are expected to begin Cardiac Rehab in approximately 4-6 weeks. 17. Quitting smoking is the most important step you can take to improve your health. For additional information and assistance to quit smoking, please call the [place] tobacco quit line (3-357-ZMXI-NOW/ ) or online: [email or web address]-qu it-tobacco HOME HEALTH SERVICES TO PROVIDE: RN SKILLED HOME CARE SERVICES FOR POST-OP SURGICAL PATIENTS WITH THE FOLLOWING: Coronary Artery Bypass Surgery (CABG), Mitral Valve Replacement/Repair ( MVR), Aortic Valve Replacement/Repair (AVR) RN TO CONTINUE EDUCATION FROM ``ROAD TO A HEALTH HEART PATIENT EDUCATION MANUAL (GIVEN TO PATIENT IN THE HOSPITAL) MEDICATION RECONCILIATION WITH EDUCATION NEEDED ON FIRST HOME VISIT EMPHASIZE IMPORTANCE OF WEARING BREAST SUPPORT/HEART HUGGER ENCOURAGE USE OF INCENTIVE SPIROMETER 10 X EVERY HOUR WHILE AWAKE ENCOURAGE UTILIZATION OF LOWER EXTREMITY COMPRESSION STOCKINGS/ARTURO HOSE and ELEVATE LEGS ABOVE LEVEL OF HEART WHILE AT REST. ENCOURAGE AMBULATION 3-5x/day INCREASING TOLERATES, WHILE AVOIDING EXTREMES IN TEMPERATURE FREQUENCY: RN TO OPEN THE PATIENT WITHIN 24 HOURS OF DISCHARGE FROM THE HOSPITAL WITH TELEHEALTH INSTALLED AT [facility], RN TO VISIT 2-3 X A WEEK FOR 4 WEEKS ESTABLISHED BY PATIENT NEEDS. LABORATORY: CBC, CMP TO BE DRAWN ON THE THIRD DAY HOME, (RAN STAT) FAX RESULTS TO [phone]. TELEHEALTH PARAMETERS: WEIGHT: NOTIFY MD OF WEIGHT GAIN OF 2 LBS IN 24 HOURS OR 5 LBS IN ONE WEEK HR: NOTIFY MD OF HR <55 BPM OR HR>100 BPM BP: NOTIFY MD IF BP <90/55 OR BP>140/100 O2 SAT: NOTIFY MD IF PO2<93% ON ROOM AIR SEND TELEHEALTH REPORT TO ICE SKATING INSTRUCTOR AND CARDIOVASCULAR SURGEON THE FIRST WEEK OF CARE AND THEN BI-WEEKLY. PLEASE ADDITIONALLY COMMUNICATE ANY ABNORMALS AND NEW FINDINGS TO THE SURGEONS OFFICE. Discharge Disposition: HOME WITH HOME HEALTH SERVICES
--- NOTE | 2025-01-14 22:59 | P.PN ---
Subjective Progress Note Date: 01/12/25 This is a 69-year-old male who was recently admitted with chest pain underwent cardiac catheterization noted to have triple-vessel coronary artery disease recommending CT surgery evaluation. Patient was evaluated by CT surgery underwent further testing and is scheduled to undergo possible tentative CABG t ena. Patient is currently in the OR and will follow-up once official report is obtained. Patient will be going to ICU once stabilized 01/08/2025 Patient is seen in follow-up this morning status post off-pump CABG x 3 with CAPPS to the LAD currently sitting up in the chair doing relatively well. Heart hugger is noted and patient is maintained on 3 L via nasal cannula. Patient with incentive spirometer at the bedside encouraged to continue using at least 10 times every hour while awake. Patient is continued on telemetry monitoring has bilateral chest tubes and swans catheter along with indwelling Graham catheter. Patient is somewhat fatigued as he just walked today. We will continue to follow with CT surgery during hospitalization. 01/09/2025 Patient is seen in follow-up today out of the ICU doing relatively well on 3 S. Patient has had chest tubes and catheters removed has been up and walking and reports to feeling well. Follow-up chest x-ray pending at this time patient denies any worsening shortness of breath. Patient does have some chest discomfort and a weak cough and has heart hugger noted. Encouraged increase activity as tolerated with continued incentive spirometer use. Patient reports he is not getting very high on the incentive spirometer and reencouraged continu ed use with proper instruction on the purpose of the incentive spirometer. We will continue to follow along with CT surgery during hospitalization. 01/10/2025 Patient is seen in follow-up today with no overnight issues noted. Patient is maintained on monogram maker on [address] surgery following closely. Patient has been up and walking and reports is working on the incentive spirometer. Blood sugars are controlled and will continue current regimen. Patient is afebrile reports of some chest wall pain has heart hugger noted and is using properly, denies any significant shortness of breath. 01/11/2025 Patient is seen in follow-up today and apparently overnight monitor was noted to be in atrial fibrillation with multiple consultations including cardiology and CT surgery following. Medications adjusted and patient is maintained on oral amiodarone and will be continued on current medications per cardiology. Patient reports to feeling well and currently denies any chest pain or palpitations. Will continue telemetry monitoring and CT surgery discussing possible discharge planning in the next 24 to 48 hours. Patient is medically stable once cleared by cardiothoracic's and cardiology. 01/12/2025 Patient evaluated in follow-up. He will be discharged home today per cardiot horacic surgery. Chest x-ray this morning reveals small bilateral pleural effusions which are stable in nature. Patient remains in atrial fibrillation with controlled ventricular rate. He has been discharged home on oral amiodarone as well as oral Eliquis. Most recent blood reveals a white blood cell count of 10.57, hemoglobin 9.5, sodium level 135, BUN of 27 creatinine of 1.22. His blood glucose has been fairly well-controlled. Patient is multiple follow-up appointments with CT surgery cardiology pulmonology. Patient to see PCP Dr. Hendrickson and has an appointment scheduled for January 16. Review of systems: Constitutional: reports of fatigue, no fever, or chills Cardiovascular: No reports of chest pain or palpitations, reports chest wall pain that is improving Respiratory: reports of shortness of breath with exertion GI: No reports of nausea, vomiting, or diarrhea, not much of an appetite : No reports of dysuria or retention Neurovascular: reports of generalized weakness All medications have been reviewed PHYSICAL EXAMINATION: GENERAL: The patient is alert and oriented x3, Well developed, elderly appearing, currently sitting up in the chair HEENT: Pupils are round and equally reacting to light. EOMI. no scleral icterus. No conjunctival pallor. Normocephalic, atraumatic. No pharyngeal erythema. No thyromegaly. CARDIOVASCULAR: S1 and S2 muffled, heart hugger noted PULMONARY: diminished breath sounds bilaterally with no wheezing or rhonchi noted. ABDOMEN: soft. Obese. Nontender on exam. non-distended, normoactive bowel sounds. No palpable organomegaly. MUSCULOSKELETAL: No joint swelling or deformity. EXTREMITIES: No cyanosis, clubbing, or pedal edema. NEUROLOGICAL: Gross neurological examination did not reveal any focal deficits. Diffusely weak SKIN: No rashes. Assessment: Acute NSTEMI, status post cardiac catheterization and three-vessel coronary artery disease, status post off-pump CABG x 3 with CAPPS to LAD 01/07/2025 Gallbladder sludge and possible chronic cholecystitis per surgery, will need outpatient follow-up with surgery Increased WBC, improved Increased lipase, minimally improved Hyperlipidemia history Hypertension history Diabetes mellitus, type II Continued ongoing nicotine dependence GI prophylaxis DVT prophylaxis Full code Plan: Recommend to continue with current medications and management per CT surgery services. Patient is status post off-pump CABG doing relatively well sitting up in the chair. Patient is doing well with cardiology and pulmonary following as well. Plan is for possible discharge home today per CT surgery. patient will be going home with home care being arranged Patient has been up and walking multiple times and working with physical therapy doing well Continue to encourage incentive spirometer use at least 10 times every hour while awake Wean FiO2 as tolerated. Patient currently on room air The impression and plan of care has been dictated by Millicent Natarajan, nurse practitioner as directed. Dr. Aretha MD I have performed a history and examination and MDM of this patient, discussed the same with the dictator, and agree with the dictator's assessment and plan as written ,documented as a scribe. Based on total visit time, I have performed more than 50% of the visit. Any additional findings or plans will be noted. Objective - Vital Signs Vital signs: Vital Signs Temp 97.5 F L 01/12/25 08:10 Pulse 103 H 01/12/25 08:10 Resp 17 01/12/25 08:10 BP 128/72 01/12/25 08:10 Pulse Ox 95 01/12/25 08:10 FiO2 50 01/07/25 16:39 ABP, PAP, CO, CI - Last Documented Arterial Blood Pressure 94/40 Pulmonary Artery Pressure 42/14 Cardiac Output 5.4 Cardiac Index 2.7 - Labs CBC & Chem 7: 01/12/25 06:41 01/12/25 06:41 Assessment and Plan Time with Patient: Less than 30
--- NOTE | 2025-01-16 12:00 | CDI ---
Documentation Clarification Form Date: 01/16/2025 11:26:34 AM From: Lore Almeida RN, CCDS Email: [email or web address] Admit Date: 01/02/2025 11:06:00 AM Patient Name: THEO LOPEZ Visit Number: [id number] Discharge Date: 01/12/2025 10:15:00 AM ATTENTION: The Clinical Documentation Specialists (CDI) and [facility] Coding Staff appreciate your assistance in clarifying documentation. Please respond to the clarification below the line at the bottom and electronically sign. The CDI & [facility] Coding staff will review the response and follow-up if needed. Please note: Queries are made part of the Legal Health Record. If you have any questions, please contact the author of this message via ITS. Miri Canales NPC, The patient had pulmonary vascular congestion and was given IV Lasix. Based on this information and the findings below, is there an additional diagnosis that is clinically appropriate for this patient? Patient history/risk factors: DM and hyperlipidemia. Presented with chest pain and found to have NSTEMI and multivessel CAD, s/p off-pump CABG. Clinical Indicators: 01/03 BNP: 525 01/09 CXR: Persistent left greater than right bibasilar acute infiltrates and/or atelectasis with central vascular congestion and small right pleural effusion. 01/09 Pulmonary: "Lungs: equal air entry with faint crackles in the posterior bases. Chest x-ray reveals persistent left greater than right bibasilar acute infiltrates and/or atelectasis with central vascular congestion and a small right pleural effusion." 01/10 Cardiology: "He has received 1 dose of IV Lasix this morning." Treatment: IV Lasix 20mg x1 on 01/10; IV Lasix 20mg x1 on 01/11; Lasix 20mg po x1 on 01/12; supplemental O2 3-2LNC 01/09-01/10 Is there an additional diagnosis that is clinically appropriate for this patient? [ ] Acute Pulmonary Edema [ ] No additional diagnosis/Not clinically significant [ ] Unable to determine [ ] Other, please specify MTDD
== END 2025-01-12 10:15 | disposition home health service (06) | DRG 234 ==
LOC: EDBD → EC 09:47 → 6NMEDSUR 11:05 → OBSVTOIN 11:06 → 6NMEDSUR 12:22 → 3SCARD 14:14 → 2SICU 01-07 06:13 → 3SCARD 01-09 13:13
PROVIDERS: ADMIT Thoracic Surgery (Cardiothoracic Vascular Surgery); ATTEND Thoracic Surgery (Cardiothoracic Vascular Surgery)
PROC: 4A023N7 Measurement of Cardiac Sampling and Pressure, Left Heart, Percutaneous Approach (ICD-10-PCS; 2025-01-03)
PROC: B2111ZZ Fluoroscopy of Multiple Coronary Arteries using Low Osmolar Contrast (ICD-10-PCS; 2025-01-03)
PROC: 06BQ4ZZ Excision of Left Saphenous Vein, Percutaneous Endoscopic Approach (ICD-10-PCS; principal; 2025-01-07 08:00)
PROC: 3E043XZ Introduction of Vasopressor into Central Vein, Percutaneous Approach (ICD-10-PCS; principal; 2025-01-07 08:00)
PROC: 02L70CK Occlusion of Left Atrial Appendage with Extraluminal Device, Open Approach (ICD-10-PCS; principal; 2025-01-07 08:00)
PROC: 3E043RZ Introduction of Antiarrhythmic into Central Vein, Percutaneous Approach (ICD-10-PCS; principal; 2025-01-07 08:00)
PROC: 021109W Bypass Coronary Artery, Two Arteries from Aorta with Autologous Venous Tissue, Open Approach (ICD-10-PCS; principal; 2025-01-07 08:00)
PROC: B246ZZ4 Ultrasonography of Right and Left Heart, Transesophageal (ICD-10-PCS; principal; 2025-01-07 08:00)
PROC: 02100Z9 Bypass Coronary Artery, One Artery from Left Internal Mammary, Open Approach (ICD-10-PCS; principal; 2025-01-07 08:00)
DX: I21.4 Non-ST elevation (NSTEMI) myocardial infarction (principal); D62 Acute posthemorrhagic anemia; I16.0 Hypertensive urgency; J98.11 Atelectasis; K80.10 Calculus of gallbladder with chronic cholecystitis without obstruction; I48.0 Paroxysmal atrial fibrillation; I10 Essential (primary) hypertension; E11.9 Type 2 diabetes mellitus without complications; E66.9 Obesity, unspecified; Z68.30 Body mass index [BMI] 30.0-30.9, adult; I25.10 Atherosclerotic heart disease of native coronary artery without angina pectoris; E78.5 Hyperlipidemia, unspecified; F17.290 Nicotine dependence, other tobacco product, uncomplicated; I44.0 Atrioventricular block, first degree; K44.9 Diaphragmatic hernia without obstruction or gangrene; Z79.84 Long term (current) use of oral hypoglycemic drugs; Z79.85 Long-term (current) use of injectable non-insulin antidiabetic drugs; Z79.899 Other long term (current) drug therapy; Z71.3 Dietary counseling and surveillance; Z88.0 Allergy status to penicillin; Z88.2 Allergy status to sulfonamides; Z88.8 Allergy status to other drugs, medicaments and biological substances
CPT/HCPCS: 36415; 71045; 71046; 71250; 76705; 80048; 80053; 80061; 81003; 82150; 82330; 82805; 83036; 83690; 83735; 83880; 84100; 84443; 84484; 85025; 85027; 85610; 85730; 86850; 86900; 86901; 86920; 87040; 93306; 93458; 93880; 93922; 93970; 94002; 94150; 94640; 94760; 96361; 96365; 96366; 96368; 96375; 99291

== ENCOUNTER → 2025-02-04 | Outpatient (CLI) | payer MEDICARE ==
[2025-02-04 15:01] LABS: HCT 39.4 % (39.6-50.0); HGB 12.3 g/dL (13.0-17.0); MCH 31.3 pg (27.0-32.0); MCHC 31.2 g/dL (32.0-37.0); MCV 100.3 FL (80.0-97.0); Mean Platelet Volume 9.6 FL (9.5-12.2); NRBC Per 100 WBC 0 X 10*3/uL (0.00-0.01); Platelet Count 360 X 10*3/uL (140-440); RBC 3.93 X 10*6/uL (4.40-5.60); RDW 14.6 % (11.5-14.5); WBC 9.46 X 10*3/uL (4.50-10.00)
[2025-02-04 15:39] LABS: ALT 21 U/L (10-49); AST 23 U/L (14-35); Albumin 4.1 g/dL (3.8-4.9); Albumin/Globulin Ratio 1.21 Ratio (1.60-3.17); Alkaline Phosphatase 111 U/L (41-126); BUN/Creat Ratio 17.89 Ratio (12.00-20.00); Blood Urea Nitrogen 16.1 mg/dL (9.0-27.0); Calcium 9.6 mg/dL (8.7-10.3); Carbon Dioxide 19.9 mmol/L (21.6-31.8); Chloride 103 mmol/L (96-109); Chol/HDL Ratio 2.65 Ratio; Globulin 3.4 g/dL (1.6-3.3); Glucose 136 mg/dL (70-110); LDL Cholesterol,Calculated 10.6 mg/dL (0.0-131.0); Potassium 4.4 mmol/L (3.5-5.5); Sodium 138 mmol/L (135-145); Total Bilirubin 0.2 mg/dL (0.3-1.2); Total Protein 7.5 g/dL (6.2-8.2)
[2025-02-04 18:11] LABS: NT-Pro-B-Type Natriuretic Pept 285 pg/mL (0-125)
== END | disposition home or self-care (01) ==
LOC: LABWHC1 08:38
PROVIDERS: ATTEND Student in an Organized Health Care Education/Training Program
DX: Z13.6 Encounter for screening for cardiovascular disorders (principal); D72.9 Disorder of white blood cells, unspecified; I50.9 Heart failure, unspecified; E11.9 Type 2 diabetes mellitus without complications; E78.5 Hyperlipidemia, unspecified; E03.9 Hypothyroidism, unspecified; R79.89 Other specified abnormal findings of blood chemistry
CPT/HCPCS: 36415; 80053; 80061; 83036; 83880; 84443; 85027; 86141